=== PATIENT | female | born 1940 | race American Indian/Alaskan Native ===

== ENCOUNTER 2016-10-07 11:00 | Inpatient (IN) | payer MEDICARE ==
[2016-10-07 12:19] LABS: Basophils % (Auto) 0.5 % (0.0-1.8); Eosinophils % (Auto) 1.3 % (0.0-4.3); Hematocrit 36.2 % (30.3-42.9); Hemoglobin 11.6 gm/dl (10.1-14.3); Mean Corpuscular HGB Conc 32 % (30-34); Mean Corpuscular Hemoglobin 29 pg (28-32); Mean Corpuscular Volume 92 fl (79-97); Platelet Count 273 K/mm3 (140-440); Red Blood Count 3.95 M/mm3 (3.65-5.03); White Blood Count 6.9 K/mm3 (4.5-11.0)
[2016-10-07 12:24] LABS: Red Cell Distribution Width 20.7 % (13.2-15.2)
[2016-10-07 12:37] LABS: BUN/Creatinine Ratio 13.8; Calcium 8.7 mg/dL (8.4-10.2); Chloride 105.4 mmol/L (98-107); Potassium 4.4 mmol/L (3.6-5.0)
--- NOTE | 2016-10-07 13:03 | XRay Report ---
ROUTINE CHEST, TWO VIEWS: HISTORY: Shortness of breath. Compared to 09/11/15. Mild cardiomegaly and mild central pulmonary venous congestion are identified. Trace bilateral pleural effusions are identified on the lateral view. No consolidation or pneumothorax. The bony structures are intact. IMPRESSION: Mild CHF.
[2016-10-07] MEDS ORDERED: LASIX IV ONE (17:33)
[2016-10-07] MEDS ORDERED: BABY ASPIRIN PO ONE (17:34)
--- NOTE | 2016-10-07 17:34 | Emergency Department Report ---
ED Shortness of Breath HPI - General Chief Complaint: Dyspnea/Respdistress Stated Complaint: LEG SWELLING/WHEEZING Time Seen by Provider: 10/07/16 17:26 Source: patient, RN notes reviewed, old records reviewed Mode of arrival: Ambulatory Limitations: Physical Limitation - History of Present Illness Initial Comments: This is a 76-year-old female. She is previously unknown to me. Past medical history includes diabetes, hypertension, renal insufficiency, high cholesterol, stroke Has a history of congestive heart failure with an EF of 50-55%. She reports she does not have a primary care doctor, and she does not have a primary planner. The patient presents to the ER with 1 week of lower extremity swelling, unintentional weight gain, orthopnea, shortness of breath. No pain. The symptoms are constant. There worsen with physical exertion. They decrease with rest. MD Complaint: shortness of breath, cough -: Gradual Severity: moderate Consistency: constant Improves With: oxygen, rest, upright position Worsens With: lying flat, exertion Known History Of: congestive heart failure - Related Data Home Oxygen Therapy: No Home Medications Medication Instructions Recorded Confirmed Last Taken Anastrozole (Nf) [Arimidex (Nf)] 1 mg PO DAILY 05/01/15 10/07/16 10/06/16 Aspirin [Aspirin BABY CHEW TAB] 81 mg PO QDAY 05/01/15 10/07/16 10/07/16 Carvedilol [Coreg] 6.25 mg PO BID 05/01/15 10/07/16 10/06/16 Esomeprazole Magnesium [NexIUM] 40 mg PO QDAY 05/01/15 10/07/16 10/06/16 Insulin NPH/Regular [NovoLIN 70/30] 25 unit SQ HS 05/01/15 10/07/16 10/06/16 Franklin-3 Fatty Acids [Franklin-3] 100 mg PO BID 05/01/15 10/07/16 10/06/16 Rosuvastatin (Nf) [Crestor] 20 mg PO QHS 05/01/15 10/07/16 10/06/16 amLODIPine [Norvasc] 10 mg PO DAILY 05/01/15 10/07/16 10/06/16 Allergies Allergy/AdvReac Type Severity Reaction Status Date / Time No Known Allergies Allergy Verified 10/07/16 11:39 ED Review of Systems ROS: Stated complaint: LEG SWELLING/WHEEZING Other details as noted in HPI Constitutional: malaise, weakness Eyes: denies: vision change ENT: denies: epistaxis Respiratory: shortness of breath, wheezing Cardiovascular: edema Gastrointestinal: denies: abdominal pain Genitourinary: denies: dysuria Musculoskeletal: joint swelling, arthralgia, myalgia Skin: denies: lesions Neurological: weakness ED Past Medical Hx - Past Medical History Previous Medical History?: Yes Hx Hypertension: Yes Hx Heart Attack/AMI: Yes (? [place] PER PT 2012) Hx Congestive Heart Failure: Yes Hx Diabetes: Yes (IDDM) Hx of Cancer: Yes (Left breast) Hx Arthritis: Yes (KNEES) - Surgical History Past Surgical History?: Yes Additional Surgical History: left mastectomy - Social History Smoking Status: Former Smoker Substance Use Type: Prescribed - Medications Home Medications: Home Medications Medication Instructions Recorded Confirmed Last Taken Type Anastrozole (Nf) [Arimidex (Nf)] 1 mg PO DAILY 05/01/15 10/07/16 10/06/16 History Aspirin [Aspirin BABY CHEW TAB] 81 mg PO QDAY 05/01/15 10/07/16 10/07/16 History Carvedilol [Coreg] 6.25 mg PO BID 05/01/15 10/07/16 10/06/16 History Esomeprazole Magnesium [NexIUM] 40 mg PO QDAY 05/01/15 10/07/16 10/06/16 History Insulin NPH/Regular [NovoLIN 70/30] 25 unit SQ HS 05/01/15 10/07/16 10/06/16 History Franklin-3 Fatty Acids [Franklin-3] 100 mg PO BID 05/01/15 10/07/16 10/06/16 History Rosuvastatin (Nf) [Crestor] 20 mg PO QHS 05/01/15 10/07/16 10/06/16 History amLODIPine [Norvasc] 10 mg PO DAILY 05/01/15 10/07/16 10/06/16 History ED Physical Exam - General Limitations: Physical Limitation General appearance: obese - Head Head exam: Present: atraumatic, normocephalic - Eye Eye exam: Present: normal appearance, EOMI - ENT ENT exam: Present: normal exam, normal orophraynx, mucous membranes moist, normal external ear exam - Neck Neck exam: Present: normal inspection, full ROM, other (5 cm of jugular venous distention bilaterally). Absent: tenderness, meningismus - Respiratory Respiratory exam: Present: rales, decreased breath sounds. Absent: respiratory distress - Cardiovascular Cardiovascular Exam: Present: regular rate, normal rhythm, normal heart sounds. Absent: bradycardia, tachycardia, irregular rhythm, systolic murmur, diastolic murmur, rubs, gallop - GI/Abdominal GI/Abdominal exam: Present: soft, normal bowel sounds. Absent: distended, tenderness, guarding, rebound, rigid, pulsatile mass - Extremities Exam Extremities exam: Present: normal inspection, pedal edema, other (there is 3+ pitting edema in the bilateral lower extremities.). Absent: calf tenderness - Back Exam Back exam: Present: normal inspection, full ROM. Absent: tenderness, CVA tenderness (R), CVA tenderness (L), muscle spasm, paraspinal tenderness, vertebral tenderness - Neurological Exam Neurological exam: Present: alert, oriented X3, other (Extraocular movements intact. Tongue midline. No facial droop. Facial sensation intact to light touch in the V1, V2, V3 distribution bilaterally. 5 and 5 strength in 4 extremities.. Sensation is intact to light touch in 4 extremities.). Absent: motor sensory deficit - Psychiatric Psychiatric exam: Present: normal affect, normal mood - Skin Skin exam: Present: warm, dry, intact, normal color. Absent: rash ED Course Vital Signs 10/07/16 10/07/16 10/07/16 11:39 13:51 15:06 Temperature 98.4 F Pulse Rate 88 79 Respiratory 19 23 Rate Blood Pressure 181/71 Blood Pressure [Right] O2 Sat by Pulse 95 95 94 Oximetry 10/07/16 10/07/16 10/07/16 15:10 15:20 15:30 Temperature Pulse Rate 78 77 76 Respiratory 16 21 12 Rate Blood Pressure 182/82 182/82 182/82 Blood Pressure [Right] O2 Sat by Pulse 95 91 89 Oximetry 10/07/16 10/07/16 10/07/16 15:40 15:50 15:56 Temperature 97.8 F Pulse Rate 83 81 80 Respiratory 14 17 Rate Blood Pressure 182/82 204/91 Blood Pressure [Right] O2 Sat by Pulse 94 93 Oximetry 10/07/16 10/07/16 10/07/16 15:57 16:00 16:10 Temperature 97.8 F Pulse Rate 80 81 81 Respiratory 19 18 18 Rate Blood Pressure 190/80 190/83 Blood Pressure 182/82 [Right] O2 Sat by Pulse 95 93 92 Oximetry 10/07/16 10/07/16 10/07/16 16:20 16:30 16:40 Temperature Pulse Rate 84 84 82 Respiratory 20 21 17 Rate Blood Pressure 190/83 190/83 190/83 Blood Pressure [Right] O2 Sat by Pulse 88 93 91 Oximetry 10/07/16 10/07/16 10/07/16 16:50 17:00 17:10 Temperature Pulse Rate 81 81 85 Respiratory 18 19 18 Rate Blood Pressure 190/83 190/83 190/83 Blood Pressure [Right] O2 Sat by Pulse 90 94 95 Oximetry 10/07/16 10/07/16 10/07/16 17:20 17:30 17:40 Temperature Pulse Rate 80 84 84 Respiratory 17 22 16 Rate Blood Pressure 190/83 190/83 190/83 Blood Pressure [Right] O2 Sat by Pulse 97 96 97 Oximetry 10/07/16 10/07/16 10/07/16 17:50 18:00 18:10 Temperature Pulse Rate 81 82 88 Respiratory 17 14 12 Rate Blood Pressure 190/83 190/83 190/83 Blood Pressure [Right] O2 Sat by Pulse 97 98 97 Oximetry 10/07/16 10/07/16 10/07/16 18:20 18:30 18:40 Temperature Pulse Rate 90 87 82 Respiratory 18 18 16 Rate Blood Pressure 190/83 190/83 190/83 Blood Pressure [Right] O2 Sat by Pulse 97 97 97 Oximetry 10/07/16 10/07/16 10/07/16 18:50 19:00 19:10 Temperature Pulse Rate 81 82 84 Respiratory 17 19 15 Rate Blood Pressure 190/83 190/83 190/83 Blood Pressure [Right] O2 Sat by Pulse 96 97 97 Oximetry 10/07/16 10/07/16 10/07/16 19:20 19:30 19:40 Temperature Pulse Rate 81 81 83 Respiratory 17 18 16 Rate Blood Pressure 190/83 190/83 190/83 Blood Pressure [Right] O2 Sat by Pulse 97 97 97 Oximetry 10/07/16 10/07/16 10/07/16 19:50 20:00 20:10 Temperature Pulse Rate 81 79 82 Respiratory 14 20 12 Rate Blood Pressure 190/83 190/83 190/83 Blood Pressure [Right] O2 Sat by Pulse 98 96 96 Oximetry 10/07/16 10/07/16 10/07/16 20:20 20:30 20:40 Temperature Pulse Rate 84 82 82 Respiratory 34 H 18 18 Rate Blood Pressure 190/83 190/83 190/83 Blood Pressure [Right] O2 Sat by Pulse 95 97 96 Oximetry 10/07/16 10/07/16 10/07/16 20:50 21:00 21:31 Temperature 97.9 F Pulse Rate 82 81 80 Respiratory 19 15 18 Rate Blood Pressure 190/83 190/83 Blood Pressure 190/82 [Right] O2 Sat by Pulse 96 98 98 Oximetry - EJ/Peripheral Line Neck R Time Out Performed: Yes Indications: nurses unable to establis Skin Cleansed in Sterile Fashion: Yes Size: 18 Dressing Placed: Tegaderm Patient Tolerated Procedure: well ED Medical Decision Making - Lab Data Result diagrams: 10/08/16 04:55 10/08/16 04:55 Vital Signs 10/07/16 10/07/16 10/07/16 11:39 13:51 15:06 Temperature 98.4 F Pulse Rate 88 79 Respiratory 19 23 Rate Blood Pressure 181/71 Blood Pressure [Right] O2 Sat by Pulse 95 95 94 Oximetry 10/07/16 10/07/16 10/07/16 15:10 15:20 15:30 Temperature Pulse Rate 78 77 76 Respiratory 16 21 12 Rate Blood Pressure 182/82 182/82 182/82 Blood Pressure [Right] O2 Sat by Pulse 95 91 89 Oximetry 10/07/16 10/07/16 10/07/16 15:40 15:50 15:56 Temperature 97.8 F Pulse Rate 83 81 80 Respiratory 14 17 Rate Blood Pressure 182/82 204/91 Blood Pressure [Right] O2 Sat by Pulse 94 93 Oximetry 10/07/16 10/07/16 10/07/16 15:57 16:00 16:10 Temperature 97.8 F Pulse Rate 80 81 81 Respiratory 19 18 18 Rate Blood Pressure 190/80 190/83 Blood Pressure 182/82 [Right] O2 Sat by Pulse 95 93 92 Oximetry 10/07/16 10/07/16 10/07/16 16:20 16:30 16:40 Temperature Pulse Rate 84 84 82 Respiratory 20 21 17 Rate Blood Pressure 190/83 190/83 190/83 Blood Pressure [Right] O2 Sat by Pulse 88 93 91 Oximetry 10/07/16 10/07/16 10/07/16 16:50 17:00 17:10 Temperature Pulse Rate 81 81 85 Respiratory 18 19 18 Rate Blood Pressure 190/83 190/83 190/83 Blood Pressure [Right] O2 Sat by Pulse 90 94 95 Oximetry 10/07/16 10/07/16 10/07/16 17:20 17:30 17:40 Temperature Pulse Rate 80 84 84 Respiratory 17 22 16 Rate Blood Pressure 190/83 190/83 190/83 Blood Pressure [Right] O2 Sat by Pulse 97 96 97 Oximetry 10/07/16 10/07/16 10/07/16 17:50 18:00 18:10 Temperature Pulse Rate 81 82 88 Respiratory 17 14 12 Rate Blood Pressure 190/83 190/83 190/83 Blood Pressure [Right] O2 Sat by Pulse 97 98 97 Oximetry 10/07/16 18:20 Temperature Pulse Rate 90 Respiratory 18 Rate Blood Pressure 190/83 Blood Pressure [Right] O2 Sat by Pulse 97 Oximetry Lab Results 10/07/16 10/07/16 10/07/16 Range/Units 12:06 12:10 12:10 WBC 6.9 (4.5-11.0) K/mm3 RBC 3.95 (3.65-5.03) M/mm3 Hgb 11.6 (10.1-14.3) gm/dl Hct 36.2 (30.3-42.9) % MCV 92 (79-97) fl MCH 29 (28-32) pg MCHC 32 (30-34) % RDW 20.7 H (13.2-15.2) % Plt Count 273 (140-440) K/mm3 Lymph % (Auto) 20.0 (13.4-35.0) % Travis % (Auto) 7.9 H (0.0-7.3) % Eos % (Auto) 1.3 (0.0-4.3) % Baso % (Auto) 0.5 (0.0-1.8) % Lymph # 1.4 (1.2-5.4) K/mm3 Travis # 0.5 (0.0-0.8) K/mm3 Eos # 0.1 (0.0-0.4) K/mm3 Baso # 0.0 (0.0-0.1) K/mm3 Seg Neutrophils % 70.3 H (40.0-70.0) % Seg Neutrophils # 4.8 (1.8-7.7) K/mm3 PT (12.2-14.9) Sec. INR (0.87-1.13) APTT (24.2-36.6) Sec. Sodium 142 (137-145) mmol/L Potassium 4.4 (3.6-5.0) mmol/L Chloride 105.4 (98-107) mmol/L Carbon Dioxide 21 L (22-30) mmol/L Anion Gap 20 mmol/L BUN 29 H (7-17) mg/dL Creatinine 2.1 H (0.7-1.2) mg/dL Estimated GFR 28 ml/min BUN/Creatinine Ratio 13.80 % Glucose 60 L (65-100) mg/dL POC Glucose (70-105) Calcium 8.7 (8.4-10.2) mg/dL Troponin T 0.025 (0.00-0.029) ng/mL NT-Pro-B Natriuret Pep 1842 H (0-900) pg/mL Urine Color (Yellow) Urine Turbidity (Clear) Urine pH (5.0-7.0) Ur Specific [place] (1.003-1.030) Urine Protein (Negative) mg/dL Urine Glucose (UA) (Negative) mg/dL Urine Ketones (Negative) mg/dL Urine Blood (Negative) Urine Nitrite (Negative) Urine Bilirubin (Negative) Urine Urobilinogen (<2.0) mg/dL Ur Leukocyte Esterase (Negative) Urine WBC (Auto) (0.0-6.0) /HPF Urine RBC (Auto) (0.0-6.0) /HPF Amorphous Crystals 10/07/16 10/07/16 10/07/16 Range/Units 17:10 17:30 17:51 WBC (4.5-11.0) K/mm3 RBC (3.65-5.03) M/mm3 Hgb (10.1-14.3) gm/dl Hct (30.3-42.9) % MCV (79-97) fl MCH (28-32) pg MCHC (30-34) % RDW (13.2-15.2) % Plt Count (140-440) K/mm3 Lymph % (Auto) (13.4-35.0) % Travis % (Auto) (0.0-7.3) % Eos % (Auto) (0.0-4.3) % Baso % (Auto) (0.0-1.8) % Lymph # (1.2-5.4) K/mm3 Travis # (0.0-0.8) K/mm3 Eos # (0.0-0.4) K/mm3 Baso # (0.0-0.1) K/mm3 Seg Neutrophils % (40.0-70.0) % Seg Neutrophils # (1.8-7.7) K/mm3 PT 13.9 (12.2-14.9) Sec. INR 1.02 (0.87-1.13) APTT 39.2 H (24.2-36.6) Sec. Sodium (137-145) mmol/L Potassium (3.6-5.0) mmol/L Chloride (98-107) mmol/L Carbon Dioxide (22-30) mmol/L Anion Gap mmol/L BUN (7-17) mg/dL Creatinine (0.7-1.2) mg/dL Estimated GFR ml/min BUN/Creatinine Ratio % Glucose (65-100) mg/dL POC Glucose 61 L (70-105) Calcium (8.4-10.2) mg/dL Troponin T (0.00-0.029) ng/mL NT-Pro-B Natriuret Pep (0-900) pg/mL Urine Color Yellow (Yellow) Urine Turbidity Clear (Clear) Urine pH 5.0 (5.0-7.0) Ur Specific [place] 1.013 (1.003-1.030) Urine Protein >500 (Negative) mg/dL Urine Glucose (UA) Neg (Negative) mg/dL Urine Ketones Neg (Negative) mg/dL Urine Blood Sm (Negative) Urine Nitrite Neg (Negative) Urine Bilirubin Neg (Negative) Urine Urobilinogen < 2.0 (<2.0) mg/dL Ur Leukocyte Esterase Neg (Negative) Urine WBC (Auto) 2.0 (0.0-6.0) /HPF Urine RBC (Auto) 1.0 (0.0-6.0) /HPF Amorphous Crystals Few - EKG Data -: EKG Interpreted by Pr EKG shows normal: sinus rhythm - EKG Data 10/07/16 18:52 Normal sinus, 78 bpm, normal axis, poor R-wave progression, first-degree AV block, Q waves noted in inferior leads, abnormal EKG, not morphologically consistent with STEMI - Radiology Data Radiology results: image reviewed X-ray of the chest demonstrates congestive heart failure - Medical Decision Making Differential diagnosis: Congestive heart failure, pneumonia, cardiorenal syndrome Assessment and plan: 76-year-old female with shortness of breath, crackles, rales, edema, jugular venous distention, hypoxic on room air to 88%, clinical picture consistent with mildly decompensated congestive heart failure. She is saturating well on 2 L. She does not require positive pressure ventilation at this time. She will be given high-dose Lasix. Renal insufficiency appears to be within baseline parameters. Case is presents to the Hospital physician, Dr. Ferreira, who accepts the patient to his service for congestive heart failure. Case is presented to cardiology, Dr. Toshia seo, who agrees with plan of care for management, and indicates his group will follow in consultation. Critical care attestation.: If time is entered above; I have spent that time in minutes in the direct care of this critically ill patient, excluding procedure time. ED Disposition Clinical Impression: Hypertensive cardiovascular-renal disease CHF exacerbation Qualifiers: Congestive heart failure type: combined Qualified Code(s): I50.43 - Acute on chronic combined systolic (congestive) and diastolic (congestive) heart failure Disposition: OP ADMIT IP TO THIS HOSP Is pt being admited?: Yes Does the pt Need Aspirin: Yes Condition: Good
[2016-10-07 17:58] LABS: INR 1.02 (0.87-1.13)
[2016-10-07 17:59] LABS: Partial Thromboplastin Time 39.2 Sec. (24.2-36.6)
[2016-10-07 18:47] LABS: Bilirubin,Urine NEG (Negative); Blood,Urine SM (Negative); Ketones,Urine NEG (Negative); Leukocyte Esterase,Urine NEG (Negative); Nitrite,Urine NEG (Negative); Protein,Urine >500 mg/dL (Negative); Urobilinogen,Urine < 2.0 mg/dL (<2.0)
[2016-10-07] MEDS ORDERED: D50W (25GM) Syringe IV ONE (18:49)
--- NOTE | 2016-10-07 20:45 | History and Physical Report ---
History of Present Illness Date of examination: 10/07/16 Date of admission: 10/07/16 Chief complaint: Increasing SOB for 4 days. History of present illness: History of Present Illness This is a 76-year-old female with past medical history includes diabetes, hypertension, renal insufficiency, high cholesterol, stroke. Has a history of congestive heart failure with an EF of 50-55%.The patient presents to the ER with 1 week of lower extremity swelling, unintentional weight gain, orthopnea, shortness of breath. No pain. The symptoms are constant. There worsen with physical exertion. They decrease with rest. shortness of breath, cough -: Gradual Severity: moderate Consistency: constant Improves With: oxygen, rest, upright position Worsens With: lying flat, exertion Known History Of: congestive heart failure - Home Medications Medication Instructions Recorded Confirmed Last Taken Anastrozole (Nf) [Arimidex (Nf)] 1 mg PO DAILY 05/01/15 09/11/15 Unknown Aspirin [Aspirin BABY CHEW TAB] 81 mg PO QDAY 05/01/15 09/11/15 Unknown Carvedilol [Coreg] 6.25 mg PO BID 05/01/15 09/11/15 Unknown Esomeprazole Magnesium [NexIUM] 40 mg PO QDAY 05/01/15 09/11/15 Unknown Insulin NPH/Regular [NovoLIN 70/30] 25 unit SQ HS 05/01/15 09/11/15 Unknown Lisinopril [Zestril TAB] 40 mg PO QDAY 05/01/15 09/11/15 Unknown [place]-3 Fatty Acids [[place]-3] 100 mg PO DAILY 05/01/15 09/11/15 Unknown Rosuvastatin (Nf) [Crestor] 20 mg PO QHS 05/01/15 09/11/15 Unknown amLODIPine [Norvasc] 10 mg PO DAILY 05/01/15 09/11/15 Unknown Previous Rx's Medication Instructions Recorded Last Taken Type Furosemide [Lasix] 20 mg PO QDAY PRN #20 tablet 09/19/15 Unknown Rx HYDROcodone/APAP 5-325 [[place] 1 each PO Q6HR PRN #20 tablet 09/29/15 Unknown Rx 5-325 mg TAB] Levofloxacin [Levaquin TAB] 500 mg PO QDAY #10 tablet 09/29/15 Unknown Rx Allergies Allergy/AdvReac Type Severity Reaction Status Date / Time No Known Allergies Allergy Verified 10/07/16 11:39 Past Medical History Previous Medical History?: Yes Hx Hypertension: Yes Hx Heart Attack/AMI: Yes (? ND PER PT 2012) Hx Congestive Heart Failure: Yes Hx Diabetes: Yes (IDDM) Hx of Cancer: Yes (Left breast) Hx Arthritis: Yes (KNEES) - Surgical History Past Surgical History?: Yes Additional Surgical History: left mastectomy - Social History Smoking Status: Former Smoker Substance Use Type: Prescribed - Medications Home Medications: Home Medications Medication Instructions Recorded Confirmed Last Taken Type Anastrozole (Nf) [Arimidex (Nf)] 1 mg PO DAILY 05/01/15 09/11/15 Unknown History Aspirin [Aspirin BABY CHEW TAB] 81 mg PO QDAY 05/01/15 09/11/15 Unknown History Carvedilol [Coreg] 6.25 mg PO BID 05/01/15 09/11/15 Unknown History Esomeprazole Magnesium [NexIUM] 40 mg PO QDAY 05/01/15 09/11/15 Unknown History Insulin NPH/Regular [NovoLIN 70/30] 25 unit SQ HS 05/01/15 09/11/15 Unknown History Lisinopril [Zestril TAB] 40 mg PO QDAY 05/01/15 09/11/15 Unknown History [place]-3 Fatty Acids [[place]-3] 100 mg PO DAILY 05/01/15 09/11/15 Unknown History Rosuvastatin (Nf) [Crestor] 20 mg PO QHS 05/01/15 09/11/15 Unknown History amLODIPine [Norvasc] 10 mg PO DAILY 05/01/15 09/11/15 Unknown History Furosemide [Lasix] 20 mg PO QDAY PRN #20 tablet 09/19/15 Unknown Rx HYDROcodone/APAP 5-325 [[place] 1 each PO Q6HR PRN #20 tablet 09/29/15 Unknown Rx 5-325 mg TAB] Levofloxacin [Levaquin TAB] 500 mg PO QDAY #10 tablet 09/29/15 Unknown Rx Medications and Allergies Allergies Allergy/AdvReac Type Severity Reaction Status Date / Time No Known Allergies Allergy Verified 10/07/16 11:39 Home Medications Medication Instructions Recorded Confirmed Last Taken Type Anastrozole (Nf) [Arimidex (Nf)] 1 mg PO DAILY 05/01/15 10/07/16 10/06/16 History Aspirin [Aspirin BABY CHEW TAB] 81 mg PO QDAY 05/01/15 10/07/16 10/07/16 History Carvedilol [Coreg] 6.25 mg PO BID 05/01/15 10/07/16 10/06/16 History Esomeprazole Magnesium [NexIUM] 40 mg PO QDAY 05/01/15 10/07/16 10/06/16 History Insulin NPH/Regular [NovoLIN 70/30] 25 unit SQ HS 05/01/15 10/07/16 10/06/16 History [place]-3 Fatty Acids [[place]-3] 100 mg PO BID 05/01/15 10/07/16 10/06/16 History Rosuvastatin (Nf) [Crestor] 20 mg PO QHS 05/01/15 10/07/16 10/06/16 History amLODIPine [Norvasc] 10 mg PO DAILY 05/01/15 10/07/16 10/06/16 History Exam - Constitutional Vitals: Temp Pulse Resp BP Pulse Ox 97.8 F 90 18 190/83 97 10/07/16 15:57 10/07/16 18:20 10/07/16 18:20 10/07/16 18:20 10/07/16 18:20 General appearance: Present: no acute distress, mild distress, well-nourished - EENT Eyes: Present: PERRL ENT: hearing intact, clear oral mucosa - Neck Neck: Present: supple, normal ROM - Respiratory Respiratory effort: normal Respiratory: bilateral: CTA - Cardiovascular Heart rate: 90 Rhythm: regular Heart Sounds: Present: S1 & S2. Absent: rub, click - Extremities Extremities: no ischemia, pulses intact, pulses symmetrical, No edema Extremity abnormal: edema Peripheral Pulses: within normal limits - Abdominal General gastrointestinal: Present: soft, non-tender, non-distended, normal bowel sounds Female genitourinary: Present: normal - Integumentary Integumentary: Present: clear, warm, dry - Musculoskeletal Musculoskeletal: gait normal, strength equal bilaterally - Psychiatric Psychiatric: appropriate mood/affect, intact judgment & insight - Neurologic Neurologic: CNII-XII intact, moves all extremities - Allied Health Allied health notes reviewed: nursing, case management Results - Labs CBC & Chem 7: 10/07/16 12:06 10/07/16 12:10 Labs: Laboratory Last Values WBC 6.9 K/mm3 (4.5-11.0) 10/07/16 12:06 RBC 3.95 M/mm3 (3.65-5.03) 10/07/16 12:06 Hgb 11.6 gm/dl (10.1-14.3) 10/07/16 12:06 Hct 36.2 % (30.3-42.9) 10/07/16 12:06 MCV 92 fl (79-97) 10/07/16 12:06 MCH 29 pg (28-32) 10/07/16 12:06 MCHC 32 % (30-34) 10/07/16 12:06 RDW 20.7 % (13.2-15.2) H 10/07/16 12:06 Plt Count 273 K/mm3 (140-440) 10/07/16 12:06 Lymph % (Auto) 20.0 % (13.4-35.0) 10/07/16 12:06 [place] % (Auto) 7.9 % (0.0-7.3) H 10/07/16 12:06 Eos % (Auto) 1.3 % (0.0-4.3) 10/07/16 12:06 Baso % (Auto) 0.5 % (0.0-1.8) 10/07/16 12:06 Lymph # 1.4 K/mm3 (1.2-5.4) 10/07/16 12:06 [place] # 0.5 K/mm3 (0.0-0.8) 10/07/16 12:06 Eos # 0.1 K/mm3 (0.0-0.4) 10/07/16 12:06 Baso # 0.0 K/mm3 (0.0-0.1) 10/07/16 12:06 Seg Neutrophils % 70.3 % (40.0-70.0) H 10/07/16 12:06 Seg Neutrophils # 4.8 K/mm3 (1.8-7.7) 10/07/16 12:06 PT 13.9 Sec. (12.2-14.9) 10/07/16 17:30 INR 1.02 (0.87-1.13) 10/07/16 17:30 APTT 39.2 Sec. (24.2-36.6) H 10/07/16 17:30 Sodium 142 mmol/L (137-145) 10/07/16 12:10 Potassium 4.4 mmol/L (3.6-5.0) 10/07/16 12:10 Chloride 105.4 mmol/L (98-107) 10/07/16 12:10 Carbon Dioxide 21 mmol/L (22-30) L 10/07/16 12:10 Anion Gap 20 mmol/L 10/07/16 12:10 BUN 29 mg/dL (7-17) H 10/07/16 12:10 Creatinine 2.1 mg/dL (0.7-1.2) H 10/07/16 12:10 Estimated GFR 28 ml/min 10/07/16 12:10 BUN/Creatinine Ratio 13.80 % 10/07/16 12:10 Glucose 60 mg/dL (65-100) L 10/07/16 12:10 POC Glucose 120 (70-105) H 10/07/16 18:51 Calcium 8.7 mg/dL (8.4-10.2) 10/07/16 12:10 Troponin T 0.025 ng/mL (0.00-0.029) 10/07/16 12:10 NT-Pro-B Natriuret Pep 1842 pg/mL (0-900) H 10/07/16 12:10 Urine Color Yellow (Yellow) 10/07/16 17:51 Urine Turbidity Clear (Clear) 10/07/16 17:51 Urine pH 5.0 (5.0-7.0) 10/07/16 17:51 Ur Specific [place] 1.013 (1.003-1.030) 10/07/16 17:51 Urine Protein >500 mg/dL (Negative) 10/07/16 17:51 Urine Glucose (UA) Neg mg/dL (Negative) 10/07/16 17:51 Urine Ketones Neg mg/dL (Negative) 10/07/16 17:51 Urine Blood Sm (Negative) 10/07/16 17:51 Urine Nitrite Neg (Negative) 10/07/16 17:51 Urine Bilirubin Neg (Negative) 10/07/16 17:51 Urine Urobilinogen < 2.0 mg/dL (<2.0) 10/07/16 17:51 Ur Leukocyte Esterase Neg (Negative) 10/07/16 17:51 Urine WBC (Auto) 2.0 /HPF (0.0-6.0) 10/07/16 17:51 Urine RBC (Auto) 1.0 /HPF (0.0-6.0) 10/07/16 17:51 Amorphous Crystals Few 10/07/16 17:51 Short CBC 10/07/16 Range/Units 12:06 WBC 6.9 (4.5-11.0) K/mm3 Hgb 11.6 (10.1-14.3) gm/dl Hct 36.2 (30.3-42.9) % Plt Count 273 (140-440) K/mm3 BMP 10/07/16 12:10 Sodium 142 Potassium 4.4 Chloride 105.4 Carbon Dioxide 21 L BUN 29 H Creatinine 2.1 H Glucose 60 L Calcium 8.7 Cardiac Enzymes 10/07/16 Range/Units 12:10 Troponin T 0.025 (0.00-0.029) ng/mL Urine 10/07/16 Range/Units 17:51 Urine Color Yellow (Yellow) Urine pH 5.0 (5.0-7.0) Ur Specific [place] 1.013 (1.003-1.030) Urine Protein >500 (Negative) mg/dL Urine Glucose (UA) Neg (Negative) mg/dL - Imaging and Cardiology EKG: report reviewed Chest x-ray: report reviewed Assessment and Plan Advance Directives: Yes (Full code) VTE prophylaxis?: Chemical Plan of care discussed with patient/family: Yes - Patient Problems (1) CHF exacerbation Current Visit: Yes Status: Acute Qualifiers: Congestive heart failure type: combined Qualified Code(s): I50.43 - Acute on chronic combined systolic (congestive) and diastolic (congestive) heart failure Plan to address problem: Laasix 40 q12 Echo ordered Cardiology consult -[facility] (2) RAUL (acute kidney injury) Current Visit: Yes Status: Acute Plan to address problem: Renal consult requested (3) IDDM (insulin dependent diabetes mellitus) Current Visit: Yes Status: Chronic Plan to address problem: A1c ordered Cont home meds and coverage (4) HTN (hypertension) Current Visit: Yes Status: Chronic Qualifiers: Hypertension type: essential hypertension Qualified Code(s): I10 - Essential (primary) hypertension Plan to address problem: Cont Antihypertensives (5) HLD (hyperlipidemia) Current Visit: Yes Status: Chronic Qualifiers: Hyperlipidemia type: mixed hyperlipidemia Qualified Code(s): E78.2 - Mixed hyperlipidemia Plan to address problem: Cont Statins (6) DVT prophylaxis Current Visit: Yes Status: Acute Plan to address problem: On Lovenox
[2016-10-07] MEDS ORDERED: MILK OF MAGNESIA PO PRN (20:48)
[2016-10-07] MEDS ORDERED: D50W (25GM) Syringe IV PRN (20:48)
[2016-10-07] MEDS ORDERED: ZOFRAN IV PRN (20:48)
[2016-10-07] MEDS ORDERED: DILAUDID IV PRN (20:48)
[2016-10-07] MEDS ORDERED: DULCOLAX PR PRN (20:48)
[2016-10-07] MEDS ORDERED: NON-FORMULARY (Anastrozole (Nf) 1 MG) PO SCH (21:00)
[2016-10-07] MEDS ORDERED: NON-FORMULARY (Esomeprazole Magnesium [Nexium] 40 MG) PO SCH (21:00)
[2016-10-07] MEDS: NORVASC PO SCH (22:25)
[2016-10-07] MEDS: COREG PO SCH (22:26)
[2016-10-07] MEDS: PROTONIX PO SCH (22:27)
[2016-10-07] MEDS: K-DUR PO SCH (22:27)
[2016-10-07] MEDS: NOVOLOG SUB-Q SCH (22:30)
[2016-10-08] MEDS: LASIX IV SCH ×2 (06:12→18:14)
[2016-10-08 06:13] LABS: Basophils % (Auto) 0.3 % (0.0-1.8); Hematocrit 33.3 % (30.3-42.9); Hemoglobin 10.8 gm/dl (10.1-14.3); Mean Corpuscular HGB Conc 33 % (30-34); Mean Corpuscular Hemoglobin 30 pg (28-32); Mean Corpuscular Volume 92 fl (79-97); Platelet Count 250 K/mm3 (140-440); Red Blood Count 3.63 M/mm3 (3.65-5.03); White Blood Count 5.7 K/mm3 (4.5-11.0)
[2016-10-08 06:17] LABS: Red Cell Distribution Width 20.7 % (13.2-15.2)
[2016-10-08 06:34] LABS: Albumin 2.9 g/dL (3.9-5); Albumin/Globulin Ratio 0.9 %; BUN/Creatinine Ratio 14.21; Bilirubin,Total 0.2 mg/dL (0.1-1.2); Calcium 8.6 mg/dL (8.4-10.2); Chloride 107.5 mmol/L (98-107); Potassium 4.4 mmol/L (3.6-5.0); Total Protein 6.1 g/dL (6.3-8.2)
[2016-10-08] MEDS: NOVOLOG SUB-Q SCH ×4 (08:56→22:36)
[2016-10-08] MEDS: NORVASC PO SCH (09:00)
[2016-10-08] MEDS: BABY ASPIRIN PO SCH (09:00)
[2016-10-08] MEDS: COREG PO SCH (09:01)
[2016-10-08] MEDS: K-DUR PO SCH ×2 (09:01→22:34)
[2016-10-08] MEDS: LOVENOX SUB-Q SCH (09:01)
[2016-10-08] MEDS: PROTONIX PO SCH (09:01)
--- NOTE | 2016-10-08 09:51 | Consultation ---
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 She has been seen by our group on prior hospitalizations but has not bee compliant with OP follow up. Her PCP is Dr. Brooke. She presented with c/o progressively worsening SOB and BLE edema x 5 days [employer]. She denies any chest pain, palpitations, n/v, diaphoresis, dizziness , or syncope. She is unsure if she has been experiencing orthopnea or PND - she never lies flat in bed at night d/t GERD. Admission CXR showed mild central pulmonary venous congestion, mild cardiomegaly, trace bilateral effusions; pro- BNP 1842; serum Cr 2.1. Of note, echo done 08/2015 showed mild LVH, EF 50-55%, mild-mod MR, mod-severe TR, RVSP 58mmHg. Stress MPI done 09/16/15 showed mod. fixed inferior wall defect, small, mild partially reversible septal and lateral wall defects; medical management was recommended. Past History Past Medical History: cancer (breast), diabetes, heart failure (diastolic), hypertension, hyperlipidemia, stroke Past Surgical History: Other (left mastectomy ) Social history: smoking (former - quit 1988), alcohol abuse (former - quit 1988) . denies: prescription drug abuse Medications and Allergies Allergies Allergy/AdvReac Type Severity Reaction Status Date / Time No Known Allergies Allergy Verified 10/07/16 11:39 Home Medications Medication Instructions Recorded Confirmed Last Taken Type Anastrozole (Nf) [Arimidex (Nf)] 1 mg PO DAILY 05/01/15 10/07/16 10/06/16 History Aspirin [Aspirin BABY CHEW TAB] 81 mg PO QDAY 05/01/15 10/07/16 10/07/16 History Carvedilol [Coreg] 6.25 mg PO BID 05/01/15 10/07/16 10/06/16 History Esomeprazole Magnesium [NexIUM] 40 mg PO QDAY 05/01/15 10/07/16 10/06/16 History Insulin NPH/Regular [NovoLIN 70/30] 25 unit SQ HS 05/01/15 10/07/16 10/06/16 History [place]-3 Fatty Acids [[place]-3] 100 mg PO BID 05/01/15 10/07/16 10/06/16 History Rosuvastatin (Nf) [Crestor] 20 mg PO QHS 05/01/15 10/07/16 10/06/16 History amLODIPine [Norvasc] 10 mg PO DAILY 05/01/15 10/07/16 10/06/16 History Active Meds: Active Medications Acetaminophen (Tylenol) 650 mg PO Q4H PRN PRN Reason: Pain MILD(1-3)/Fever >100.5/BONILLA Amlodipine Besylate (Norvasc) 10 mg PO DAILY [facility] Last Admin: 10/08/16 09:00 Dose: 10 mg Aspirin (Baby Aspirin) 81 mg PO QDAY [facility] Last Admin: 10/08/16 09:00 Dose: 81 mg Bisacodyl (Dulcolax) 10 mg [place] QDAY PRN PRN Reason: Constipation unrelieved by MOM Carvedilol (Coreg) 6.25 mg PO BID [facility] Last Admin: 10/08/16 09:01 Dose: 6.25 mg Dextrose (D50w (25gm)) 50 ml IV PRN PRN PRN Reason: Hypoglycemia Enoxaparin Sodium (Lovenox) 30 mg SUB-Q QDAY [facility] Last Admin: 10/08/16 09:01 Dose: 30 mg Furosemide (Lasix) 40 mg IV 0600,1800 [facility] Last Admin: 10/08/16 06:12 Dose: 40 mg Hydromorphone HCl (Dilaudid) 0.5 mg IV Q3H PRN PRN Reason: Pain , Severe (7-10) Insulin Aspart (Novolog) 0 units SUB-Q [facility] PRN Reason: Protocol Last Admin: 10/08/16 08:56 Dose: Not Given Insulin Human Isoph/Insulin Regular (Novolin 70/30) 25 unit SUB-Q [facility] Last Admin: 10/07/16 22:31 Dose: Not Given Magnesium Hydroxide (Milk Of Magnesia) 30 ml PO Q4H PRN PRN Reason: Constipation Miscellaneous Medication (Anastrozole (Nf)) 1 mg PO DAILY [facility] Ondansetron HCl (Zofran) 4 mg IV Q8H PRN PRN Reason: N/V unrelieved by Reglan Pantoprazole Sodium (Protonix) 40 mg PO DAILY [facility] Last Admin: 10/08/16 09:01 Dose: 40 mg Potassium Chloride (K-Dur) 20 meq PO Q12HR [facility] Last Admin: 10/08/16 09:01 Dose: 20 meq Review of Systems Constitutional: no weight loss, no weight gain, no fever, no chills, no sweats Ears, nose, mouth and throat: no ear pain, no nose pain, no sinus pressure, no sinus pain Cardiovascular: shortness of breath, dyspnea on exertion, leg edema, no chest pain, no palpitations, no rapid/irregular heart beat, no lightheadedness Respiratory: shortness of breath, dyspnea on exertion, wheezing, no cough, no congestion, no pain on inspiration Gastrointestinal: no abdominal pain, no nausea, no vomiting, no diarrhea, no constipation, no change in bowel habits Genitourinary Female: no pelvic pain, no flank pain, no dysuria, no urinary frequency, no urgency Musculoskeletal: no neck stiffness, no neck pain, no shooting arm pain, no arm numbness/tingling, no low back pain, no shooting leg pain, no leg numbness/ tingling, no redness of joints Integumentary: no rash, no pruritis, no redness, no sores, no wounds Neurological: no head injury, no paralysis, no weakness, no parathesias, no numbness, no tingling, no seizures, no syncope Psychiatric: no anxiety Endocrine: no cold intolerance, no heat intolerance Hematologic/Lymphatic: no easy bruising, no easy bleeding, no lymphadenopathy Allergic/Immunologic: no urticaria, no wheezing, no persistent infections Physical Examination Vital Signs Temp Pulse BP Pulse Ox 98.4 F 88 181/71 95 10/07/16 11:39 10/07/16 11:39 10/07/16 11:39 10/07/16 11:39 General appearance: no acute distress HEENT: Positive: PERRL, Normocephaly, Mucus Membranes Moist Neck: Positive: neck supple, trachea midline Cardiac: Positive: Reg Rate and Rhythm, S1/S2, Systolic Murmur (grade II/) Lungs: Positive: Rales (bilaterally ) Neuro: Positive: Grossly Intact, Cranial Nerve 2-12 Intact Abdomen: Positive: Unremarkable, Soft, Active Bowel Sounds. Negative: Tender Skin: Positive: Clear. Negative: Rash, Wound Musculoskeletal: No Pain, Normal Range of Motion Extremities: Present: +2 Edema (BLE pitting ) Results 10/08/16 04:55 10/08/16 04:55 Cardiac Enzymes 10/08/16 Range/Units 04:55 AST 14 (5-40) units/L CBC 10/08/16 Range/Units 04:55 WBC 5.7 (4.5-11.0) K/mm3 RBC 3.63 L (3.65-5.03) M/mm3 Hgb 10.8 (10.1-14.3) gm/dl Hct 33.3 (30.3-42.9) % Plt Count 250 (140-440) K/mm3 Lymph # 1.1 L (1.2-5.4) K/mm3 [place] # 0.6 (0.0-0.8) K/mm3 Eos # 0.1 (0.0-0.4) K/mm3 Baso # 0.0 (0.0-0.1) K/mm3 Comprehensive Metabolic Panel 10/08/16 Range/Units 04:55 Sodium 145 (137-145) mmol/L Potassium 4.4 (3.6-5.0) mmol/L Chloride 107.5 H (98-107) mmol/L Carbon Dioxide 22 (22-30) mmol/L BUN 27 H (7-17) mg/dL Creatinine 1.9 H (0.7-1.2) mg/dL Glucose 84 (65-100) mg/dL Calcium 8.6 (8.4-10.2) mg/dL AST 14 (5-40) units/L ALT 7 (7-56) units/L Alkaline Phosphatase 82 (35-129) units/L Total Protein 6.1 L (6.3-8.2) g/dL Albumin 2.9 L (3.9-5) g/dL - Imaging and Cardiology Echo: report reviewed (echo done 08/2015 showed mild LVH, EF 50-55%, mild-mod MR , mod-severe TR, RVSP 58mmHg) EKG: pending Assessment and Plan Assessment: Acute diastolic HF CKD - serum Cr appears to be at baseline when compared to admission in 08/2015 HTN HLP DM H/o CVA H/o breast CA, s/p left mastectomy Plan: Obtain 12-lead EKG. F/u echo as last echo was 08/2015. Agree with current cardiac regimen, including diuresis with IV lasix, 40mg BID. Repeat BMP in AM. The patient has been seen in conjunction with Dr. Autumn Leon who agrees with the assessment and plan of care.
[2016-10-08] MEDS ORDERED: NON-FORMULARY (Anastrozole (Nf) 1 MG) PO SCH (10:00)
[2016-10-08] MEDS ORDERED: LOVENOX SUB-Q SCH (10:00)
--- NOTE | 2016-10-08 10:12 | Consultation ---
History of Present Illness - Reason for Consult Consult date: 10/08/16 chronic renal failure - History of Present Illness The patient is a 76 YO AAF with a medical history significant for Diastolic CHF , HTN, HLP, Type 2 DM, CVA, Breast CA s/p left mastectomy in 2012, CKD stage 3 and GERD who presented with one week h/o progressive SOB and bilateral LE edema. She denies any chest pain, diaphoresis, dizziness, syncope, N, V, D, abd pain, fever or rash. Admission CXR showed mild central pulmonary venous congestion, mild cardiomegaly, trace bilateral effusions. 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 Her renal function appears to be at her baseline. Past History Past Medical History: cancer (breast), diabetes, heart failure (diastolic), hypertension, hyperlipidemia, stroke Past Surgical History: Other (left mastectomy ) Social history: smoking (former - quit 1988), alcohol abuse (former - quit 1988) . denies: prescription drug abuse Medications and Allergies Allergies Allergy/AdvReac Type Severity Reaction Status Date / Time No Known Allergies Allergy Verified 10/07/16 11:39 Home Medications Medication Instructions Recorded Confirmed Last Taken Type Anastrozole (Nf) [Arimidex (Nf)] 1 mg PO DAILY 05/01/15 10/07/16 10/06/16 History Aspirin [Aspirin BABY CHEW TAB] 81 mg PO QDAY 05/01/15 10/07/16 10/07/16 History Carvedilol [Coreg] 6.25 mg PO BID 05/01/15 10/07/16 10/06/16 History Esomeprazole Magnesium [NexIUM] 40 mg PO QDAY 05/01/15 10/07/16 10/06/16 History Insulin NPH/Regular [NovoLIN 70/30] 25 unit SQ HS 05/01/15 10/07/16 10/06/16 History [place]-3 Fatty Acids [[place]-3] 100 mg PO BID 05/01/15 10/07/16 10/06/16 History Rosuvastatin (Nf) [Crestor] 20 mg PO QHS 05/01/15 10/07/16 10/06/16 History amLODIPine [Norvasc] 10 mg PO DAILY 05/01/15 10/07/16 10/06/16 History Active Meds: Active Medications Acetaminophen (Tylenol) 650 mg PO Q4H PRN PRN Reason: Pain MILD(1-3)/Fever >100.5/B[place]ILLA Amlodipine Besylate (Norvasc) 10 mg PO DAILY [facility] Last Admin: 10/08/16 09:00 Dose: 10 mg Aspirin (Baby Aspirin) 81 mg PO QDAY [facility] Last Admin: 10/08/16 09:00 Dose: 81 mg Bisacodyl (Dulcolax) 10 mg [place] QDAY PRN PRN Reason: Constipation unrelieved by MOM Carvedilol (Coreg) 6.25 mg PO BID [facility] Last Admin: 10/08/16 09:01 Dose: 6.25 mg Dextrose (D50w (25gm)) 50 ml IV PRN PRN PRN Reason: Hypoglycemia Enoxaparin Sodium (Lovenox) 30 mg SUB-Q QDAY [facility] Last Admin: 10/08/16 09:01 Dose: 30 mg Furosemide (Lasix) 40 mg IV 0600,1800 [facility] Last Admin: 10/08/16 06:12 Dose: 40 mg Hydromorphone HCl (Dilaudid) 0.5 mg IV Q3H PRN PRN Reason: Pain , Severe (7-10) Insulin Aspart (Novolog) 0 units SUB-Q [facility]S [facility] PRN Reason: Protocol Last Admin: 10/08/16 08:56 Dose: Not Given Insulin Human Isoph/Insulin Regular (Novolin 70/30) 25 unit SUB-Q HS [facility] Last Admin: 10/07/16 22:31 Dose: Not Given Magnesium Hydroxide (Milk Of Magnesia) 30 ml PO Q4H PRN PRN Reason: Constipation Miscellaneous Medication (Anastrozole (Nf)) 1 mg PO DAILY [facility] Ondansetron HCl (Zofran) 4 mg IV Q8H PRN PRN Reason: N/V unrelieved by Reglan Pantoprazole Sodium (Protonix) 40 mg PO DAILY [facility] Last Admin: 10/08/16 09:01 Dose: 40 mg Potassium Chloride (K-Dur) 20 meq PO Q12HR [facility] Last Admin: 10/08/16 09:01 Dose: 20 meq Review of Systems Constitutional: no weight loss, no weight gain, no fever, no chills, no anorexia , no weakness Ears, nose, mouth and throat: no sinus pain, no epistaxis Breasts: deferred Cardiovascular: edema, shortness of breath, dyspnea on exertion, high blood pressure, leg edema, no chest pain, no orthopnea, no palpitations, no rapid/ irregular heart beat, no syncope, no lightheadedness Respiratory: wheezing, no cough, no hemoptysis Gastrointestinal: no abdominal pain, no nausea, no vomiting, no diarrhea, no melena, no jaundice Genitourinary Female: no dysuria, no hematuria Rectal: no bleeding Musculoskeletal: no redness of joints Integumentary: no rash, no wounds, no jaundice Neurological: weakness, no seizures, no syncope, no convulsions, no aphasia Psychiatric: no disorientation Hematologic/Lymphatic: no easy bleeding Exam - Vital Signs Vital signs: Vital Signs Temp Pulse BP Pulse Ox 98.4 F 88 181/71 95 10/07/16 11:39 10/07/16 11:39 10/07/16 11:39 10/07/16 11:39 - General Appearance General appearance: well-developed, well-nourished, appears stated age, obese, other (no distress) EENT: ATNC, PERRL, mucous membranes moist, hearing intact Neck: Present: neck supple Respiratory: Clear to Ascultation Heart: regular, S1S2, no murmurs Gastrointestinal: Present: normoactive bowel sounds, obese. Absent: tenderness Integumentary: no rash Neurologic: no asterixis, alert and oriented x3, other (able to move all 4 extremities) Musculoskeletal: Present: other (1+ edema of both LEs noted) Psychiatric: mood/affect appropriate, cooperative Results - Lab Results 10/08/16 04:55 10/08/16 04:55 Most recent lab results Calcium 8.6 mg/dL (8.4-10.2) 10/08/16 04:55 Assessment and Plan - Patient Problems (1) CKD (chronic kidney disease) stage 4, GFR 15-29 ml/min Current Visit: Yes Status: Acute Plan to address problem: Patient with CKD stage 3 approaching stage 4. Likely diabetic nephropathy. Renal function is at her baseline. Renal diet. Meds to be dosed based on GFR. (2) CHF exacerbation Current Visit: Yes Status: Acute Qualifiers: Congestive heart failure type: combined Qualified Code(s): I50.43 - Acute on chronic combined systolic (congestive) and diastolic (congestive) heart failure Plan to address problem: Diuresis. Followed by Cards. (3) Proteinuria Current Visit: Yes Status: Chronic Qualifiers: Proteinuria type: P Isolated proteinuria type: I Trimester: T (4) Hydronephrosis of right kidney Current Visit: Yes Status: Acute Plan to address problem: Will recheck Renal US. (5) HTN (hypertension) Current Visit: Yes Status: Chronic Qualifiers: Hypertension type: essential hypertension Qualified Code(s): I10 - Essential (primary) hypertension Plan to address problem: Monitor BP.
--- NOTE | 2016-10-08 11:21 | Progress Note ---
Assessment and Plan Assessment and plan: This is a 76-year-old female with past medical history includes diabetes, hypertension, renal insufficiency, high cholesterol, stroke. Has a history of congestive heart failure with an EF of 50-55%.The patient presents to the ER with 1 week of lower extremity swelling, unintentional weight gain, orthopnea, shortness of breath and bipedal edema Acute exacerbation of chronic systolic CHF exacerbation Cardiology input appreciated, continued Lasix, follow-up echo Optimize medications Chronic kidney disease Acute kidney injury has been ruled out, creatinine is at her baseline SVT Cardiology input appreciated, does not appear to be A. fib, appears more like Violet, follow-up telemetry, follow-up echo IDDM (insulin dependent diabetes mellitus) Diabetic diet, Accu-Cheks and sliding scale insulin HTN (hypertension) Cont Antihypertensives HLD (hyperlipidemia) Cont Statins DVT prophylaxis On Lovenox History Interval history: Patient still complaining orthopnea or lower extremity swelling, denies chest pain. Hospitalist Physical - Physical exam Narrative exam: General: Patient appears well in no distress HEENT: MMM, EOMI cardiac: S1-S2 heard lungs: Bibasilar crackles abdomen: soft, nontender, nondistended bowel sounds positive extremities: 3+ bipedal edema Skin: no rash or lesion Neuro: no focal deficit Psych: appropriate behavior and mood, cognition intact - Constitutional Vitals: Temp Pulse Resp BP Pulse Ox 98.9 F 70 20 156/69 98 10/08/16 09:42 10/08/16 09:57 10/08/16 09:42 10/08/16 09:42 10/07/16 23:36 General appearance: Present: no acute distress Results - Labs CBC & Chem 7: 10/08/16 04:55 10/08/16 04:55 Labs: Laboratory Last Values WBC 5.7 K/mm3 (4.5-11.0) 10/08/16 04:55 RBC 3.63 M/mm3 (3.65-5.03) L 10/08/16 04:55 Hgb 10.8 gm/dl (10.1-14.3) 10/08/16 04:55 Hct 33.3 % (30.3-42.9) 10/08/16 04:55 MCV 92 fl (79-97) 10/08/16 04:55 MCH 30 pg (28-32) 10/08/16 04:55 MCHC 33 % (30-34) 10/08/16 04:55 RDW 20.7 % (13.2-15.2) H 10/08/16 04:55 Plt Count 250 K/mm3 (140-440) 10/08/16 04:55 Lymph % (Auto) 19.0 % (13.4-35.0) 10/08/16 04:55 [place] % (Auto) 9.8 % (0.0-7.3) H 10/08/16 04:55 Eos % (Auto) 2.0 % (0.0-4.3) 10/08/16 04:55 Baso % (Auto) 0.3 % (0.0-1.8) 10/08/16 04:55 Lymph # 1.1 K/mm3 (1.2-5.4) L 10/08/16 04:55 [place] # 0.6 K/mm3 (0.0-0.8) 10/08/16 04:55 Eos # 0.1 K/mm3 (0.0-0.4) 10/08/16 04:55 Baso # 0.0 K/mm3 (0.0-0.1) 10/08/16 04:55 Seg Neutrophils % 68.9 % (40.0-70.0) 10/08/16 04:55 Seg Neutrophils # 3.9 K/mm3 (1.8-7.7) 10/08/16 04:55 PT 13.9 Sec. (12.2-14.9) 10/07/16 17:30 INR 1.02 (0.87-1.13) 10/07/16 17:30 APTT 39.2 Sec. (24.2-36.6) H 10/07/16 17:30 Sodium 145 mmol/L (137-145) 10/08/16 04:55 Potassium 4.4 mmol/L (3.6-5.0) 10/08/16 04:55 Chloride 107.5 mmol/L (98-107) H 10/08/16 04:55 Carbon Dioxide 22 mmol/L (22-30) 10/08/16 04:55 Anion Gap 20 mmol/L 10/08/16 04:55 BUN 27 mg/dL (7-17) H 10/08/16 04:55 Creatinine 1.9 mg/dL (0.7-1.2) H 10/08/16 04:55 Estimated GFR 31 ml/min 10/08/16 04:55 BUN/Creatinine Ratio 14.21 % 10/08/16 04:55 Glucose 84 mg/dL (65-100) 10/08/16 04:55 POC Glucose 98 (70-105) 10/08/16 07:39 Hemoglobin A1c 4.2 % (4-6) 10/07/16 20:59 Calcium 8.6 mg/dL (8.4-10.2) 10/08/16 04:55 Total Bilirubin 0.20 mg/dL (0.1-1.2) 10/08/16 04:55 AST 14 units/L (5-40) 10/08/16 04:55 ALT 7 units/L (7-56) 10/08/16 04:55 Alkaline Phosphatase 82 units/L (35-129) 10/08/16 04:55 Troponin T 0.025 ng/mL (0.00-0.029) 10/07/16 12:10 NT-Pro-B Natriuret Pep 1842 pg/mL (0-900) H 10/07/16 12:10 Total Protein 6.1 g/dL (6.3-8.2) L 10/08/16 04:55 Albumin 2.9 g/dL (3.9-5) L 10/08/16 04:55 Albumin/Globulin Ratio 0.9 % 10/08/16 04:55 Urine Color Yellow (Yellow) 10/07/16 17:51 Urine Turbidity Clear (Clear) 10/07/16 17:51 Urine pH 5.0 (5.0-7.0) 10/07/16 17:51 Ur Specific [employer] 1.013 (1.003-1.030) 10/07/16 17:51 Urine Protein >500 mg/dL (Negative) 10/07/16 17:51 Urine Glucose (UA) Neg mg/dL (Negative) 10/07/16 17:51 Urine Ketones Neg mg/dL (Negative) 10/07/16 17:51 Urine Blood Sm (Negative) 10/07/16 17:51 Urine Nitrite Neg (Negative) 10/07/16 17:51 Urine Bilirubin Neg (Negative) 10/07/16 17:51 Urine Urobilinogen < 2.0 mg/dL (<2.0) 10/07/16 17:51 Ur Leukocyte Esterase Neg (Negative) 10/07/16 17:51 Urine WBC (Auto) 2.0 /HPF (0.0-6.0) 10/07/16 17:51 Urine RBC (Auto) 1.0 /HPF (0.0-6.0) 10/07/16 17:51 Amorphous Crystals Few 10/07/16 17:51
--- NOTE | 2016-10-08 12:45 | Admit Criteria Form ---
Admission Criteria Documentation: HEART FAILURE: COMMON COMPLICATIONS Clinical Indications for Inpatient Care ([facility]/check or initial the applicable condition/criteria): Ongoing inpatient care may be indicated for heart failure with 1 or more of the following (1)(2)(3)(4)(5)(6)(7)(8): [ ]I. New-onset heart failure [ ]II. Acute cardiac ischemia causing or associated with failure [ ]III. Ongoing need for care for primary condition requiring frequent therapy adjustments because of changes in cardiac function (eg, drug dosage changes for drugs that are renally metabolized) [X ]IV. Complications of heart failure, including 1 or more of the following: [ ]a) Hemodynamic instability [ ]b) Pericardial effusion [ ]c) Symptomatic pleural effusion(16) [ ]d) Hypoxemia [ ]e) Tachypnea [X ]f) Dyspnea [ ]g) Syncope [ ]h) Altered mental status [ ]i) Acute renal insufficiency that is severe (reduction of more than 50% in estimated glomerular filtration rate from baseline) or progressive (reduction of more than 25% in estimated glomerular filtration rate from baseline, with creatinine continuing to rise) [ ]j) Debilitating anasarca (eg tissue breakdown with infection, inability to void due to edema)(E) (17) [ ]k) Clinically significant metabolic abnormalities due to heart failure (e.g., new-onset metabolic acidosis) Extended stay may be needed until ALL of the following are present(1)(3)(18)(41) (55): [ ]a) Hemodynamic stability [ ]b) Stable and effective diuretic regimen established (or patient on stable dialysis regimen if in chronic renal failure) [ ]c) Volume status acceptable on oral medication [ ]d) Breathing comfortably at rest [ ]e) Saturation of arterial oxygen greater than 90% or at acceptable baseline [ ]f) Pulmonary edema absent or improved [ ]g) Peripheral or sacral edema absent or improved [ ]h) Renal function stable and manageable at a lower level of care [ ]i) Complications (e.g., pleural effusion) resolved or manageable at a lower level of care [ ]j) Patient or caregiver has received written discharge instructions or educational material addressing activity level, diet, discharge medications, follow-up appointment, weight monitoring, and what to do if symptoms worsen. (56)(57)(58) The original [facility] [employer] [facility] content created by Toby Griffith has been revised. The portions of the content which have been revised are identified through the use of italic text or in bold, and Toby Griffith has neither reviewed nor approved the modified material.All other unmodified content is copyright [facility] [employer]. Please see references footnoted in the original [facility] edition 2017 Admission Criteria Met: Yes
--- NOTE | 2016-10-08 14:48 | Event Note ---
Date: 10/08/16 Routine EKG done, interpreted as AFib by computer but NOT AFib. EKG suspicious for wenckebach, although only transient and now resolved and pt has been in SR with 1st degree AV block on telemetry, BPs WNL, pt asymptomatic. D/c coreg. Await echo. Cont telemetry. Obtain thyroid panel in AM. Amira COLLAZO NP / DR. ESTUARDO ROGEL
[2016-10-08] MEDS: TYLENOL PO PRN (19:27)
[2016-10-08] MEDS ORDERED: NON-FORMULARY (Rosuvastatin (Nf) 20 MG) PO SCH (22:00)
[2016-10-09] MEDS: LASIX IV SCH ×2 (05:35→18:13)
[2016-10-09 05:36] LABS: BUN/Creatinine Ratio 13.33; Calcium 8.6 mg/dL (8.4-10.2); Chloride 103.7 mmol/L (98-107); Magnesium 1.5 mg/dL (1.7-2.3); Potassium 4.8 mmol/L (3.6-5.0)
[2016-10-09] MEDS: NOVOLOG SUB-Q SCH ×4 (08:36→22:57)
--- NOTE | 2016-10-09 08:39 | Progress Note ---
Assessment and Plan - Patient Problems (1) CKD (chronic kidney disease) stage 4, GFR 15-29 ml/min Current Visit: Yes Status: Acute Plan to address problem: Patient with CKD stage 3 approaching stage 4. Likely diabetic nephropathy. Renal function is fairly stable. Renal diet. Meds to be dosed based on GFR. (2) CHF exacerbation Current Visit: Yes Status: Acute Qualifiers: Congestive heart failure type: combined Qualified Code(s): I50.43 - Acute on chronic combined systolic (congestive) and diastolic (congestive) heart failure Plan to address problem: Diuresis. Followed by Cards. (3) Proteinuria Current Visit: Yes Status: Chronic Qualifiers: Proteinuria type: P Isolated proteinuria type: I Trimester: T (4) Hydronephrosis of right kidney Current Visit: Yes Status: Acute Plan to address problem: Renal US pending. (5) HTN (hypertension) Current Visit: Yes Status: Chronic Qualifiers: Hypertension type: essential hypertension Qualified Code(s): I10 - Essential (primary) hypertension Plan to address problem: Monitor BP. Subjective Date of service: 10/09/16 Interval history: Patient is feeling better. Objective - Vital Signs Vital signs: Vital Signs - 12hr 10/08/16 10/09/16 22:00 06:45 Temperature 99.2 F Pulse Rate 72 69 Respiratory 20 Rate Respiratory 20 Rate [none] Blood Pressure 155/77 O2 Sat by Pulse 97 Oximetry - General Appearance General appearance: well-developed, well-nourished, appears stated age, obese, other (no distress) EENT: ATNC, mucous membranes moist, hearing intact, vision intact Neck: supple Respiratory: Present: Clear to Ascultation Cardiology: regular, S1S2, no murmurs Gastrointestinal: normoactive bowel sounds, no tenderness, obese Integumentary: no rash Neurologic: no focal deficit, no asterixis, alert and oriented x3 Musculoskeletal: other (trace pedal edema) Psychiatric: mood/affect appropriate, cooperative - Lab 10/08/16 04:55 10/09/16 04:48 Most recent lab results Calcium 8.6 mg/dL (8.4-10.2) 10/09/16 04:48 Magnesium 1.50 mg/dL (1.7-2.3) L 10/09/16 04:48
[2016-10-09] MEDS: LOVENOX SUB-Q SCH (11:12)
[2016-10-09] MEDS: NORVASC PO SCH (11:13)
[2016-10-09] MEDS: MAG-OX PO SCH (11:14)
[2016-10-09] MEDS: BABY ASPIRIN PO SCH (11:14)
[2016-10-09] MEDS: K-DUR PO SCH ×2 (11:14→22:20)
[2016-10-09] MEDS: PROTONIX PO SCH (11:15)
--- NOTE | 2016-10-09 12:23 | Progress Note ---
Assessment and Plan Patient seems to be doing better. No significant chest pain or difficulty breathing today. During the night patient appears to have an occasional Wenckebach periods. No significant symptomatic bradycardia noted. Discussed with the family in the room. Acute diastolic HF CKD - serum Cr appears to be at baseline when compared to admission in 08/2015 HTN HLP DM H/o CVA H/o breast CA, s/p left mastectomy - Patient Problems (1) CHF exacerbation Current Visit: Yes Status: Acute Qualifiers: Congestive heart failure type: combined Qualified Code(s): I50.43 - Acute on chronic combined systolic (congestive) and diastolic (congestive) heart failure (2) Hypertensive cardiovascular-renal disease Current Visit: Yes Status: Acute Qualifiers: Hypertensive chronic kidney disease stage: H Heart failure presence: H (3) HLD (hyperlipidemia) Current Visit: Yes Status: Chronic Qualifiers: Hyperlipidemia type: mixed hyperlipidemia Qualified Code(s): E78.2 - Mixed hyperlipidemia (4) HTN (hypertension) Current Visit: Yes Status: Chronic Qualifiers: Hypertension type: essential hypertension Qualified Code(s): I10 - Essential (primary) hypertension Subjective Date of service: 10/09/16 Interval history: Patient is comfortable today. Denies chest pain. Dyspnea has improved. Objective Vital Signs Temp Pulse Resp Resp BP Pulse Ox 10/09/16 11:13 72 165/73 10/09/16 10:00 98.4 F 72 20 165/73 10/09/16 06:45 69 10/08/16 22:00 99.2 F 72 20 20 155/77 97 10/08/16 20:27 20 97 10/08/16 19:27 20 10/08/16 17:47 98 - Physical Examination General: No Apparent Distress HEENT: Positive: PERRL, Normocephaly, Mucus Membranes Moist Neck: Positive: neck supple Cardiac: Positive: Reg Rate and Rhythm Lungs: Positive: clear to auscultation, Other (scattered wheezing present) Neuro: Positive: Grossly Intact, Cranial Nerve 2-12 Intact Abdomen: Positive: Unremarkable, Soft, Active Bowel Sounds. Negative: Tender Skin: Positive: Clear. Negative: Rash, Wound Musculoskeletal: No Pain, Normal Range of Motion Extremities: Present: +2 Edema (BLE pitting ) - Labs and Meds Comprehensive Metabolic Panel 10/09/16 Range/Units 04:48 Sodium 141 (137-145) mmol/L Potassium 4.8 (3.6-5.0) mmol/L Chloride 103.7 (98-107) mmol/L Carbon Dioxide 23 (22-30) mmol/L BUN 28 H (7-17) mg/dL Creatinine 2.1 H (0.7-1.2) mg/dL Glucose 116 H (65-100) mg/dL Calcium 8.6 (8.4-10.2) mg/dL - Imaging and Cardiology EKG: pending Echo: report reviewed (echo done 08/2015 showed mild LVH, EF 50-55%, mild-mod MR , mod-severe TR, RVSP 58mmHg)
--- NOTE | 2016-10-09 12:58 | Progress Note ---
Assessment and Plan Assessment and plan: This is a 76-year-old female with past medical history includes diabetes, hypertension, renal insufficiency, high cholesterol, stroke. Has a history of congestive heart failure with an EF of 50-55%.The patient presents to the ER with 1 week of lower extremity swelling, unintentional weight gain, orthopnea, shortness of breath and bipedal edema Acute exacerbation of chronic diastolic CHF exacerbation/pulmonary venous congestion Cardiology input appreciated, continued Lasix, Echo shows preserved EF Optimize medications Chronic kidney disease Acute kidney injury has been ruled out, creatinine is at her baseline SVT Cardiology input appreciated, does not appear to be A. fib, appears more like Violet, follow-up telemetry Heart rate well controlled at this time Patient may need pacemaker placements, we'll follow up with cardiology about this IDDM (insulin dependent diabetes mellitus) Diabetic diet, Accu-Cheks and sliding scale insulin HTN (hypertension) Cont Antihypertensives HLD (hyperlipidemia) Cont Statins DVT prophylaxis On Lovenox History Interval history: She states that orthopnea or lower extremity edema is much improved, denies chest pain. Hospitalist Physical - Physical exam Narrative exam: General: Patient appears well in no distress HEENT: MMM, EOMI cardiac: S1-S2 heard lungs: Bibasilar crackles abdomen: soft, nontender, nondistended bowel sounds positive extremities: 2+ bipedal edema Skin: no rash or lesion Neuro: no focal deficit Psych: appropriate behavior and mood, cognition intact - Constitutional Vitals: Temp Pulse Resp BP Pulse Ox 98.4 F 72 20 165/73 98 10/09/16 10:00 10/09/16 11:13 10/09/16 10:00 10/09/16 11:13 10/09/16 10:00 General appearance: Present: no acute distress Results - Labs CBC & Chem 7: 10/08/16 04:55 10/09/16 04:48 Labs: Laboratory Last Values WBC 5.7 K/mm3 (4.5-11.0) 10/08/16 04:55 RBC 3.63 M/mm3 (3.65-5.03) L 10/08/16 04:55 Hgb 10.8 gm/dl (10.1-14.3) 10/08/16 04:55 Hct 33.3 % (30.3-42.9) 10/08/16 04:55 MCV 92 fl (79-97) 10/08/16 04:55 MCH 30 pg (28-32) 10/08/16 04:55 MCHC 33 % (30-34) 10/08/16 04:55 RDW 20.7 % (13.2-15.2) H 10/08/16 04:55 Plt Count 250 K/mm3 (140-440) 10/08/16 04:55 Lymph % (Auto) 19.0 % (13.4-35.0) 10/08/16 04:55 [place] % (Auto) 9.8 % (0.0-7.3) H 10/08/16 04:55 Eos % (Auto) 2.0 % (0.0-4.3) 10/08/16 04:55 Baso % (Auto) 0.3 % (0.0-1.8) 10/08/16 04:55 Lymph # 1.1 K/mm3 (1.2-5.4) L 10/08/16 04:55 [place] # 0.6 K/mm3 (0.0-0.8) 10/08/16 04:55 Eos # 0.1 K/mm3 (0.0-0.4) 10/08/16 04:55 Baso # 0.0 K/mm3 (0.0-0.1) 10/08/16 04:55 Seg Neutrophils % 68.9 % (40.0-70.0) 10/08/16 04:55 Seg Neutrophils # 3.9 K/mm3 (1.8-7.7) 10/08/16 04:55 PT 13.9 Sec. (12.2-14.9) 10/07/16 17:30 INR 1.02 (0.87-1.13) 10/07/16 17:30 APTT 39.2 Sec. (24.2-36.6) H 10/07/16 17:30 Sodium 141 mmol/L (137-145) 10/09/16 04:48 Potassium 4.8 mmol/L (3.6-5.0) 10/09/16 04:48 Chloride 103.7 mmol/L (98-107) 10/09/16 04:48 Carbon Dioxide 23 mmol/L (22-30) 10/09/16 04:48 Anion Gap 19 mmol/L 10/09/16 04:48 BUN 28 mg/dL (7-17) H 10/09/16 04:48 Creatinine 2.1 mg/dL (0.7-1.2) H 10/09/16 04:48 Estimated GFR 28 ml/min 10/09/16 04:48 BUN/Creatinine Ratio 13.33 % 10/09/16 04:48 Glucose 116 mg/dL (65-100) H 10/09/16 04:48 POC Glucose 144 (70-105) H 10/09/16 11:41 Hemoglobin A1c 4.2 % (4-6) 10/07/16 20:59 Calcium 8.6 mg/dL (8.4-10.2) 10/09/16 04:48 Magnesium 1.50 mg/dL (1.7-2.3) L 10/09/16 04:48 Total Bilirubin 0.20 mg/dL (0.1-1.2) 10/08/16 04:55 AST 14 units/L (5-40) 10/08/16 04:55 ALT 7 units/L (7-56) 10/08/16 04:55 Alkaline Phosphatase 82 units/L (35-129) 10/08/16 04:55 Troponin T 0.025 ng/mL (0.00-0.029) 10/07/16 12:10 NT-Pro-B Natriuret Pep 1842 pg/mL (0-900) H 10/07/16 12:10 Total Protein 6.1 g/dL (6.3-8.2) L 10/08/16 04:55 Albumin 2.9 g/dL (3.9-5) L 10/08/16 04:55 Albumin/Globulin Ratio 0.9 % 10/08/16 04:55 TSH 4.190 mlU/mL (0.270-4.200) 10/09/16 04:48 Free T4 0.85 ng/dL (0.76-1.46) 10/09/16 04:48 Thyroxine (T4) 6.0 ug/dL (4.0-12.0) 10/09/16 04:48 Urine Color Yellow (Yellow) 10/07/16 17:51 Urine Turbidity Clear (Clear) 10/07/16 17:51 Urine pH 5.0 (5.0-7.0) 10/07/16 17:51 Ur Specific [place] 1.013 (1.003-1.030) 10/07/16 17:51 Urine Protein >500 mg/dL (Negative) 10/07/16 17:51 Urine Glucose (UA) Neg mg/dL (Negative) 10/07/16 17:51 Urine Ketones Neg mg/dL (Negative) 10/07/16 17:51 Urine Blood Sm (Negative) 10/07/16 17:51 Urine Nitrite Neg (Negative) 10/07/16 17:51 Urine Bilirubin Neg (Negative) 10/07/16 17:51 Urine Urobilinogen < 2.0 mg/dL (<2.0) 10/07/16 17:51 Ur Leukocyte Esterase Neg (Negative) 10/07/16 17:51 Urine WBC (Auto) 2.0 /HPF (0.0-6.0) 10/07/16 17:51 Urine RBC (Auto) 1.0 /HPF (0.0-6.0) 10/07/16 17:51 Amorphous Crystals Few 10/07/16 17:51
[2016-10-09] MEDS: TYLENOL PO PRN (20:38)
[2016-10-10 04:51] LABS: BUN/Creatinine Ratio 14.34; Calcium 8.3 mg/dL (8.4-10.2); Chloride 104.9 mmol/L (98-107); Magnesium 1.4 mg/dL (1.7-2.3)
[2016-10-10] MEDS: LASIX IV SCH ×2 (06:46→09:42)
[2016-10-10] MEDS: NOVOLOG SUB-Q SCH ×4 (07:33→21:57)
--- NOTE | 2016-10-10 09:13 | Progress Note ---
Assessment and Plan - Patient Problems (1) CKD (chronic kidney disease) stage 4, GFR 15-29 ml/min Current Visit: Yes Status: Acute Plan to address problem: Patient with CKD stage 3 approaching stage 4. Likely diabetic nephropathy. Renal function is fairly stable. Renal diet. Meds to be dosed based on GFR. Stop potassium supplements. (2) CHF exacerbation Current Visit: Yes Status: Acute Qualifiers: Congestive heart failure type: combined Qualified Code(s): I50.43 - Acute on chronic combined systolic (congestive) and diastolic (congestive) heart failure Plan to address problem: Improving. Followed by Cards. (3) Proteinuria Current Visit: Yes Status: Chronic Qualifiers: Proteinuria type: P Isolated proteinuria type: I Trimester: T (4) Hydronephrosis of right kidney Current Visit: Yes Status: Acute Plan to address problem: Resolved. (5) HTN (hypertension) Current Visit: Yes Status: Chronic Qualifiers: Hypertension type: essential hypertension Qualified Code(s): I10 - Essential (primary) hypertension Plan to address problem: Monitor BP. Subjective Date of service: 10/10/16 Interval history: Patient is feeling better. Objective - Vital Signs Vital signs: Vital Signs - 12hr 10/09/16 10/09/16 10/10/16 21:38 22:00 07:27 Temperature 98.4 F Pulse Rate 77 Pulse Rate [ From Monitor] Respiratory 18 18 Rate Respiratory 20 Rate [none] Blood Pressure 146/82 O2 Sat by Pulse 99 96 Oximetry 10/10/16 08:44 Temperature Pulse Rate Pulse Rate [ 74 From Monitor] Respiratory 18 Rate Respiratory Rate [none] Blood Pressure O2 Sat by Pulse 97 Oximetry - General Appearance General appearance: well-developed, well-nourished, appears stated age, obese, other (no distress) EENT: ATNC, PERRL, mucous membranes moist, hearing intact, vision intact Neck: supple Respiratory: Present: Clear to Ascultation Cardiology: regular, S1S2, no murmurs Gastrointestinal: normoactive bowel sounds, obese (to the finding is also) Integumentary: no rash Neurologic: no focal deficit, no asterixis ( scar is.), alert and oriented x3 ( I don't is), CN 3-12 intact Musculoskeletal: other (trace pedal edema) Psychiatric: mood/affect appropriate, cooperative - Lab 10/08/16 04:55 10/11/16 04:37 Most recent lab results Calcium 8.3 mg/dL (8.4-10.2) L 10/10/16 03:49 Magnesium 1.40 mg/dL (1.7-2.3) L 10/10/16 03:49
--- NOTE | 2016-10-10 09:15 | Progress Note ---
Assessment and Plan Assessment and plan: This is a 76-year-old female with past medical history includes diabetes, hypertension, renal insufficiency, high cholesterol, stroke. Has a history of congestive heart failure with an EF of 50-55%.The patient presents to the ER with 1 week of lower extremity swelling, unintentional weight gain, orthopnea, shortness of breath and bipedal edema Acute exacerbation of chronic diastolic CHF exacerbation/pulmonary venous congestion Cardiology input appreciated, continued Lasix, Echo shows preserved EF Optimize medications Acute hypoxic respiratory failure attempt to wean off oxygen today Chronic kidney disease Acute kidney injury has been ruled out, creatinine is at her baseline SVT Cardiology input appreciated, does not appear to be A. fib, appears more like Violet, follow-up telemetry Heart rate well controlled at this time, no stuart, no tachy, no wide complexes doing well, no further rx or investigation needed, d/w cardiology IDDM (insulin dependent diabetes mellitus) Diabetic diet, Accu-Cheks and sliding scale insulin HTN (hypertension) Cont Antihypertensives HLD (hyperlipidemia) Cont Statins DVT prophylaxis On Lovenox Remove fidel, PT consult, Will need home services vs SNF placement History Interval history: She states that orthopnea or lower extremity edema is much improved, denies chest pain. Hospitalist Physical - Physical exam Narrative exam: General: Patient appears well in no distress HEENT: MMM, EOMI cardiac: S1-S2 heard lungs: Bibasilar crackles abdomen: soft, nontender, nondistended bowel sounds positive extremities: 1+ bipedal edema Skin: no rash or lesion Neuro: no focal deficit Psych: appropriate behavior and mood, cognition intact - Constitutional Vitals: Temp Pulse Resp BP Pulse Ox 98.4 F 74 18 146/82 97 10/09/16 22:00 10/10/16 08:44 10/10/16 08:44 10/09/16 22:00 10/10/16 08:44 General appearance: Present: no acute distress Results - Labs CBC & Chem 7: 10/08/16 04:55 10/11/16 04:37 Labs: Laboratory Last Values WBC 5.7 K/mm3 (4.5-11.0) 10/08/16 04:55 RBC 3.63 M/mm3 (3.65-5.03) L 10/08/16 04:55 Hgb 10.8 gm/dl (10.1-14.3) 10/08/16 04:55 Hct 33.3 % (30.3-42.9) 10/08/16 04:55 MCV 92 fl (79-97) 10/08/16 04:55 MCH 30 pg (28-32) 10/08/16 04:55 MCHC 33 % (30-34) 10/08/16 04:55 RDW 20.7 % (13.2-15.2) H 10/08/16 04:55 Plt Count 250 K/mm3 (140-440) 10/08/16 04:55 Lymph % (Auto) 19.0 % (13.4-35.0) 10/08/16 04:55 Tyler % (Auto) 9.8 % (0.0-7.3) H 10/08/16 04:55 Eos % (Auto) 2.0 % (0.0-4.3) 10/08/16 04:55 Baso % (Auto) 0.3 % (0.0-1.8) 10/08/16 04:55 Lymph # 1.1 K/mm3 (1.2-5.4) L 10/08/16 04:55 Tyler # 0.6 K/mm3 (0.0-0.8) 10/08/16 04:55 Eos # 0.1 K/mm3 (0.0-0.4) 10/08/16 04:55 Baso # 0.0 K/mm3 (0.0-0.1) 10/08/16 04:55 Seg Neutrophils % 68.9 % (40.0-70.0) 10/08/16 04:55 Seg Neutrophils # 3.9 K/mm3 (1.8-7.7) 10/08/16 04:55 PT 13.9 Sec. (12.2-14.9) 10/07/16 17:30 INR 1.02 (0.87-1.13) 10/07/16 17:30 APTT 39.2 Sec. (24.2-36.6) H 10/07/16 17:30 Sodium 142 mmol/L (137-145) 10/10/16 03:49 Potassium 5.0 mmol/L (3.6-5.0) 10/10/16 03:49 Chloride 104.9 mmol/L (98-107) 10/10/16 03:49 Carbon Dioxide 24 mmol/L (22-30) 10/10/16 03:49 Anion Gap 18 mmol/L 10/10/16 03:49 BUN 33 mg/dL (7-17) H 10/10/16 03:49 Creatinine 2.3 mg/dL (0.7-1.2) H 10/10/16 03:49 Estimated GFR 25 ml/min 10/10/16 03:49 BUN/Creatinine Ratio 14.34 % 10/10/16 03:49 Glucose 111 mg/dL (65-100) H 10/10/16 03:49 POC Glucose 126 (70-105) H 10/10/16 07:30 Hemoglobin A1c 4.2 % (4-6) 10/07/16 20:59 Calcium 8.3 mg/dL (8.4-10.2) L 10/10/16 03:49 Magnesium 1.40 mg/dL (1.7-2.3) L 10/10/16 03:49 Total Bilirubin 0.20 mg/dL (0.1-1.2) 10/08/16 04:55 AST 14 units/L (5-40) 10/08/16 04:55 ALT 7 units/L (7-56) 10/08/16 04:55 Alkaline Phosphatase 82 units/L (35-129) 10/08/16 04:55 Troponin T 0.025 ng/mL (0.00-0.029) 10/07/16 12:10 NT-Pro-B Natriuret Pep 1842 pg/mL (0-900) H 10/07/16 12:10 Total Protein 6.1 g/dL (6.3-8.2) L 10/08/16 04:55 Albumin 2.9 g/dL (3.9-5) L 10/08/16 04:55 Albumin/Globulin Ratio 0.9 % 10/08/16 04:55 TSH 4.190 mlU/mL (0.270-4.200) 10/09/16 04:48 Free T4 0.85 ng/dL (0.76-1.46) 10/09/16 04:48 Thyroxine (T4) 6.0 ug/dL (4.0-12.0) 10/09/16 04:48 Urine Color Yellow (Yellow) 10/07/16 17:51 Urine Turbidity Clear (Clear) 10/07/16 17:51 Urine pH 5.0 (5.0-7.0) 10/07/16 17:51 Ur Specific [place] 1.013 (1.003-1.030) 10/07/16 17:51 Urine Protein >500 mg/dL (Negative) 10/07/16 17:51 Urine Glucose (UA) Neg mg/dL (Negative) 10/07/16 17:51 Urine Ketones Neg mg/dL (Negative) 10/07/16 17:51 Urine Blood Sm (Negative) 10/07/16 17:51 Urine Nitrite Neg (Negative) 10/07/16 17:51 Urine Bilirubin Neg (Negative) 10/07/16 17:51 Urine Urobilinogen < 2.0 mg/dL (<2.0) 10/07/16 17:51 Ur Leukocyte Esterase Neg (Negative) 10/07/16 17:51 Urine WBC (Auto) 2.0 /HPF (0.0-6.0) 10/07/16 17:51 Urine RBC (Auto) 1.0 /HPF (0.0-6.0) 10/07/16 17:51 Amorphous Crystals Few 10/07/16 17:51
[2016-10-10] MEDS: LOVENOX SUB-Q SCH (09:42)
[2016-10-10] MEDS: MAG-OX PO SCH (09:48)
[2016-10-10] MEDS: PROTONIX PO SCH (09:48)
[2016-10-10] MEDS: BABY ASPIRIN PO SCH (09:48)
[2016-10-10] MEDS: NORVASC PO SCH (09:48)
--- NOTE | 2016-10-10 12:15 | Progress Note ---
Assessment and Plan Patient seems to be doing better. No significant chest pain or difficulty breathing today. Rhythm strips are reviewed. Patient had no significant stuart arrhythmias. Continues to improve gradually. Discussed with Dr. Workman. Currently no definite indication for pacemaker insertion. We will continue monitoring and following closely along with you. Acute diastolic HF CKD - serum Cr appears to be at baseline when compared to admission in 08/2015 HTN HLP DM H/o CVA H/o breast CA, s/p left mastectomy - Patient Problems (1) CHF exacerbation Current Visit: Yes Status: Acute Qualifiers: Congestive heart failure type: combined Qualified Code(s): I50.43 - Acute on chronic combined systolic (congestive) and diastolic (congestive) heart failure (2) Hypertensive cardiovascular-renal disease Current Visit: Yes Status: Acute Qualifiers: Hypertensive chronic kidney disease stage: H Heart failure presence: H (3) HLD (hyperlipidemia) Current Visit: Yes Status: Chronic Qualifiers: Hyperlipidemia type: mixed hyperlipidemia Qualified Code(s): E78.2 - Mixed hyperlipidemia (4) HTN (hypertension) Current Visit: Yes Status: Chronic Qualifiers: Hypertension type: essential hypertension Qualified Code(s): I10 - Essential (primary) hypertension Subjective Date of service: 10/10/16 Interval history: Patient is comfortable today. Denies chest pain. Dyspnea has improved. Edema is also improving. Objective Vital Signs Temp Pulse Pulse Resp Resp BP Pulse Ox 10/10/16 10:00 74 10/10/16 09:48 74 153/114 10/10/16 09:40 98.4 F 74 20 153/114 10/10/16 08:44 74 18 97 10/10/16 07:27 96 10/09/16 22:00 98.4 F 77 18 20 146/82 99 10/09/16 21:38 18 10/09/16 20:38 22 - Physical Examination General: No Apparent Distress HEENT: Positive: PERRL, Normocephaly, Mucus Membranes Moist Neck: Positive: neck supple Cardiac: Positive: Reg Rate and Rhythm Lungs: Positive: clear to auscultation Neuro: Positive: Grossly Intact, Cranial Nerve 2-12 Intact Abdomen: Positive: Unremarkable, Soft, Active Bowel Sounds. Negative: Tender Skin: Positive: Clear. Negative: Rash, Wound Musculoskeletal: No Pain, Normal Range of Motion Extremities: Present: edema (mild bilateral edema but much improved), +1 Edema, +2 Edema ( ) - Labs and Meds Comprehensive Metabolic Panel 10/10/16 Range/Units 03:49 Sodium 142 (137-145) mmol/L Potassium 5.0 (3.6-5.0) mmol/L Chloride 104.9 (98-107) mmol/L Carbon Dioxide 24 (22-30) mmol/L BUN 33 H (7-17) mg/dL Creatinine 2.3 H (0.7-1.2) mg/dL Glucose 111 H (65-100) mg/dL Calcium 8.3 L (8.4-10.2) mg/dL - Imaging and Cardiology EKG: pending Echo: report reviewed (echo done 08/2015 showed mild LVH, EF 50-55%, mild-mod MR , mod-severe TR, RVSP 58mmHg)
[2016-10-11 05:37] LABS: BUN/Creatinine Ratio 16.19; Calcium 8.7 mg/dL (8.4-10.2); Chloride 103.8 mmol/L (98-107); Magnesium 1.4 mg/dL (1.7-2.3); Potassium 4.9 mmol/L (3.6-5.0)
--- NOTE | 2016-10-11 07:35 | Ultrasound Report ---
ULTRASOUND RENAL BILATERAL HISTORY: Hydronephrosis. TECHNIQUE: transabdominal ultrasound with color Doppler interrogation. FINDINGS: The right kidney measures 10.0 x 5.3 x 4.8cm. Right renal cortex: 1.1cm. The left kidney measures 10.5 x 4.9 x 4.9cm. Left renal cortex: 1.4cm. Both kidneys are normal size but markedly echogenic. There is no evidence for cystic disease, mass, calculus or hydronephrosis. The bladder is decompressed with Lim catheter. IMPRESSION: Echogenic kidneys consistent with severe medical renal disease or acute renal failure. Minimal bilateral hydronephrosis or urinary stasis as resolved since the exam dated 09/12/15.
--- NOTE | 2016-10-11 08:31 | Progress Note ---
Assessment and Plan - Patient Problems (1) CKD (chronic kidney disease) stage 4, GFR 15-29 ml/min Current Visit: Yes Status: Acute Plan to address problem: Patient with CKD stage 3 approaching stage 4. Likely diabetic nephropathy. Renal function is fairly stable. Renal diet. Meds to be dosed based on GFR. Replete Mg. F/u with me in 1-2 weeks. (2) CHF exacerbation Current Visit: Yes Status: Acute Qualifiers: Congestive heart failure type: combined Qualified Code(s): I50.43 - Acute on chronic combined systolic (congestive) and diastolic (congestive) heart failure Plan to address problem: Improving. Followed by Cards. (3) Proteinuria Current Visit: Yes Status: Chronic Qualifiers: Proteinuria type: P Isolated proteinuria type: I Trimester: T (4) Hydronephrosis of right kidney Current Visit: Yes Status: Acute Plan to address problem: Resolved. (5) HTN (hypertension) Current Visit: Yes Status: Chronic Qualifiers: Hypertension type: essential hypertension Qualified Code(s): I10 - Essential (primary) hypertension Subjective Date of service: 10/11/16 Interval history: Patient is feeling better. Objective - Vital Signs Vital signs: Vital Signs - 12hr 10/10/16 10/10/16 21:04 22:00 Temperature 98.8 F Pulse Rate 84 Respiratory 20 Rate Respiratory 20 Rate [none] Blood Pressure 166/87 O2 Sat by Pulse 98 100 Oximetry - General Appearance General appearance: well-developed, well-nourished, appears stated age, obese, other (no distress) EENT: ATNC, PERRL, hearing intact, vision intact Neck: supple Respiratory: Present: Clear to Ascultation Cardiology: regular, S1S2, no murmurs Gastrointestinal: normoactive bowel sounds, no tenderness, obese Integumentary: no rash, chronic venous stasis Neurologic: no focal deficit, no asterixis, CN 3-12 intact Musculoskeletal: other (no edema) Psychiatric: mood/affect appropriate, cooperative - Lab 10/08/16 04:55 10/11/16 04:37 Most recent lab results Calcium 8.7 mg/dL (8.4-10.2) 10/11/16 04:37 Magnesium 1.40 mg/dL (1.7-2.3) L 10/11/16 04:37
[2016-10-11] MEDS: NOVOLOG SUB-Q SCH ×2 (08:56→13:19)
[2016-10-11] MEDS: NORVASC PO SCH (09:46)
[2016-10-11] MEDS: MAG-OX PO SCH (09:46)
[2016-10-11] MEDS: LASIX IV SCH (09:46)
[2016-10-11] MEDS: PROTONIX PO SCH (09:47)
[2016-10-11] MEDS: LOVENOX SUB-Q SCH (09:47)
[2016-10-11] MEDS: BABY ASPIRIN PO SCH (09:47)
--- NOTE | 2016-10-11 10:27 | Discharge Summary ---
Providers - Providers Date of Admission: 10/07/16 20:48 Attending physician: MARY HOWARD MD 10/08/16 06:24 Consult to Physician [CONS] Routine Consulting Provider: ERICK GARCIA Reason For Exam: ARF Place consult to:: Notified:: Phone number called:: [phone] Was contact made?: Yes If yes, spoke with:: Time called:: 08:43 Comment:: ARELY 10/09/16 00:48 Consult to Physician [CONS] Urgent Consulting Provider: CHRISTOPH COWAN Reason For Exam: [facility] Place consult to:: Dr. Aguilar-junior buyer Notified:: Phone Phone number called:: [phone] Was contact made?: Yes If yes, spoke with:: Dr. Edward QUINTANA Time called:: 00:50 Comment:: contact made and orders initiated 10/10/16 10:47 Physical Therapy Evaluation and Treat [CONS] Routine Comment: Reason For Exam: debility Primary care physician: CHRISTOPH COWAN Hospitalization Condition: Good Hospital course: This is a 76-year-old female with past medical history includes diabetes, hypertension, renal insufficiency, high cholesterol, stroke. Has a history of congestive heart failure with an EF of 50-55%.The patient presents to the ER with 1 week of lower extremity swelling, unintentional weight gain, orthopnea, shortness of breath and bipedal edema. She was admitted to the hospital for treatment of CHF exacerbation, she received IV diuretics, she was seen in conjunction with cardiology, her medications were optimized. She did have a few episodes or pauses with type II heart block. However patient did not have any bradycardia, tachycardia, or wide complexes associated with it. Cardiology agreed that it was no further investigation required, that she just needs to be followed up. After being diuresed patient was weaned off oxygen, she clinically improved. She was to have normal glucose despite holding her insulin. Therefore hemoglobin A1c was checked and he was 4.2. Therefore her insulins were discontinued. How she is being sent home with home health. Discharge diagnoses Acute exacerbation of chronic diastolic CHF exacerbation/pulmonary venous congestion Acute hypoxic respiratory failure Chronic kidney disease Second-degree heart block, type II IDDM (insulin dependent diabetes mellitus) HTN (hypertension) HLD (hyperlipidemia) Disposition: [id number]/TX-06 HOME UNDER HOME HLTH Time spent for discharge: 33 minutes Core Measure Documentation - Palliative Care Palliative Care/ Comfort Measures: Not Applicable - Core Measures Any of the following diagnoses?: heart failure - Heart Failure Discharge Requirements MINERVA/ARB for LVSD if EF <40%: Yes Beta manny at discharge: Yes Exam - Constitutional Vitals: Temp Pulse Resp BP Pulse Ox 98.8 F 78 22 165/66 100 10/10/16 22:00 10/11/16 09:56 10/11/16 09:56 10/11/16 09:56 10/11/16 09:56 General appearance: Present: no acute distress, well-nourished - EENT Eyes: Present: PERRL ENT: hearing intact, clear oral mucosa - Neck Neck: Present: supple, normal ROM - Respiratory Respiratory effort: normal Respiratory: bilateral: CTA - Cardiovascular Heart Sounds: Present: S1 & S2. Absent: rub, click - Extremities Extremities: pulses symmetrical, No edema Peripheral Pulses: within normal limits - Abdominal General gastrointestinal: Present: soft, non-tender, non-distended, normal bowel sounds Female genitourinary: Present: normal - Integumentary Integumentary: Present: clear, warm, dry - Musculoskeletal Musculoskeletal: gait normal, strength equal bilaterally - Psychiatric Psychiatric: appropriate mood/affect, intact judgment & insight - Neurologic Neurologic: CNII-XII intact, moves all extremities Plan Follow up with: CHRISTOPH COWAN MD [Primary Care Provider] - 3-5 Days Prescriptions: amLODIPine [Norvasc] 5 mg PO QDAY #30 tablet Aspirin EC [Aspirin Enteric Coated TAB] 81 mg PO QDAY #30 tablet. Furosemide [Lasix TAB] 40 mg PO QDAY #30 tablet
--- NOTE | 2016-10-11 11:25 | Progress Note ---
Assessment and Plan Assessment: Acute diastolic HF - EF 55-60%. Intermittent Wenckebach / 1st degree HB - cont to hold BB. Pt asymptomatic and hemodynamically stable. Currently no definite indication for pacemaker insertion. Thyroid panel WNL. CKD - serum Cr appears to be at baseline when compared to admission in 08/2015 HTN HLP DM H/o CVA H/o breast CA, s/p left mastectomy Plan: Currently stable cardiac status. Convert IV lasix to PO, 40mg daily. Pt may discharge home from cardiology standpoint. Recommend follow up in our office with Elizabeth Cuello NP, within 1-2 weeks of hospital discharge ([phone]). The patient has been seen in conjunction with Dr. Shell who agrees with the assessment and plan of care. - Patient Problems (1) CHF exacerbation Current Visit: Yes Status: Acute Qualifiers: Congestive heart failure type: combined Qualified Code(s): I50.43 - Acute on chronic combined systolic (congestive) and diastolic (congestive) heart failure (2) Hypertensive cardiovascular-renal disease Current Visit: Yes Status: Acute Qualifiers: Hypertensive chronic kidney disease stage: H Heart failure presence: H (3) HLD (hyperlipidemia) Current Visit: Yes Status: Chronic Qualifiers: Hyperlipidemia type: mixed hyperlipidemia Qualified Code(s): E78.2 - Mixed hyperlipidemia (4) HTN (hypertension) Current Visit: Yes Status: Chronic Qualifiers: Hypertension type: essential hypertension Qualified Code(s): I10 - Essential (primary) hypertension Subjective Date of service: 10/11/16 Principal diagnosis: DHF Interval history: Patient resting comfortably in bed. States that her shortness of breath has resolved. Denies any cardiac complaints. States she is ready for discharge. VSS with no stuart arrhythmias noted overnight. Objective Last Vital Signs Temp 98.8 F 10/10/16 22:00 Pulse 78 10/11/16 09:56 Resp 22 10/11/16 09:56 BP 165/66 10/11/16 09:56 Pulse Ox 100 10/11/16 09:56 - Physical Examination General: No Apparent Distress HEENT: Positive: PERRL, Normocephaly, Mucus Membranes Moist Neck: Positive: neck supple Cardiac: Positive: Reg Rate and Rhythm, S1/S2 Lungs: Positive: clear to auscultation Neuro: Positive: Grossly Intact, Cranial Nerve 2-12 Intact Abdomen: Positive: Unremarkable, Soft, Active Bowel Sounds. Negative: Tender Skin: Positive: Clear. Negative: Rash, Wound Musculoskeletal: No Pain, Normal Range of Motion Extremities: Present: edema (mild bilateral edema but much improved), +1 Edema, +2 Edema ( ) - Labs and Meds Comprehensive Metabolic Panel 10/11/16 Range/Units 04:37 Sodium 143 (137-145) mmol/L Potassium 4.9 (3.6-5.0) mmol/L Chloride 103.8 (98-107) mmol/L Carbon Dioxide 27 (22-30) mmol/L BUN 34 H (7-17) mg/dL Creatinine 2.1 H (0.7-1.2) mg/dL Glucose 117 H (65-100) mg/dL Calcium 8.7 (8.4-10.2) mg/dL - Imaging and Cardiology EKG: image reviewed Echo: report reviewed (echo done 08/2015 showed mild LVH, EF 50-55%, mild-mod MR , mod-severe TR, RVSP 58mmHg) - Telemetry EKG Rhythm: 1st Degree HB
[2016-10-11 12:05] VITALS: BP 159/57
[2016-10-11] MEDS ORDERED: MAGNESIUM SULFATE 1 GM in NACL 0.9% 50 ML IV ONE (13:00)
[2016-10-11] MEDS ORDERED: MAG-OX PO SCH (22:00)
[2016-10-12] MEDS ORDERED: LASIX PO SCH (06:00)
== END 2016-10-11 16:20 | disposition home health service (06) | DRG 291 ==
LOC: ED 11:00 → CC2 20:48
PROVIDERS: ADMIT Internal Medicine; ATTEND Internal Medicine
DX: I13.0 Hypertensive heart and chronic kidney disease with heart failure and stage 1 through stage 4 chronic kidney disease, or unspecified chronic kidney disease (principal); I50.43 Acute on chronic combined systolic (congestive) and diastolic (congestive) heart failure; J96.01 Acute respiratory failure with hypoxia; N17.9 Acute kidney failure, unspecified; N18.4 Chronic kidney disease, stage 4 (severe); N13.30 Unspecified hydronephrosis; I47.1 Supraventricular tachycardia; M19.90 Unspecified osteoarthritis, unspecified site; E78.2 Mixed hyperlipidemia; F10.10 Alcohol abuse, uncomplicated; K21.9 Gastro-esophageal reflux disease without esophagitis; R80.9 Proteinuria, unspecified; E11.22 Type 2 diabetes mellitus with diabetic chronic kidney disease; I44.1 Atrioventricular block, second degree; Z86.73 Personal history of transient ischemic attack (TIA), and cerebral infarction without residual deficits; Z85.3 Personal history of malignant neoplasm of breast; Z87.891 Personal history of nicotine dependence; Z90.12 Acquired absence of left breast and nipple
CPT/HCPCS: 36415; 71020; 76770; 80048; 80053; 81001; 82962; 83036; 83735; 83880; 84436; 84439; 84443; 84484; 85025; 85610; 85730; 87086; 93005; 93010; 93306; 94760; 96374; A9270-GY; J1650; J1815; J1940; J3475

== ENCOUNTER 2018-05-02 10:50 | Inpatient (IN) | payer MEDICARE ==
--- NOTE | 2018-05-02 11:20 | Emergency Department Report ---
ED Shortness of Breath HPI - General Chief Complaint: Dyspnea/Respdistress Stated Complaint: JOSIAH Time Seen by Provider: 05/02/18 11:04 Source: patient, RN notes reviewed, old records reviewed Mode of arrival: Wheelchair Limitations: No Limitations - History of Present Illness Initial Comments: Primary care DrJudy: Mendy Pathology: Dr. Avitia Cardiology: [facility] Hematology: Dr Glory Christine/ Dr Zapata This is a pleasant 77-year-old female, not known to this provider previously, with a past medical history of anemia of chronic renal disease, chronic renal insufficiency, history of breast cancer, reported congestive heart failure with ejection fraction of 50-55% The patient presents to the emergency room with a complaint of painless shortness of breath for the past few days. She endorses unintentional weight gain, lower extremity swelling. She denies headache, neck pain, chest pain, abdominal pain. The patient endorses unintentional weight gain, pain was bilateral lower extremity swelling, and reports medication compliance and denies dietary indiscretions. Symptoms constant, worse with physical exertion, and a decreased with rest. MD Complaint: shortness of breath -: Gradual Worsens With: lying flat, exertion Known History Of: congestive heart failure - Related Data Home Medications Medication Instructions Recorded Confirmed Last Taken Anastrozole (Nf) [Arimidex (Nf)] 1 mg PO DAILY 05/01/15 10/07/16 10/06/16 Esomeprazole Magnesium [NexIUM] 40 mg PO QDAY 05/01/15 10/07/16 10/06/16 Strawberry-3 Fatty Acids [Strawberry-3] 100 mg PO BID 05/01/15 10/07/16 10/06/16 Rosuvastatin (Nf) [Crestor] 20 mg PO QHS 05/01/15 10/07/16 10/06/16 Previous Rx's Medication Instructions Recorded Last Taken Type Aspirin EC [Aspirin Enteric Coated 81 mg PO QDAY #30 tablet. 10/11/16 Unknown Rx TAB] Furosemide [Lasix TAB] 40 mg PO QDAY #30 tablet 10/11/16 Unknown Rx amLODIPine [Norvasc] 5 mg PO QDAY #30 tablet 10/11/16 Unknown Rx Allergies Allergy/AdvReac Type Severity Reaction Status Date / Time No Known Allergies Allergy Verified 05/02/18 10:53 ED Review of Systems ROS: Stated complaint: JOSIAH Other details as noted in HPI Constitutional: malaise, weakness ENT: congestion Respiratory: shortness of breath Cardiovascular: dyspnea on exertion, orthopnea, edema. denies: chest pain Gastrointestinal: denies: abdominal pain, nausea, vomiting Genitourinary: denies: urgency, dysuria Musculoskeletal: denies: back pain Skin: denies: lesions Neurological: weakness Psychiatric: anxiety ED Past Medical Hx - Past Medical History Previous Medical History?: Yes Hx Hypertension: Yes Hx Heart Attack/AMI: Yes (? ID PER PT 2012) Hx Congestive Heart Failure: Yes Hx Diabetes: Yes (IDDM) Hx Arthritis: Yes (KNEES) Hx HIV: No Additional medical history: Breast CA - Surgical History Past Surgical History?: Yes Additional Surgical History: left mastectomy - Social History Smoking Status: Never Smoker Substance Use Type: None - Medications Home Medications: Home Medications Medication Instructions Recorded Confirmed Last Taken Type Anastrozole (Nf) [Arimidex (Nf)] 1 mg PO DAILY 05/01/15 10/07/16 10/06/16 History Esomeprazole Magnesium [NexIUM] 40 mg PO QDAY 05/01/15 10/07/16 10/06/16 History Strawberry-3 Fatty Acids [Strawberry-3] 100 mg PO BID 05/01/15 10/07/16 10/06/16 History Rosuvastatin (Nf) [Crestor] 20 mg PO QHS 05/01/15 10/07/16 10/06/16 History Aspirin EC [Aspirin Enteric Coated 81 mg PO QDAY #30 tablet.dr 10/11/16 Unknown Rx TAB] Furosemide [Lasix TAB] 40 mg PO QDAY #30 tablet 10/11/16 Unknown Rx amLODIPine [Norvasc] 5 mg PO QDAY #30 tablet 10/11/16 Unknown Rx ED Physical Exam - General Limitations: No Limitations General appearance: alert, in distress, obese - Head Head exam: Present: atraumatic, normocephalic - Eye Eye exam: Present: normal appearance - ENT ENT exam: Present: normal exam, normal orophraynx, mucous membranes moist - Neck Neck exam: Present: normal inspection - Respiratory Respiratory exam: Present: rales. Absent: respiratory distress - Cardiovascular Cardiovascular Exam: Present: regular rate, normal rhythm, systolic murmur. A bsent: bradycardia, tachycardia, diastolic murmur, rubs, gallop - GI/Abdominal GI/Abdominal exam: Present: soft. Absent: distended, tenderness, guarding, rebound, rigid, pulsatile mass - Extremities Exam Extremities exam: Present: normal inspection, full ROM, pedal edema, other (2+ pulses noted in the bilateral upper, lower extremities. Compartments soft. No long bony tenderness. The pelvis is stable.). Absent: joint swelling, calf tenderness - Back Exam Back exam: Present: normal inspection, full ROM. Absent: tenderness, CVA tenderness (R), paraspinal tenderness, vertebral tenderness - Neurological Exam Neurological exam: Present: alert, oriented X3 - Psychiatric Psychiatric exam: Present: normal affect, normal mood - Skin Skin exam: Present: warm, dry, intact, normal color. Absent: rash ED Course Vital Signs 05/02/18 05/02/18 05/02/18 10:56 10:57 10:58 Temperature 98.9 F 98.9 F Pulse Rate 82 89 Respiratory 22 26 H Rate Blood Pressure 128/96 128/96 O2 Sat by Pulse 97 97 83 L Oximetry - Reevaluation(s) Reevaluation #1: 05/02/18 13:44 DVT study is negative ED Medical Decision Making - Lab Data Result diagrams: 05/02/18 11:02 05/02/18 11:02 Vital Signs 05/02/18 05/02/18 05/02/18 10:56 10:57 10:58 Temperature 98.9 F 98.9 F Pulse Rate 82 89 Respiratory 22 26 H Rate Blood Pressure 128/96 128/96 O2 Sat by Pulse 97 97 83 L Oximetry Lab Results 05/02/18 05/02/18 05/02/18 Range/Units 11:02 11:02 11:02 WBC 8.5 (4.5-11.0) K/mm3 RBC 3.20 L (3.65-5.03) M/mm3 Hgb 9.7 L (10.1-14.3) gm/dl Hct 29.4 L (30.3-42.9) % MCV 92 (79-97) fl MCH 30 (28-32) pg MCHC 33 (30-34) % RDW 16.1 H (13.2-15.2) % Plt Count 267 (140-440) K/mm3 PT 12.8 (12.2-14.9) Sec. INR 0.91 (0.87-1.13) Sodium 146 H (137-145) mmol/L Potassium 4.3 (3.6-5.0) mmol/L Chloride 104.9 (98-107) mmol/L Carbon Dioxide 21 L (22-30) mmol/L Anion Gap 24 mmol/L BUN 32 H (7-17) mg/dL Creatinine 3.0 H (0.7-1.2) mg/dL Estimated GFR 18 ml/min BUN/Creatinine Ratio 11 % Glucose 150 H (65-100) mg/dL Calcium 8.2 L (8.4-10.2) mg/dL Magnesium 1.20 L (1.7-2.3) mg/dL NT-Pro-B Natriuret Pep 3718 H (0-900) pg/mL - EKG Data -: EKG Interpreted by Me EKG shows normal: sinus rhythm - EKG Data 05/02/18 12:11 Sinus rhythm, 73 beats minute, left axis deviation, poor R-wave progression, [place] interval prolonged, QTC prolonged, first-degree AV block, abnormal EKG, not co nsistent with ST elevation myocardial infarction, appears unchanged when compared to prior. - Radiology Data Radiology results: image reviewed interpreted by me: X-ray of the chest shows pulmonary vascular congestion, congestive heart failure - Medical Decision Making Differential diagnosis, including but not limited to: Congestive heart failure, fluid overload, cardiorenal syndrome, pulmonary hypertension, pneumonia Assessment and plan: 77-year-old female, with known history of congestive heart failure, known history of renal insufficiency, with lower extremity swelling, shortness of breath, rales, lower extremity edema, clinical scenario is suggestive of fluid overload, likely worsening renal insufficiency, worsening congestive heart failure, on the spectrum of cardiorenal syndrome. The patient reports no pulmonary embolus or DVT risk factors and she is low risk by well's criteria. The patient is getting a lower extremity DVT study currently, but I highly doubt thromboembolic disease based off of the history and physical. Her primary care doctor, Dr. Brooke, is going to admit the patient to the medical service, and I have discussed the case with the cardiology nurse practitioner, Vidya Nowak, working with Dr Ab Collins, whose group a follow-up consultation. Advised patient that I recommended hospitalization for IV diuresis and respiratory support, she is amenable to this plan of care, and will be placed for a bed. Critical Care Time: Yes Critical care time in (mins) excluding proc time.: 35 Critical care attestation.: If time is entered above; I have spent that time in minutes in the direct care of this critically ill patient, excluding procedure time. ED Disposition Clinical Impression: Pulmonary edema, Renal failure, acute on chronic CHF exacerbation Qualifiers: Qualified Code(s): I50.43 - Acute on chronic combined systolic (congestive) and diastolic (congestive) heart failure Disposition: OP ADMIT IP TO THIS HOSP Is pt being admited?: Yes Does the pt Need Aspirin: Yes Condition: Fair
[2018-05-02 11:24] LABS: Hematocrit 29.4 % (30.3-42.9); Hemoglobin 9.7 gm/dl (10.1-14.3); Mean Corpuscular HGB Conc 33 % (30-34); Mean Corpuscular Volume 92 fl (79-97); Platelet Count 267 K/mm3 (140-440); Red Cell Distribution Width 16.1 % (13.2-15.2)
[2018-05-02 11:35] LABS: INR 0.91 (0.87-1.13)
[2018-05-02 11:53] LABS: Calcium 8.2 mg/dL (8.4-10.2)
--- NOTE | 2018-05-02 11:59 | XRay Report ---
AP CHEST: HISTORY: Dyspnea Compared to 10/07/16. Mild cardiomegaly, mild pulmonary venous congestion and trace pleural effusions are identified. No evidence for pneumonia or pneumothorax. The bony structures are grossly intact. IMPRESSION: Mild CHF.
[2018-05-02] MEDS ORDERED: LASIX IV ONE (12:01)
[2018-05-02] MEDS ORDERED: BABY ASPIRIN PO ONE (12:25)
[2018-05-02] MEDS ORDERED: MAGNESIUM SULFATE 2GM/50ML 2 GM/50 ML BAG IV ONE ×2 (12:25→13:57)
--- NOTE | 2018-05-02 12:36 | History and Physical Report ---
History of Present Illness Date of examination: 05/02/18 Date of admission: 05/02/18 Chief complaint: shortness of breath, Pedal edema History of present illness: Patient is a 70-year-old lady who was a history of congestive heart failure, diabetes mellitus, hypertension, chronic renal disease, breast cancer status post left mastectomy in 2012, and anemia of chronic disease who started having progressive shortness of breath for the past 1 month. Got worse about 2 days ago where he is unable to ambulate to the bathroom without being short of breath. Has progressively worsening pedal edema. Had orthopnea and paroxysmal nocturnal dyspnea. Denies any chest pain. Had a cough that is dry. No fever. No hemoptysis. Has noticed she is progressively gaining weight. On presentating to emergency department, chest x-ray shows evidence of poor congestion, BNP was 3718, hypomagnesemia of 1.4 was observed. BUN was 32 and creatinine was 2.2. As of September 2017 BUN was 27 creatinine was 1.9. Echocardiogram of 10/07/2016 showed ejection fraction of 55-60% with diastolic dysfunction. IV Lasix was commenced in the emergency department and admission was requested. Past History Past Medical History: heart failure (,), hypertension, hyperlipidemia, other (breast cancer) Past Surgical History: mastectomy Social history: denies: smoking, alcohol abuse, prescription drug abuse Family history: no significant family history Medications and Allergies Allergies Allergy/AdvReac Type Severity Reaction Status Date / Time No Known Allergies Allergy Verified 05/02/18 10:53 Home Medications Medication Instructions Recorded Confirmed Last Taken Type Anastrozole (Nf) [Arimidex (Nf)] 1 mg PO DAILY 05/01/15 10/07/16 10/06/16 History Esomeprazole Magnesium [NexIUM] 40 mg PO QDAY 05/01/15 10/07/16 10/06/16 History Caddo-3 Fatty Acids [Caddo-3] 100 mg PO BID 05/01/15 10/07/16 10/06/16 History Rosuvastatin (Nf) [Crestor] 20 mg PO QHS 05/01/15 10/07/16 10/06/16 History Aspirin EC [Aspirin Enteric Coated 81 mg PO QDAY #30 tablet. 10/11/16 Unknown Rx TAB] Furosemide [Lasix TAB] 40 mg PO QDAY #30 tablet 10/11/16 Unknown Rx amLODIPine [Norvasc] 5 mg PO QDAY #30 tablet 10/11/16 Unknown Rx Active Meds: Active Medications Magnesium Sulfate (Magnesium Sulfate 2gm/50ml) 2 gm in 50 mls @ 100 mls/hr IV ONCE ONE Stop: 05/02/18 12:54 Review of systems Constitutional: Well Nouridhed and Well developed. Head: NC/ AT Eyes: Denies any visual impairments. No discharge from the eyes Nose: Denies any rhinorrhea or epistaxis Throats: Denies any post nasal drainage. Ears: Denies any hearing deficits Cardiovascular system: As, shortness of breath, orthopnea, paroxysmal nocturnal dyspnea, no chest pain, no palpitation. Respiratory system: Denies shortness of breath with, difficulty breathing, no wheezing, pleuritic chest pain, Gastrointestinal system: Denies any abdominal pain, nausea vomiting, hematemesis or melena. Neurological system: Denies any headache, slurred speech, facial droop, lateralizing weakness Genitalia system: Denies any dysuria, urinary frequency or urgency, urethral discharge Skin: Swelling of her lower extremities. No rashes, hyperpigmented spots. Hematological: Denies any cervical tenderness hemorrhages or petechia. Immunological: Denies any multiple septic spots, Lymphatic: Denies any generalized lymphadenopathy. Endocrine: Denies any polyuria, polydipsia, polyphagia. No heat or cold intolerance. Musculoskeletal system: No joint pain or swelling. Psych: No visual, tactile, auditory or hallucination Exam - Physical Exam Narrative exam: Constitutional: N and cut and position in bed. In mild distress. Well- nourished well-developed. In no distress Head: Normocephalic atraumatic Eyes: Pupils are equal round and reactive to light Nose: No enlarged turbinates, no septal deviation. Mouth: Moist mucous membranes. Neck: Supple no thyromegaly. No bruit. No JVD Heart: Regular rate and rhythm, S1-S2 with S3. No rubs murmurs or gallop Lungs: Clear to auscultation bilaterally. no rales or rhonchi Abdomen: Soft, nontender. Bowel sound are present. Extremities: 2+ pedal edema, no cyanosis, no clubbing. Neuro: Alert oriented Oriented x3. No focal sensory or motor deficit. Skin: No rashes or hyperpigmented spots Musculoskeletal system: No joint pain or swelling Hematological: No petechia or subcutanous hemorrhages. Immunological: No multiple septic spots on the skin Lymphatic: No generalized lymphadenopathy Psychiatry: Euthymic. Calm. - Constitutional Vitals: Temp Pulse Resp BP Pulse Ox 98.9 F 89 26 H 128/96 83 L 05/02/18 10:58 05/02/18 10:58 05/02/18 10:58 05/02/18 10:58 05/02/18 10:58 General appearance: Present: no acute distress - EENT Eyes: Present: PERRL - Neck Neck: Present: supple - Respiratory Respiratory: bilateral: diminished - Cardiovascular Heart Sounds: Present: S1 & S2, gallop - Extremities Extremity abnormal: edema - Abdominal General gastrointestinal: Present: soft, non-tender, non-distended Results - Labs CBC & Chem 7: 05/02/18 11:02 05/02/18 11:02 Labs: Abnormal lab results 05/02/18 05/02/18 Range/Units 11:02 11:02 RBC 3.20 L (3.65-5.03) M/mm3 Hgb 9.7 L (10.1-14.3) gm/dl Hct 29.4 L (30.3-42.9) % RDW 16.1 H (13.2-15.2) % Sodium 146 H (137-145) mmol/L Carbon Dioxide 21 L (22-30) mmol/L BUN 32 H (7-17) mg/dL Creatinine 3.0 H (0.7-1.2) mg/dL Glucose 150 H (65-100) mg/dL Calcium 8.2 L (8.4-10.2) mg/dL Magnesium 1.20 L (1.7-2.3) mg/dL NT-Pro-B Natriuret Pep 3718 H (0-900) pg/mL Assessment and Plan Patient is a 70-year-old lady who was a history of congestive heart failure, diabetes mellitus, hypertension, chronic renal disease, breast cancer status post left mastectomy in 2012, and anemia of chronic disease who started having progressive shortness of breath for the past 1 month. Got worse about 2 days ago where he is unable to ambulate to the bathroom without being short of breath. Has progressively worsening pedal edema. Had orthopnea and paroxysmal nocturnal dyspnea. Denies any chest pain. Had a cough that is dry. No fever. No hemoptysis. Has noticed she is progressively gaining weight. On presentating to emergency department, chest x-ray shows evidence of poor congestion, BNP was 3718, hypomagnesemia of 1.4 was observed. BUN was 32 and creatinine was 2.2. As of September 2017 BUN was 27 creatinine was 1.9. Echocardiogram of 10/07/2016 showed ejection fraction of 55-60% with diastolic dysfunction. IV Lasix was commenced in the emergency department and admission was requested. - Acute on Chronic Diastolic Heart Failure BNP is 3178, will obtain lipid panel, TSH, Daily weights, strict input and output, 2 g sodium diet Diuresis, beta blockers, Acei, statin, Echocardiogram Consult patient's graphic design assistant - Acute on chronic renal failure Monitor urine outputs Renal ultrasound Urine electrolytes, nephrology consult. Nephrology consult - Anemia of chronic disease Obtain B12 and folic acid and TIBC, stool Hemoccult - Hypoglycemia Obtain A1c, commence sliding scale Consistent carbohydrate diet - Hypomagnesemia With supplement -Developed prophylaxis with Lovenox Time spent: 40 minutes in direct patient care review of laboratory and radi ological findings as well as explaining management plan to the patient
[2018-05-02] MEDS ORDERED: NON-FORMULARY (Anastrozole (Nf) 1 MG) PO SCH (13:00)
[2018-05-02] MEDS ORDERED: OMEGA PO SCH (13:00)
[2018-05-02] MEDS ORDERED: FATTY ACIDS PO SCH (13:00)
--- NOTE | 2018-05-02 13:07 | Vascular Lab Report ---
PROCEDURE: VL VENOUS DUPLEX LE BILAT TECHNIQUE: Longitudinal and transverse grayscale, color, and Doppler sonographic images of the bilat eral lower extremities was performed HISTORY: lowr ext sqwelling COMPARISONS: None FINDINGS: Venous system is anechoic and fully compressible at all levels. Normal respiratory variability and augmentation. 2.3 x 1.4 cm left popliteal fossa Jasso's cyst. This is complex. There is left ankle edema. IMPRESSION: No evidence for deep venous thrombosis in either lower extremity. Left popliteal fossa complex 2.3 x 1.4 cm Jasso cyst. Edema around the left ankle.. This document is electronically signed by Rochelle Adam MD., May 02 2018 01:04:21 PM ET
--- NOTE | 2018-05-02 13:17 | Consultation ---
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 She has been seen by our group on prior hospitalizations but has not bee compliant with OP follow up. She presented with c/o hypoxia. She states that she went to her oncology office for routine iron infusion and was found to have low O2 sats and was referred to ED. She admits to SOB and BLE swelling for 1 month. She denies any chest pain, palpitations, n/v, diaphoresis, dizziness, or syncope. Admission CXR with mild HF; pro-BNP 3718; BUN CR 32/3.0. Echo done 09/2016 showed mild LVH, EF 55-60%, abnormal diastolic function, mild MR, mild to mod TR, mild AR. Stress MPI done 09/16/15 showed mod. fixed inferior wall defect, small, mild partially reversible septal and lateral wall defects; medical management was recommended. Past History Past Medical History: heart failure (,), hypertension, hyperlipidemia, other (breast cancer) Past Surgical History: mastectomy Social history: denies: smoking, alcohol abuse, prescription drug abuse Family history: no significant family history Medications and Allergies Allergies Allergy/AdvReac Type Severity Reaction Status Date / Time No Known Allergies Allergy Verified 05/02/18 10:53 Home Medications Medication Instructions Recorded Confirmed Last Taken Type Anastrozole (Nf) [Arimidex (Nf)] 1 mg PO DAILY 05/01/15 10/07/16 10/06/16 History Esomeprazole Magnesium [NexIUM] 40 mg PO QDAY 05/01/15 10/07/16 10/06/16 History Butler-3 Fatty Acids [Butler-3] 100 mg PO BID 05/01/15 10/07/16 10/06/16 History Rosuvastatin (Nf) [Crestor] 20 mg PO QHS 05/01/15 10/07/16 10/06/16 History Aspirin EC [Aspirin Enteric Coated 81 mg PO QDAY #30 tablet. 10/11/16 Unknown Rx TAB] Furosemide [Lasix TAB] 40 mg PO QDAY #30 tablet 10/11/16 Unknown Rx amLODIPine [Norvasc] 5 mg PO QDAY #30 tablet 10/11/16 Unknown Rx Active Meds: Active Medications Aspirin (Baby Aspirin) 81 mg PO QDAY [facility] Carvedilol (Coreg) 3.125 mg PO BID [facility] Furosemide (Lasix) 40 mg IV QDAY [facility] Heparin Sodium (Porcine) (Heparin) 5,000 unit SUB-Q Q8HR [facility] Magnesium Sulfate (Magnesium Sulfate 2gm/50ml) 2 gm in 50 mls @ 25 mls/hr IV ONCE ONE Stop: 05/02/18 15:56 Lisinopril (Zestril) 10 mg PO QDAY [facility] Miscellaneous Medication (Anastrozole (Nf)) 1 mg PO DAILY [facility] Miscellaneous Medication (Butler-3 Fatty Acids [Butler-3]) 100 mg PO BID [facility] Miscellaneous Medication (Rosuvastatin (Nf)) 20 mg PO QHS [facility] Potassium Chloride (K-Dur) 20 meq PO QDAY [facility] Review of Systems Constitutional: no fever, no chills, no sweats Ears, nose, mouth and throat: no ear pain, no nose pain, no sinus pressure, no sinus pain Cardiovascular: shortness of breath, dyspnea on exertion, leg edema, no chest pain Respiratory: shortness of breath, dyspnea on exertion, no cough, no congestion, no wheezing, no pain on inspiration Gastrointestinal: no abdominal pain, no nausea, no vomiting, no diarrhea, no constipation, no change in bowel habits Genitourinary Female: no pelvic pain, no flank pain, no urinary frequency, no urgency Musculoskeletal: no neck stiffness, no neck pain, no shooting arm pain, no arm numbness/tingling, no low back pain, no shooting leg pain Integumentary: no rash, no pruritis, no redness, no sores, no wounds Neurological: no head injury, no paralysis, no weakness, no parathesias, no numbness, no tingling, no seizures, no syncope Psychiatric: no anxiety Endocrine: no cold intolerance, no heat intolerance Hematologic/Lymphatic: no easy bruising, no easy bleeding Allergic/Immunologic: no wheezing Physical Examination Vital Signs Temp Resp Pulse Ox 98.9 F 22 97 05/02/18 10:56 05/02/18 10:56 05/02/18 10:56 General appearance: no acute distress HEENT: Positive: PERRL, Normocephaly, Mucus Membranes Moist Neck: Positive: neck supple, trachea midline Cardiac: Positive: Reg Rate and Rhythm, S1/S2 Lungs: Positive: Rhonchi Neuro: Positive: Grossly Intact Abdomen: Positive: Soft. Negative: Tender Skin: Negative: Rash Musculoskeletal: No Pain Extremities: Present: +2 Edema (BLE) Results 05/02/18 11:02 05/02/18 11:02 Coagulation 05/02/18 Range/Units 11:02 PT 12.8 (12.2-14.9) Sec. INR 0.91 (0.87-1.13) CBC 05/02/18 Range/Units 11:02 WBC 8.5 (4.5-11.0) K/mm3 RBC 3.20 L (3.65-5.03) M/mm3 Hgb 9.7 L (10.1-14.3) gm/dl Hct 29.4 L (30.3-42.9) % Plt Count 267 (140-440) K/mm3 Comprehensive Metabolic Panel 05/02/18 Range/Units 11:02 Sodium 146 H (137-145) mmol/L Potassium 4.3 (3.6-5.0) mmol/L Chloride 104.9 (98-107) mmol/L Carbon Dioxide 21 L (22-30) mmol/L BUN 32 H (7-17) mg/dL Creatinine 3.0 H (0.7-1.2) mg/dL Glucose 150 H (65-100) mg/dL Calcium 8.2 L (8.4-10.2) mg/dL - Imaging and Cardiology Echo: report reviewed ( 09/2016 showed mild LVH, EF 55-60%, abnormal diastolic function, mild MR, mild to mod TR, mild AR.) EKG: report reviewed, image reviewed EKG interpretations - Telemetry EKG Rhythm: Sinus Rhythm - EKG Sinus rhythms and dysrhythmias: sinus rhythm Assessment and Plan Hold lisinopril in setting of renal insufficiency. Await nephrology consultation - will defer volume optimization to nephrology in setting of renal insufficiency. Obtain echo. Replete Mg. The patient has been seen in conjunction with Dr. Goodrich who agrees with the assessment and plan of care. - Patient Problems (1) Acute heart failure with preserved ejection fraction Current Visit: Yes Status: Acute (2) Acute on chronic kidney failure Current Visit: Yes Status: Acute (3) Anemia Current Visit: Yes Status: Chronic (4) Diabetes Current Visit: Yes Status: Chronic (5) HTN (hypertension) Current Visit: Yes Status: Chronic Qualifiers: Hypertension type: essential hypertension Qualified Code(s): I10 - Essential (primary) hypertension (6) History of breast cancer Current Visit: Yes Status: Chronic (7) History of CVA (cerebrovascular accident) Current Visit: Yes Status: Chronic (8) GERD (gastroesophageal reflux disease) Current Visit: Yes Status: Chronic (9) Hypomagnesemia Current Visit: Yes Status: Acute
[2018-05-02] MEDS ORDERED: D50W (25GM) Syringe IV PRN (13:29)
[2018-05-02] MEDS ORDERED: K-DUR PO ONE (13:48)
[2018-05-02] MEDS: COREG PO SCH ×2 (13:48→21:04)
[2018-05-02] MEDS ORDERED: COREG ONE (13:48)
[2018-05-02] MEDS ORDERED: HEPARIN ONE (13:48)
[2018-05-02 13:50] LABS: Chol/HDL Ratio 2.75 %
[2018-05-02] MEDS: K-DUR PO SCH (13:50)
[2018-05-02] MEDS: HEPARIN SUB-Q SCH ×2 (13:58→21:04)
[2018-05-02] MEDS ORDERED: ZESTRIL PO SCH (14:00)
[2018-05-02] MEDS ORDERED: APRESOLINE IV ONE (21:00)
[2018-05-02] MEDS ORDERED: NON-FORMULARY (Rosuvastatin (Nf) 20 MG) PO SCH (22:00)
[2018-05-02] MEDS ORDERED: APRESOLINE IV PRN (22:35)
[2018-05-02] MEDS: APRESOLINE IV PRN (23:32)
[2018-05-03] MEDS: HEPARIN SUB-Q SCH ×3 (05:31→21:34)
[2018-05-03] MEDS: APRESOLINE IV PRN (05:31)
[2018-05-03 06:47] LABS: Basophils % (Auto) 0.2 % (0.0-1.8); Eosinophils # (Auto) 0.1 K/mm3 (0.0-0.4); Eosinophils % (Auto) 1.4 % (0.0-4.3); Hematocrit 27.7 % (30.3-42.9); Hemoglobin 9.4 gm/dl (10.1-14.3); Lymphocytes # (Auto) 1.3 K/mm3 (1.2-5.4); Lymphocytes % (Auto) 16.7 % (13.4-35.0); Mean Corpuscular HGB Conc 34 % (30-34); Mean Corpuscular Volume 92 fl (79-97); Monocytes # (Auto) 0.6 K/mm3 (0.0-0.8); Monocytes % (Auto) 7.9 % (0.0-7.3); Platelet Count 239 K/mm3 (140-440); Red Blood Count 3.01 M/mm3 (3.65-5.03)
--- NOTE | 2018-05-03 06:58 | Progress Note ---
Assessment and Plan Patient is a 70-year-old lady who was a history of congestive heart failure, diabetes mellitus, hypertension, chronic renal disease, breast cancer status post left mastectomy in 2012, and anemia of chronic disease who started having progressive shortness of breath for the past 1 month. Got worse about 2 days ago where he is unable to ambulate to the bathroom without being short of breath. Has progressively worsening pedal edema. Had orthopnea and paroxysmal nocturnal dyspnea. Denies any chest pain. Had a cough that is dry. No fever. No hemoptysis. Has noticed she is progressively gaining weight. On presentating to emergency department, chest x-ray shows evidence of poor congestion, BNP was 3718, hypomagnesemia of 1.4 was observed. BUN was 32 and creatinine was 2.2. As of September 2017 BUN was 27 creatinine was 1.9. Ec hocardiogram of 10/07/2016 showed ejection fraction of 55-60% with diastolic dysfunction. IV Lasix was commenced in the emergency department and admission was requested. - Acute on Chronic Diastolic Heart Failure BNP is 3178, lipid panel, TSH, - were nl. Daily weights, strict input and output, 2 g sodium diet Continue with Diuresis, beta blockers, ACEI, statin, Echocardiogram Marine Architect following pt. - Acute on chronic renal failure Monitor urine outputs Renal ultrasound Urine electrolytes, nephrology consult. Nephrology consult - Anemia of chronic disease Obtain B12 and folic acid and TIBC, stool Hemoccult - Hypoglycemia A1c is 5.9. - prediabetic cont. with Consistent carbohydrate diet - Hypomagnesemia Will supplement further -Developed prophylaxis with Lovenox Time spent: 40 minutes in direct patient care review of laboratory and radiological findings as well as explaining management plan to the patient Subjective Date of service: 05/03/18 Principal diagnosis: Shortness of breath, diastolic heart failure Interval history: shortnessof breath improving. No chest pain Objective - Exam Narrative Exam: Constitutional: N and cut and position in bed. In mild distress. Well-nourished well-developed. In no distress Head: Normocephalic atraumatic Eyes: Pupils are equal round and reactive to light Nose: No enlarged turbinates, no septal deviation. Mouth: Moist mucous membranes. Neck: Supple no thyromegaly. No bruit. No JVD Heart: Regular rate and rhythm, S1-S2 with S3. No rubs murmurs or gallop Lungs: Clear to auscultation bilaterally. no rales or rhonchi Abdomen: Soft, nontender. Bowel sound are present. Extremities: 2+ pedal edema, no cyanosis, no clubbing. Neuro: Alert oriented Oriented x3. No focal sensory or motor deficit. Skin: No rashes or hyperpigmented spots Musculoskeletal system: No joint pain or swelling Hematological: No petechia or subcutanous hemorrhages. Immunological: No multiple septic spots on the skin Lymphatic: No generalized lymphadenopathy Psychiatry: Euthymic. Calm. - Constitutional Vitals: Vital Signs - 12hr 05/02/18 05/02/18 05/02/18 20:20 20:47 21:04 Temperature 98.6 F Pulse Rate 75 75 75 Respiratory 22 Rate Blood Pressure 206/120 206/120 206/120 Blood Pressure [Right] O2 Sat by Pulse 96 Oximetry 05/02/18 05/02/18 05/02/18 21:20 21:46 22:00 Temperature Pulse Rate 75 Respiratory Rate Blood Pressure Blood Pressure 178/79 [Right] O2 Sat by Pulse 94 Oximetry 05/02/18 05/02/18 05/03/18 23:27 23:32 03:54 Temperature 98.9 F 99.6 F Pulse Rate 80 84 95 H Respiratory 20 22 Rate Blood Pressure 181/70 181/70 176/90 Blood Pressure [Right] O2 Sat by Pulse 96 89 Oximetry 05/03/18 05/03/18 05:00 05:31 Temperature Pulse Rate 80 95 H Respiratory Rate Blood Pressure 176/90 Blood Pressure [Right] O2 Sat by Pulse Oximetry - Labs CBC & Chem 7: 05/03/18 05:59 05/02/18 11:02 Labs: Abnormal lab results 05/02/18 05/02/18 05/02/18 Range/Units 11:02 11:02 11:02 RBC 3.20 L (3.65-5.03) M/mm3 Hgb 9.7 L (10.1-14.3) gm/dl Hct 29.4 L (30.3-42.9) % RDW 16.1 H (13.2-15.2) % [place] % (Auto) (0.0-7.3) % Seg Neutrophils % (40.0-70.0) % Sodium 146 H (137-145) mmol/L Carbon Dioxide 21 L (22-30) mmol/L BUN 32 H (7-17) mg/dL Creatinine 3.0 H (0.7-1.2) mg/dL Glucose 150 H (65-100) mg/dL Calcium 8.2 L (8.4-10.2) mg/dL Magnesium 1.20 L (1.7-2.3) mg/dL Troponin T 0.040 H (0.00-0.029) ng/mL NT-Pro-B Natriuret Pep 3718 H (0-900) pg/mL 05/03/18 Range/Units 05:59 RBC 3.01 L (3.65-5.03) M/mm3 Hgb 9.4 L (10.1-14.3) gm/dl Hct 27.7 L (30.3-42.9) % RDW 16.0 H (13.2-15.2) % [place] % (Auto) 7.9 H (0.0-7.3) % Seg Neutrophils % 73.8 H (40.0-70.0) % Sodium (137-145) mmol/L Carbon Dioxide (22-30) mmol/L BUN (7-17) mg/dL Creatinine (0.7-1.2) mg/dL Glucose (65-100) mg/dL Calcium (8.4-10.2) mg/dL Magnesium (1.7-2.3) mg/dL Troponin T (0.00-0.029) ng/mL NT-Pro-B Natriuret Pep (0-900) pg/mL
[2018-05-03] MEDS ORDERED: APRESOLINE IV ONE (07:00)
[2018-05-03 07:12] LABS: BUN/Creatinine Ratio 10; Blood Urea Nitrogen 30 mg/dL (7-17); Calcium 8.3 mg/dL (8.4-10.2); Hemolysis Index 6
[2018-05-03 07:24] LABS: Alanine Aminotransferase < 5 units/L (7-56)
[2018-05-03 08:33] LABS: Iron 29 ug/dL (37-170); Total Iron Binding Capacity 258 mcg/dL (250-450)
[2018-05-03] MEDS ORDERED: ZESTRIL PO SCH ×2 (10:00)
[2018-05-03] MEDS: LASIX IV SCH (11:43)
[2018-05-03] MEDS: NORVASC PO SCH (11:46)
[2018-05-03] MEDS: K-DUR PO SCH (11:47)
[2018-05-03] MEDS: BABY ASPIRIN PO SCH (11:48)
[2018-05-03] MEDS: COREG PO SCH ×3 (11:48→21:33)
--- NOTE | 2018-05-03 12:06 | Progress Note ---
Assessment and Plan Optimize anti-hypertensive regimen - hold ACEI/ARB at this time in setting of renal insufficiency, agree with coreg and amlodipine, initiate hydralazine. Cont daily IV lasix. Await echo. Await nephrology recs. The patient has been seen in conjunction with Dr. Goodrich who agrees with the assessment and plan of care. - Patient Problems (1) Acute heart failure with preserved ejection fraction Current Visit: Yes Status: Acute (2) Acute on chronic kidney failure Current Visit: Yes Status: Acute (3) Anemia Current Visit: Yes Status: Chronic (4) Diabetes Current Visit: Yes Status: Chronic (5) HTN (hypertension) Current Visit: Yes Status: Chronic Qualifiers: Hypertension type: essential hypertension Qualified Code(s): I10 - Essential (primary) hypertension (6) History of breast cancer Current Visit: Yes Status: Chronic (7) History of CVA (cerebrovascular accident) Current Visit: Yes Status: Chronic (8) GERD (gastroesophageal reflux disease) Current Visit: Yes Status: Chronic (9) Hypomagnesemia Current Visit: Yes Status: Acute Subjective Date of service: 05/03/18 Principal diagnosis: Shortness of breath, diastolic heart failure Interval history: pt resting in bed, states SOB improving, BLE edema improving. Objective Last Vital Signs Temp 99.6 F 05/03/18 03:54 Pulse 92 H 05/03/18 11:49 Resp 22 05/03/18 03:54 BP 192/69 05/03/18 06:58 Pulse Ox 89 05/03/18 03:54 - Physical Examination General: No Apparent Distress HEENT: Positive: PERRL, Normocephaly, Mucus Membranes Moist Neck: Positive: neck supple, trachea midline Cardiac: Positive: Reg Rate and Rhythm, S1/S2 Lungs: Positive: Decreased Breath Sounds Neuro: Positive: Grossly Intact Abdomen: Positive: Soft. Negative: Tender Skin: Negative: Rash Musculoskeletal: No Pain Extremities: Present: +2 Edema (BLE) - Labs and Meds Cardiac Enzymes 05/03/18 Range/Units 05:59 AST 11 (5-40) units/L Lipids 05/02/18 Range/Units 13:06 Triglycerides 141 (2-149) mg/dL Cholesterol 113 (50-199) mg/dL HDL Cholesterol 41 (40-59) mg/dL Cholesterol/HDL Ratio 2.75 % CBC 05/03/18 Range/Units 05:59 WBC 7.5 (4.5-11.0) K/mm3 RBC 3.01 L (3.65-5.03) M/mm3 Hgb 9.4 L (10.1-14.3) gm/dl Hct 27.7 L (30.3-42.9) % Plt Count 239 (140-440) K/mm3 Lymph # 1.3 (1.2-5.4) K/mm3 [place] # 0.6 (0.0-0.8) K/mm3 Eos # 0.1 (0.0-0.4) K/mm3 Baso # 0.0 (0.0-0.1) K/mm3 Comprehensive Metabolic Panel 05/03/18 Range/Units 05:59 Sodium 143 (137-145) mmol/L Potassium 3.7 (3.6-5.0) mmol/L Chloride 109.8 H (98-107) mmol/L Carbon Dioxide 20 L (22-30) mmol/L BUN 30 H (7-17) mg/dL Creatinine 3.0 H (0.7-1.2) mg/dL Glucose 126 H (65-100) mg/dL Calcium 8.3 L (8.4-10.2) mg/dL AST 11 (5-40) units/L ALT < 5 L (7-56) units/L Alkaline Phosphatase 74 (35-129) units/L Total Protein 6.3 (6.3-8.2) g/dL Albumin 3.0 L (3.9-5) g/dL - Imaging and Cardiology EKG: report reviewed, image reviewed Echo: report reviewed ( 09/2016 showed mild LVH, EF 55-60%, abnormal diastolic function, mild MR, mild to mod TR, mild AR.) - EKG Sinus rhythms and dysrhythmias: sinus rhythm
[2018-05-03] MEDS: APRESOLINE PO SCH ×2 (15:14→21:33)
--- NOTE | 2018-05-03 18:29 | Consultation ---
History of Present Illness - Reason for Consult Consult date: 05/03/18 acute renal failure Requesting physician: ERICK GARCIA - History of Present Illness 77-year-old lady who is following with Dr. Avitia in the office for chronic kidney disease stage IV prescription if secondary to diabetic nephropathy/hypertensive nephrosclerosis. Admitted on account of worsening shortness of breath with progressive LE swelling and weight gain. She is been treated for acute on chronic heart failure with preserved ejection fraction. I'm consulted to assist in managing kidney disease. BUN and creatinine are 30/3.0 mg/dL just a bit worse than 28/2.8 mg/dL on most recent follow-up in Feb 2018. Patient admits to nonproductive cough with wheezing but denies any voiding difficulties. She is not using any nonsteroidal anti-inflammatory drugs and has not been exposed to radiocontrast recently. Past History Past Medical History: cancer (breast), diabetes, GERD, heart failure (preserved ejection fraction), hypertension, hyperlipidemia, stroke (residual right-sided weakness), other (chronic kidney disease stage IV) Past Surgical History: mastectomy Social history: lives with family (lives with Son). denies: smoking, alcohol abuse, prescription drug abuse Family history: CAD (one sister of a heart attack), hypertension, stroke (mother following strokes), other (father after amputation of his leg she's not sure if it was diabetic. Her 5 brothers and 5 sisters are all ) Medications and Allergies Allergies Allergy/AdvReac Type Severity Reaction Status Date / Time No Known Allergies Allergy Verified 05/02/18 10:53 Home Medications Medication Instructions Recorded Confirmed Last Taken Type Anastrozole (Nf) [Arimidex (Nf)] 1 mg PO DAILY 05/01/15 05/02/18 10/06/16 History Esomeprazole Magnesium [NexIUM] 40 mg PO QDAY 05/01/15 05/02/18 10/06/16 History [place]-3 Fatty Acids [[place]-3] 100 mg PO BID 05/01/15 05/02/18 10/06/16 History Rosuvastatin (Nf) [Crestor] 20 mg PO QHS 05/01/15 05/02/18 10/06/16 History Aspirin EC [Aspirin Enteric Coated 81 mg PO QDAY #30 tablet. 10/11/16 05/02/18 Unknown Rx TAB] Furosemide [Lasix TAB] 40 mg PO QDAY #30 tablet 10/11/16 05/02/18 Unknown Rx amLODIPine [Norvasc] 5 mg PO QDAY #30 tablet 10/11/16 05/02/18 Unknown Rx Active Meds: Active Medications Amlodipine Besylate (Norvasc) 10 mg PO QDAY [facility] Last Admin: 05/03/18 11:46 Dose: 10 mg Documented by: Aspirin (Baby Aspirin) 81 mg PO QDAY [facility] Last Admin: 05/03/18 11:48 Dose: 81 mg Documented by: Atorvastatin Calcium (Lipitor) 40 mg PO QHS [facility] Last Admin: 05/02/18 21:04 Dose: 40 mg Documented by: Carvedilol (Coreg) 25 mg PO BID [facility] Last Admin: 05/03/18 11:49 Dose: 25 mg Documented by: Dextrose (D50w (25gm) Syringe) 50 ml IV PRN PRN PRN Reason: Hypoglycemia Furosemide (Lasix) 40 mg IV QDAY [facility] Last Admin: 05/03/18 11:43 Dose: 40 mg Documented by: Heparin Sodium (Porcine) (Heparin) 5,000 unit SUB-Q Q8HR [facility] Last Admin: 05/03/18 15:08 Dose: 5,000 unit Documented by: Hydralazine HCl (Apresoline) 50 mg PO Q8HR [facility] Last Admin: 05/03/18 15:14 Dose: 50 mg Documented by: Miscellaneous Medication (Anastrozole (Nf)) 1 mg PO DAILY [facility] Potassium Chloride (K-Dur) 20 meq PO QDAY [facility] Last Admin: 05/03/18 11:47 Dose: 20 meq Documented by: Review of Systems All systems: negative (Constitutional: Admits to chills ? Fever. No anorexia or weight loss. HEENT: No sore throat or sinus drainage no hearing or vision imp airment . Cardiovascular: See history of present illness Respiratory: Admits to nonproductive cough. No hemoptysis or wheezing. Gastrointestinal: No nausea, vomiting, diarrhea, abdominal pain, hematemesis or melena. Genitourinary: No frequency urgency dysuria or hematuria. hematologic: No abnormal bleeding or bruising. Integumentary: no pruritus or rash. Neurological: Occasional headache and residual right-sided weakness, no syncope or seizures. Musculoskeletal: Admits to joint pains in her right knee. No stiffness. Psychiatry: no anxiety or depression) Exam - Vital Signs Vital signs: Vital Signs Temp Resp Pulse Ox 98.9 F 22 97 05/02/18 10:56 05/02/18 10:56 05/02/18 10:56 - Physical Exam Narrative exam: Elderly, -Mauritian Mauritian female lying in bed in no acute distress HEENT: NCAT, pink oral mucous membrane Neck: Supple, no venous distention CVS: S1S2 RRR with no murmur, rub or gallop Chest: Diminished breath sounds lower sounds bilaterally Abdomen: Obese, soft, nontender, no organomegaly, bowel sounds are present Extremities: Mild edema Genitalia deferred Skin warm and dry Neuro: Awake, alert no focal deficits Results - Lab Results 05/03/18 05:59 05/03/18 05:59 Most recent lab results Calcium 8.3 mg/dL (8.4-10.2) L 05/03/18 05:59 Phosphorus 4.60 mg/dL (2.5-4.5) H 05/03/18 05:59 Magnesium 1.50 mg/dL (1.7-2.3) L 05/03/18 05:59 Assessment and Plan - Patient Problems (1) Acute on chronic kidney failure Current Visit: Yes Status: Acute Plan to address problem: Suspect acute kidney injury probably Pre-renal azotemia secondary to acute cardiorenal syndrome. Continue gentle diuresis and monitor electrolytes and renal function closely. Get urinalysis. (2) Acute on chronic heart failure with preserved ejection fraction Current Visit: Yes Status: Acute Plan to address problem: Continue gentle diuresis, monitor intake and output, sodium and fluid restriction, follow up electrolytes and renal function (3) Type 2 diabetes mellitus with diabetic chronic kidney disease Current Visit: Yes Status: Acute Plan to address problem: Blood sugar management by primary attending (4) Hypertensive chronic kidney disease with stage 1 through stage 4 chronic kidney disease, or unspecified chronic kidney disease Current Visit: Yes Status: Acute Plan to address problem: Medications adjusted. Follow-up blood pressure on adjusted medications (5) CKD (chronic kidney disease) stage 4, GFR 15-29 ml/min Current Visit: No Status: Acute Plan to address problem: Follows with Dr. Avitia as an outpatient. (6) Anemia in chronic kidney disease (CKD) Current Visit: No Status: Chronic Plan to address problem: Follow-up hemoglobin (7) Hypomagnesemia Current Visit: Yes Status: Acute Plan to address problem: Supplement magnesium and follow up level
[2018-05-04 05:03] LABS: Basophils % (Auto) 0.3 % (0.0-1.8); Eosinophils # (Auto) 0.1 K/mm3 (0.0-0.4); Eosinophils % (Auto) 1.6 % (0.0-4.3); Hematocrit 27.8 % (30.3-42.9); Hemoglobin 9.1 gm/dl (10.1-14.3); Lymphocytes # (Auto) 1.3 K/mm3 (1.2-5.4); Lymphocytes % (Auto) 17.6 % (13.4-35.0); Mean Corpuscular HGB Conc 33 % (30-34); Mean Corpuscular Volume 93 fl (79-97); Monocytes # (Auto) 0.6 K/mm3 (0.0-0.8); Platelet Count 242 K/mm3 (140-440); Red Cell Distribution Width 16.5 % (13.2-15.2)
[2018-05-04 05:28] LABS: Calcium 8.2 mg/dL (8.4-10.2)
[2018-05-04] MEDS: APRESOLINE PO SCH ×3 (06:16→20:22)
[2018-05-04] MEDS: HEPARIN SUB-Q SCH ×4 (06:16→23:02)
[2018-05-04] MEDS ORDERED: APRESOLINE PO SCH (09:24)
[2018-05-04] MEDS: COREG PO SCH ×3 (09:32→23:02)
[2018-05-04] MEDS: LASIX IV SCH (09:33)
[2018-05-04] MEDS: K-DUR PO SCH (09:33)
[2018-05-04] MEDS: BABY ASPIRIN PO SCH (09:33)
[2018-05-04] MEDS: NORVASC PO SCH (09:33)
--- NOTE | 2018-05-04 09:43 | Progress Note ---
Assessment and Plan Patient is a 70-year-old lady who was a history of congestive heart failure, diabetes mellitus, hypertension, chronic renal disease, breast cancer status post left mastectomy in 2012, and anemia of chronic disease who started having progressive shortness of breath for the past 1 month. Got worse about 2 days ago where he is unable to ambulate to the bathroom without being short of breath. Has progressively worsening pedal edema. Had orthopnea and paroxysmal nocturnal dyspnea. Denies any chest pain. Had a cough that is dry. No fever. No hemoptysis. Has noticed she is progressively gaining weight. On presentating to emergency department, chest x-ray shows evidence of poor congestion, BNP was 3718, hypomagnesemia of 1.4 was observed. BUN was 32 and creatinine was 2.2. As of September 2017 BUN was 27 creatinine was 1.9. Ec hocardiogram of 10/07/2016 showed ejection fraction of 55-60% with diastolic dysfunction. IV Lasix was commenced in the emergency department and admission was requested. - Acute on Chronic Diastolic Heart Failure BNP is 3178, lipid panel, TSH, - were nl. Daily weights, strict input and output, 2 g sodium diet Continue with Diuresis, beta blockers, ACEI, statin, Echocardiogram of 05/02/18 showed LVEF of 60-65% wit pseudo normalization Naval Engineer following pt. input appreciated - Acute on chronic renal failure Monitor urine outputs Renal ultrasound Urine electrolytes, nephrology consult. Nephrology consult - Anemia of iron def Obtain B12 and folic acid and TIBC, stool Hemoccult - Hyperglycemia A1c is 5.9. - prediabetic cont. with Consistent carbohydrate diet - Hypomagnesemia Will supplement further -Developed prophylaxis with Lovenox Time spent: 35 minutes in direct patient care review of laboratory and radiological findings as well as explaining management plan to the patient Subjective Date of service: 05/04/18 Principal diagnosis: Shortness of breath, diastolic heart failure, Acute on Chrnonic kidney dise Interval history: shortness of breath improving. No chest pain. Still coughing. Objective - Exam Narrative Exam: Constitutional: N and cut and position in bed. In mild distress. Head: Normocephalic atraumatic Eyes: Pupils are equal round and reactive to light Nose: No enlarged turbinates, no septal deviation. Mouth: Moist mucous membranes. Neck: Supple no thyromegaly. No bruit. No JVD Heart: Regular rate and rhythm, S1-S2 with S3. No rubs murmurs or gallop Lungs: Clear to auscultation bilaterally. no rales or rhonchi Abdomen: Soft, nontender. Bowel sound are present. Extremities: 2+ pedal edema, no cyanosis, no clubbing. Neuro: Alert oriented Oriented x3. No focal sensory or motor deficit. Skin: No rashes or hyperpigmented spots Musculoskeletal system: No joint pain or swelling Hematological: No petechia or subcutanous hemorrhages. Immunological: No multiple septic spots on the skin Lymphatic: No generalized lymphadenopathy Psychiatry: Euthymic. Calm. - Constitutional Vitals: Vital Signs - 12hr 05/03/18 05/03/18 05/03/18 21:56 23:10 23:55 Temperature 98.9 F Pulse Rate 73 75 Respiratory 18 Rate Blood Pressure 175/61 Blood Pressure 168/66 [Right] O2 Sat by Pulse 95 91 Oximetry 05/04/18 05/04/18 05/04/18 06:02 06:16 08:24 Temperature 98.4 F 98.9 F Pulse Rate 72 72 73 Respiratory 20 20 Rate Blood Pressure 176/67 176/67 187/67 Blood Pressure [Right] O2 Sat by Pulse 93 97 Oximetry - Labs CBC & Chem 7: 05/04/18 04:05 05/04/18 04:05 Labs: Abnormal lab results 05/03/18 05/04/18 05/04/18 Range/Units 17:15 04:05 04:05 RBC 3.00 L (3.65-5.03) M/mm3 Hgb 9.1 L (10.1-14.3) gm/dl Hct 27.8 L (30.3-42.9) % RDW 16.5 H (13.2-15.2) % [place] % (Auto) 8.0 H (0.0-7.3) % Seg Neutrophils % 72.5 H (40.0-70.0) % Chloride 108.1 H (98-107) mmol/L Carbon Dioxide 20 L (22-30) mmol/L BUN 34 H (7-17) mg/dL Creatinine 3.3 H (0.7-1.2) mg/dL Glucose 137 H (65-100) mg/dL POC Glucose 138 H (70-105) Calcium 8.2 L (8.4-10.2) mg/dL Magnesium 1.50 L (1.7-2.3) mg/dL ALT 5 L (7-56) units/L Total Protein 6.0 L (6.3-8.2) g/dL Albumin 3.0 L (3.9-5) g/dL
--- NOTE | 2018-05-04 11:46 | Progress Note ---
Assessment and Plan Echo reviewed - EF 60-65%, pseudonormalization, mild MS and MR, mild to mod TR, severe pulm HTN with RVSP 65mmHg, small pericardial effusion. Will obtain V/Q scan for further eval of elevated RVSP. Optimize anti-hypertensive regimen - increase hydralazine. Cont daily IV lasix. Nephrology following. The patient has been seen in conjunction with Dr. Goodrich who agrees with the assessment and plan of care. - Patient Problems (1) Acute heart failure with preserved ejection fraction Current Visit: Yes Status: Acute (2) Acute on chronic kidney failure Current Visit: Yes Status: Acute (3) Anemia Current Visit: Yes Status: Chronic (4) Diabetes Current Visit: Yes Status: Chronic (5) HTN (hypertension) Current Visit: Yes Status: Chronic Qualifiers: Hypertension type: essential hypertension Qualified Code(s): I10 - Essential (primary) hypertension (6) History of breast cancer Current Visit: Yes Status: Chronic (7) History of CVA (cerebrovascular accident) Current Visit: Yes Status: Chronic (8) GERD (gastroesophageal reflux disease) Current Visit: Yes Status: Chronic (9) Hypomagnesemia Current Visit: Yes Status: Acute (10) Pulmonary HTN Current Visit: Yes Status: Chronic Subjective Date of service: 05/04/18 Principal diagnosis: Shortness of breath, diastolic heart failure, Acute on Chrnonic kidney dise Interval history: pt resting in bed, states SOB improving, BLE edema improving. Objective Last Vital Signs Temp 98.9 F 05/04/18 08:24 Pulse 87 05/04/18 09:32 Resp 20 05/04/18 08:24 BP 187/67 05/04/18 08:24 Pulse Ox 97 05/04/18 08:24 - Physical Examination General: No Apparent Distress HEENT: Positive: PERRL, Normocephaly, Mucus Membranes Moist Neck: Positive: neck supple, trachea midline Cardiac: Positive: Reg Rate and Rhythm, S1/S2 Lungs: Positive: Decreased Breath Sounds Neuro: Positive: Grossly Intact Abdomen: Positive: Soft. Negative: Tender Skin: Negative: Rash Musculoskeletal: No Pain Extremities: Present: +2 Edema (BLE) - Labs and Meds Cardiac Enzymes 05/04/18 Range/Units 04:05 AST 11 (5-40) units/L CBC 05/04/18 Range/Units 04:05 WBC 7.4 (4.5-11.0) K/mm3 RBC 3.00 L (3.65-5.03) M/mm3 Hgb 9.1 L (10.1-14.3) gm/dl Hct 27.8 L (30.3-42.9) % Plt Count 242 (140-440) K/mm3 Lymph # 1.3 (1.2-5.4) K/mm3 [place] # 0.6 (0.0-0.8) K/mm3 Eos # 0.1 (0.0-0.4) K/mm3 Baso # 0.0 (0.0-0.1) K/mm3 Comprehensive Metabolic Panel 05/04/18 Range/Units 04:05 Sodium 143 (137-145) mmol/L Potassium 4.0 (3.6-5.0) mmol/L Chloride 108.1 H (98-107) mmol/L Carbon Dioxide 20 L (22-30) mmol/L BUN 34 H (7-17) mg/dL Creatinine 3.3 H (0.7-1.2) mg/dL Glucose 137 H (65-100) mg/dL Calcium 8.2 L (8.4-10.2) mg/dL AST 11 (5-40) units/L ALT 5 L (7-56) units/L Alkaline Phosphatase 69 (35-129) units/L Total Protein 6.0 L (6.3-8.2) g/dL Albumin 3.0 L (3.9-5) g/dL - Imaging and Cardiology EKG: report reviewed, image reviewed Echo: report reviewed ( 09/2016 showed mild LVH, EF 55-60%, abnormal diastolic function, mild MR, mild to mod TR, mild AR.) - EKG Sinus rhythms and dysrhythmias: sinus rhythm
--- NOTE | 2018-05-04 12:10 | Nuclear Medicine Report ---
LUNG SCAN, VENTILATION AND PERFUSION: History: Pulmonary hypertension, shortness of breath. Technique: 5mci of Tc99m MAA was infused for the perfusion images. 15mci XE 133 gas was inhaled for the ventilatory images. Correlation is made with a chest x-ray dated 05/04/18. Findings: Inhalation of Xenon gas demonstrates a normal distribution of the activity throughout both lungs. The wash out phases show no focal retention of activity. After injection of Technetium 99m macroaggregated albumin gamma camera imaging of the lungs in multiple projections demonstrates normal pulmonary contours with a homogeneous distribution of activity. No focal areas of perfusion deficiency are identified. IMPRESSION: Low probability for pulmonary embolus.
--- NOTE | 2018-05-04 13:45 | XRay Report ---
AP CHEST: HISTORY: Short of breath There is poor inspiration. AP view of the chest demonstrates a normal mediastinal and cardiac contour with clear lungs and normal bony and soft tissue structures. IMPRESSION: Negative expiratory AP chest.
[2018-05-04] MEDS ORDERED: MAGNESIUM SULFATE 2GM/50ML 2 GM/50 ML BAG IV ONE (14:00)
--- NOTE | 2018-05-04 19:55 | Progress Note ---
Assessment and Plan - Patient Problems (1) Acute on chronic kidney failure Current Visit: Yes Status: Acute Plan to address problem: Suspect acute kidney injury probably Pre-renal azotemia secondary to acute cardiorenal syndrome. Kidney function is a bit worse. Continue gentle diuresis was switched to oral Lasix and monitor electrolytes and renal function closely. Urine studies not done yet. Get urinalysis. (2) Acute on chronic heart failure with preserved ejection fraction Current Visit: Yes Status: Acute Plan to address problem: Chest x-ray does not show pulmonary edema and perfusion scan is normal. Continue gentle diuresis, but switch to by mouth loop diuretic, monitor intake and output, sodium and fluid restriction, follow up electrolytes and renal function (3) Type 2 diabetes mellitus with diabetic chronic kidney disease Current Visit: Yes Status: Acute Plan to address problem: Blood sugar management by primary attending (4) Hypertensive chronic kidney disease with stage 1 through stage 4 chronic kidney disease, or unspecified chronic kidney disease Current Visit: Yes Status: Acute Plan to address problem: Medications adjusted. Follow-up blood pressure on adjusted medications (5) CKD (chronic kidney disease) stage 4, GFR 15-29 ml/min Current Visit: No Status: Acute Plan to address problem: Follows with Dr. Avitia as an outpatient. (6) Anemia in chronic kidney disease (CKD) Current Visit: No Status: Chronic Plan to address problem: Follow-up hemoglobin (7) Hypomagnesemia Current Visit: Yes Status: Acute Plan to address problem: Supplement magnesium and follow up level Subjective Date of service: 05/04/18 Principal diagnosis: Shortness of breath, diastolic heart failure, Acute on Chrnonic kidney dise Objective - Exam Narrative Exam: Elderly, -Guinean Guine[place] female lying in bed in no acute distress HEENT: NCAT, pink oral mucous membrane Neck: Supple, no venous distention CVS: S1S2 RRR with no murmur, rub or gallop Chest: Diminished breath sounds lower sounds bilaterally Abdomen: Obese, soft, nontender, no organomegaly, bowel sounds are present Extremities: Mild edema Genitalia deferred Skin warm and dry Neuro: Awake, alert no focal deficits - Vital Signs Vital signs: Vital Signs - 12hr 05/04/18 05/04/18 08:24 09:32 Temperature 98.9 F Pulse Rate 73 87 Respiratory 20 Rate Blood Pressure 187/67 O2 Sat by Pulse 97 Oximetry - Lab 05/04/18 04:05 05/04/18 04:05 Most recent lab results Calcium 8.2 mg/dL (8.4-10.2) L 05/04/18 04:05 Phosphorus 4.60 mg/dL (2.5-4.5) H 05/03/18 05:59 Magnesium 1.50 mg/dL (1.7-2.3) L 05/04/18 04:05 Medications & Allergies - Medications Allergies/Adverse Reactions: Allergies No Known Allergies Allergy (Verified 05/02/18 10:53) Home Medications: Home Medications Medication Instructions Recorded Confirmed Last Taken Type Anastrozole (Nf) [Arimidex (Nf)] 1 mg PO DAILY 05/01/15 05/02/18 10/06/16 History Esomeprazole Magnesium [NexIUM] 40 mg PO QDAY 05/01/15 05/02/18 10/06/16 History [place]-3 Fatty Acids [[place]-3] 100 mg PO BID 05/01/15 05/02/18 10/06/16 History Rosuvastatin (Nf) [Crestor] 20 mg PO QHS 05/01/15 05/02/18 10/06/16 History Aspirin EC [Aspirin Enteric Coated 81 mg PO QDAY #30 tablet. 10/11/16 05/02/18 Unknown Rx TAB] Furosemide [Lasix TAB] 40 mg PO QDAY #30 tablet 10/11/16 05/02/18 Unknown Rx amLODIPine [Norvasc] 5 mg PO QDAY #30 tablet 10/11/16 05/02/18 Unknown Rx Active Medications: Generic Name Dose Route Start Last Admin Trade Name Pawanq PRN Reason Stop Dose Admin Amlodipine Besylate 10 mg 05/03/18 10:00 05/04/18 09:33 Norvasc PO 10 mg QDAY VALERY Administration Aspirin 81 mg 05/03/18 10:00 05/04/18 09:33 Baby Aspirin PO 81 mg QDAY VALERY Administration Atorvastatin Calcium 40 mg 05/02/18 22:00 05/03/18 21:34 Lipitor PO 40 mg QHS VALERY Administration Carvedilol 25 mg 05/03/18 10:00 05/04/18 09:32 Coreg PO 25 mg BID VALERY Administration Dextrose 50 ml 05/02/18 13:29 D50w (25gm) Syringe IV PRN PRN Hypoglycemia Furosemide 40 mg 05/03/18 10:00 05/04/18 09:33 Lasix IV 40 mg QDAY VALERY Administration Heparin Sodium (Porcine) 5,000 unit 05/02/18 14:00 05/04/18 13:49 Heparin SUB-Q 5,000 unit Q8HR VALERY Administration Hydralazine HCl 100 mg 05/04/18 14:00 05/04/18 13:49 Apresoline PO Not Given TID [facility] Miscellaneous Medication 1 mg 05/02/18 13:00 Anastrozole (Nf) PO DAILY [facility] Pantoprazole Sodium 20 mg 05/05/18 10:00 Protonix IV QDAY VALERY Potassium Chloride 20 meq 05/02/18 14:00 05/04/18 09:33 K-Dur PO 20 meq QDAY VALERY Administration
[2018-05-04] MEDS ORDERED: CATAPRES PO PRN (19:59)
[2018-05-04] MEDS: PEPCID IV SCH ×2 (20:22→23:03)
[2018-05-05 05:26] LABS: Basophils % (Auto) 0.3 % (0.0-1.8); Eosinophils # (Auto) 0.1 K/mm3 (0.0-0.4); Eosinophils % (Auto) 2.2 % (0.0-4.3); Hematocrit 26.5 % (30.3-42.9); Hemoglobin 8.7 gm/dl (10.1-14.3); Lymphocytes # (Auto) 1.6 K/mm3 (1.2-5.4); Lymphocytes % (Auto) 24.3 % (13.4-35.0); Mean Corpuscular HGB Conc 33 % (30-34); Mean Corpuscular Volume 94 fl (79-97); Monocytes # (Auto) 0.5 K/mm3 (0.0-0.8); Monocytes % (Auto) 8.5 % (0.0-7.3); Platelet Count 217 K/mm3 (140-440); Red Blood Count 2.83 M/mm3 (3.65-5.03); Red Cell Distribution Width 16.4 % (13.2-15.2)
[2018-05-05] MEDS: HEPARIN SUB-Q SCH ×3 (05:34→22:48)
[2018-05-05 05:51] LABS: Albumin 2.9 g/dL (3.9-5); BUN/Creatinine Ratio 10; Blood Urea Nitrogen 43 mg/dL (7-17); Calcium 8.1 mg/dL (8.4-10.2); Hemolysis Index 5
[2018-05-05 05:52] LABS: Alanine Aminotransferase < 5 units/L (7-56)
[2018-05-05] MEDS: APRESOLINE PO SCH ×3 (08:00→22:48)
--- NOTE | 2018-05-05 09:31 | Progress Note ---
Assessment and Plan - Patient Problems (1) Acute on chronic kidney failure Current Visit: Yes Status: Acute Plan to address problem: Suspect acute kidney injury probably Pre-renal azotemia secondary to acute cardiorenal syndrome. Kidney function is significantly worse. Will hold diuretics and follow-up kidney function (2) Dyspnea and respiratory abnormalities Current Visit: Yes Status: Acute Plan to address problem: Start bronchodilator nebulizer treatments. Continue supplemental oxygen. Get a noncontrast CT scan of the chest. Consider pulmonary consultation (3) Acute on chronic heart failure with preserved ejection fraction Current Visit: Yes Status: Acute Plan to address problem: Chest x-ray does not show pulmonary edema and perfusion scan is normal. Will hold diuretic, continue to monitor intake and output, sodium and fluid restriction, follow up electrolytes and renal function (4) Type 2 diabetes mellitus with diabetic chronic kidney disease Current Visit: Yes Status: Acute Plan to address problem: Blood sugar management by primary attending (5) Hypertensive chronic kidney disease with stage 1 through stage 4 chronic kid sallie disease, or unspecified chronic kidney disease Current Visit: Yes Status: Acute Plan to address problem: Medications adjusted. Follow-up blood pressure on adjusted medications (6) CKD (chronic kidney disease) stage 4, GFR 15-29 ml/min Current Visit: No Status: Acute Plan to address problem: Follows with Dr. Avitia as an outpatient. (7) Anemia in chronic kidney disease (CKD) Current Visit: No Status: Chronic Plan to address problem: Follow-up hemoglobin (8) Hypomagnesemia Current Visit: Yes Status: Acute Plan to address problem: Magnesium was repleted today. follow up level Subjective Date of service: 05/05/18 Principal diagnosis: Shortness of breath, diastolic heart failure, Acute on Chrnonic kidney dise Interval history: Patient seen lying in bed. Complains of shortness of breath and wheezing. No chest pain. No nausea or vomiting. Just had breakfast Objective - Exam Narrative Exam: Elderly, -Japanese Japanese female lying in bed in no acute distress HEENT: NCAT, pink oral mucous membrane Neck: Supple, no venous distention CVS: S1S2 RRR with no murmur, rub or gallop Chest: Diminished breath sounds lower sounds bilaterally with faint rhonchi Abdomen: Obese, soft, nontender, no organomegaly, bowel sounds are present Extremities: No edema , wrinkled skin Genitalia deferred Skin warm and dry Neuro: Awake, alert no focal deficits - Vital Signs Vital signs: Vital Signs - 12hr 05/04/18 05/05/18 05/05/18 22:00 00:29 00:30 Temperature 98.9 F Pulse Rate 92 H 66 Respiratory 20 22 Rate Blood Pressure 138/79 O2 Sat by Pulse 100 93 Oximetry 05/05/18 05:00 Temperature Pulse Rate 76 Respiratory Rate Blood Pressure O2 Sat by Pulse Oximetry - Lab 05/05/18 04:44 05/05/18 04:44 Most recent lab results Calcium 8.1 mg/dL (8.4-10.2) L 05/05/18 04:44 Phosphorus 4.60 mg/dL (2.5-4.5) H 05/03/18 05:59 Magnesium 1.70 mg/dL (1.7-2.3) 05/05/18 04:44 Medications & Allergies - Medications Allergies/Adverse Reactions: Allergies No Known Allergies Allergy (Verified 05/02/18 10:53) Home Medications: Home Medications Medication Instructions Recorded Confirmed Last Taken Type Anastrozole (Nf) [Arimidex (Nf)] 1 mg PO DAILY 05/01/15 05/02/18 10/06/16 History Esomeprazole Magnesium [NexIUM] 40 mg PO QDAY 05/01/15 05/02/18 10/06/16 History [place]-3 Fatty Acids [[place]-3] 100 mg PO BID 05/01/15 05/02/18 10/06/16 History Rosuvastatin (Nf) [Crestor] 20 mg PO QHS 05/01/15 05/02/18 10/06/16 History Aspirin EC [Aspirin Enteric Coated 81 mg PO QDAY #30 tablet. 10/11/16 05/02/18 Unknown Rx TAB] Furosemide [Lasix TAB] 40 mg PO QDAY #30 tablet 10/11/16 05/02/18 Unknown Rx amLODIPine [Norvasc] 5 mg PO QDAY #30 tablet 10/11/16 05/02/18 Unknown Rx Active Medications: Generic Name Dose Route Start Last Admin Trade Name Freq PRN Reason Stop Dose Admin Amlodipine Besylate 10 mg 05/03/18 10:00 05/04/18 09:33 Norvasc PO 10 mg QDAY VALERY Administration Aspirin 81 mg 05/03/18 10:00 05/04/18 09:33 Baby Aspirin PO 81 mg QDAY VALERY Administration Atorvastatin Calcium 40 mg 05/02/18 22:00 05/04/18 23:03 Lipitor PO Not Given QHS VALERY Carvedilol 25 mg 05/03/18 10:00 05/04/18 23:02 Coreg PO Not Given BID VALERY Clonidine HCl 0.1 mg 05/04/18 19:59 Catapres PO Q6HR PRN Blood Pressure Dextrose 50 ml 05/02/18 13:29 D50w (25gm) Syringe IV PRN PRN Hypoglycemia Famotidine 20 mg 05/04/18 22:00 05/04/18 23:03 Pepcid IV Not Given QDAY VALERY Heparin Sodium (Porcine) 5,000 unit 05/02/18 14:00 05/05/18 05:34 Heparin SUB-Q 5,000 unit Q8HR VALERY Administration Hydralazine HCl 100 mg 05/04/18 14:00 05/04/18 20:22 Apresoline PO 100 mg TID VALERY Administration Miscellaneous Medication 1 mg 05/02/18 13:00 Anastrozole (Nf) PO DAILY [facility] Potassium Chloride 20 meq 05/02/18 14:00 05/04/18 09:33 K-Dur PO 20 meq QDAY VALERY Administration
[2018-05-05] MEDS ORDERED: PROVENTIL IH SCH (09:33)
--- NOTE | 2018-05-05 09:43 | Progress Note ---
Assessment and Plan Patient is a 70-year-old lady who was a history of congestive heart failure, diabetes mellitus, hypertension, chronic renal disease, breast cancer status post left mastectomy in 2012, and anemia of chronic disease who started having progressive shortness of breath for the past 1 month. Got worse about 2 days ago where he is unable to ambulate to the bathroom without being short of breath. Has progressively worsening pedal edema. Had orthopnea and paroxysmal nocturnal dyspnea. Denies any chest pain. Had a cough that is dry. No fever. No hemoptysis. Has noticed she is progressively gaining weight. On presentating to emergency department, chest x-ray shows evidence of poor congestion, BNP was 3718, hypomagnesemia of 1.4 was observed. BUN was 32 and creatinine was 2.2. As of September 2017 BUN was 27 creatinine was 1.9. Ec hocardiogram of 10/07/2016 showed ejection fraction of 55-60% with diastolic dysfunction. IV Lasix was commenced in the emergency department and admission was requested. 05/04/18 VQ scan because of wheezing and dyspena showed low probaility - Acute on Chronic Diastolic Heart Failure BNP is 3178, lipid panel, TSH, - were nl. Daily weights, strict input and output, 2 g sodium diet Continue with Diuresis, beta blockers, ACEI, statin, Echocardiogram of 05/02/18 showed LVEF of 60-65% with pseudo normalization Race Steward following pt. input appreciated - Dyspena with wheezing VQ scan showed low probability CXR showed improvement in vascular congestion Continue with Duo neb Conserned about any seconaryies as pt has h/o or breast cancer. Pulm. consult - Acute on chronic renal failure Monitor urine outputs Avoid nephrotoxic agents Renal ultrasound Urine electrolytes, nephrology consult. Nephrology consult - Metabolic acidosis likely from acute on chronic renal failure - Anemia of iron def Obtain B12 and folic acid and TIBC, stool Hemoccult - Hyperglycemia A1c is 5.9. - prediabetic cont. with Consistent carbohydrate diet - Hypomagnesemia Will supplement further - Debility from Senility PT eval and tx -DVT prophylaxis with Lovenox adn GI with pepcid - Disposition: D/c in 1-2 days - Discussed with pt's Niece Ms Hanson, giving her ujpdate adn answering her question to her satisfaction. Time spent: 35 minutes in direct patient care review of laboratory and radiolog ical findings as well as explaining management plan to the patient Subjective Date of service: 05/05/18 Principal diagnosis: Shortness of breath, diastolic heart failure, Acute on Chrnonic kidney dise Interval history: Wheezing with dyspnea. No chest pain. Still coughing. Objective - Exam Narrative Exam: Constitutional: Lying quiely in bed. In mild distress with dyspnea. Head: Normocephalic atraumatic Eyes: Pupils are equal round and reactive to light Nose: No enlarged turbinates, no septal deviation. Mouth: Moist mucous membranes. Neck: Supple no thyromegaly. No bruit. No JVD Heart: Regular rate and rhythm, S1-S2 with S3. No rubs murmurs or gallop Lungs: Decreased Breath sounds bilaterally. no rales or rhonchi Abdomen: Soft, nontender. Bowel sound are present. Extremities: 2+ pedal edema, no cyanosis, no clubbing. Neuro: Alert oriented Oriented x3. No focal sensory or motor deficit. Skin: No rashes or hyperpigmented spots Musculoskeletal system: No joint pain or swelling Hematological: No petechia or subcutanous hemorrhages. Immunological: No multiple septic spots on the skin Lymphatic: No generalized lymphadenopathy Psychiatry: Euthymic. Calm. - Constitutional Vitals: Vital Signs - 12hr 05/04/18 05/05/18 05/05/18 22:00 00:29 00:30 Temperature 98.9 F Pulse Rate 92 H 66 Respiratory 20 22 Rate Blood Pressure 138/79 O2 Sat by Pulse 100 93 Oximetry 05/05/18 05:00 Temperature Pulse Rate 76 Respiratory Rate Blood Pressure O2 Sat by Pulse Oximetry - Labs CBC & Chem 7: 05/05/18 04:44 05/05/18 04:44 Labs: Abnormal lab results 05/04/18 05/05/18 05/05/18 Range/Units 20:21 04:44 04:44 RBC 2.83 L (3.65-5.03) M/mm3 Hgb 8.7 L (10.1-14.3) gm/dl Hct 26.5 L (30.3-42.9) % RDW 16.4 H (13.2-15.2) % [place] % (Auto) 8.5 H (0.0-7.3) % Carbon Dioxide 21 L (22-30) mmol/L BUN 43 H (7-17) mg/dL Creatinine 4.1 H (0.7-1.2) mg/dL Glucose 127 H (65-100) mg/dL POC Glucose 210 H (70-105) Calcium 8.1 L (8.4-10.2) mg/dL ALT < 5 L (7-56) units/L Total Protein 5.8 L (6.3-8.2) g/dL Albumin 2.9 L (3.9-5) g/dL
[2018-05-05] MEDS ORDERED: PROTONIX IV SCH (10:00)
[2018-05-05] MEDS: CATAPRES PO SCH ×2 (10:00→22:47)
--- NOTE | 2018-05-05 10:32 | Consultation ---
History of Present Illness Consult date: 05/05/18 Requesting physician: CHRISTOPH COWAN Reason for consult: dyspnea History of present illness: Patient is a 70-year-old lady who was a history of congestive heart failure, diabetes mellitus, hypertension, chronic renal disease, breast cancer status post left mastectomy in 2012, and anemia of chronic disease who started having progressive shortness of breath for the past 1 month. Got worse about 2 days ago where he is unable to ambulate to the bathroom without being short of breath. Has progressively worsening pedal edema. Had orthopnea and paroxysmal nocturnal dyspnea. Denies any chest pain. Had a cough that is dry. No fever. No hemoptysis. Has noticed she is progressively gaining weight. On presentation to emergency department, chest x-ray shows evidence of poor congestion, BNP was 3718, hypomagnesemia of 1.4 was observed. BUN was 32 and creatinine was 2.2. As of September 2017 BUN was 27 creatinine was 1.9. Echocardiogram of 10/07/2016 showed ejection fraction of 55-60% with diastolic dysfunction. IV Lasix was commenced in the emergency department and admission was requested. 05/04/18 VQ scan because of wheezing and dyspnea showed low probability Patient's history as documented. In spite of these therapies she continues to wheeze and cough, so I have been consulted for pulmonary evaluation and care. Patient seen and examined. Vitals, labs, medications, chart and imaging were reviewed. Patient states that she does continues to cough and wheeze. She does state that there has been some improvement of her symptoms. She does have a history of smoking Past History Past Medical History: cancer (breast), diabetes, GERD, heart failure (preserved ejection fraction), hypertension, hyperlipidemia, stroke (residual right-sided weakness), other (chronic kidney disease stage IV) Past Surgical History: mastectomy Social history: lives with family (lives with Son). denies: smoking, alcohol abuse, prescription drug abuse Family history: CAD (one sister of a heart attack), hypertension, stroke (mother following strokes), other (father after amputation of his leg she's not sure if it was diabetic. Her 5 brothers and 5 sisters are all ) Medications and Allergies Allergies Allergy/AdvReac Type Severity Reaction Status Date / Time No Known Allergies Allergy Verified 05/02/18 10:53 Home Medications Medication Instructions Recorded Confirmed Last Taken Type Anastrozole (Nf) [Arimidex (Nf)] 1 mg PO DAILY 05/01/15 05/02/18 10/06/16 History Esomeprazole Magnesium [NexIUM] 40 mg PO QDAY 05/01/15 05/02/18 10/06/16 History [place]-3 Fatty Acids [[place]-3] 100 mg PO BID 05/01/15 05/02/18 10/06/16 History Rosuvastatin (Nf) [Crestor] 20 mg PO QHS 05/01/15 05/02/18 10/06/16 History Furosemide [Lasix TAB] 40 mg PO QDAY #30 tablet 10/11/16 05/02/18 Unknown Rx amLODIPine [Norvasc] 5 mg PO QDAY #30 tablet 10/11/16 05/02/18 Unknown Rx Aspirin [Aspirin BABY CHEW TAB] 81 mg PO QDAY #30 tab.chew 05/10/18 Unknown Rx Benzocaine/Menth/Cetylpyrd 1 each MM Q2H PRN #60 packet 05/10/18 Unknown Rx [Cepacol X Strength] Carvedilol [Coreg] 25 mg PO BID tablet 05/10/18 Unknown Rx HYDROcodone/HOMATROP 5-1.5 2.5 ml PO BID #100 udc 05/10/18 Unknown Rx [HYDROcodone-Homatropin 5-1.5 mg per 5 ML] Ipratropium/Albuterol Sulfate 1 ampul IH Q6HRT #100 ampul.neb 05/10/18 Unknown Rx [DUONEB *Not for PRN Use*] Lispro Insulin [Humalog] 6 unit SQ QAC #300 vial 05/10/18 Unknown Rx Prednisone [predniSONE 10 mg 10 mg PO QDAY #21 tab 05/10/18 Unknown Rx (6-Day Pack, 21 Tabs)] cloNIDine [Catapres] 0.2 mg PO Q12HR #60 tablet 05/10/18 Unknown Rx hydrALAZINE [Apresoline TAB] 100 mg PO TID #90 tab 05/10/18 Unknown Rx Active Meds: Active Medications Albuterol (Proventil) 2.5 mg IH Q6HRT [facility] Amlodipine Besylate (Norvasc) 10 mg PO QDAY [facility] Last Admin: 05/04/18 09:33 Dose: 10 mg Documented by: Aspirin (Baby Aspirin) 81 mg PO QDAY [facility] Last Admin: 05/04/18 09:33 Dose: 81 mg Documented by: Atorvastatin Calcium (Lipitor) 40 mg PO QHS [facility] Last Admin: 05/04/18 23:03 Dose: Not Given Documented by: Carvedilol (Coreg) 25 mg PO BID [facility] Last Admin: 05/04/18 23:02 Dose: Not Given Documented by: Clonidine HCl (Catapres) 0.2 mg PO Q12HR [facility] Dextrose (D50w (25gm) Syringe) 50 ml IV PRN PRN PRN Reason: Hypoglycemia Famotidine (Pepcid) 20 mg IV QDAY [facility] Last Admin: 05/04/18 23:03 Dose: Not Given Documented by: Heparin Sodium (Porcine) (Heparin) 5,000 unit SUB-Q Q8HR [facility] Last Admin: 05/05/18 05:34 Dose: 5,000 unit Documented by: Hydralazine HCl (Apresoline) 100 mg PO TID [facility] Last Admin: 05/04/18 20:22 Dose: 100 mg Documented by: Ipratropium [place] (Atrovent) 0.5 mg IH Q6HRT [facility] Miscellaneous Medication (Anastrozole (Nf)) 1 mg PO DAILY [facility] Potassium Chloride (K-Dur) 20 meq PO QDAY [facility] Last Admin: 05/04/18 09:33 Dose: 20 meq Documented by: Review of Systems All systems: negative Physical Examination Vital signs: Vital Signs Temp Resp Pulse Ox 98.9 F 22 97 05/02/18 10:56 05/02/18 10:56 05/02/18 10:56 Constitutional: alert, appears uncomfortable, on oxygen at 2L/min Eyes: non-icteric ENT: oropharynx dry Neck: supple, no lymphadenopathy Ascultation: Bilateral: wheezes Cardiovascular: regular rate and rhythm Gastrointestinal: normoactive bowel sounds, soft, non-tender Integumentary: normal, rash Extremities: no cyanosis, no edema Neurologic: normal mental status, non-focal exam, pupils equal and round, CN II- XII normal Psychiatric: anxious Results - Laboratory Findings CBC and BMP: 05/10/18 15:03 05/10/18 15:03 PT/INR, D-dimer PT 12.8 Sec. (12.2-14.9) 05/02/18 11:02 INR 0.91 (0.87-1.13) 05/02/18 11:02 Abnormal lab findings: Abnormal Labs 05/02/18 05/02/18 05/02/18 11:02 11:02 11:02 RBC 3.20 L Hgb 9.7 L Hct 29.4 L RDW 16.1 H [place] % (Auto) Seg Neutrophils % Sodium 146 H Chloride Carbon Dioxide 21 L BUN 32 H Creatinine 3.0 H Glucose 150 H POC Glucose Calcium 8.2 L Phosphorus Magnesium 1.20 L Iron ALT Troponin T 0.040 H NT-Pro-B Natriuret Pep 3718 H Total Protein Albumin 05/03/18 05/03/18 05/03/18 05:59 05:59 07:18 RBC 3.01 L Hgb 9.4 L Hct 27.7 L RDW 16.0 H [place] % (Auto) 7.9 H Seg Neutrophils % 73.8 H Sodium Chloride 109.8 H Carbon Dioxide 20 L BUN 30 H Creatinine 3.0 H Glucose 126 H POC Glucose Calcium 8.3 L Phosphorus 4.60 H Magnesium 1.50 L Iron 29 L ALT < 5 L Troponin T NT-Pro-B Natriuret Pep Total Protein Albumin 3.0 L 05/03/18 05/04/18 05/04/18 17:15 04:05 04:05 RBC 3.00 L Hgb 9.1 L Hct 27.8 L RDW 16.5 H [place] % (Auto) 8.0 H Seg Neutrophils % 72.5 H Sodium Chloride 108.1 H Carbon Dioxide 20 L BUN 34 H Creatinine 3.3 H Glucose 137 H POC Glucose 138 H Calcium 8.2 L Phosphorus Magnesium 1.50 L Iron ALT 5 L Troponin T NT-Pro-B Natriuret Pep Total Protein 6.0 L Albumin 3.0 L 05/04/18 05/05/18 05/05/18 20:21 04:44 04:44 RBC 2.83 L Hgb 8.7 L Hct 26.5 L RDW 16.4 H [place] % (Auto) 8.5 H Seg Neutrophils % Sodium Chloride Carbon Dioxide 21 L BUN 43 H Creatinine 4.1 H Glucose 127 H POC Glucose 210 H Calcium 8.1 L Phosphorus Magnesium Iron ALT < 5 L Troponin T NT-Pro-B Natriuret Pep Total Protein 5.8 L Albumin 2.9 L - Diagnostic Findings Chest x-ray: image reviewed CT scan - chest: report reviewed, image reviewed Assessment and Plan Severe pulmonary HTN Dyspnea, cough,wheezing Morbid obesity BMI 35.6 Acute HFpEF, Acute on CKD Anemia, HTN, DM -with her smoking history and clinical exam, she may have undiagnosed COPD. She also has esophageal thickening distally on CTscan, may probably has GERD which can contribute to her respiratory complaints. Will recommend bronchodilators, treatment of GERD and airway clearance with i ncentive spirometry/Acapella for now - Continue with supplemental oxygen to keep O2 saturations 90% -Optimize heart failure medications -Aspiration and GERD precautions -PT/OT/Mobility -Increase activity as tolerated -Continue VTE prophylaxis -will need outpatient pulmonary follow up PFTs -will recommend evaluation for ASHOK in view of heart failure, CKD and morbid obesity Discussed care plan with the patient and hospitalist service Thank you for the consult. Will follow. Please do not hesitate to call with any further questions or concerns.
--- NOTE | 2018-05-05 10:43 | Cat Scan Report ---
CT CHEST WITHOUT CONTRAST INDICATION: Shortness of breath. COMPARISON: 03/08/[address] FINDINGS: Noncontrast chest CT demonstrates stable heart size and great vessels, including aortic and coronary atherosclerotic calcifications. Small pericardial effusion with 1.1 cm thickness behind the left ventricle, axial image 67, series 2 now noted. Small bilateral pleural effusions with AP thickness of approximately 2 cm on the right and 1 cm on the left with mild underlying atelectasis noted reaching the apices, though overall much smaller/improved since 2012. Assessment of the great vessels and for detecting subtle lymphadenopathy limited due to lack of IV contrast with subcarinal soft tissue density measuring 3.2 x 2.5 cm in aggregate, axial image 54, series 2 again noted and not excluded for lymphadenopathy, amongst others. Small left hilar calcifications and subtle left suprahilar density nonspecific for benign/vascular versus subtle lymphadenopathy also may again be seen as on axial image 46. Pulmonary arterial hypertension not excluded. Patent central airway. No size significant axillary lymph nodes. Left chest wall soft tissue air and stranding has resolved with left mastectomy in the interval. Stable thyroid, overall normal in size, though again diffusely heterogeneous with numerous bilateral hypodensities measuring up to 0.9 cm on the right, axial image 6, series 2 and also some small calcifications. Mild bibasilar scarring or atelectasis. Interval resolution of right more than left alveolar infiltrates. Approximately 0.5 cm noncalcified pleural-based nodular density anteriorly in inferior aspect of the right upper lobe is stable, axial image 42. Approximately 5.6 x 5.4 cm distal esophageal thickening may again represent hiatal hernia and/or gastroesophageal reflux. Multiple small calcified gallstones individually measuring to the order of 6 mm and appear more numerous. Cirrhotic liver, a recannulized umbilical vein and slight nonspecific bilateral perinephric stranding also seen. Stable bones, somewhat heterogeneous and demineralized with multilevel moderate spine degenerative changes. CONCLUSION: 1. Small pleural effusions and atelectasis, right more than left, though overall lesser/improved since February 2012, as described above. 2. Small pericardial effusion may also be noted in this patient with possible pulmonary arterial hypertension and questionable lymphadenopathy on this limited, unenhanced exam, as described above. 3. Various other findings, including interval left mastectomy, heterogeneous thyroid, atherosclerotic vascular calcifications, cirrhosis, cholelithiasis and hiatal hernia, amongst others, as detailed above. Thank you for the opportunity to participate in this patient's care.
[2018-05-05] MEDS: BABY ASPIRIN PO SCH (11:56)
[2018-05-05] MEDS: COREG PO SCH ×2 (11:57→22:48)
[2018-05-05] MEDS: K-DUR PO SCH (11:57)
[2018-05-05] MEDS: NORVASC PO SCH (11:57)
[2018-05-05] MEDS: PEPCID IV SCH (12:03)
--- NOTE | 2018-05-05 12:51 | Progress Note ---
Assessment and Plan Diuretics are on hold due to RAUL. Add Clonidine for her BP. HF has improved significantly. - Patient Problems (1) Acute heart failure with preserved ejection fraction Current Visit: Yes Status: Acute (2) Moderate to severe pulmonary hypertension Current Visit: Yes Status: Acute (3) Acute kidney injury superimposed on CKD Current Visit: Yes Status: Acute (4) Anemia Current Visit: Yes Status: Chronic (5) HTN (hypertension) Current Visit: Yes Status: Chronic Qualifiers: Hypertension type: essential hypertension Qualified Code(s): I10 - Essential (primary) hypertension (6) Diabetes Current Visit: Yes Status: Chronic Qualifiers: Diabetes mellitus type: type 2 Subjective Date of service: 05/05/18 Principal diagnosis: Acute HFpEF, Acute on CKD, Severe Pulm HTN, Anemia, HTN, DM Interval history: No complaint. Objective Vital Signs Temp Pulse Resp BP BP Pulse Ox 05/05/18 09:37 99.3 F 72 18 165/64 96 05/05/18 05:00 76 05/05/18 00:30 66 93 05/05/18 00:29 98.9 F 92 H 22 138/79 100 05/04/18 22:00 20 05/04/18 21:00 71 05/04/18 20:14 99.2 F 73 18 180/79 98 05/04/18 17:10 98.8 F 68 18 150/67 91 05/04/18 13:33 98.1 F 64 24 145/53 91 - Physical Examination General: No Apparent Distress HEENT: Positive: EOMI, Normocephaly, Mucus Membranes Moist Neck: Positive: neck supple, trachea midline Cardiac: Positive: Reg Rate and Rhythm, S1/S2 Lungs: Positive: clear to auscultation Neuro: Positive: Grossly Intact Abdomen: Positive: Soft. Negative: Tender Skin: Positive: Clear. Negative: Rash Musculoskeletal: Normal Range of Motion Extremities: Absent: edema - Labs and Meds Cardiac Enzymes 05/05/18 Range/Units 04:44 AST 11 (5-40) units/L CBC 05/05/18 Range/Units 04:44 WBC 6.5 (4.5-11.0) K/mm3 RBC 2.83 L (3.65-5.03) M/mm3 Hgb 8.7 L (10.1-14.3) gm/dl Hct 26.5 L (30.3-42.9) % Plt Count 217 (140-440) K/mm3 Lymph # 1.6 (1.2-5.4) K/mm3 [place] # 0.5 (0.0-0.8) K/mm3 Eos # 0.1 (0.0-0.4) K/mm3 Baso # 0.0 (0.0-0.1) K/mm3 Comprehensive Metabolic Panel 05/05/18 Range/Units 04:44 Sodium 137 (137-145) mmol/L Potassium 4.5 (3.6-5.0) mmol/L Chloride 104.0 (98-107) mmol/L Carbon Dioxide 21 L (22-30) mmol/L BUN 43 H (7-17) mg/dL Creatinine 4.1 H (0.7-1.2) mg/dL Glucose 127 H (65-100) mg/dL Calcium 8.1 L (8.4-10.2) mg/dL AST 11 (5-40) units/L ALT < 5 L (7-56) units/L Alkaline Phosphatase 65 (35-129) units/L Total Protein 5.8 L (6.3-8.2) g/dL Albumin 2.9 L (3.9-5) g/dL - Imaging and Cardiology EKG: image reviewed - Telemetry EKG Rhythm: Sinus Rhythm - EKG Sinus rhythms and dysrhythmias: sinus rhythm
[2018-05-05] MEDS: DUONEB *Not for PRN Use IH SCH ×2 (14:37→19:49)
[2018-05-05] MEDS: ATROVENT IH SCH ×2 (14:37→14:38)
[2018-05-05 14:43] LABS: INR 0.95 (0.87-1.13)
[2018-05-05] MEDS: PEPCID PO SCH (16:21)
[2018-05-06] MEDS: DUONEB *Not for PRN Use IH SCH ×4 (03:17→22:05)
[2018-05-06] MEDS: HEPARIN SUB-Q SCH ×3 (06:06→22:41)
[2018-05-06 06:20] LABS: Basophils % (Auto) 0.3 % (0.0-1.8); Eosinophils # (Auto) 0.1 K/mm3 (0.0-0.4); Eosinophils % (Auto) 1.9 % (0.0-4.3); Hematocrit 24.7 % (30.3-42.9); Hemoglobin 8.2 gm/dl (10.1-14.3); Lymphocytes # (Auto) 1.4 K/mm3 (1.2-5.4); Lymphocytes % (Auto) 21.5 % (13.4-35.0); Mean Corpuscular HGB Conc 33 % (30-34); Mean Corpuscular Volume 93 fl (79-97); Monocytes # (Auto) 0.5 K/mm3 (0.0-0.8); Monocytes % (Auto) 8.4 % (0.0-7.3); Platelet Count 206 K/mm3 (140-440); Red Blood Count 2.65 M/mm3 (3.65-5.03); Red Cell Distribution Width 16.1 % (13.2-15.2)
[2018-05-06 06:49] LABS: Calcium 8.1 mg/dL (8.4-10.2)
[2018-05-06] MEDS: K-DUR PO SCH (10:51)
[2018-05-06] MEDS: NORVASC PO SCH (10:51)
[2018-05-06] MEDS: COREG PO SCH ×2 (10:51→22:41)
[2018-05-06] MEDS: PEPCID PO SCH (10:52)
[2018-05-06] MEDS: APRESOLINE PO SCH ×3 (10:52→19:40)
[2018-05-06] MEDS: CATAPRES PO SCH ×2 (10:52→22:41)
[2018-05-06] MEDS: BABY ASPIRIN PO SCH (10:52)
--- NOTE | 2018-05-06 11:09 | Progress Note ---
Assessment and Plan - Patient Problems (1) Acute on chronic kidney failure Current Visit: Yes Status: Acute Plan to address problem: Suspect acute kidney injury probably Pre-renal azotemia secondary to acute cardiorenal syndrome. Kidney function is not significantly changed. Continue to hold diuretics and follow-up kidney function (2) Dyspnea and respiratory abnormalities Current Visit: Yes Status: Acute Plan to address problem: Continue bronchodilator nebulizer treatments. Continue supplemental oxygen. Consider pulmonary consultation (3) Acute on chronic heart failure with preserved ejection fraction Current Visit: Yes Status: Acute Plan to address problem: Chest x-ray does not show pulmonary edema and perfusion scan is normal. Will hold diuretic, continue to monitor intake and output, sodium and fluid restriction, follow up electrolytes and renal function (4) Type 2 diabetes mellitus with diabetic chronic kidney disease Current Visit: Yes Status: Acute Plan to address problem: Blood sugar management by primary attending (5) Hypertensive chronic kidney disease with stage 1 through stage 4 chronic kidney disease, or unspecified chronic kidney disease Current Visit: Yes Status: Acute Plan to address problem: Medications adjusted. Follow-up blood pressure on adjusted medications (6) CKD (chronic kidney disease) stage 4, GFR 15-29 ml/min Current Visit: No Status: Acute Plan to address problem: Follows with Dr. Avitia as an outpatient. (7) Anemia in chronic kidney disease (CKD) Current Visit: No Status: Chronic Plan to address problem: Follow-up hemoglobin (8) Hypomagnesemia Current Visit: Yes Status: Acute Plan to address problem: Magnesium improved. follow up level Subjective Date of service: 05/06/18 Principal diagnosis: Acute HFpEF, Acute on CKD, Severe Pulm HTN, Anemia, HTN, DM Interval history: Patient seen lying in bed. Complains of shortness of breath and wheezing. No chest pain. No nausea or vomiting. Just had breakfast Objective - Exam Narrative Exam: Elderly, -Danish Danish female lying in bed in no acute distress HEENT: NCAT, pink oral mucous membrane Neck: Supple, no venous distention CVS: S1S2 RRR with no murmur, rub or gallop Chest: Diminished breath sounds lower sounds bilaterally with faint rhonchi Abdomen: Obese, soft, nontender, no organomegaly, bowel sounds are present Extremities: No edema , wrinkled skin Genitalia deferred Skin warm and dry Neuro: Awake, alert no focal deficits - Vital Signs Vital signs: Vital Signs - 12hr 05/06/18 05/06/18 05/06/18 00:17 03:16 03:19 Temperature 98.9 F Pulse Rate 70 Pulse Rate [ 62 Anterior Bilateral Throughout] Respiratory 16 Rate Respiratory 18 Rate [Anterior Bilateral Throughout] Blood Pressure 121/100 Blood Pressure [Right] O2 Sat by Pulse 91 94 Oximetry 05/06/18 05/06/18 05/06/18 03:26 05:00 05:44 Temperature 97.8 F Pulse Rate 62 65 Pulse Rate [ 65 Anterior Bilateral Throughout] Respiratory 18 Rate Respiratory 18 Rate [Anterior Bilateral Throughout] Blood Pressure Blood Pressure 146/53 [Right] O2 Sat by Pulse 91 Oximetry 05/06/18 05/06/18 05/06/18 10:18 10:19 10:29 Temperature Pulse Rate Pulse Rate [ 67 68 Anterior Bilateral Throughout] Respiratory Rate Respiratory 18 18 Rate [Anterior Bilateral Throughout] Blood Pressure Blood Pressure [Right] O2 Sat by Pulse 92 Oximetry - Lab 05/06/18 05:51 05/06/18 05:50 Most recent lab results Calcium 8.1 mg/dL (8.4-10.2) L 05/06/18 05:50 Phosphorus 5.10 mg/dL (2.5-4.5) H 05/06/18 05:50 Magnesium 1.80 mg/dL (1.7-2.3) 05/06/18 05:50 Medications & Allergies - Medications Allergies/Adverse Reactions: Allergies No Known Allergies Allergy (Verified 05/02/18 10:53) Home Medications: Home Medications Medication Instructions Recorded Confirmed Last Taken Type Anastrozole (Nf) [Arimidex (Nf)] 1 mg PO DAILY 05/01/15 05/02/18 10/06/16 History Esomeprazole Magnesium [NexIUM] 40 mg PO QDAY 05/01/15 05/02/18 10/06/16 History [place]-3 Fatty Acids [[place]-3] 100 mg PO BID 05/01/15 05/02/18 10/06/16 History Rosuvastatin (Nf) [Crestor] 20 mg PO QHS 05/01/15 05/02/18 10/06/16 History Aspirin EC [Aspirin Enteric Coated 81 mg PO QDAY #30 tablet. 10/11/16 05/02/18 Unknown Rx TAB] Furosemide [Lasix TAB] 40 mg PO QDAY #30 tablet 10/11/16 05/02/18 Unknown Rx amLODIPine [Norvasc] 5 mg PO QDAY #30 tablet 10/11/16 05/02/18 Unknown Rx Active Medications: Generic Name Dose Route Start Last Admin Trade Name Freq PRN Reason Stop Dose Admin Albuterol/Ipratropium 1 ampul 05/05/18 14:00 05/06/18 10:17 Duoneb *Not For Prn Use* IH 1 ampul Q6HRT VALERY Administration Amlodipine Besylate 10 mg 05/03/18 10:00 05/06/18 10:51 Norvasc PO 10 mg QDAY VALERY Administration Aspirin 81 mg 05/03/18 10:00 05/06/18 10:52 Baby Aspirin PO 81 mg QDAY VALERY Administration Atorvastatin Calcium 40 mg 05/02/18 22:00 05/05/18 22:47 Lipitor PO 40 mg QHS VALERY Administration Carvedilol 25 mg 05/03/18 10:00 05/06/18 10:51 Coreg PO 25 mg BID VALERY Administration Clonidine HCl 0.2 mg 05/05/18 10:00 05/06/18 10:52 Catapres PO 0.2 mg Q12HR VALERY Administration Dextrose 50 ml 05/02/18 13:29 D50w (25gm) Syringe IV PRN PRN Hypoglycemia Famotidine 20 mg 05/05/18 12:00 05/06/18 10:52 Pepcid PO 20 mg DAILY VALERY Administration Heparin Sodium (Porcine) 5,000 unit 05/02/18 14:00 05/06/18 06:06 Heparin SUB-Q 5,000 unit Q8HR VALERY Administration Hydralazine HCl 100 mg 05/04/18 14:00 05/06/18 10:52 Apresoline PO 100 mg TID VALERY Administration Miscellaneous Medication 1 mg 05/02/18 13:00 Anastrozole (Nf) PO DAILY VALERY Potassium Chloride 20 meq 05/02/18 14:00 05/06/18 10:51 K-Dur PO 20 meq QDAY VALERY Administration
--- NOTE | 2018-05-06 12:21 | Progress Note ---
Assessment and Plan - Patient Problems (1) Hyperkalemia, diminished renal excretion Current Visit: Yes Status: Acute Plan to address problem: Continue to monitor serum potassium and treat with Kayexalate if repeat K level still elevated (2) Acute on chronic heart failure with preserved ejection fraction Current Visit: Yes Status: Acute Plan to address problem: Current medication list clinical improvement continue diuretics and monitor elec trolytes closely (3) Acute on chronic kidney failure Current Visit: Yes Status: Acute Plan to address problem: Urinary output is good continue to monitor renal function and electrolyte (4) Dyspnea and respiratory abnormalities Current Visit: Yes Status: Acute Plan to address problem: Continue aerosol treatment and O2 supplementation (5) Hypomagnesemia Current Visit: Yes Status: Acute (6) Type 2 diabetes mellitus Current Visit: No Status: Acute (7) Anemia in chronic kidney disease (CKD) Current Visit: No Status: Chronic Plan to address problem: Monitor renal function and nephrology consults ongoing Subjective Date of service: 05/06/18 Principal diagnosis: Acute HFpEF, Acute on CKD, Severe Pulm HTN, Anemia, HTN, DM Interval history: Covering for Dr. Brooke. Patient seen and examined chart reviewed consultants and was reviewed. Patient stated that she is feeling better less short of breath but having heartburn and requesting to have replacement of her reflux medication. Denied chest pain no fever reported by nursing staff. Objective - Exam Narrative Exam: GENERAL: Patient resting comfortably in bed, in no acute distress mildly purulent not jaundiced HEENT: Normocephalic, mucous membranes moist, no cyanosis NECK: No JVD, no thyroid enlargement and no lymphadenopathy. CHEST/LUNGS: Reduced air exchange of his early decubitus crackles bibasilarly, no dullness to percussion No chest wall tenderness, percussion is normal, symmetrical chest wall. HEART/CARDIOVASCULAR: Regular rate and rhythm, S1 and S2 only, no murmur. ABDOMEN: Abdomen is soft, nondistended, no guarding, no rebound tenderness, no masses palpable per abdomen, active bowel sounds. SKIN: Scaly rash on the face NEURO: Awake, alert, oriented x3, speech normal. Power 5/5 in all the extremities. EXTREMITIES: No pedal edema, good peripheral pulses, no finger or toe clubbing. - Constitutional Vitals: Vital Signs - 12hr 05/06/18 05/06/1819 00:17 03:16 03:19 Temperature 98.9 F Pulse Rate 70 Pulse Rate [ 62 Anterior Bilateral Throughout] Respiratory 16 Rate Respiratory 18 Rate [Anterior Bilateral Throughout] Blood Pressure 121/100 Blood Pressure [Right] O2 Sat by Pulse 91 94 Oximetry 05/06/18 05/06/18 05/06/18 03:26 05:00 05:44 Temperature 97.8 F Pulse Rate 62 65 Pulse Rate [ 65 Anterior Bilateral Throughout] Respiratory 18 Rate Respiratory 18 Rate [Anterior Bilateral Throughout] Blood Pressure Blood Pressure 146/53 [Right] O2 Sat by Pulse 91 Oximetry 05/06/18 05/06/18 05/06/18 10:18 10:19 10:29 Temperature Pulse Rate Pulse Rate [ 67 68 Anterior Bilateral Throughout] Respiratory Rate Respiratory 18 18 Rate [Anterior Bilateral Throughout] Blood Pressure Blood Pressure [Right] O2 Sat by Pulse 92 Oximetry - Labs CBC & Chem 7: 05/06/18 05:51 05/06/18 05:50 Labs: Abnormal lab results 05/05/18 05/05/18 05/06/18 Range/Units 16:36 22:50 05:50 RBC (3.65-5.03) M/mm3 Hgb (10.1-14.3) gm/dl Hct (30.3-42.9) % RDW (13.2-15.2) % [place] % (Auto) (0.0-7.3) % Sodium 135 L (137-145) mmol/L Potassium 5.2 H (3.6-5.0) mmol/L Carbon Dioxide 21 L (22-30) mmol/L BUN 48 H (7-17) mg/dL Creatinine 4.1 H (0.7-1.2) mg/dL Glucose 149 H (65-100) mg/dL POC Glucose 291 H 167 H (70-105) Calcium 8.1 L (8.4-10.2) mg/dL Phosphorus 5.10 H (2.5-4.5) mg/dL Total Protein 6.2 L (6.3-8.2) g/dL Albumin 3.0 L (3.9-5) g/dL 05/06/18 05/06/18 Range/Units 05:51 08:18 RBC 2.65 L (3.65-5.03) M/mm3 Hgb 8.2 L (10.1-14.3) gm/dl Hct 24.7 L (30.3-42.9) % RDW 16.1 H (13.2-15.2) % [place] % (Auto) 8.4 H (0.0-7.3) % Sodium (137-145) mmol/L Potassium (3.6-5.0) mmol/L Carbon Dioxide (22-30) mmol/L BUN (7-17) mg/dL Creatinine (0.7-1.2) mg/dL Glucose (65-100) mg/dL POC Glucose 169 H (70-105) Calcium (8.4-10.2) mg/dL Phosphorus (2.5-4.5) mg/dL Total Protein (6.3-8.2) g/dL Albumin (3.9-5) g/dL
--- NOTE | 2018-05-06 13:55 | Progress Note ---
Assessment and Plan Present management.Awaiting old medical records. - Patient Problems (1) Type 2 diabetes mellitus Current Visit: Yes Status: Chronic (2) GERD (gastroesophageal reflux disease) Current Visit: Yes Status: Chronic (3) Acute heart failure with preserved ejection fraction Current Visit: Yes Status: Acute (4) Acute kidney injury superimposed on CKD Current Visit: Yes Status: Acute (5) Dyspnea and respiratory abnormalities Current Visit: Yes Status: Acute (6) Hyperkalemia Current Visit: Yes Status: Acute (7) Moderate to severe pulmonary hypertension Current Visit: Yes Status: Chronic (8) Pulmonary edema Current Visit: Yes Status: Acute (9) Anemia Current Visit: Yes Status: Chronic Subjective Date of service: 05/06/18 Principal diagnosis: Acute HFpEF, Acute on CKD, Severe Pulm HTN, Anemia, HTN, DM Interval history: Says " I have symptoms of acid reflex". Objective Vital Signs Temp Pulse Pulse Pulse Resp Resp Resp 05/06/18 10:29 68 18 05/06/18 10:19 05/06/18 10:18 67 18 05/06/18 05:44 97.8 F 65 18 05/06/18 05:00 62 05/06/18 03:26 65 18 05/06/18 03:19 05/06/18 03:16 62 18 05/06/18 00:17 98.9 F 70 16 05/05/18 22:00 22 05/05/18 21:00 63 05/05/18 20:54 22 05/05/18 20:30 98.5 F 42 L 20 05/05/18 19:50 68 20 05/05/18 19:40 65 22 05/05/18 16:41 98.0 F 20 BP BP Pulse Ox 05/06/18 10:29 05/06/18 10:19 92 05/06/18 10:18 05/06/18 05:44 146/53 91 05/06/18 05:00 05/06/18 03:26 05/06/18 03:19 94 05/06/18 03:16 05/06/18 00:17 121/100 91 05/05/18 22:00 05/05/18 21:00 05/05/18 20:54 99 05/05/18 20:30 122/64 79 L 05/05/18 19:50 05/05/18 19:40 100 03/15/19 16:41 145/56 - Physical Examination General: No Apparent Distress HEENT: Positive: EOMI, Normocephaly, Mucus Membranes Moist Neck: Positive: neck supple, trachea midline Cardiac: Positive: Reg Rate and Rhythm Lungs: Negative: Rales, Wheezes, Rhonchi Neuro: Positive: Grossly Intact Abdomen: Positive: Soft. Negative: Tender Skin: Positive: Clear. Negative: Rash Musculoskeletal: Normal Range of Motion Extremities: Present: normal. Absent: edema - Labs and Meds Cardiac Enzymes 05/06/18 Range/Units 05:50 AST 18 (5-40) units/L Coagulation 05/05/18 Range/Units 13:52 PT 13.3 (12.2-14.9) Sec. INR 0.95 (0.87-1.13) CBC 05/06/18 Range/Units 05:51 WBC 6.5 (4.5-11.0) K/mm3 RBC 2.65 L (3.65-5.03) M/mm3 Hgb 8.2 L (10.1-14.3) gm/dl Hct 24.7 L (30.3-42.9) % Plt Count 206 (140-440) K/mm3 Lymph # 1.4 (1.2-5.4) K/mm3 [place] # 0.5 (0.0-0.8) K/mm3 Eos # 0.1 (0.0-0.4) K/mm3 Baso # 0.0 (0.0-0.1) K/mm3 Comprehensive Metabolic Panel 05/06/18 Range/Units 05:50 Sodium 135 L (137-145) mmol/L Potassium 5.2 H (3.6-5.0) mmol/L Chloride 104.9 (98-107) mmol/L Carbon Dioxide 21 L (22-30) mmol/L BUN 48 H (7-17) mg/dL Creatinine 4.1 H (0.7-1.2) mg/dL Glucose 149 H (65-100) mg/dL Calcium 8.1 L (8.4-10.2) mg/dL AST 18 (5-40) units/L ALT 7 (7-56) units/L Alkaline Phosphatase 75 (35-129) units/L Total Protein 6.2 L (6.3-8.2) g/dL Albumin 3.0 L (3.9-5) g/dL - Imaging and Cardiology EKG: report reviewed, image reviewed Echo: report reviewed ( 09/2016 showed mild LVH, EF 55-60%, abnormal diastolic function, mild MR, mild to mod TR, mild AR.) - Telemetry EKG Rhythm: Sinus Rhythm - EKG Sinus rhythms and dysrhythmias: sinus rhythm Supraventricular dysrhythmia: atrial premature complexe AV and intraventricular conduction: 1 AV block Myocardial infarction: septal IN (old age or ind
[2018-05-06] MEDS: PROTONIX PO SCH (19:40)
--- NOTE | 2018-05-06 19:43 | Progress Note ---
Assessment and Plan Patient awake. Complaining shortness of breath and wheezing. O2 saturation 94% on 2 litres O2. - Patient Problems (1) Acute heart failure with preserved ejection fraction Current Visit: Yes Status: Acute Plan to address problem: Management as per primary care and cardiology. (2) Acute kidney injury superimposed on CKD Current Visit: Yes Status: Acute Plan to address problem: Management as per nephrology. (3) Dyspnea and respiratory abnormalities Current Visit: Yes Status: Acute Plan to address problem: Patient has history of smoking. Could be COPD O2 2 litres via nasal canula. Albuterol/atrovent aerosol treatments q 6 hours. Recommend solumedrol 40 mg I/V q 8 hours. Continue S/C Heparin Continue Protonix. PFTs as Out patient. (4) Type 2 diabetes mellitus with diabetic chronic kidney disease Current Visit: Yes Status: Acute Plan to address problem: Management as per primary care. (5) GERD (gastroesophageal reflux disease) Current Visit: Yes Status: Chronic Plan to address problem: Continue Protonix. (6) HTN (hypertension) Current Visit: Yes Status: Chronic Qualifiers: Hypertension type: essential hypertension Qualified Code(s): I10 - Essential (primary) hypertension Plan to address problem: Management as per primary care. (7) History of CVA (cerebrovascular accident) Current Visit: Yes Status: Chronic Plan to address problem: Management as per primary care. (8) History of breast cancer Current Visit: Yes Status: Chronic Plan to address problem: Management as oer primary care. (9) Pulmonary HTN Current Visit: Yes Status: Chronic Plan to address problem: Patients pulmonary hypertension likely from CHF and COPD Treat the underlying cause and O2 supplementation. Subjective Date of service: 05/06/18 Principal diagnosis: Acute HFpEF, Acute on CKD, Severe Pulm HTN, Anemia, HTN, DM Interval history: Patient awake. Complaining shortness of breath and wheezing. O2 saturation 94% on 2 litres O2. Objective Vital Signs - 12hr 05/06/18 05/06/18 05/06/18 10:00 10:18 10:19 Pulse Rate Pulse Rate [ 67 Anterior Bilateral Throughout] Respiratory 22 Rate Respiratory 18 Rate [Anterior Bilateral Throughout] O2 Sat by Pulse 92 Oximetry 05/06/18 05/06/18 05/06/18 10:29 13:00 16:13 Pulse Rate 60 Pulse Rate [ 68 54 L Anterior Bilateral Throughout] Respiratory Rate Respiratory 18 20 Rate [Anterior Bilateral Throughout] O2 Sat by Pulse Oximetry 05/06/18 16:23 Pulse Rate Pulse Rate [ 55 L Anterior Bilateral Throughout] Respiratory Rate Respiratory 20 Rate [Anterior Bilateral Throughout] O2 Sat by Pulse Oximetry Constitutional: alert, appears uncomfortable Eyes: non-icteric ENT: oropharynx dry Neck: supple, no lymphadenopathy Ascultation: Bilateral: wheezes Cardiovascular: regular rate and rhythm Gastrointestinal: normoactive bowel sounds, soft, non-tender Integumentary: normal, rash Extremities: no cyanosis, no edema Neurologic: normal mental status, non-focal exam, pupils equal and round, CN II- XII normal Psychiatric: anxious CBC and BMP: 05/06/18 05:51 05/06/18 05:50 ABG, PT/INR, D-dimer: PT/INR, D-dimer PT 13.3 Sec. (12.2-14.9) 05/05/18 13:52 INR 0.95 (0.87-1.13) 05/05/18 13:52 Abnormal lab findings: Abnormal Labs 05/02/18 05/02/18 05/02/18 11:02 11:02 11:02 RBC 3.20 L Hgb 9.7 L Hct 29.4 L RDW 16.1 H [place] % (Auto) Seg Neutrophils % Sodium 146 H Potassium Chloride Carbon Dioxide 21 L BUN 32 H Creatinine 3.0 H Glucose 150 H POC Glucose Calcium 8.2 L Phosphorus Magnesium 1.20 L Iron ALT Troponin T 0.040 H NT-Pro-B Natriuret Pep 3718 H Total Protein Albumin 05/03/18 05/03/18 05/03/18 05:59 05:59 07:18 RBC 3.01 L Hgb 9.4 L Hct 27.7 L RDW 16.0 H [place] % (Auto) 7.9 H Seg Neutrophils % 73.8 H Sodium Potassium Chloride 109.8 H Carbon Dioxide 20 L BUN 30 H Creatinine 3.0 H Glucose 126 H POC Glucose Calcium 8.3 L Phosphorus 4.60 H Magnesium 1.50 L Iron 29 L ALT < 5 L Troponin T NT-Pro-B Natriuret Pep Total Protein Albumin 3.0 L 05/03/18 05/04/18 05/04/18 17:15 04:05 04:05 RBC 3.00 L Hgb 9.1 L Hct 27.8 L RDW 16.5 H [place] % (Auto) 8.0 H Seg Neutrophils % 72.5 H Sodium Potassium Chloride 108.1 H Carbon Dioxide 20 L BUN 34 H Creatinine 3.3 H Glucose 137 H POC Glucose 138 H Calcium 8.2 L Phosphorus Magnesium 1.50 L Iron ALT 5 L Troponin T NT-Pro-B Natriuret Pep Total Protein 6.0 L Albumin 3.0 L 05/04/18 05/05/18 05/05/18 20:21 04:44 04:44 RBC 2.83 L Hgb 8.7 L Hct 26.5 L RDW 16.4 H [place] % (Auto) 8.5 H Seg Neutrophils % Sodium Potassium Chloride Carbon Dioxide 21 L BUN 43 H Creatinine 4.1 H Glucose 127 H POC Glucose 210 H Calcium 8.1 L Phosphorus Magnesium Iron ALT < 5 L Troponin T NT-Pro-B Natriuret Pep Total Protein 5.8 L Albumin 2.9 L 05/05/18 05/05/18 05/06/18 16:36 22:50 05:50 RBC Hgb Hct RDW [place] % (Auto) Seg Neutrophils % Sodium 135 L Potassium 5.2 H Chloride Carbon Dioxide 21 L BUN 48 H Creatinine 4.1 H Glucose 149 H POC Glucose 291 H 167 H Calcium 8.1 L Phosphorus 5.10 H Magnesium Iron ALT Troponin T NT-Pro-B Natriuret Pep Total Protein 6.2 L Albumin 3.0 L 05/06/18 05/06/18 05/06/18 05:51 08:18 12:31 RBC 2.65 L Hgb 8.2 L Hct 24.7 L RDW 16.1 H [place] % (Auto) 8.4 H Seg Neutrophils % Sodium Potassium Chloride Carbon Dioxide BUN Creatinine Glucose POC Glucose 169 H 160 H Calcium Phosphorus Magnesium Iron ALT Troponin T NT-Pro-B Natriuret Pep Total Protein Albumin 05/06/18 17:37 RBC Hgb Hct RDW [place] % (Auto) Seg Neutrophils % Sodium Potassium Chloride Carbon Dioxide BUN Creatinine Glucose POC Glucose 154 H Calcium Phosphorus Magnesium Iron ALT Troponin T NT-Pro-B Natriuret Pep Total Protein Albumin Chest x-ray: report reviewed (Reported negative AP chest.), image reviewed CT scan - chest: report reviewed, image reviewed Additional Studies: CT of chest done on 05/05/18. CONCLUSION: 1. Small pleural effusions and atelectasis, right more than left, though overall lesser/improved since February 2012, as described above. 2. Small pericardial effusion may also be noted in this patient with possible pulmonary arterial hypertension and questionable lymphadenopathy on this limited, unenhanced exam, as described above. 3. Various other findings, including interval left mastectomy, heterogeneous thyroid, atherosclerotic vascular calcifications, cirrhosis, cholelithiasis and hiatal hernia, amongst others, as detailed above.
[2018-05-07] MEDS: DUONEB *Not for PRN Use IH SCH ×4 (02:37→19:41)
[2018-05-07] MEDS: HEPARIN SUB-Q SCH ×3 (06:35→21:29)
[2018-05-07 08:32] LABS: Basophils % (Auto) 0.3 % (0.0-1.8); Eosinophils # (Auto) 0.2 K/mm3 (0.0-0.4); Eosinophils % (Auto) 2.6 % (0.0-4.3); Hematocrit 24.3 % (30.3-42.9); Hemoglobin 8.2 gm/dl (10.1-14.3); Lymphocytes # (Auto) 1.2 K/mm3 (1.2-5.4); Lymphocytes % (Auto) 19.3 % (13.4-35.0); Mean Corpuscular HGB Conc 34 % (30-34); Mean Corpuscular Volume 93 fl (79-97); Monocytes # (Auto) 0.4 K/mm3 (0.0-0.8); Monocytes % (Auto) 6.9 % (0.0-7.3); Platelet Count 234 K/mm3 (140-440); Red Blood Count 2.61 M/mm3 (3.65-5.03); Red Cell Distribution Width 15.9 % (13.2-15.2)
[2018-05-07 08:43] LABS: Calcium 8.5 mg/dL (8.4-10.2)
[2018-05-07] MEDS: COREG PO SCH ×2 (09:42→21:29)
[2018-05-07] MEDS: BABY ASPIRIN PO SCH (09:42)
[2018-05-07] MEDS: PROTONIX PO SCH (09:42)
[2018-05-07] MEDS: APRESOLINE PO SCH ×3 (09:42→21:28)
[2018-05-07] MEDS: CATAPRES PO SCH ×2 (09:42→21:28)
[2018-05-07] MEDS: NORVASC PO SCH (09:42)
[2018-05-07] MEDS ORDERED: CEPACOL X STRENGTH MM PRN (11:49)
--- NOTE | 2018-05-07 11:55 | Progress Note ---
Assessment and Plan - Patient Problems (1) Hyperkalemia, diminished renal excretion Current Visit: Yes Status: Acute Plan to address problem: Percussion is noted to be still elevated, will order Kayexalate and recheck potassium in a.m. (2) Acute on chronic heart failure with preserved ejection fraction Current Visit: Yes Status: Acute Plan to address problem: Chest x-ray reviewed shows no pulmonary edema no evidence of acute CHF upon review, diuretic currently on hold (3) Acute on chronic kidney failure Current Visit: Yes Status: Acute Plan to address problem: Urinary output is good continue to monitor renal function and electrolyte (4) Dyspnea and respiratory abnormalities Current Visit: Yes Status: Acute Plan to address problem: Increasing wheezing noted with poor respiratory effort, will start patient on IV Solu-Medrol and increasing frequency of aerosol treatments, continue oxygen supplementation, monitor blood sugar with initiation of IV steroid (5) Hypomagnesemia Current Visit: Yes Status: Acute (6) Type 2 diabetes mellitus Current Visit: No Status: Acute Qualifiers: Diabetes mellitus complication detail: with chronic kidney disease Chronic kidney disease stage: stage 3 (moderate) (7) Anemia in chronic kidney disease (CKD) Current Visit: No Status: Chronic Qualifiers: Chronic kidney disease stage: stage 3 (moderate) Qualified Code(s): N18.3 - Chronic kidney disease, stage 3 (moderate); D63.1 - Anemia in chronic kidney disease Plan to address problem: Monitor renal function and nephrology consults ongoing Subjective Date of service: 05/07/18 Principal diagnosis: Acute HFpEF, Acute on CKD, Severe Pulm HTN, Anemia, HTN, DM Interval history: Patient seen and examined and chart reviewed, consultants notes reviewed. Patient complaining of sore throat this morning, still short of breath denied any chest pain no fever recorded by nursing staff Objective - Exam Narrative Exam: GENERAL: Patient resting comfortably in bed, in no acute distress mildly purulent not jaundiced HEENT: Normocephalic, mucous membranes moist, no cyanosis, pharynx shows no exudate or hemorrhage, tonsils normal NECK: No JVD, no thyroid enlargement and no lymphadenopathy. CHEST/LUNGS: Bilateral expiratory wheeze, Reduced air exchange bilaterally, no crackles, no dullness to percussion No chest wall tenderness, percussion is normal, symmetrical chest wall. HEART/CARDIOVASCULAR: Tachycardia S1 and S2 only, no murmur. ABDOMEN: Abdomen is soft, non distended, no guarding, no rebound tenderness, no masses palpable per abdomen, active bowel sounds. SKIN: Scaly rash on the face NEURO: Awake, alert, oriented x3, speech normal. Power 5/5 in all the extremities. EXTREMITIES: No pedal edema, good peripheral pulses, no finger or toe clubbing. - Constitutional Vitals: Vital Signs - 12hr 05/07/18 05/07/18 05/07/18 00:12 05:00 08:00 Temperature 98.2 F Pulse Rate 62 60 Pulse Rate [ 66 Anterior Bilateral Throughout] Respiratory 22 Rate Respiratory 18 Rate [Anterior Bilateral Throughout] Blood Pressure 124/50 Blood Pressure [Right] O2 Sat by Pulse 96 Oximetry 05/07/18 05/07/18 05/07/18 08:10 08:34 10:00 Temperature 98.8 F Pulse Rate 62 Pulse Rate [ 65 Anterior Bilateral Throughout] Respiratory 22 Rate Respiratory 18 Rate [Anterior Bilateral Throughout] Blood Pressure Blood Pressure 154/111 [Right] O2 Sat by Pulse 95 95 Oximetry - Labs CBC & Chem 7: 05/07/18 07:19 05/07/18 07:19 Labs: Abnormal lab results 05/06/18 05/06/18 05/06/18 Range/Units 12:31 17:37 21:29 RBC (3.65-5.03) M/mm3 Hgb (10.1-14.3) gm/dl Hct (30.3-42.9) % RDW (13.2-15.2) % Seg Neutrophils % (40.0-70.0) % Sodium (137-145) mmol/L Potassium (3.6-5.0) mmol/L Carbon Dioxide (22-30) mmol/L BUN (7-17) mg/dL Creatinine (0.7-1.2) mg/dL Glucose (65-100) mg/dL POC Glucose 160 H 154 H 151 H (70-105) 05/07/18 05/07/18 05/07/18 Range/Units 07:19 07:19 09:21 RBC 2.61 L (3.65-5.03) M/mm3 Hgb 8.2 L (10.1-14.3) gm/dl Hct 24.3 L (30.3-42.9) % RDW 15.9 H (13.2-15.2) % Seg Neutrophils % 70.9 H (40.0-70.0) % Sodium 134 L (137-145) mmol/L Potassium 5.3 H (3.6-5.0) mmol/L Carbon Dioxide 20 L (22-30) mmol/L BUN 55 H (7-17) mg/dL Creatinine 4.1 H (0.7-1.2) mg/dL Glucose 133 H (65-100) mg/dL POC Glucose 146 H (70-105)
[2018-05-07] MEDS ORDERED: KIONEX PO ONE (12:00)
[2018-05-07] MEDS: SOLU-Medrol IV SCH ×2 (14:16→21:28)
--- NOTE | 2018-05-07 15:37 | Progress Note ---
Assessment and Plan - Patient Problems (1) Acute on chronic kidney failure Current Visit: Yes Status: Acute Plan to address problem: Suspect acute kidney injury probably Pre-renal azotemia secondary to acute cardiorenal syndrome. Kidney function is not significantly changed. Continue to hold diuretics and follow-up kidney function (2) Dyspnea and respiratory abnormalities Current Visit: Yes Status: Acute Plan to address problem: Continue bronchodilator nebulizer treatments. Continue supplemental oxygen. Consider pulmonary consultation. Repeat chest x-ray tomorrow (3) Acute on chronic heart failure with preserved ejection fraction Current Visit: Yes Status: Acute Plan to address problem: Chest x-ray does not show pulmonary edema and perfusion scan is normal. Will hold diuretic, continue to monitor intake and output, sodium and fluid restriction, follow up electrolytes and renal function (4) Type 2 diabetes mellitus with diabetic chronic kidney disease Current Visit: Yes Status: Acute Plan to address problem: Blood sugar management by primary attending (5) Hypertensive chronic kidney disease with stage 1 through stage 4 chronic kidney disease, or unspecified chronic kidney disease Current Visit: Yes Status: Acute Plan to address problem: Medications adjusted. Follow-up blood pressure on adjusted medications (6) CKD (chronic kidney disease) stage 4, GFR 15-29 ml/min Current Visit: No Status: Acute Plan to address problem: Follows with Dr. Avitia as an outpatient. (7) Anemia in chronic kidney disease (CKD) Current Visit: No Status: Chronic Qualifiers: Chronic kidney disease stage: stage 3 (moderate) Qualified Code(s): N18.3 - Chronic kidney disease, stage 3 (moderate); D63.1 - Anemia in chronic kidney disease Plan to address problem: Follow-up hemoglobin (8) Hypomagnesemia Current Visit: Yes Status: Acute Plan to address problem: Magnesium improved. follow up level (9) Hyperkalemia Current Visit: Yes Status: Acute Plan to address problem: Agree with giving Kayexalate. Follow-up potassium tomorrow Subjective Date of service: 05/07/18 Principal diagnosis: Acute HFpEF, Acute on CKD, Severe Pulm HTN, Anemia, HTN, DM Interval history: Patient seen lying in bed. Still complaining of shortness of breath -just a bit better. No chest pain. No nausea or vomiting. Objective - Exam Narrative Exam: Elderly, -[place]ic [place] female lying in bed in no acute distress HEENT: NCAT, pink oral mucous membrane Neck: Supple, no venous distention CVS: S1S2 RRR with no murmur, rub or gallop Chest: Diminished breath sounds lower sounds bilaterally with faint rhonchi Abdomen: Obese, soft, nontender, no organomegaly, bowel sounds are present Extremities: No edema , wrinkled skin Genitalia deferred Skin warm and dry Neuro: Awake, alert no focal deficits - Vital Signs Vital signs: Vital Signs - 12hr 05/07/18 05/07/18 05/07/18 05:00 08:00 08:10 Temperature Pulse Rate 60 Pulse Rate [ 66 65 Anterior Bilateral Throughout] Respiratory Rate Respiratory 18 18 Rate [Anterior Bilateral Throughout] Blood Pressure [Right] O2 Sat by Pulse Oximetry 05/07/18 05/07/18 05/07/18 08:34 10:00 13:00 Temperature 98.8 F Pulse Rate 62 63 Pulse Rate [ Anterior Bilateral Throughout] Respiratory 22 20 Rate Respiratory Rate [Anterior Bilateral Throughout] Blood Pressure 154/111 [Right] O2 Sat by Pulse 95 95 Oximetry - Lab 05/07/18 07:19 05/07/18 07:19 Most recent lab results Calcium 8.5 mg/dL (8.4-10.2) 05/07/18 07:19 Phosphorus 5.10 mg/dL (2.5-4.5) H 05/06/18 05:50 Magnesium 1.80 mg/dL (1.7-2.3) 05/06/18 05:50 Medications & Allergies - Medications Allergies/Adverse Reactions: Allergies No Known Allergies Allergy (Verified 05/02/18 10:53) Home Medications: Home Medications Medication Instructions Recorded Confirmed Last Taken Type Anastrozole (Nf) [Arimidex (Nf)] 1 mg PO DAILY 05/01/15 05/02/18 10/06/16 History Esomeprazole Magnesium [NexIUM] 40 mg PO QDAY 05/01/15 05/02/18 10/06/16 History Equinunk-3 Fatty Acids [Equinunk-3] 100 mg PO BID 05/01/15 05/02/18 10/06/16 History Rosuvastatin (Nf) [Crestor] 20 mg PO QHS 05/01/15 05/02/18 10/06/16 History Aspirin EC [Aspirin Enteric Coated 81 mg PO QDAY #30 tablet.dr 10/11/16 05/02/18 Unknown Rx TAB] Furosemide [Lasix TAB] 40 mg PO QDAY #30 tablet 10/11/16 05/02/18 Unknown Rx amLODIPine [Norvasc] 5 mg PO QDAY #30 tablet 10/11/16 05/02/18 Unknown Rx Active Medications: Generic Name Dose Route Start Last Admin Trade Name Freq PRN Reason Stop Dose Admin Albuterol/Ipratropium 1 ampul 05/05/18 14:00 05/07/18 13:41 Duoneb *Not For Prn Use* IH 1 ampul Q6HRT VALERY Administration Amlodipine Besylate 10 mg 05/03/18 10:00 05/07/18 09:42 Norvasc PO 10 mg QDAY VALERY Administration Aspirin 81 mg 05/03/18 10:00 05/07/18 09:42 Baby Aspirin PO 81 mg QDAY VALERY Administration Atorvastatin Calcium 40 mg 05/02/18 22:00 05/06/18 22:41 Lipitor PO 40 mg QHS VALERY Administration Benzocaine/Menthol 1 each 05/07/18 11:49 Cepacol X Strength MM Q2H PRN Sore Throat Carvedilol 25 mg 05/03/18 10:00 05/07/18 09:42 Coreg PO 25 mg BID VALERY Administration Clonidine HCl 0.2 mg 05/05/18 10:00 05/07/18 09:42 Catapres PO 0.2 mg Q12HR VALERY Administration Dextrose 50 ml 05/02/18 13:29 D50w (25gm) Syringe IV PRN PRN Hypoglycemia Heparin Sodium (Porcine) 5,000 unit 05/02/18 14:00 05/07/18 14:15 Heparin SUB-Q 5,000 unit Q8HR VALERY Administration Hydralazine HCl 100 mg 05/04/18 14:00 05/07/18 14:45 Apresoline PO 100 mg TID VALERY Administration Methylprednisolone Sodium Succinate 40 mg 05/07/18 14:00 05/07/18 14:16 Solu-Medrol IV 40 mg Q8HR VALERY Administration Miscellaneous Medication 1 mg 05/02/18 13:00 Anastrozole (Nf) PO DAILY VALERY Pantoprazole Sodium 40 mg 05/06/18 20:00 05/07/18 09:42 Protonix PO 40 mg QDAY VALERY Administration
--- NOTE | 2018-05-07 16:30 | XRay Report ---
PROCEDURE: XR CHEST 1V AP TECHNIQUE: Single view chest HISTORY: dyspnea COMPARISONS: Chest x-ray May 04, 2018 FINDINGS: Perihilar and basilar interstitial prominence stable. Blunting costophrenic sulci compatible with sma ll effusion. Interstitial prominence somewhat increased. Right effusion increased. No pneumothorax. N o acute bony abnormality. IMPRESSION: Perihilar interstitial prominence increased Small right effusion somewhat increased. Findings may represent congestive failure. This document is electronically signed by Bernard Serrato MD., May 07 2018 04:28:01 PM ET
--- NOTE | 2018-05-07 17:37 | Progress Note ---
Assessment and Plan Present management. F/U BMP. - Patient Problems (1) Type 2 diabetes mellitus Current Visit: Yes Status: Chronic (2) GERD (gastroesophageal reflux disease) Current Visit: Yes Status: Chronic (3) Acute heart failure with preserved ejection fraction Current Visit: Yes Status: Acute (4) Acute kidney injury superimposed on CKD Current Visit: Yes Status: Acute (5) Dyspnea and respiratory abnormalities Current Visit: Yes Status: Acute (6) Hyperkalemia Current Visit: Yes Status: Acute (7) Moderate to severe pulmonary hypertension Current Visit: Yes Status: Chronic (8) Pulmonary edema Current Visit: Yes Status: Resolved (9) Anemia Current Visit: Yes Status: Chronic Subjective Date of service: 05/07/18 Principal diagnosis: Acute HFpEF, Acute on CKD, Severe Pulm HTN, Anemia, HTN, DM Interval history: No CP or SOB. Hb 8.2, K 5.3 (Receved Keyexalate).BUN 55, Cr 4.1 Objective Vital Signs Temp Pulse Pulse Resp Resp BP BP 05/07/18 13:00 63 05/07/18 10:00 20 05/07/18 08:34 98.8 F 62 22 154/111 05/07/18 08:10 65 18 05/07/18 08:00 66 18 05/07/18 05:00 60 05/07/18 00:12 98.2 F 62 22 124/50 05/06/18 22:13 59 L 18 05/06/18 22:08 05/06/18 22:06 57 L 18 05/06/18 22:00 20 05/06/18 20:58 98.5 F 62 22 145/64 Pulse Ox 05/07/18 13:00 05/07/18 10:00 95 05/07/18 08:34 95 05/07/18 08:10 05/07/18 08:00 05/07/18 05:00 05/07/18 00:12 96 05/06/18 22:13 05/06/18 22:08 100 05/06/18 22:06 05/06/18 22:00 05/06/18 20:58 96 - Physical Examination General: No Apparent Distress HEENT: Positive: EOMI, Normocephaly, Mucus Membranes Moist Neck: Positive: neck supple, trachea midline Cardiac: Positive: Reg Rate and Rhythm Lungs: Positive: clear to auscultation, Normal Breath Sounds Neuro: Positive: Grossly Intact Abdomen: Positive: Soft. Negative: Tender Skin: Positive: Clear. Negative: Rash Musculoskeletal: No Pain, Normal Range of Motion Extremities: Present: normal. Absent: edema - Labs and Meds CBC 05/07/18 Range/Units 07:19 WBC 6.3 (4.5-11.0) K/mm3 RBC 2.61 L (3.65-5.03) M/mm3 Hgb 8.2 L (10.1-14.3) gm/dl Hct 24.3 L (30.3-42.9) % Plt Count 234 (140-440) K/mm3 Lymph # 1.2 (1.2-5.4) K/mm3 [place] # 0.4 (0.0-0.8) K/mm3 Eos # 0.2 (0.0-0.4) K/mm3 Baso # 0.0 (0.0-0.1) K/mm3 Comprehensive Metabolic Panel 05/07/18 Range/Units 07:19 Sodium 134 L (137-145) mmol/L Potassium 5.3 H (3.6-5.0) mmol/L Chloride 102.5 (98-107) mmol/L Carbon Dioxide 20 L (22-30) mmol/L BUN 55 H (7-17) mg/dL Creatinine 4.1 H (0.7-1.2) mg/dL Glucose 133 H (65-100) mg/dL Calcium 8.5 (8.4-10.2) mg/dL - Imaging and Cardiology EKG: report reviewed, image reviewed Echo: report reviewed ( 09/2016 showed mild LVH, EF 55-60%, abnormal diastolic function, mild MR, mild to mod TR, mild AR.) - Telemetry EKG Rhythm: Sinus Rhythm - EKG Sinus rhythms and dysrhythmias: sinus rhythm AV and intraventricular conduction: 1 AV block Myocardial infarction: septal IA (old age or ind
--- NOTE | 2018-05-07 21:49 | Progress Note ---
Assessment and Plan Patient sleeping. On 3 litres O2. O2 saturation 94% on 3 litres O2. Wheezing better. No acute respiratory distress. - Patient Problems (1) Acute heart failure with preserved ejection fraction Current Visit: Yes Status: Acute Plan to address problem: Management as per primary care and cardiology. (2) Acute kidney injury superimposed on CKD Current Visit: Yes Status: Acute Plan to address problem: Management as per nephrology. (3) Dyspnea and respiratory abnormalities Current Visit: Yes Status: Acute Plan to address problem: Patient has history of smoking. Could be COPD O2 2 litres via nasal canula. Albuterol/atrovent aerosol treatments q 6 hours. Recommend solumedrol 40 mg I/V q 8 hours. Continue S/C Heparin Continue Protonix. PFTs as Out patient. (4) Type 2 diabetes mellitus with diabetic chronic kidney disease Current Visit: Yes Status: Acute Plan to address problem: Management as per primary care. (5) GERD (gastroesophageal reflux disease) Current Visit: Yes Status: Chronic Plan to address problem: Continue Protonix. (6) HTN (hypertension) Current Visit: Yes Status: Chronic Qualifiers: Hypertension type: essential hypertension Qualified Code(s): I10 - Essential (primary) hypertension Plan to address problem: Management as per primary care. (7) History of CVA (cerebrovascular accident) Current Visit: Yes Status: Chronic Plan to address problem: Management as per primary care. (8) History of breast cancer Current Visit: Yes Status: Chronic Plan to address problem: Management as oer primary care. (9) Pulmonary HTN Current Visit: Yes Status: Chronic Plan to address problem: Patients pulmonary hypertension likely from CHF and COPD Treat the underlying cause and O2 supplementation. Subjective Date of service: 05/07/18 Principal diagnosis: Acute HFpEF, Acute on CKD, Severe Pulm HTN, Anemia, HTN, DM Interval history: Patient sleeping. On 3 litres O2. O2 saturation 94% on 3 litres O2. Wheezing better. No acute respiratory distress. Objective Vital Signs - 12hr 05/07/18 05/07/18 05/07/18 10:00 13:00 19:42 Pulse Rate 63 Pulse Rate [ 62 Anterior Bilateral Throughout] Respiratory 20 Rate Respiratory 20 Rate [Anterior Bilateral Throughout] O2 Sat by Pulse 95 94 Oximetry 05/07/18 19:50 Pulse Rate Pulse Rate [ 66 Anterior Bilateral Throughout] Respiratory Rate Respiratory 20 Rate [Anterior Bilateral Throughout] O2 Sat by Pulse Oximetry Constitutional: no acute distress, asleep Eyes: non-icteric ENT: oropharynx dry Neck: supple, no lymphadenopathy Ascultation: Bilateral: wheezes Cardiovascular: regular rate and rhythm Gastrointestinal: normoactive bowel sounds, soft, non-tender Integumentary: normal, rash Extremities: no cyanosis, no edema Neurologic: normal mental status, non-focal exam, pupils equal and round, CN II- XII normal Psychiatric: anxious CBC and BMP: 05/07/18 07:19 05/07/18 07:19 ABG, PT/INR, D-dimer: PT/INR, D-dimer PT 13.3 Sec. (12.2-14.9) 05/05/18 13:52 INR 0.95 (0.87-1.13) 05/05/18 13:52 Abnormal lab findings: Abnormal Labs 05/02/18 05/02/18 05/02/18 11:02 11:02 11:02 RBC 3.20 L Hgb 9.7 L Hct 29.4 L RDW 16.1 H Bertie % (Auto) Seg Neutrophils % Sodium 146 H Potassium Chloride Carbon Dioxide 21 L BUN 32 H Creatinine 3.0 H Glucose 150 H POC Glucose Calcium 8.2 L Phosphorus Magnesium 1.20 L Iron ALT Troponin T 0.040 H NT-Pro-B Natriuret Pep 3718 H Total Protein Albumin 05/03/18 05/03/18 05/03/18 05:59 05:59 07:18 RBC 3.01 L Hgb 9.4 L Hct 27.7 L RDW 16.0 H Bertie % (Auto) 7.9 H Seg Neutrophils % 73.8 H Sodium Potassium Chloride 109.8 H Carbon Dioxide 20 L BUN 30 H Creatinine 3.0 H Glucose 126 H POC Glucose Calcium 8.3 L Phosphorus 4.60 H Magnesium 1.50 L Iron 29 L ALT < 5 L Troponin T NT-Pro-B Natriuret Pep Total Protein Albumin 3.0 L 05/03/18 05/04/18 05/04/18 17:15 04:05 04:05 RBC 3.00 L Hgb 9.1 L Hct 27.8 L RDW 16.5 H Bertie % (Auto) 8.0 H Seg Neutrophils % 72.5 H Sodium Potassium Chloride 108.1 H Carbon Dioxide 20 L BUN 34 H Creatinine 3.3 H Glucose 137 H POC Glucose 138 H Calcium 8.2 L Phosphorus Magnesium 1.50 L Iron ALT 5 L Troponin T NT-Pro-B Natriuret Pep Total Protein 6.0 L Albumin 3.0 L 05/04/18 05/05/18 05/05/18 20:21 04:44 04:44 RBC 2.83 L Hgb 8.7 L Hct 26.5 L RDW 16.4 H Bertie % (Auto) 8.5 H Seg Neutrophils % Sodium Potassium Chloride Carbon Dioxide 21 L BUN 43 H Creatinine 4.1 H Glucose 127 H POC Glucose 210 H Calcium 8.1 L Phosphorus Magnesium Iron ALT < 5 L Troponin T NT-Pro-B Natriuret Pep Total Protein 5.8 L Albumin 2.9 L 05/05/18 05/05/18 05/06/18 16:36 22:50 05:50 RBC Hgb Hct RDW Bertie % (Auto) Seg Neutrophils % Sodium 135 L Potassium 5.2 H Chloride Carbon Dioxide 21 L BUN 48 H Creatinine 4.1 H Glucose 149 H POC Glucose 291 H 167 H Calcium 8.1 L Phosphorus 5.10 H Magnesium Iron ALT Troponin T NT-Pro-B Natriuret Pep Total Protein 6.2 L Albumin 3.0 L 05/06/18 05/06/18 05/06/18 05:51 08:18 12:31 RBC 2.65 L Hgb 8.2 L Hct 24.7 L RDW 16.1 H Bertie % (Auto) 8.4 H Seg Neutrophils % Sodium Potassium Chloride Carbon Dioxide BUN Creatinine Glucose POC Glucose 169 H 160 H Calcium Phosphorus Magnesium Iron ALT Troponin T NT-Pro-B Natriuret Pep Total Protein Albumin 05/06/18 05/06/18 05/07/18 17:37 21:29 07:19 RBC 2.61 L Hgb 8.2 L Hct 24.3 L RDW 15.9 H Bertie % (Auto) Seg Neutrophils % 70.9 H Sodium Potassium Chloride Carbon Dioxide BUN Creatinine Glucose POC Glucose 154 H 151 H Calcium Phosphorus Magnesium Iron ALT Troponin T NT-Pro-B Natriuret Pep Total Protein Albumin 05/07/18 05/07/18 05/07/18 07:19 09:21 11:57 RBC Hgb Hct RDW Bertie % (Auto) Seg Neutrophils % Sodium 134 L Potassium 5.3 H Chloride Carbon Dioxide 20 L BUN 55 H Creatinine 4.1 H Glucose 133 H POC Glucose 146 H 170 H Calcium Phosphorus Magnesium Iron ALT Troponin T NT-Pro-B Natriuret Pep Total Protein Albumin 05/07/18 21:23 RBC Hgb Hct RDW Bertie % (Auto) Seg Neutrophils % Sodium Potassium Chloride Carbon Dioxide BUN Creatinine Glucose POC Glucose 223 H Calcium Phosphorus Magnesium Iron ALT Troponin T NT-Pro-B Natriuret Pep Total Protein Albumin Chest x-ray: report reviewed (Perihilar prominence. consistent with CHF.), image reviewed
[2018-05-08] MEDS: DUONEB *Not for PRN Use IH SCH ×4 (01:25→20:41)
[2018-05-08] MEDS: HEPARIN SUB-Q SCH ×3 (05:48→22:05)
[2018-05-08] MEDS: SOLU-Medrol IV SCH ×3 (05:49→22:04)
[2018-05-08 09:33] LABS: Albumin 3.2 g/dL (3.9-5); Calcium 8.5 mg/dL (8.4-10.2)
[2018-05-08] MEDS: NORVASC PO SCH (09:44)
[2018-05-08] MEDS: BABY ASPIRIN PO SCH (09:44)
[2018-05-08] MEDS: COREG PO SCH ×2 (09:44→22:04)
[2018-05-08] MEDS: CATAPRES PO SCH ×2 (09:44→22:04)
[2018-05-08] MEDS: APRESOLINE PO SCH ×3 (09:44→21:00)
[2018-05-08] MEDS: PROTONIX PO SCH (09:44)
--- NOTE | 2018-05-08 10:17 | Progress Note ---
Assessment and Plan Patient is a 70-year-old lady who was a history of congestive heart failure, diabetes mellitus, hypertension, chronic renal disease, breast cancer status post left mastectomy in 2012, and anemia of chronic disease who started having progressive shortness of breath for the past 1 month. Got worse about 2 days ago where he is unable to ambulate to the bathroom without being short of breath. Has progressively worsening pedal edema. Had orthopnea and paroxysmal nocturnal dyspnea. Denies any chest pain. Had a cough that is dry. No fever. No hemoptysis. Has noticed she is progressively gaining weight. On presentating to emergency department, chest x-ray shows evidence of poor congestion, BNP was 3718, hypomagnesemia of 1.4 was observed. BUN was 32 and creatinine was 2.2. As of September 2017 BUN was 27 creatinine was 1.9. Ec hocardiogram of 10/07/2016 showed ejection fraction of 55-60% with diastolic dysfunction. IV Lasix was commenced in the emergency department and admission was requested. 05/04/18 VQ scan because of wheezing and dyspena showed low probaility 05/05/18: CT chest showed minimal pleural effusion, Hiatal hernia, Liver cirrhosis, and cholelithiasis - Acute on Chronic Diastolic Heart Failure BNP is 3178, lipid panel, TSH, - were nl. Daily weights, strict input and output, 2 g sodium diet Continue with Diuresis, beta blockers, ACEI, statin, Echocardiogram of 05/02/18 showed LVEF of 60-65% with pseudo normalization [employer] following pt. input appreciated Repeat CXR showed Pulmunary congestion - Dyspena with wheezing VQ scan showed low probability CXR showed improvement in vascular congestion Continue with Duo neb Conserned about any seconaryies as pt has h/o or breast cancer. Pulm. consult - Acute on chronic renal failure. increasing BUN/CR likely from diureiss Monitor urine outputs Avoid nephrotoxic agents Nephrology consult - Hyperkalemia Commence Kayxalate Recheck K and Mg - Liver Cirrhosis Stable with normal LFT - Metabolic acidosis likely from acute on chronic renal failure Commence Bicarbonate. discussed with Nephrology - Anemia of iron def Obtain B12 and folic acid and TIBC, stool Hemoccult - Hyperglycemia A1c is 5.9. - prediabetic cont. with Consistent carbohydrate diet - Hypomagnesemia - corrected Will supplement further - Debility from Senility PT eval and tx -DVT prophylaxis with Lovenox adn GI with pepcid - Disposition: D/c in 1-2 days - Discussed with pt's Niece Ms Margie, giving her ujpdate adn answering her question to her satisfaction. Time spent: 35 minutes in direct patient care review of laboratory and radiological findings as well as explaining management plan to the patient Subjective Date of service: 05/08/18 Principal diagnosis: Acute HFpEF, Acute on CKD, Severe Pulm HTN, Anemia, HTN, DM Interval history: Wheezing with dyspnea. No chest pain. Still coughing. No fever Objective - Exam Narrative Exam: Constitutional: Lying quiely in bed. In mild distress with dyspnea. Head: Normocephalic atraumatic Eyes: Pupils are equal round and reactive to light Nose: No enlarged turbinates, no septal deviation. Mouth: Moist mucous membranes. Neck: Supple no thyromegaly. No bruit. No JVD Heart: Regular rate and rhythm, S1-S2 with S3. No rubs murmurs or gallop Lungs: Decreased Breath sounds bilaterally. Wheezing. no rales or rhonchi Abdomen: Soft, nontender. Bowel sound are present. Extremities: 2+ pedal edema, no cyanosis, no clubbing. Neuro: Alert oriented Oriented x3. No focal sensory or motor deficit. Skin: No rashes or hyperpigmented spots Musculoskeletal system: No joint pain or swelling Hematological: No petechia or subcutanous hemorrhages. Immunological: No multiple septic spots on the skin Lymphatic: No generalized lymphadenopathy Psychiatry: Euthymic. Calm. - Constitutional Vitals: Vital Signs - 12hr 05/08/18 05/08/18 05/08/18 01:25 01:28 01:37 Temperature 98.5 F Pulse Rate 66 Pulse Rate [ 60 65 Anterior Bilateral Throughout] Respiratory 21 Rate Respiratory 18 18 Rate [Anterior Bilateral Throughout] Blood Pressure 161/70 [Right] O2 Sat by Pulse 99 Oximetry 05/08/18 06:18 Temperature Pulse Rate Pulse Rate [ Anterior Bilateral Throughout] Respiratory 22 Rate Respiratory Rate [Anterior Bilateral Throughout] Blood Pressure [Right] O2 Sat by Pulse Oximetry - Labs CBC & Chem 7: 05/07/18 07:19 05/08/18 08:59 Labs: Abnormal lab results 05/07/18 05/07/18 05/08/18 Range/Units 11:57 21:23 08:44 Potassium (3.6-5.0) mmol/L Carbon Dioxide (22-30) mmol/L BUN (7-17) mg/dL Creatinine (0.7-1.2) mg/dL Glucose (65-100) mg/dL POC Glucose 170 H 223 H 230 H (70-105) Total Protein (6.3-8.2) g/dL Albumin (3.9-5) g/dL 05/08/18 Range/Units 08:59 Potassium 5.2 H (3.6-5.0) mmol/L Carbon Dioxide 18 L (22-30) mmol/L BUN 63 H (7-17) mg/dL Creatinine 4.5 H (0.7-1.2) mg/dL Glucose 215 H (65-100) mg/dL POC Glucose (70-105) Total Protein 5.8 L (6.3-8.2) g/dL Albumin 3.2 L (3.9-5) g/dL
[2018-05-08] MEDS ORDERED: KIONEX PO NR (10:18)
[2018-05-08] MEDS: HumaLOG SUB-Q SCH ×3 (13:02→22:05)
[2018-05-08] MEDS: HYDROMET PO SCH ×3 (13:09→21:00)
--- NOTE | 2018-05-08 13:09 | Progress Note ---
Assessment and Plan Cont present cardiac management. f/u nephrology recs. The patient has been seen in conjunction with Dr. Aguilar who agrees with the assessment and plan of care. - Patient Problems (1) Type 2 diabetes mellitus Current Visit: Yes Status: Chronic (2) GERD (gastroesophageal reflux disease) Current Visit: Yes Status: Chronic (3) Acute heart failure with preserved ejection fraction Current Visit: Yes Status: Acute (4) Acute kidney injury superimposed on CKD Current Visit: Yes Status: Acute (5) Dyspnea and respiratory abnormalities Current Visit: Yes Status: Acute (6) Hyperkalemia Current Visit: Yes Status: Acute (7) Moderate to severe pulmonary hypertension Current Visit: Yes Status: Chronic (8) Pulmonary edema Current Visit: Yes Status: Resolved (9) Anemia Current Visit: Yes Status: Chronic Subjective Date of service: 05/08/18 Principal diagnosis: Acute HFpEF, Acute on CKD, Severe Pulm HTN, Anemia, HTN, DM Interval history: pt resting in bed, no current cardiac complaints. Objective Last Vital Signs Temp 98.2 F 05/08/18 11:21 Pulse 66 05/08/18 11:42 Resp 20 05/08/18 11:21 BP 150/62 05/08/18 11:21 Pulse Ox 99 05/08/18 11:21 - Physical Examination General: No Apparent Distress HEENT: Positive: EOMI, Normocephaly, Mucus Membranes Moist Neck: Positive: neck supple, trachea midline Cardiac: Positive: Reg Rate and Rhythm, S1/S2 Lungs: Positive: Decreased Breath Sounds Neuro: Positive: Grossly Intact Abdomen: Positive: Soft. Negative: Tender Skin: Positive: Clear. Negative: Rash Musculoskeletal: No Pain, Normal Range of Motion Extremities: Present: normal. Absent: edema - Labs and Meds Cardiac Enzymes 05/08/18 Range/Units 08:59 AST 16 (5-40) units/L Comprehensive Metabolic Panel 05/08/18 Range/Units 08:59 Sodium 137 (137-145) mmol/L Potassium 5.2 H (3.6-5.0) mmol/L Chloride 103.4 (98-107) mmol/L Carbon Dioxide 18 L (22-30) mmol/L BUN 63 H (7-17) mg/dL Creatinine 4.5 H (0.7-1.2) mg/dL Glucose 215 H (65-100) mg/dL Calcium 8.5 (8.4-10.2) mg/dL AST 16 (5-40) units/L ALT 10 (7-56) units/L Alkaline Phosphatase 70 (35-129) units/L Total Protein 5.8 L (6.3-8.2) g/dL Albumin 3.2 L (3.9-5) g/dL - Imaging and Cardiology EKG: report reviewed, image reviewed Echo: report reviewed (04/2018: EF 60-65%, pseudonormalization, mild MS and MR, mild to mod TR, severe pulm HTN with RVSP 65mmHg, small pericardial effusion. 09/2016 showed mild LVH, EF 55-60%, abnormal diastolic function, mild MR, mild to mod TR, mild AR.) - Telemetry EKG Rhythm: Sinus Rhythm - EKG Sinus rhythms and dysrhythmias: sinus rhythm AV and intraventricular conduction: 1 AV block Myocardial infarction: septal DC (old age or ind
--- NOTE | 2018-05-08 14:41 | Progress Note ---
Assessment and Plan Patient awake. On 2 litres O2. O2 saturation 99% on 2 litres O2. Wheezing better. No acute respiratory distress. - Patient Problems (1) Acute heart failure with preserved ejection fraction Current Visit: Yes Status: Acute Plan to address problem: Management as per primary care and cardiology. (2) Acute kidney injury superimposed on CKD Current Visit: Yes Status: Acute Plan to address problem: Management as per nephrology. (3) Dyspnea and respiratory abnormalities Current Visit: Yes Status: Acute Plan to address problem: Patient has history of smoking. Could be COPD O2 2 litres via nasal canula. Albuterol/atrovent aerosol treatments q 6 hours. Recommend solumedrol 40 mg I/V q 8 hours. Continue S/C Heparin Continue Protonix. PFTs as Out patient. (4) Type 2 diabetes mellitus with diabetic chronic kidney disease Current Visit: Yes Status: Acute Plan to address problem: Management as per primary care. (5) GERD (gastroesophageal reflux disease) Current Visit: Yes Status: Chronic Plan to address problem: Continue Protonix. (6) HTN (hypertension) Current Visit: Yes Status: Chronic Qualifiers: Hypertension type: essential hypertension Qualified Code(s): I10 - Essential (primary) hypertension Plan to address problem: Management as per primary care. (7) History of CVA (cerebrovascular accident) Current Visit: Yes Status: Chronic Plan to address problem: Management as per primary care. (8) History of breast cancer Current Visit: Yes Status: Chronic Plan to address problem: Management as oer primary care. (9) Pulmonary HTN Current Visit: Yes Status: Chronic Plan to address problem: Patients pulmonary hypertension likely from CHF and COPD Treat the underlying cause and O2 supplementation. Subjective Date of service: 05/08/18 Principal diagnosis: Acute HFpEF, Acute on CKD, Severe Pulm HTN, Anemia, HTN, DM Interval history: Patient awake. On 2 litres O2. O2 saturation 99% on 2 litres O2. Wheezing better. No acute respiratory distress. Objective Vital Signs - 12hr 05/08/18 05/08/18 05/08/18 06:18 08:44 09:36 Temperature 98.2 F Pulse Rate 64 Pulse Rate [ 61 Anterior Bilateral Throughout] Respiratory 22 20 Rate Respiratory 20 Rate [Anterior Bilateral Throughout] Blood Pressure 152/54 O2 Sat by Pulse 93 96 Oximetry 05/08/18 05/08/18 05/08/18 09:46 10:00 11:21 Temperature 98.2 F Pulse Rate 66 Pulse Rate [ 56 L Anterior Bilateral Throughout] Respiratory 21 20 Rate Respiratory 20 Rate [Anterior Bilateral Throughout] Blood Pressure 150/62 O2 Sat by Pulse 99 Oximetry 05/08/18 11:42 Temperature Pulse Rate 66 Pulse Rate [ Anterior Bilateral Throughout] Respiratory Rate Respiratory Rate [Anterior Bilateral Throughout] Blood Pressure O2 Sat by Pulse Oximetry Constitutional: no acute distress, alert Eyes: non-icteric ENT: oropharynx dry Neck: supple, no lymphadenopathy Ascultation: Bilateral: wheezes Cardiovascular: regular rate and rhythm Gastrointestinal: normoactive bowel sounds, soft, non-tender Integumentary: normal, rash Extremities: no cyanosis, no edema Neurologic: normal mental status, non-focal exam, pupils equal and round, CN II- XII normal Psychiatric: anxious CBC and BMP: 05/07/18 07:19 05/08/18 08:59 ABG, PT/INR, D-dimer: ABG POC ABG pH 7.336 (7.35-7.45) L 05/08/18 12:23 POC ABG pCO2 34.8 (35-45) L 05/08/18 12:23 POC ABG pO2 84 (80-105) 05/08/18 12:23 POC ABG HCO3 18.6 (22-26 mml/L) 05/08/18 12:23 POC ABG Total CO2 20 (23-27mmol/L) 05/08/18 12:23 POC ABG O2 Sat 96 05/08/18 12:23 PT/INR, D-dimer PT 13.3 Sec. (12.2-14.9) 05/05/18 13:52 INR 0.95 (0.87-1.13) 05/05/18 13:52 Abnormal lab findings: Abnormal Labs 05/02/18 05/02/18 05/02/18 11:02 11:02 11:02 RBC 3.20 L Hgb 9.7 L Hct 29.4 L RDW 16.1 H Grand % (Auto) Seg Neutrophils % POC ABG pH POC ABG pCO2 Sodium 146 H Potassium Chloride Carbon Dioxide 21 L BUN 32 H Creatinine 3.0 H Glucose 150 H POC Glucose Calcium 8.2 L Phosphorus Magnesium 1.20 L Iron ALT Troponin T 0.040 H NT-Pro-B Natriuret Pep 3718 H Total Protein Albumin 05/03/18 05/03/18 05/03/18 05:59 05:59 07:18 RBC 3.01 L Hgb 9.4 L Hct 27.7 L RDW 16.0 H Grand % (Auto) 7.9 H Seg Neutrophils % 73.8 H POC ABG pH POC ABG pCO2 Sodium Potassium Chloride 109.8 H Carbon Dioxide 20 L BUN 30 H Creatinine 3.0 H Glucose 126 H POC Glucose Calcium 8.3 L Phosphorus 4.60 H Magnesium 1.50 L Iron 29 L ALT < 5 L Troponin T NT-Pro-B Natriuret Pep Total Protein Albumin 3.0 L 05/03/18 05/04/18 05/04/18 17:15 04:05 04:05 RBC 3.00 L Hgb 9.1 L Hct 27.8 L RDW 16.5 H Grand % (Auto) 8.0 H Seg Neutrophils % 72.5 H POC ABG pH POC ABG pCO2 Sodium Potassium Chloride 108.1 H Carbon Dioxide 20 L BUN 34 H Creatinine 3.3 H Glucose 137 H POC Glucose 138 H Calcium 8.2 L Phosphorus Magnesium 1.50 L Iron ALT 5 L Troponin T NT-Pro-B Natriuret Pep Total Protein 6.0 L Albumin 3.0 L 05/04/18 05/05/18 05/05/18 20:21 04:44 04:44 RBC 2.83 L Hgb 8.7 L Hct 26.5 L RDW 16.4 H Grand % (Auto) 8.5 H Seg Neutrophils % POC ABG pH POC ABG pCO2 Sodium Potassium Chloride Carbon Dioxide 21 L BUN 43 H Creatinine 4.1 H Glucose 127 H POC Glucose 210 H Calcium 8.1 L Phosphorus Magnesium Iron ALT < 5 L Troponin T NT-Pro-B Natriuret Pep Total Protein 5.8 L Albumin 2.9 L 05/05/18 05/05/18 05/06/18 16:36 22:50 05:50 RBC Hgb Hct RDW Grand % (Auto) Seg Neutrophils % POC ABG pH POC ABG pCO2 Sodium 135 L Potassium 5.2 H Chloride Carbon Dioxide 21 L BUN 48 H Creatinine 4.1 H Glucose 149 H POC Glucose 291 H 167 H Calcium 8.1 L Phosphorus 5.10 H Magnesium Iron ALT Troponin T NT-Pro-B Natriuret Pep Total Protein 6.2 L Albumin 3.0 L 05/06/18 05/06/18 05/06/18 05:51 08:18 12:31 RBC 2.65 L Hgb 8.2 L Hct 24.7 L RDW 16.1 H Grand % (Auto) 8.4 H Seg Neutrophils % POC ABG pH POC ABG pCO2 Sodium Potassium Chloride Carbon Dioxide BUN Creatinine Glucose POC Glucose 169 H 160 H Calcium Phosphorus Magnesium Iron ALT Troponin T NT-Pro-B Natriuret Pep Total Protein Albumin 05/06/18 05/06/18 05/07/18 17:37 21:29 07:19 RBC 2.61 L Hgb 8.2 L Hct 24.3 L RDW 15.9 H Grand % (Auto) Seg Neutrophils % 70.9 H POC ABG pH POC ABG pCO2 Sodium Potassium Chloride Carbon Dioxide BUN Creatinine Glucose POC Glucose 154 H 151 H Calcium Phosphorus Magnesium Iron ALT Troponin T NT-Pro-B Natriuret Pep Total Protein Albumin 05/07/18 05/07/18 05/07/18 07:19 09:21 11:57 RBC Hgb Hct RDW Grand % (Auto) Seg Neutrophils % POC ABG pH POC ABG pCO2 Sodium 134 L Potassium 5.3 H Chloride Carbon Dioxide 20 L BUN 55 H Creatinine 4.1 H Glucose 133 H POC Glucose 146 H 170 H Calcium Phosphorus Magnesium Iron ALT Troponin T NT-Pro-B Natriuret Pep Total Protein Albumin 05/07/18 05/08/18 05/08/18 21:23 08:44 08:59 RBC Hgb Hct RDW Grand % (Auto) Seg Neutrophils % POC ABG pH POC ABG pCO2 Sodium Potassium 5.2 H Chloride Carbon Dioxide 18 L BUN 63 H Creatinine 4.5 H Glucose 215 H POC Glucose 223 H 230 H Calcium Phosphorus Magnesium Iron ALT Troponin T NT-Pro-B Natriuret Pep Total Protein 5.8 L Albumin 3.2 L 05/08/18 05/08/18 12:23 12:29 RBC Hgb Hct RDW Grand % (Auto) Seg Neutrophils % POC ABG pH 7.336 L POC ABG pCO2 34.8 L Sodium Potassium Chloride Carbon Dioxide BUN Creatinine Glucose POC Glucose 317 H Calcium Phosphorus Magnesium Iron ALT Troponin T NT-Pro-B Natriuret Pep Total Protein Albumin
--- NOTE | 2018-05-08 16:18 | Progress Note ---
Assessment and Plan - Patient Problems (1) Acute kidney injury superimposed on CKD Current Visit: Yes Status: Acute Plan to address problem: Patient may likely have an acute on chronic kidney disease in the setting of acute cardiorenal syndrome. Her acutely worsening renal injury may also be attributed to diuretic therapy. Diuretics have been held at this time. Will start patient on very gentle IV fluids with normal saline at 50 mL an hour 1 L and follow-up laboratory studies. Will need to be monitored carefully in regards to respiratory Lyme status as we start her on IV fluids. We'll favor to continue holding off on her diuretic regimen at this time. (2) Acute on chronic heart failure with preserved ejection fraction Current Visit: Yes Status: Acute Plan to address problem: Patient initially diuresed and seems to be more closer to euvolemic state at this time. She does not examine to be significantly hypervolemic on my examination this afternoon. We'll continue to hold off on her diuretic therapy and will gently hydrate her with IV fluids at no more than 50 mL an hour for 1 L. (3) Hyperkalemia Current Visit: Yes Status: Acute Plan to address problem: Maintain patient on low potassium diet. Likely the setting of worsening renal function. (4) Hypertensive chronic kidney disease with stage 1 through stage 4 chronic k idney disease, or unspecified chronic kidney disease Current Visit: Yes Status: Chronic Plan to address problem: Continue patient on current regimen at this time. We'll continue to monitor. (5) Type 2 diabetes mellitus with diabetic chronic kidney disease Current Visit: Yes Status: Acute (6) Anemia Current Visit: Yes Status: Chronic Plan to address problem: Diabetes management per primary team. (7) CKD (chronic kidney disease) stage 4, GFR 15-29 ml/min Current Visit: No Status: Acute Plan to address problem: Patient follows up with me in the office. Have had discussion with patient in regards to the possibility of needing to initiate hemodialysis if renal function continues to progress. She has mentioned in the past and my examination today that she does not want to pursue hemodialysis if her renal function continues to worsen. There are no acute indications for initiating hemodialysis at present time. We'll continue to monitor renal function closely. Subjective Date of service: 05/08/18 Principal diagnosis: Acute HFpEF, Acute on CKD, Severe Pulm HTN, Anemia, HTN, DM Interval history: No acute events overnight. Labs noted with slightly worsening renal function over the last 48 hours. Diuretics have been held and despite that serum creatinine is up to 4.5 this morning. No other acute electrolyte abnormalities. Her respiratory status seems stable since admission. Chest x-ray noted. She remains on 2 L of O2 via nasal cannula. Echocardiogram noted and it did not state any findings concerning for acute volume overload. Objective - Vital Signs Vital signs: Vital Signs - 12hr 05/08/18 05/08/18 05/08/18 06:18 08:44 09:36 Temperature 98.2 F Pulse Rate 64 Pulse Rate [ 61 Anterior Bilateral Throughout] Respiratory 22 20 Rate Respiratory 20 Rate [Anterior Bilateral Throughout] Blood Pressure 152/54 O2 Sat by Pulse 93 96 Oximetry 05/08/18 05/08/18 05/08/18 09:46 10:00 11:21 Temperature 98.2 F Pulse Rate 66 Pulse Rate [ 56 L Anterior Bilateral Throughout] Respiratory 21 20 Rate Respiratory 20 Rate [Anterior Bilateral Throughout] Blood Pressure 150/62 O2 Sat by Pulse 99 Oximetry 05/08/18 11:42 Temperature Pulse Rate 66 Pulse Rate [ Anterior Bilateral Throughout] Respiratory Rate Respiratory Rate [Anterior Bilateral Throughout] Blood Pressure O2 Sat by Pulse Oximetry - General Appearance General appearance: well-developed, well-nourished, appears stated age EENT: ATNC, PERRL Neck: no thyromegaly Respiratory: Present: Clear to Ascultation Cardiology: regular, S1S2 Gastrointestinal: normoactive bowel sounds Integumentary: no rash, warm and dry Neurologic: no focal deficit, alert and oriented x3 Musculoskeletal: other (no significant edema) Psychiatric: mood/affect appropriate, cooperative - Lab 05/07/18 07:19 05/08/18 08:59 Most recent lab results Calcium 8.5 mg/dL (8.4-10.2) 05/08/18 08:59 Phosphorus 5.10 mg/dL (2.5-4.5) H 05/06/18 05:50 Magnesium 1.80 mg/dL (1.7-2.3) 05/06/18 05:50 - Allied health notes Allied health notes reviewed: nursing Medications & Allergies - Medications Allergies/Adverse Reactions: Allergies No Known Allergies Allergy (Verified 05/02/18 10:53) Home Medications: Home Medications Medication Instructions Recorded Confirmed Last Taken Type Anastrozole (Nf) [Arimidex (Nf)] 1 mg PO DAILY 05/01/15 05/02/18 10/06/16 History Esomeprazole Magnesium [NexIUM] 40 mg PO QDAY 05/01/15 05/02/18 10/06/16 History [place]-3 Fatty Acids [[place]-3] 100 mg PO BID 05/01/15 05/02/18 10/06/16 History Rosuvastatin (Nf) [Crestor] 20 mg PO QHS 05/01/15 05/02/18 10/06/16 History Aspirin EC [Aspirin Enteric Coated 81 mg PO QDAY #30 tablet. 10/11/16 05/02/18 Unknown Rx TAB] Furosemide [Lasix TAB] 40 mg PO QDAY #30 tablet 10/11/16 05/02/18 Unknown Rx amLODIPine [Norvasc] 5 mg PO QDAY #30 tablet 10/11/16 05/02/18 Unknown Rx Active Medications: Generic Name Dose Route Start Last Admin Trade Name Freq PRN Reason Stop Dose Admin Albuterol/Ipratropium 1 ampul 05/05/18 14:00 05/08/18 13:14 Duoneb *Not For Prn Use* IH 1 ampul Q6HRT VALERY Administration Amlodipine Besylate 10 mg 05/03/18 10:00 05/08/18 09:44 Norvasc PO 10 mg QDAY VALERY Administration Aspirin 81 mg 05/03/18 10:00 05/08/18 09:44 Baby Aspirin PO 81 mg QDAY VALERY Administration Atorvastatin Calcium 40 mg 05/02/18 22:00 05/07/18 21:28 Lipitor PO 40 mg QHS VALERY Administration Benzocaine/Menthol 1 each 05/07/18 11:49 Cepacol X Strength MM Q2H PRN Sore Throat Carvedilol 25 mg 05/03/18 10:00 05/08/18 09:44 Coreg PO 25 mg BID VALERY Administration Clonidine HCl 0.2 mg 05/05/18 10:00 05/08/18 09:44 Catapres PO 0.2 mg Q12HR VALERY Administration Dextrose 50 ml 05/02/18 13:29 D50w (25gm) Syringe IV PRN PRN Hypoglycemia Heparin Sodium (Porcine) 5,000 unit 05/02/18 14:00 05/08/18 13:03 Heparin SUB-Q 5,000 unit Q8HR VALERY Administration Hydralazine HCl 100 mg 05/04/18 14:00 05/08/18 13:03 Apresoline PO 100 mg TID VALERY Administration Hydrocodone Bit/Homatropine Methylb 2.5 ml 05/08/18 11:00 05/08/18 13:09 Hydromet PO 2.5 ml BID VALERY Administration Insulin Human Lispro 0 unit 05/08/18 11:30 05/08/18 13:02 Humalog SUB-Q 4 unit ACHS VALERY Administration Protocol Methylprednisolone Sodium Succinate 40 mg 05/07/18 14:00 05/08/18 13:03 Solu-Medrol IV 40 mg Q8HR VALERY Administration Miscellaneous Medication 1 mg 05/02/18 13:00 Anastrozole (Nf) PO DAILY VALERY Pantoprazole Sodium 40 mg 05/06/18 20:00 05/08/18 09:44 Protonix PO 40 mg QDAY VALERY Administration Sodium Polystyrene Sulfonate 30 gm 05/08/18 10:18 Kionex PO 05/08/18 19:00 ONCE NR
[2018-05-08] MEDS: SODIUM BICARBONATE PO SCH (20:48)
[2018-05-09] MEDS: DUONEB *Not for PRN Use IH SCH ×4 (02:38→22:38)
[2018-05-09] MEDS: SOLU-Medrol IV SCH ×3 (05:27→23:09)
[2018-05-09] MEDS: HEPARIN SUB-Q SCH ×3 (05:27→23:09)
[2018-05-09] MEDS: HumaLOG SUB-Q SCH ×4 (07:50→23:10)
--- NOTE | 2018-05-09 09:38 | Progress Note ---
Assessment and Plan - Patient Problems (1) Acute kidney injury superimposed on CKD Current Visit: Yes Status: Acute Plan to address problem: Patient may likely have an acute on chronic kidney disease in the setting of acute cardiorenal syndrome. Her acutely worsening renal injury may also be attributed to diuretic therapy. Diuretics have been held at this time. Will start patient on very gentle IV fluids with normal saline at 50 mL an hour 1 L and follow-up laboratory studies. Normal saline was ordered yesterday but unfortunately was not administered. Will administer the IV fluids today and will be monitoring laboratory studies. (2) Acute on chronic heart failure with preserved ejection fraction Current Visit: Yes Status: Acute Plan to address problem: Patient initially diuresed and seems to be more closer to euvolemic state at this time. She does not examine to be significantly hypervolemic on my examination this afternoon. We'll continue to hold off on her diuretic therapy and will gently hydrate her with IV fluids at no more than 50 mL an hour for 1 L. (3) Hyperkalemia Current Visit: Yes Status: Acute Plan to address problem: Maintain patient on low potassium diet. Likely the setting of worsening renal function. (4) Hypertensive chronic kidney disease with stage 1 through stage 4 chronic kidney disease, or unspecified chronic kidney disease Current Visit: Yes Status: Chronic Plan to address problem: Continue patient on current regimen at this time. We'll continue to monitor. (5) Type 2 diabetes mellitus with diabetic chronic kidney disease Current Visit: Yes Status: Acute Plan to address problem: Management per primary team (6) Anemia Current Visit: Yes Status: Chronic Plan to address problem: Folate and B12 levels noted. Patient will likely benefit from KARLO therapy given her anemia of chronic kidney disease. Transfuse to maintain hemoglobin above 7. (7) CKD (chronic kidney disease) stage 4, GFR 15-29 ml/min Current Visit: No Status: Acute Plan to address problem: Patient follows up with me in the office. Have had discussion with patient in regards to the possibility of needing to initiate hemodialysis if renal function continues to progress. She has mentioned in the past and my examination today that she does not want to pursue hemodialysis if her renal function continues to worsen. There are no acute indications for initiating hemodialysis at present time. We'll continue to monitor renal function closely. Subjective Date of service: 05/09/18 Principal diagnosis: Acute HFpEF, Acute on CKD, Severe Pulm HTN, Anemia, HTN, DM Interval history: Labs were being drawn as I was seeing the patient today. She unfortunately did not receive any IV fluids yesterday as per my order. I discussed with the RN at bedside and we will give her the IV fluids this morning. I have written for normal saline at 50 mL an hour for 1 L at this time. Objective - Vital Signs Vital signs: Vital Signs - 12hr 05/08/18 05/08/18 05/08/18 22:51 22:54 23:46 Temperature 98.2 F Pulse Rate 66 68 Pulse Rate [ Anterior Bilateral Throughout] Respiratory 20 18 Rate Respiratory Rate [Anterior Bilateral Throughout] Blood Pressure 148/61 Blood Pressure [Right] O2 Sat by Pulse 98 Oximetry 05/09/18 05/09/18 05/09/18 02:00 02:52 04:00 Temperature 98.4 F Pulse Rate 62 Pulse Rate [ 64 62 Anterior Bilateral Throughout] Respiratory 18 Rate Respiratory 18 16 Rate [Anterior Bilateral Throughout] Blood Pressure Blood Pressure 141/69 [Right] O2 Sat by Pulse 94 Oximetry 05/09/18 08:25 Temperature 98.2 F Pulse Rate 65 Pulse Rate [ Anterior Bilateral Throughout] Respiratory 20 Rate Respiratory Rate [Anterior Bilateral Throughout] Blood Pressure 156/71 Blood Pressure [Right] O2 Sat by Pulse 98 Oximetry - General Appearance General appearance: appears stated age, chronically ill, frail EENT: ATNC, PERRL Neck: no thyromegaly, supple Respiratory: Present: Wheezes Cardiology: regular, S1S2 Gastrointestinal: normal, normoactive bowel sounds Integumentary: warm and dry Neurologic: no focal deficit, alert and oriented x3 Musculoskeletal: other (mild edema) Psychiatric: mood/affect appropriate, cooperative - Lab 05/07/18 07:19 05/08/18 08:59 Most recent lab results Calcium 8.5 mg/dL (8.4-10.2) 05/08/18 08:59 Phosphorus 5.10 mg/dL (2.5-4.5) H 05/06/18 05:50 Magnesium 1.80 mg/dL (1.7-2.3) 05/06/18 05:50 - Allied health notes Allied health notes reviewed: nursing Medications & Allergies - Medications Allergies/Adverse Reactions: Allergies No Known Allergies Allergy (Verified 05/02/18 10:53) Home Medications: Home Medications Medication Instructions Recorded Confirmed Last Taken Type Anastrozole (Nf) [Arimidex (Nf)] 1 mg PO DAILY 05/01/15 05/02/18 10/06/16 History Esomeprazole Magnesium [NexIUM] 40 mg PO QDAY 05/01/15 05/02/18 10/06/16 History [place]-3 Fatty Acids [[place]-3] 100 mg PO BID 05/01/15 05/02/18 10/06/16 History Rosuvastatin (Nf) [Crestor] 20 mg PO QHS 05/01/15 05/02/18 10/06/16 History Aspirin EC [Aspirin Enteric Coated 81 mg PO QDAY #30 tablet. 10/11/16 05/02/18 Unknown Rx TAB] Furosemide [Lasix TAB] 40 mg PO QDAY #30 tablet 10/11/16 05/02/18 Unknown Rx amLODIPine [Norvasc] 5 mg PO QDAY #30 tablet 10/11/16 05/02/18 Unknown Rx Active Medications: Generic Name Dose Route Start Last Admin Trade Name Freq PRN Reason Stop Dose Admin Albuterol/Ipratropium 1 ampul 05/05/18 14:00 05/09/18 02:38 Duoneb *Not For Prn Use* IH 1 ampul Q6HRT VALERY Administration Amlodipine Besylate 10 mg 05/03/18 10:00 05/08/18 09:44 Norvasc PO 10 mg QDAY VALERY Administration Aspirin 81 mg 05/03/18 10:00 05/08/18 09:44 Baby Aspirin PO 81 mg QDAY VALERY Administration Atorvastatin Calcium 40 mg 05/02/18 22:00 05/08/18 22:04 Lipitor PO 40 mg QHS VALERY Administration Benzocaine/Menthol 1 each 05/07/18 11:49 Cepacol X Strength MM Q2H PRN Sore Throat Carvedilol 25 mg 05/03/18 10:00 05/08/18 22:04 Coreg PO 25 mg BID VALERY Administration Clonidine HCl 0.2 mg 05/05/18 10:00 05/08/18 22:04 Catapres PO 0.2 mg Q12HR VALERY Administration Dextrose 50 ml 05/02/18 13:29 D50w (25gm) Syringe IV PRN PRN Hypoglycemia Heparin Sodium (Porcine) 5,000 unit 05/02/18 14:00 05/09/18 05:27 Heparin SUB-Q 5,000 unit Q8HR VALERY Administration Hydralazine HCl 100 mg 05/04/18 14:00 05/08/18 21:00 Apresoline PO 100 mg TID VALERY Administration Hydrocodone Bit/Homatropine Methylb 2.5 ml 05/08/18 11:00 05/08/18 21:00 Hydromet PO Not Given BID VALERY Sodium Chloride 1,000 mls @ 50 mls/hr 05/08/18 17:00 Nacl 0.9% 1000 Ml IV DIRECT VALERY Insulin Human Lispro 0 unit 05/08/18 11:30 05/08/18 22:05 Humalog SUB-Q 3 unit ACHS VALERY Administration Protocol Methylprednisolone Sodium Succinate 40 mg 05/07/18 14:00 05/09/18 05:27 Solu-Medrol IV 40 mg Q8HR VALERY Administration Miscellaneous Medication 1 mg 05/02/18 13:00 Anastrozole (Nf) PO DAILY [facility] Pantoprazole Sodium 40 mg 05/06/18 20:00 05/08/18 09:44 Protonix PO 40 mg QDAY VALERY Administration Sodium Bicarbonate 650 mg 05/08/18 20:00 05/08/18 20:48 Sodium Bicarbonate PO 650 mg TID VALERY Administration
[2018-05-09] MEDS: PROTONIX PO SCH (09:42)
[2018-05-09] MEDS: HYDROMET PO SCH ×2 (09:42→23:10)
[2018-05-09] MEDS: CATAPRES PO SCH ×2 (09:42→23:11)
[2018-05-09] MEDS: SODIUM BICARBONATE PO SCH ×3 (09:42→20:38)
[2018-05-09] MEDS: COREG PO SCH ×2 (09:43→23:09)
[2018-05-09] MEDS: NORVASC PO SCH (09:43)
[2018-05-09] MEDS: APRESOLINE PO SCH ×3 (09:43→20:38)
[2018-05-09] MEDS: BABY ASPIRIN PO SCH (09:43)
[2018-05-09 10:09] LABS: Hematocrit 24.5 % (30.3-42.9); Hemoglobin 8.2 gm/dl (10.1-14.3); Mean Corpuscular HGB Conc 34 % (30-34); Mean Corpuscular Volume 91 fl (79-97); Platelet Count 262 K/mm3 (140-440); Red Blood Count 2.69 M/mm3 (3.65-5.03)
[2018-05-09 10:24] LABS: Albumin 3.3 g/dL (3.9-5); Calcium 8.4 mg/dL (8.4-10.2)
[2018-05-09 11:17] LABS: Band Neutrophils # (Manual) 0.1 K/mm3; Basophils % (Manual) 0 % (0.0-1.8); Eosinophils % (Manual) 0 % (0.0-4.3); Macrocytosis Few; Monocytes % (Manual) 0 % (0.0-7.3); Platelet Estimate Consistent w Auto; Total Cells Counted 100
--- NOTE | 2018-05-09 13:04 | Progress Note ---
Assessment and Plan Cont present cardiac management. f/u nephrology recs. The patient has been seen in conjunction with Dr. Aguilar who agrees with the assessment and plan of care. - Patient Problems (1) Type 2 diabetes mellitus Current Visit: Yes Status: Chronic (2) GERD (gastroesophageal reflux disease) Current Visit: Yes Status: Chronic (3) Acute heart failure with preserved ejection fraction Current Visit: Yes Status: Acute (4) Acute kidney injury superimposed on CKD Current Visit: Yes Status: Acute (5) Dyspnea and respiratory abnormalities Current Visit: Yes Status: Acute (6) Hyperkalemia Current Visit: Yes Status: Acute (7) Moderate to severe pulmonary hypertension Current Visit: Yes Status: Chronic (8) Pulmonary edema Current Visit: Yes Status: Resolved (9) Anemia Current Visit: Yes Status: Chronic Subjective Date of service: 05/09/18 Principal diagnosis: Acute HFpEF, Acute on CKD, Severe Pulm HTN, Anemia, HTN, DM Interval history: pt resting in bed, no current cardiac complaints. Objective Last Vital Signs Temp 98.2 F 05/09/18 08:25 Pulse 65 05/09/18 08:25 Resp 20 05/09/18 08:25 BP 156/71 05/09/18 08:25 Pulse Ox 99 05/09/18 10:00 - Physical Examination General: No Apparent Distress HEENT: Positive: EOMI, Normocephaly, Mucus Membranes Moist Neck: Positive: neck supple, trachea midline Cardiac: Positive: Reg Rate and Rhythm, S1/S2 Lungs: Positive: Decreased Breath Sounds Neuro: Positive: Grossly Intact Abdomen: Positive: Soft. Negative: Tender Skin: Positive: Clear. Negative: Rash Musculoskeletal: No Pain, Normal Range of Motion Extremities: Present: normal. Absent: edema - Labs and Meds Cardiac Enzymes 05/09/18 Range/Units 09:30 AST 17 (5-40) units/L CBC 05/09/18 Range/Units 09:30 WBC 10.9 (4.5-11.0) K/mm3 RBC 2.69 L (3.65-5.03) M/mm3 Hgb 8.2 L (10.1-14.3) gm/dl Hct 24.5 L (30.3-42.9) % Plt Count 262 (140-440) K/mm3 Comprehensive Metabolic Panel 05/09/18 Range/Units 09:30 Sodium 132 L (137-145) mmol/L Potassium 5.1 H (3.6-5.0) mmol/L Chloride 98.7 (98-107) mmol/L Carbon Dioxide 18 L (22-30) mmol/L BUN 78 H (7-17) mg/dL Creatinine 4.6 H (0.7-1.2) mg/dL Glucose 237 H (65-100) mg/dL Calcium 8.4 (8.4-10.2) mg/dL AST 17 (5-40) units/L ALT 10 (7-56) units/L Alkaline Phosphatase 78 (35-129) units/L Total Protein 6.4 (6.3-8.2) g/dL Albumin 3.3 L (3.9-5) g/dL - Imaging and Cardiology EKG: report reviewed, image reviewed Echo: report reviewed (04/2018: EF 60-65%, pseudonormalization, mild MS and MR, mild to mod TR, severe pulm HTN with RVSP 65mmHg, small pericardial effusion. 09/2016 showed mild LVH, EF 55-60%, abnormal diastolic function, mild MR, mild to mod TR, mild AR.) - EKG Sinus rhythms and dysrhythmias: sinus rhythm AV and intraventricular conduction: 1 AV block Myocardial infarction: septal OR (old age or ind - Allied health notes Allied health notes reviewed: nursing
--- NOTE | 2018-05-09 13:30 | Progress Note ---
Assessment and Plan Patient awake. On 2 litres O2. O2 saturation 99% on 2 litres O2. No acute respiratory distress.Patient says breathing better. - Patient Problems (1) Acute heart failure with preserved ejection fraction Current Visit: Yes Status: Acute Plan to address problem: Management as per primary care and cardiology. (2) Acute kidney injury superimposed on CKD Current Visit: Yes Status: Acute Plan to address problem: Management as per nephrology. (3) Dyspnea and respiratory abnormalities Current Visit: Yes Status: Acute Plan to address problem: Patient has history of smoking. Could be COPD O2 2 litres via nasal canula. Albuterol/atrovent aerosol treatments q 6 hours. Recommend solumedrol 40 mg I/V q 8 hours. Continue S/C Heparin Continue Protonix. PFTs as Out patient. (4) Type 2 diabetes mellitus with diabetic chronic kidney disease Current Visit: Yes Status: Acute Plan to address problem: Management as per primary care. (5) GERD (gastroesophageal reflux disease) Current Visit: Yes Status: Chronic Plan to address problem: Continue Protonix. (6) HTN (hypertension) Current Visit: Yes Status: Chronic Qualifiers: Hypertension type: essential hypertension Qualified Code(s): I10 - Essential (primary) hypertension Plan to address problem: Management as per primary care. (7) History of CVA (cerebrovascular accident) Current Visit: Yes Status: Chronic Plan to address problem: Management as per primary care. (8) History of breast cancer Current Visit: Yes Status: Chronic Plan to address problem: Management as oer primary care. (9) Pulmonary HTN Current Visit: Yes Status: Chronic Plan to address problem: Patients pulmonary hypertension likely from CHF and COPD Treat the underlying cause and O2 supplementation. Subjective Date of service: 05/09/18 Principal diagnosis: Acute HFpEF, Acute on CKD, Severe Pulm HTN, Anemia, HTN, DM Interval history: Patient awake. On 2 litres O2. O2 saturation 99% on 2 litres O2. No acute respiratory distress.Patient says breathing better. Objective Vital Signs - 12hr 05/09/18 05/09/18 05/09/18 02:00 02:52 04:00 Temperature 98.4 F Pulse Rate 62 Pulse Rate [ 64 62 Anterior Bilateral Throughout] Pulse Rate [ Posterior Bilateral Bases ] Respiratory 18 Rate Respiratory 18 16 Rate [Anterior Bilateral Throughout] Respiratory Rate [Posterior Bilateral Bases] Blood Pressure Blood Pressure 141/69 [Right] O2 Sat by Pulse 94 Oximetry 05/09/18 05/09/18 05/09/18 08:00 08:25 10:00 Temperature 98.2 F Pulse Rate 65 Pulse Rate [ 60 Anterior Bilateral Throughout] Pulse Rate [ 64 Posterior Bilateral Bases ] Respiratory 20 Rate Respiratory 16 Rate [Anterior Bilateral Throughout] Respiratory 18 Rate [Posterior Bilateral Bases] Blood Pressure 156/71 Blood Pressure [Right] O2 Sat by Pulse 98 99 Oximetry Constitutional: no acute distress, alert Eyes: non-icteric ENT: oropharynx dry Neck: supple, no lymphadenopathy Ascultation: Bilateral: wheezes Cardiovascular: regular rate and rhythm Gastrointestinal: normoactive bowel sounds, soft, non-tender Integumentary: normal, rash Extremities: no cyanosis, no edema Neurologic: normal mental status, non-focal exam, pupils equal and round, CN II- XII normal Psychiatric: anxious CBC and BMP: 05/09/18 09:30 05/09/18 09:30 ABG, PT/INR, D-dimer: ABG POC ABG pH 7.336 (7.35-7.45) L 05/08/18 12:23 POC ABG pCO2 34.8 (35-45) L 05/08/18 12:23 POC ABG pO2 84 (80-105) 05/08/18 12:23 POC ABG HCO3 18.6 (22-26 mml/L) 05/08/18 12:23 POC ABG Total CO2 20 (23-27mmol/L) 05/08/18 12:23 POC ABG O2 Sat 96 05/08/18 12:23 PT/INR, D-dimer PT 13.3 Sec. (12.2-14.9) 05/05/18 13:52 INR 0.95 (0.87-1.13) 05/05/18 13:52 Abnormal lab findings: Abnormal Labs 05/02/18 05/02/18 05/02/18 11:02 11:02 11:02 RBC 3.20 L Hgb 9.7 L Hct 29.4 L RDW 16.1 H Pinal % (Auto) Seg Neutrophils % Seg Neuts % (Manual) Lymphocytes % (Manual) Seg Neutrophils # Man POC ABG pH POC ABG pCO2 Sodium 146 H Potassium Chloride Carbon Dioxide 21 L BUN 32 H Creatinine 3.0 H Glucose 150 H POC Glucose Calcium 8.2 L Phosphorus Magnesium 1.20 L Iron ALT Troponin T 0.040 H NT-Pro-B Natriuret Pep 3718 H Total Protein Albumin 05/03/18 05/03/18 05/03/18 05:59 05:59 07:18 RBC 3.01 L Hgb 9.4 L Hct 27.7 L RDW 16.0 H Pinal % (Auto) 7.9 H Seg Neutrophils % 73.8 H Seg Neuts % (Manual) Lymphocytes % (Manual) Seg Neutrophils # Man POC ABG pH POC ABG pCO2 Sodium Potassium Chloride 109.8 H Carbon Dioxide 20 L BUN 30 H Creatinine 3.0 H Glucose 126 H POC Glucose Calcium 8.3 L Phosphorus 4.60 H Magnesium 1.50 L Iron 29 L ALT < 5 L Troponin T NT-Pro-B Natriuret Pep Total Protein Albumin 3.0 L 05/03/18 05/04/18 05/04/18 17:15 04:05 04:05 RBC 3.00 L Hgb 9.1 L Hct 27.8 L RDW 16.5 H P[place] % (Auto) 8.0 H Seg Neutrophils % 72.5 H Seg Neuts % (Manual) Lymphocytes % (Manual) Seg Neutrophils # Man POC ABG pH POC ABG pCO2 Sodium Potassium Chloride 108.1 H Carbon Dioxide 20 L BUN 34 H Creatinine 3.3 H Glucose 137 H POC Glucose 138 H Calcium 8.2 L Phosphorus Magnesium 1.50 L Iron ALT 5 L Troponin T NT-Pro-B Natriuret Pep Total Protein 6.0 L Albumin 3.0 L 05/04/18 05/05/18 05/05/18 20:21 04:44 04:44 RBC 2.83 L Hgb 8.7 L Hct 26.5 L RDW 16.4 H P[place] % (Auto) 8.5 H Seg Neutrophils % Seg Neuts % (Manual) Lymphocytes % (Manual) Seg Neutrophils # Man POC ABG pH POC ABG pCO2 Sodium Potassium Chloride Carbon Dioxide 21 L BUN 43 H Creatinine 4.1 H Glucose 127 H POC Glucose 210 H Calcium 8.1 L Phosphorus Magnesium Iron ALT < 5 L Troponin T NT-Pro-B Natriuret Pep Total Protein 5.8 L Albumin 2.9 L 05/05/18 05/05/18 05/06/18 16:36 22:50 05:50 RBC Hgb Hct RDW Pinal % (Auto) Seg Neutrophils % Seg Neuts % (Manual) Lymphocytes % (Manual) Seg Neutrophils # Man POC ABG pH POC ABG pCO2 Sodium 135 L Potassium 5.2 H Chloride Carbon Dioxide 21 L BUN 48 H Creatinine 4.1 H Glucose 149 H POC Glucose 291 H 167 H Calcium 8.1 L Phosphorus 5.10 H Magnesium Iron ALT Troponin T NT-Pro-B Natriuret Pep Total Protein 6.2 L Albumin 3.0 L 05/06/18 05/06/18 05/06/18 05:51 08:18 12:31 RBC 2.65 L Hgb 8.2 L Hct 24.7 L RDW 16.1 H P[place] % (Auto) 8.4 H Seg Neutrophils % Seg Neuts % (Manual) Lymphocytes % (Manual) Seg Neutrophils # Man POC ABG pH POC ABG pCO2 Sodium Potassium Chloride Carbon Dioxide BUN Creatinine Glucose POC Glucose 169 H 160 H Calcium Phosphorus Magnesium Iron ALT Troponin T NT-Pro-B Natriuret Pep Total Protein Albumin 05/06/18 05/06/18 05/07/18 17:37 21:29 07:19 RBC 2.61 L Hgb 8.2 L Hct 24.3 L RDW 15.9 H P[place] % (Auto) Seg Neutrophils % 70.9 H Seg Neuts % (Manual) Lymphocytes % (Manual) Seg Neutrophils # Man POC ABG pH POC ABG pCO2 Sodium Potassium Chloride Carbon Dioxide BUN Creatinine Glucose POC Glucose 154 H 151 H Calcium Phosphorus Magnesium Iron ALT Troponin T NT-Pro-B Natriuret Pep Total Protein Albumin 05/07/18 05/07/18 05/07/18 07:19 09:21 11:57 RBC Hgb Hct RDW Pinal % (Auto) Seg Neutrophils % Seg Neuts % (Manual) Lymphocytes % (Manual) Seg Neutrophils # Man POC ABG pH POC ABG pCO2 Sodium 134 L Potassium 5.3 H Chloride Carbon Dioxide 20 L BUN 55 H Creatinine 4.1 H Glucose 133 H POC Glucose 146 H 170 H Calcium Phosphorus Magnesium Iron ALT Troponin T NT-Pro-B Natriuret Pep Total Protein Albumin 05/07/18 05/08/18 05/08/18 21:23 08:44 08:59 RBC Hgb Hct RDW Pinal % (Auto) Seg Neutrophils % Seg Neuts % (Manual) Lymphocytes % (Manual) Seg Neutrophils # Man POC ABG pH POC ABG pCO2 Sodium Potassium 5.2 H Chloride Carbon Dioxide 18 L BUN 63 H Creatinine 4.5 H Glucose 215 H POC Glucose 223 H 230 H Calcium Phosphorus Magnesium Iron ALT Troponin T NT-Pro-B Natriuret Pep Total Protein 5.8 L Albumin 3.2 L 05/08/18 05/08/18 05/08/18 12:23 12:29 16:40 RBC Hgb Hct RDW Pinal % (Auto) Seg Neutrophils % Seg Neuts % (Manual) Lymphocytes % (Manual) Seg Neutrophils # Man POC ABG pH 7.336 L POC ABG pCO2 34.8 L Sodium Potassium Chloride Carbon Dioxide BUN Creatinine Glucose POC Glucose 317 H 381 H Calcium Phosphorus Magnesium Iron ALT Troponin T NT-Pro-B Natriuret Pep Total Protein Albumin 05/08/18 05/09/18 05/09/18 20:43 07:56 09:30 RBC 2.69 L Hgb 8.2 L Hct 24.5 L RDW 16.0 H P[place] % (Auto) Seg Neutrophils % Seg Neuts % (Manual) 87.0 H Lymphocytes % (Manual) 12.0 L Seg Neutrophils # Man 9.5 H POC ABG pH POC ABG pCO2 Sodium Potassium Chloride Carbon Dioxide BUN Creatinine Glucose POC Glucose 295 H 264 H Calcium Phosphorus Magnesium Iron ALT Troponin T NT-Pro-B Natriuret Pep Total Protein Albumin 05/09/18 05/09/18 09:30 11:42 RBC Hgb Hct RDW Pinal % (Auto) Seg Neutrophils % Seg Neuts % (Manual) Lymphocytes % (Manual) Seg Neutrophils # Man POC ABG pH POC ABG pCO2 Sodium 132 L Potassium 5.1 H Chloride Carbon Dioxide 18 L BUN 78 H Creatinine 4.6 H Glucose 237 H POC Glucose 329 H Calcium Phosphorus Magnesium Iron ALT Troponin T NT-Pro-B Natriuret Pep Total Protein Albumin 3.3 L Allied health notes reviewed: nursing
--- NOTE | 2018-05-09 15:13 | Progress Note ---
Assessment and Plan Patient is a 70-year-old lady who was a history of congestive heart failure, diabetes mellitus, hypertension, chronic renal disease, breast cancer status post left mastectomy in 2012, and anemia of chronic disease who started having progressive shortness of breath for the past 1 month. Got worse about 2 days ago where he is unable to ambulate to the bathroom without being short of breath. Has progressively worsening pedal edema. Had orthopnea and paroxysmal nocturnal dyspnea. Denies any chest pain. Had a cough that is dry. No fever. No hemoptysis. Has noticed she is progressively gaining weight. On presentating to emergency department, chest x-ray shows evidence of poor congestion, BNP was 3718, hypomagnesemia of 1.4 was observed. BUN was 32 and creatinine was 2.2. As of September 2017 BUN was 27 creatinine was 1.9. Ec hocardiogram of 10/07/2016 showed ejection fraction of 55-60% with diastolic dysfunction. IV Lasix was commenced in the emergency department and admission was requested. 05/04/18 VQ scan because of wheezing and dyspena showed low probability 05/05/18: CT chest showed minimal pleural effusion, Hiatal hernia, Liver cirrhosis, and cholelithiasis. Pt had a history of severe alcohol ingest many year a go when she was ingesting about 1 pint of liquor daily - Acute on Chronic Diastolic Heart Failure BNP is 3178, Lipid panel, TSH, - were nl. CXR showed slight pulm. congestion Daily weights, strict input and output, 2g sodium diet Continue with Diuresis, beta blockers, ACEI, statin, Echocardiogram of 05/02/18 showed LVEF of 60-65% with pseudo normalization Retail Coordinator following pt. input appreciated - Dyspena with wheezing- improved with iv solumedrol VQ scan showed low probability CXR showed improvement in vascular congestion Continue with Duo neb Concerned about any secondaries as pt has h/o or breast cancer. CT chest was negative for any secondaries - Acute on chronic renal failure. increasing BUN/CR likely from diureiss Monitor urine outputs Avoid nephrotoxic agents Nephrology consult - Hyperkalemia mild Commence Kayxalate Recheck K and Mg - Liver Cirrhosis Stable with normal LFT - Metabolic acidosis likely from acute on chronic renal failure Commence Bicarbonate. discussed with Nephrology - Anemia of iron def Obtain B12 and folic acid and TIBC, stool Hemoccult - Hyperglycemia A1c is 5.9. - prediabetic cont. with Consistent carbohydrate diet - Hypomagnesemia - corrected Will supplement further - Debility from Senility PT eval and tx -DVT prophylaxis with Lovenox adn GI with pepcid - Disposition: D/c in 1-2 days - Discussed with pt's Niece Ms Hanson, giving her ujpdate adn answering her question to her satisfaction. Time spent: 35 minutes in direct patient care review of laboratory and radiological findings as well as explaining management plan to the patient Subjective Date of service: 05/09/18 Principal diagnosis: Acute HFpEF, Acute on CKD, Severe Pulm HTN, Anemia, HTN, DM Interval history: Wheezing with dyspnea improved. No chest pain. Still coughing. No fever Objective - Exam Narrative Exam: Constitutional: Lying quiely in bed. In distress with dyspnea. Head: Normocephalic atraumatic Eyes: Pupils are equal round and reactive to light Nose: No enlarged turbinates, no septal deviation. Mouth: Moist mucous membranes. Neck: Supple no thyromegaly. No bruit. No JVD Heart: Regular rate and rhythm, S1-S2 with S3. No rubs murmurs or gallop Lungs: Decreased Breath sounds bilaterally. Wheezing. no rales or rhonchi Abdomen: Soft, nontender. Bowel sound are present. Extremities: 2+ pedal edema, no cyanosis, no clubbing. Neuro: Alert oriented Oriented x3. No focal sensory or motor deficit. Skin: No rashes or hyperpigmented spots Musculoskeletal system: No joint pain or swelling Hematological: No petechia or subcutanous hemorrhages. Immunological: No multiple septic spots on the skin Lymphatic: No generalized lymphadenopathy Psychiatry: Euthymic. Calm. - Constitutional Vitals: Vital Signs - 12hr 05/09/18 05/09/18 05/09/18 04:00 08:00 08:25 Temperature 98.4 F 98.2 F Pulse Rate 62 65 Pulse Rate [ 60 Anterior Bilateral Throughout] Pulse Rate [ 64 Posterior Bilateral Bases ] Respiratory 18 20 Rate Respiratory 16 Rate [Anterior Bilateral Throughout] Respiratory 18 Rate [Posterior Bilateral Bases] Blood Pressure 156/71 Blood Pressure 141/69 [Right] O2 Sat by Pulse 94 98 Oximetry 05/09/18 10:00 Temperature Pulse Rate Pulse Rate [ Anterior Bilateral Throughout] Pulse Rate [ Posterior Bilateral Bases ] Respiratory Rate Respiratory Rate [Anterior Bilateral Throughout] Respiratory Rate [Posterior Bilateral Bases] Blood Pressure Blood Pressure [Right] O2 Sat by Pulse 99 Oximetry - Labs CBC & Chem 7: 05/09/18 09:30 05/09/18 09:30 Labs: Abnormal lab results 05/08/18 05/08/18 05/09/18 Range/Units 16:40 20:43 07:56 RBC (3.65-5.03) M/mm3 Hgb (10.1-14.3) gm/dl Hct (30.3-42.9) % RDW (13.2-15.2) % Seg Neuts % (Manual) (40.0-70.0) % Lymphocytes % (Manual) (13.4-35.0) % Seg Neutrophils # Man (1.8-7.7) K/mm3 Sodium (137-145) mmol/L Potassium (3.6-5.0) mmol/L Carbon Dioxide (22-30) mmol/L BUN (7-17) mg/dL Creatinine (0.7-1.2) mg/dL Glucose (65-100) mg/dL POC Glucose 381 H 295 H 264 H (70-105) Albumin (3.9-5) g/dL 05/09/18 05/09/18 05/09/18 Range/Units 09:30 09:30 11:42 RBC 2.69 L (3.65-5.03) M/mm3 Hgb 8.2 L (10.1-14.3) gm/dl Hct 24.5 L (30.3-42.9) % RDW 16.0 H (13.2-15.2) % Seg Neuts % (Manual) 87.0 H (40.0-70.0) % Lymphocytes % (Manual) 12.0 L (13.4-35.0) % Seg Neutrophils # Man 9.5 H (1.8-7.7) K/mm3 Sodium 132 L (137-145) mmol/L Potassium 5.1 H (3.6-5.0) mmol/L Carbon Dioxide 18 L (22-30) mmol/L BUN 78 H (7-17) mg/dL Creatinine 4.6 H (0.7-1.2) mg/dL Glucose 237 H (65-100) mg/dL POC Glucose 329 H (70-105) Albumin 3.3 L (3.9-5) g/dL
[2018-05-09] MEDS: NACL 0.9% 1000 ML 1,000 ML IV SCH (19:00)
[2018-05-10] MEDS: HumaLOG SUB-Q SCH ×4 (03:05→17:35)
[2018-05-10] MEDS: DUONEB *Not for PRN Use IH SCH ×3 (03:17→13:27)
[2018-05-10] MEDS: SOLU-Medrol IV SCH ×2 (05:53→14:56)
[2018-05-10] MEDS: HEPARIN SUB-Q SCH ×2 (05:53→14:54)
[2018-05-10] MEDS: NORVASC PO SCH (09:40)
[2018-05-10] MEDS: APRESOLINE PO SCH ×2 (09:40→14:55)
[2018-05-10] MEDS: SODIUM BICARBONATE PO SCH ×2 (09:40→14:55)
[2018-05-10] MEDS: COREG PO SCH (09:41)
[2018-05-10] MEDS: CATAPRES PO SCH (09:41)
[2018-05-10] MEDS: PROTONIX PO SCH (09:41)
[2018-05-10] MEDS: HYDROMET PO SCH (09:41)
[2018-05-10] MEDS: BABY ASPIRIN PO SCH (09:41)
--- NOTE | 2018-05-10 10:39 | Progress Note ---
Assessment and Plan - Patient Problems (1) Acute kidney injury superimposed on CKD Current Visit: Yes Status: Acute Plan to address problem: Patient may likely have an acute on chronic kidney disease in the setting of acute cardiorenal syndrome. Her acutely worsening renal injury may also be attributed to diuretic therapy. Diuretics have been held at this time. Started patient on very gentle IV fluids with normal saline at 50 mL an hour 1 L and follow-up laboratory studies. Overall renal function is stable. Patient needs to follow up with us in the nephrology clinic 2 weeks post discharge. (2) Acute on chronic heart failure with preserved ejection fraction Current Visit: Yes Status: Acute Plan to address problem: Patient initially diuresed and seems to be more closer to euvolemic state at this time. She does not examine to be significantly hypervolemic on my examination this afternoon. We'll continue to hold off on her diuretic therapy and will gently hydrate her with IV fluids at no more than 50 mL an hour for 1 L. Can be discharged on lasix 20 mg daily upon discharge and will titrate further upon follow up visit. (3) Hyperkalemia Current Visit: Yes Status: Acute Plan to address problem: Maintain patient on low potassium diet. Likely the setting of worsening renal function. (4) Hypertensive chronic kidney disease with stage 1 through stage 4 chronic kidney disease, or unspecified chronic kidney disease Current Visit: Yes Status: Chronic Plan to address problem: Continue patient on current regimen at this time. We'll continue to monitor. (5) Type 2 diabetes mellitus with diabetic chronic kidney disease Current Visit: Yes Status: Acute Plan to address problem: Management per primary team (6) Anemia Current Visit: Yes Status: Chronic Plan to address problem: Folate and B12 levels noted. Patient will likely benefit from KARLO therapy given her anemia of chronic kidney disease. Transfuse to maintain hemoglobin above 7. (7) CKD (chronic kidney disease) stage 4, GFR 15-29 ml/min Current Visit: No Status: Acute Plan to address problem: Patient follows up with me in the office. Have had discussion with patient in regards to the possibility of needing to initiate hemodialysis if renal function continues to progress. She has mentioned in the past and my examination today that she does not want to pursue hemodialysis if her renal function continues to worsen. There are no acute indications for initiating hemodialysis at present time. We'll continue to monitor renal function closely. Subjective Date of service: 05/10/18 Principal diagnosis: Acute HFpEF, Acute on CKD, Severe Pulm HTN, Anemia, HTN, DM Interval history: No acute complaints this am. Started on gentle IVF hydration overnight. Labs are stable and renal function overall is stable. Pending possible DC today. Objective - Vital Signs Vital signs: Vital Signs - 12hr 05/09/18 05/09/18 05/09/18 22:38 22:43 23:09 Temperature Pulse Rate 64 Pulse Rate [ 72 Anterior Bilateral Throughout] Respiratory Rate Respiratory 18 Rate [Anterior Bilateral Throughout] Blood Pressure 142/57 O2 Sat by Pulse 100 Oximetry 05/09/18 05/10/18 05/10/18 23:11 03:17 03:27 Temperature Pulse Rate 64 Pulse Rate [ 67 71 Anterior Bilateral Throughout] Respiratory Rate Respiratory 18 18 Rate [Anterior Bilateral Throughout] Blood Pressure 142/57 O2 Sat by Pulse Oximetry 05/10/18 05/10/18 05/10/18 04:50 09:09 09:16 Temperature 98.1 F Pulse Rate 50 L Pulse Rate [ 60 Anterior Bilateral Throughout] Respiratory 22 20 Rate Respiratory 18 Rate [Anterior Bilateral Throughout] Blood Pressure 145/62 125/51 O2 Sat by Pulse 96 Oximetry 05/10/18 05/10/18 09:26 10:00 Temperature Pulse Rate Pulse Rate [ 64 Anterior Bilateral Throughout] Respiratory Rate Respiratory 18 Rate [Anterior Bilateral Throughout] Blood Pressure O2 Sat by Pulse 98 Oximetry - General Appearance General appearance: well-developed, well-nourished, appears stated age EENT: ATNC Neck: no JVD, no thyromegaly Respiratory: Present: Clear to Ascultation Cardiology: regular, S1S2 Gastrointestinal: normal, normoactive bowel sounds Integumentary: warm and dry Neurologic: no focal deficit, alert and oriented x3 Musculoskeletal: other (mild non pitting edema ) Psychiatric: mood/affect appropriate, cooperative - Lab 05/09/18 09:30 05/09/18 09:30 Most recent lab results Calcium 8.4 mg/dL (8.4-10.2) 05/09/18 09:30 Phosphorus 5.10 mg/dL (2.5-4.5) H 05/06/18 05:50 Magnesium 1.90 mg/dL (1.7-2.3) 05/09/18 09:30 - Allied health notes Allied health notes reviewed: nursing Medications & Allergies - Medications Allergies/Adverse Reactions: Allergies No Known Allergies Allergy (Verified 05/02/18 10:53) Home Medications: Home Medications Medication Instructions Recorded Confirmed Last Taken Type Anastrozole (Nf) [Arimidex (Nf)] 1 mg PO DAILY 05/01/15 05/02/18 10/06/16 History Esomeprazole Magnesium [NexIUM] 40 mg PO QDAY 05/01/15 05/02/18 10/06/16 History [place]-3 Fatty Acids [[place]-3] 100 mg PO BID 05/01/15 05/02/18 10/06/16 History Rosuvastatin (Nf) [Crestor] 20 mg PO QHS 05/01/15 05/02/18 10/06/16 History Aspirin EC [Aspirin Enteric Coated 81 mg PO QDAY #30 tablet. 10/11/16 05/02/18 Unknown Rx TAB] Furosemide [Lasix TAB] 40 mg PO QDAY #30 tablet 10/11/16 05/02/18 Unknown Rx amLODIPine [Norvasc] 5 mg PO QDAY #30 tablet 10/11/16 05/02/18 Unknown Rx Active Medications: Generic Name Dose Route Start Last Admin Trade Name Freq PRN Reason Stop Dose Admin Albuterol/Ipratropium 1 ampul 05/05/18 14:00 05/10/18 09:16 Duoneb *Not For Prn Use* IH 1 ampul Q6HRT VALERY Administration Amlodipine Besylate 10 mg 05/03/18 10:00 05/10/18 09:40 Norvasc PO 10 mg QDAY VALERY Administration Aspirin 81 mg 05/03/18 10:00 05/10/18 09:41 Baby Aspirin PO 81 mg QDAY VALERY Administration Atorvastatin Calcium 40 mg 05/02/18 22:00 05/09/18 23:08 Lipitor PO 40 mg QHS VALERY Administration Benzocaine/Menthol 1 each 05/07/18 11:49 Cepacol X Strength MM Q2H PRN Sore Throat Carvedilol 25 mg 05/03/18 10:00 05/10/18 09:41 Coreg PO 25 mg BID VALERY Administration Clonidine HCl 0.2 mg 05/05/18 10:00 05/10/18 09:41 Catapres PO 0.2 mg Q12HR VALERY Administration Dextrose 50 ml 05/02/18 13:29 D50w (25gm) Syringe IV PRN PRN Hypoglycemia Heparin Sodium (Porcine) 5,000 unit 05/02/18 14:00 05/10/18 05:53 Heparin SUB-Q 5,000 unit Q8HR VALERY Administration Hydralazine HCl 100 mg 05/04/18 14:00 05/10/18 09:40 Apresoline PO 100 mg TID VALERY Administration Hydrocodone Bit/Homatropine Methylb 2.5 ml 05/08/18 11:00 05/10/18 09:41 Hydromet PO 2.5 ml BID VALERY Administration Sodium Chloride 1,000 mls @ 50 mls/hr 05/08/18 17:00 05/09/18 19:00 Nacl 0.9% 1000 Ml IV 50 mls/hr DIRECT VALERY Administration Insulin Human Lispro 0 unit 05/10/18 03:00 05/10/18 07:30 Humalog SUB-Q Not Given ACHS [facility] Protocol Methylprednisolone Sodium Succinate 40 mg 05/07/18 14:00 05/10/18 05:53 Solu-Medrol IV 40 mg Q8HR VALERY Administration Miscellaneous Medication 1 mg 05/02/18 13:00 Anastrozole (Nf) PO DAILY VALERY Pantoprazole Sodium 40 mg 05/06/18 20:00 05/10/18 09:41 Protonix PO 40 mg QDAY VALERY Administration Sodium Bicarbonate 650 mg 05/08/18 20:00 05/10/18 09:40 Sodium Bicarbonate PO 650 mg TID VALERY Administration
--- NOTE | 2018-05-10 10:45 | Progress Note ---
Assessment and Plan Patient awake. On 3 litres O2. O2 saturation 96% on 3 litres O2. No acute respiratory distress.Patient says breathing better. - Patient Problems (1) Acute heart failure with preserved ejection fraction Current Visit: Yes Status: Acute Plan to address problem: Management as per primary care and cardiology. (2) Acute kidney injury superimposed on CKD Current Visit: Yes Status: Acute Plan to address problem: Management as per nephrology. (3) Dyspnea and respiratory abnormalities Current Visit: Yes Status: Acute Plan to address problem: Patient has history of smoking. Could be COPD O2 3 litres via nasal canula. Albuterol/atrovent aerosol treatments q 6 hours. Recommend to taper steroids. Continue S/C Heparin Continue Protonix. PFTs as Out patient. (4) Type 2 diabetes mellitus with diabetic chronic kidney disease Current Visit: Yes Status: Acute Plan to address problem: Management as per primary care. (5) GERD (gastroesophageal reflux disease) Current Visit: Yes Status: Chronic Plan to address problem: Continue Protonix. (6) HTN (hypertension) Current Visit: Yes Status: Chronic Qualifiers: Hypertension type: essential hypertension Qualified Code(s): I10 - Essential (primary) hypertension Plan to address problem: Management as per primary care. (7) History of CVA (cerebrovascular accident) Current Visit: Yes Status: Chronic Plan to address problem: Management as per primary care. (8) History of breast cancer Current Visit: Yes Status: Chronic Plan to address problem: Management as oer primary care. (9) Pulmonary HTN Current Visit: Yes Status: Chronic Plan to address problem: Patients pulmonary hypertension likely from CHF and COPD Treat the underlying cause and O2 supplementation. Subjective Date of service: 05/10/18 Principal diagnosis: Acute HFpEF, Acute on CKD, Severe Pulm HTN, Anemia, HTN, DM Interval history: Patient awake. On 3 litres O2. O2 saturation 96% on 3 litres O2. No acute respiratory distress.Patient says breathing better. Objective Vital Signs - 12hr 05/09/18 05/09/18 05/10/18 23:09 23:11 03:17 Temperature Pulse Rate 64 64 Pulse Rate [ 67 Anterior Bilateral Throughout] Respiratory Rate Respiratory 18 Rate [Anterior Bilateral Throughout] Blood Pressure 142/57 142/57 O2 Sat by Pulse Oximetry 05/10/18 05/10/18 05/10/18 03:27 04:50 09:09 Temperature 98.1 F Pulse Rate 50 L Pulse Rate [ 71 Anterior Bilateral Throughout] Respiratory 22 20 Rate Respiratory 18 Rate [Anterior Bilateral Throughout] Blood Pressure 145/62 125/51 O2 Sat by Pulse 96 Oximetry 05/10/18 05/10/18 05/10/18 09:16 09:26 10:00 Temperature Pulse Rate Pulse Rate [ 60 64 Anterior Bilateral Throughout] Respiratory Rate Respiratory 18 18 Rate [Anterior Bilateral Throughout] Blood Pressure O2 Sat by Pulse 98 Oximetry Constitutional: no acute distress, alert Eyes: non-icteric ENT: oropharynx dry Neck: supple, no lymphadenopathy Ascultation: Bilateral: wheezes Cardiovascular: regular rate and rhythm Gastrointestinal: normoactive bowel sounds, soft, non-tender Integumentary: normal, rash Extremities: no cyanosis, no edema Neurologic: normal mental status, non-focal exam, pupils equal and round, CN II- XII normal Psychiatric: anxious CBC and BMP: 05/10/18 15:03 05/10/18 15:03 ABG, PT/INR, D-dimer: ABG POC ABG pH 7.336 (7.35-7.45) L 05/08/18 12:23 POC ABG pCO2 34.8 (35-45) L 05/08/18 12:23 POC ABG pO2 84 (80-105) 05/08/18 12:23 POC ABG HCO3 18.6 (22-26 mml/L) 05/08/18 12:23 POC ABG Total CO2 20 (23-27mmol/L) 05/08/18 12:23 POC ABG O2 Sat 96 05/08/18 12:23 PT/INR, D-dimer PT 13.3 Sec. (12.2-14.9) 05/05/18 13:52 INR 0.95 (0.87-1.13) 05/05/18 13:52 Abnormal lab findings: Abnormal Labs 05/02/18 05/02/18 05/02/18 11:02 11:02 11:02 RBC 3.20 L Hgb 9.7 L Hct 29.4 L RDW 16.1 H [place] % (Auto) Seg Neutrophils % Seg Neuts % (Manual) Lymphocytes % (Manual) Seg Neutrophils # Man POC ABG pH POC ABG pCO2 Sodium 146 H Potassium Chloride Carbon Dioxide 21 L BUN 32 H Creatinine 3.0 H Glucose 150 H POC Glucose Calcium 8.2 L Phosphorus Magnesium 1.20 L Iron ALT Troponin T 0.040 H NT-Pro-B Natriuret Pep 3718 H Total Protein Albumin 05/03/18 05/03/18 05/03/18 05:59 05:59 07:18 RBC 3.01 L Hgb 9.4 L Hct 27.7 L RDW 16.0 H [place] % (Auto) 7.9 H Seg Neutrophils % 73.8 H Seg Neuts % (Manual) Lymphocytes % (Manual) Seg Neutrophils # Man POC ABG pH POC ABG pCO2 Sodium Potassium Chloride 109.8 H Carbon Dioxide 20 L BUN 30 H Creatinine 3.0 H Glucose 126 H POC Glucose Calcium 8.3 L Phosphorus 4.60 H Magnesium 1.50 L Iron 29 L ALT < 5 L Troponin T NT-Pro-B Natriuret Pep Total Protein Albumin 3.0 L 05/03/18 05/04/18 05/04/18 17:15 04:05 04:05 RBC 3.00 L Hgb 9.1 L Hct 27.8 L RDW 16.5 H [place] % (Auto) 8.0 H Seg Neutrophils % 72.5 H Seg Neuts % (Manual) Lymphocytes % (Manual) Seg Neutrophils # Man POC ABG pH POC ABG pCO2 Sodium Potassium Chloride 108.1 H Carbon Dioxide 20 L BUN 34 H Creatinine 3.3 H Glucose 137 H POC Glucose 138 H Calcium 8.2 L Phosphorus Magnesium 1.50 L Iron ALT 5 L Troponin T NT-Pro-B Natriuret Pep Total Protein 6.0 L Albumin 3.0 L 05/04/18 05/05/18 05/05/18 20:21 04:44 04:44 RBC 2.83 L Hgb 8.7 L Hct 26.5 L RDW 16.4 H [place] % (Auto) 8.5 H Seg Neutrophils % Seg Neuts % (Manual) Lymphocytes % (Manual) Seg Neutrophils # Man POC ABG pH POC ABG pCO2 Sodium Potassium Chloride Carbon Dioxide 21 L BUN 43 H Creatinine 4.1 H Glucose 127 H POC Glucose 210 H Calcium 8.1 L Phosphorus Magnesium Iron ALT < 5 L Troponin T NT-Pro-B Natriuret Pep Total Protein 5.8 L Albumin 2.9 L 03/15/19 03/15/19 03/16/19 16:36 22:50 05:50 RBC Hgb Hct RDW [place] % (Auto) Seg Neutrophils % Seg Neuts % (Manual) Lymphocytes % (Manual) Seg Neutrophils # Man POC ABG pH POC ABG pCO2 Sodium 135 L Potassium 5.2 H Chloride Carbon Dioxide 21 L BUN 48 H Creatinine 4.1 H Glucose 149 H POC Glucose 291 H 167 H Calcium 8.1 L Phosphorus 5.10 H Magnesium Iron ALT Troponin T NT-Pro-B Natriuret Pep Total Protein 6.2 L Albumin 3.0 L 05/06/18 05/06/18 05/06/18 05:51 08:18 12:31 RBC 2.65 L Hgb 8.2 L Hct 24.7 L RDW 16.1 H [place] % (Auto) 8.4 H Seg Neutrophils % Seg Neuts % (Manual) Lymphocytes % (Manual) Seg Neutrophils # Man POC ABG pH POC ABG pCO2 Sodium Potassium Chloride Carbon Dioxide BUN Creatinine Glucose POC Glucose 169 H 160 H Calcium Phosphorus Magnesium Iron ALT Troponin T NT-Pro-B Natriuret Pep Total Protein Albumin 05/06/18 05/06/18 05/07/18 17:37 21:29 07:19 RBC 2.61 L Hgb 8.2 L Hct 24.3 L RDW 15.9 H [place] % (Auto) Seg Neutrophils % 70.9 H Seg Neuts % (Manual) Lymphocytes % (Manual) Seg Neutrophils # Man POC ABG pH POC ABG pCO2 Sodium Potassium Chloride Carbon Dioxide BUN Creatinine Glucose POC Glucose 154 H 151 H Calcium Phosphorus Magnesium Iron ALT Troponin T NT-Pro-B Natriuret Pep Total Protein Albumin 05/07/18 05/07/18 05/07/18 07:19 09:21 11:57 RBC Hgb Hct RDW [place] % (Auto) Seg Neutrophils % Seg Neuts % (Manual) Lymphocytes % (Manual) Seg Neutrophils # Man POC ABG pH POC ABG pCO2 Sodium 134 L Potassium 5.3 H Chloride Carbon Dioxide 20 L BUN 55 H Creatinine 4.1 H Glucose 133 H POC Glucose 146 H 170 H Calcium Phosphorus Magnesium Iron ALT Troponin T NT-Pro-B Natriuret Pep Total Protein Albumin 05/07/18 05/08/18 05/08/18 21:23 08:44 08:59 RBC Hgb Hct RDW [place] % (Auto) Seg Neutrophils % Seg Neuts % (Manual) Lymphocytes % (Manual) Seg Neutrophils # Man POC ABG pH POC ABG pCO2 Sodium Potassium 5.2 H Chloride Carbon Dioxide 18 L BUN 63 H Creatinine 4.5 H Glucose 215 H POC Glucose 223 H 230 H Calcium Phosphorus Magnesium Iron ALT Troponin T NT-Pro-B Natriuret Pep Total Protein 5.8 L Albumin 3.2 L 05/08/18 05/08/18 05/08/18 12:23 12:29 16:40 RBC Hgb Hct RDW [place] % (Auto) Seg Neutrophils % Seg Neuts % (Manual) Lymphocytes % (Manual) Seg Neutrophils # Man POC ABG pH 7.336 L POC ABG pCO2 34.8 L Sodium Potassium Chloride Carbon Dioxide BUN Creatinine Glucose POC Glucose 317 H 381 H Calcium Phosphorus Magnesium Iron ALT Troponin T NT-Pro-B Natriuret Pep Total Protein Albumin 05/08/18 05/09/18 05/09/18 20:43 07:56 09:30 RBC 2.69 L Hgb 8.2 L Hct 24.5 L RDW 16.0 H [place] % (Auto) Seg Neutrophils % Seg Neuts % (Manual) 87.0 H Lymphocytes % (Manual) 12.0 L Seg Neutrophils # Man 9.5 H POC ABG pH POC ABG pCO2 Sodium Potassium Chloride Carbon Dioxide BUN Creatinine Glucose POC Glucose 295 H 264 H Calcium Phosphorus Magnesium Iron ALT Troponin T NT-Pro-B Natriuret Pep Total Protein Albumin 05/09/18 05/09/18 05/09/18 09:30 11:42 16:24 RBC Hgb Hct RDW [place] % (Auto) Seg Neutrophils % Seg Neuts % (Manual) Lymphocytes % (Manual) Seg Neutrophils # Man POC ABG pH POC ABG pCO2 Sodium 132 L Potassium 5.1 H Chloride Carbon Dioxide 18 L BUN 78 H Creatinine 4.6 H Glucose 237 H POC Glucose 329 H 353 H Calcium Phosphorus Magnesium Iron ALT Troponin T NT-Pro-B Natriuret Pep Total Protein Albumin 3.3 L 05/09/18 05/10/18 21:49 03:00 RBC Hgb Hct RDW [place] % (Auto) Seg Neutrophils % Seg Neuts % (Manual) Lymphocytes % (Manual) Seg Neutrophils # Man POC ABG pH POC ABG pCO2 Sodium Potassium Chloride Carbon Dioxide BUN Creatinine Glucose POC Glucose 365 H 393 H Calcium Phosphorus Magnesium Iron ALT Troponin T NT-Pro-B Natriuret Pep Total Protein Albumin Allied health notes reviewed: nursing
[2018-05-10] MEDS: NACL 0.9% 1000 ML 1,000 ML IV SCH (11:55)
--- NOTE | 2018-05-10 14:25 | Progress Note ---
Assessment and Plan Cont present cardiac management. f/u nephrology recs. The patient has been seen in conjunction with Dr. Aguilar who agrees with the assessment and plan of care. - Patient Problems (1) Type 2 diabetes mellitus Current Visit: Yes Status: Chronic (2) GERD (gastroesophageal reflux disease) Current Visit: Yes Status: Chronic (3) Acute heart failure with preserved ejection fraction Current Visit: Yes Status: Acute (4) Acute kidney injury superimposed on CKD Current Visit: Yes Status: Acute (5) Dyspnea and respiratory abnormalities Current Visit: Yes Status: Acute (6) Hyperkalemia Current Visit: Yes Status: Acute (7) Moderate to severe pulmonary hypertension Current Visit: Yes Status: Chronic (8) Pulmonary edema Current Visit: Yes Status: Resolved (9) Anemia Current Visit: Yes Status: Chronic Subjective Date of service: 05/10/18 Principal diagnosis: Acute HFpEF, Acute on CKD, Severe Pulm HTN, Anemia, HTN, DM Interval history: pt resting in bed, no current cardiac complaints. Objective Last Vital Signs Temp 97.8 F 05/10/18 12:53 Pulse 60 05/10/18 13:37 Resp 18 05/10/18 13:37 BP 148/73 05/10/18 12:53 Pulse Ox 96 05/10/18 12:53 - Physical Examination General: No Apparent Distress HEENT: Positive: EOMI, Normocephaly, Mucus Membranes Moist Neck: Positive: neck supple, trachea midline Cardiac: Positive: Reg Rate and Rhythm, S1/S2 Lungs: Positive: Decreased Breath Sounds Neuro: Positive: Grossly Intact Abdomen: Positive: Soft. Negative: Tender Skin: Positive: Clear. Negative: Rash Musculoskeletal: No Pain, Normal Range of Motion Extremities: Present: normal. Absent: edema - Imaging and Cardiology EKG: report reviewed, image reviewed Echo: report reviewed (04/2018: EF 60-65%, pseudonormalization, mild MS and MR, mild to mod TR, severe pulm HTN with RVSP 65mmHg, small pericardial effusion. 09/2016 showed mild LVH, EF 55-60%, abnormal diastolic function, mild MR, mild to mod TR, mild AR.) - EKG Sinus rhythms and dysrhythmias: sinus rhythm AV and intraventricular conduction: 1 AV block Myocardial infarction: septal [place] (old age or ind - Allied health notes Allied health notes reviewed: nursing
--- NOTE | 2018-05-10 14:25 | Discharge Summary ---
Providers - Providers Date of Admission: 05/02/18 12:24 Date of discharge: 05/10/18 Attending physician: CHRISTOPH COWAN 05/02/18 11:50 Consult to Physician [CONS] Urgent Comment: Consulting Provider: CHRISTOPH COWAN Physician Instructions: Reason For Exam: sob chf admission 05/02/18 11:59 Consult to Physician [CONS] Urgent Comment: Consulting Provider: FLOR WEEMS Physician Instructions: Reason For Exam: chf known to you 05/02/18 16:17 Consult to Physician [CONS] Routine Comment: Consulting Provider: CHANELLE MULTANI Physician Instructions: Reason For Exam: RAUL 05/05/18 09:36 Physical Therapy Evaluation and Treat [CONS] Urgent Comment: Reason For Exam: for mobility and sfety. 05/05/18 09:54 Consult to Physician [CONS] Routine Comment: Consulting Provider: GEORGIE HENAO Physician Instructions: Reason For Exam: Dyspena, shortnwssof breath [facility] Reason for admission: acute on chronic diastolic heart failure, acute on chronic renal failure, C Condition: Fair Pertinent studies: Chest x-ray shows evidence of congestion, CT of the chest shows no evidence of metastasis VQ scan low probability Echocardiogram with LV ejection fraction of 60-65% Procedures: none Hospital course: Patient is a 70-year-old lady who was a history of congestive heart failure, diabetes mellitus, hypertension, chronic renal disease, breast cancer status pos t left mastectomy in 2012, and anemia of chronic disease who started having progressive shortness of breath for the past 1 month. Got worse about 2 days ago where he is unable to ambulate to the bathroom without being short of breath. Has progressively worsening pedal edema. Had orthopnea and paroxysmal nocturnal dyspnea. Denies any chest pain. Had a cough that is dry. No fever. No hemoptysis. Has noticed she is progressively gaining weight. On presentating to emergency department, chest x-ray shows evidence of pulm congestion, BNP was 3718, hypomagnesemia of 1.4 was observed. BUN was 32 and creatinine was 2.2. As of September 2017 BUN was 27 creatinine was 1.9. Echocardiogram of 10/07/2016 showed ejection fraction of 55-60% with diastolic dysfunction. IV Lasix was commenced in the emergency department and admission was requested. Patient was to have an dyspnea and shortness of breath. Chest x-ray shows evidence of persistent congestion. Patient was commenced on bronchodilators with IV Solu-Medrol. Dyspnea improved. Shortness of breath improved. No infiltrate identified. Patient is therefore being discharged today to follow up with primary care physician and commission broker in 5 days and 7 days respectively. Condition on discharge was satisfactory. Discussed post discharge planning with the patient and the son called over the phone. Left a message with the patient's daughter. Disposition: [id number] HOME UNDER HOME [facility] Time spent for discharge: 40 mins - Discharge Diagnoses (1) Acute heart failure with preserved ejection fraction Status: Acute (2) Acute kidney injury superimposed on CKD Status: Acute (3) Acute on chronic heart failure with preserved ejection fraction Status: Acute (4) Acute on chronic kidney failure Status: Acute (5) Dyspnea and respiratory abnormalities Status: Acute (6) Hyperkalemia Status: Acute Core Measure Documentation - Palliative Care Palliative Care/ Comfort Measures: Not Applicable - Core Measures Any of the following diagnoses?: none Exam - Physical Exam Narrative exam: Constitutional: Lying quiely in bed.In distress with dyspnea. Head: Normocephalic atraumatic Eyes: Pupils are equal round and reactive to light Nose: No enlarged turbinates, no septal deviation. Mouth: Moist mucous membranes. Neck: Supple no thyromegaly. No bruit. No JVD Heart: Regular rate and rhythm, S1-S2 with S3. No rubs murmurs or gallop Lungs: Decreased Breath sounds improved bilaterally. Wheezing. no rales or rhonchi Abdomen: Soft, nontender. Bowel sound are present. Extremities: 2+ pedal edema, no cyanosis, no clubbing. Neuro: Alert oriented Oriented x3. No focal sensory or motor deficit. Skin: No rashes or hyperpigmented spots Musculoskeletal system: No joint pain or swelling Hematological: No petechia or subcutanous hemorrhages. Immunological: No multiple septic spots on the skin Lymphatic: No generalized lymphadenopathy Psychiatry: Euthymic. Calm. - Constitutional Vitals: Temp Pulse Resp BP Pulse Ox 97.8 F 60 18 148/73 96 05/10/18 12:53 05/10/18 13:37 05/10/18 13:37 05/10/18 12:53 05/10/18 12:53 Plan Activity: fall precautions Weight Bearing Status: Non-Weight Bearing Diet: diabetic Follow up with: CHRISTOPH COWAN MD [Staff Physician] - 05/15/18 Prescriptions: hydrALAZINE [Apresoline TAB] 100 mg PO TID #90 tab Aspirin [Aspirin BABY CHEW TAB] 81 mg PO QDAY #30 tab.chew cloNIDine [Catapres] 0.2 mg PO Q12HR #60 tablet Benzocaine/Mentho [Cepacol X Strength] 1 each MM Q2H PRN #60 packet PRN Reason: Sore Throat Ipratropium/Albuterol Sulfate [DUONEB *Not for PRN Use*] 1 ampul IH Q6HRT #100 ampul.neb Lispro Insulin [Humalog] 6 unit SQ QAC #300 vial HYDROcodone/HOMATROP 5-1.5 [HYDROcodone-Homatropin 5-1.5 mg per 5 ML] 2.5 ml PO BID #100 udc Prednisone [predniSONE 10 mg (6-Day Pack, 21 Tabs)] 10 mg PO QDAY #21 tab
[2018-05-10 15:38] LABS: Calcium 7.9 mg/dL (8.4-10.2); Hematocrit 24.9 % (30.3-42.9); Hemoglobin 8.4 gm/dl (10.1-14.3); Lymphocytes # (Auto) 0.7 K/mm3 (1.2-5.4); Lymphocytes % (Auto) 8.4 % (13.4-35.0); Mean Corpuscular HGB Conc 34 % (30-34); Mean Corpuscular Volume 92 fl (79-97); Monocytes # (Auto) 0.2 K/mm3 (0.0-0.8); Monocytes % (Auto) 2.4 % (0.0-7.3); Platelet Count 275 K/mm3 (140-440); Red Blood Count 2.71 M/mm3 (3.65-5.03); Red Cell Distribution Width 15.9 % (13.2-15.2)
[2018-05-10 18:18] VITALS: BP 148/63
== END 2018-05-10 20:15 | disposition home health service (06) | DRG 682 ==
LOC: ED 10:50 → 4A 12:24
PROVIDERS: ADMIT Family Medicine; ATTEND Family Medicine
PROC: 4A033R1 Measurement of Arterial Saturation, Peripheral, Percutaneous Approach (ICD-10-PCS; principal; 2018-05-08)
DX: N17.9 Acute kidney failure, unspecified (principal); I50.43 Acute on chronic combined systolic (congestive) and diastolic (congestive) heart failure; I13.0 Hypertensive heart and chronic kidney disease with heart failure and stage 1 through stage 4 chronic kidney disease, or unspecified chronic kidney disease; E87.2 Acidosis; I69.351 Hemiplegia and hemiparesis following cerebral infarction affecting right dominant side; E83.42 Hypomagnesemia; E11.649 Type 2 diabetes mellitus with hypoglycemia without coma; E11.22 Type 2 diabetes mellitus with diabetic chronic kidney disease; K74.60 Unspecified cirrhosis of liver; D50.9 Iron deficiency anemia, unspecified; K21.9 Gastro-esophageal reflux disease without esophagitis; N18.4 Chronic kidney disease, stage 4 (severe); D63.8 Anemia in other chronic diseases classified elsewhere; I08.3 Combined rheumatic disorders of mitral, aortic and tricuspid valves; Z85.3 Personal history of malignant neoplasm of breast; Z90.12 Acquired absence of left breast and nipple; Z79.82 Long term (current) use of aspirin; Z79.899 Other long term (current) drug therapy; Z82.49 Family history of ischemic heart disease and other diseases of the circulatory system; Z82.3 Family history of stroke; Z79.84 Long term (current) use of oral hypoglycemic drugs
CPT/HCPCS: 36415; 36600; 71045; 71250; 78582; 80048; 80053; 80061; 82607; 82747; 82803; 82962; 83036; 83550; 83735; 83880; 84100; 84443; 84484; 85007; 85025; 85027; 85610; 93005; 93010; 93306; 93970; 94640; 94760; G0378; A9270-GY; A9540; A9558; J0360; J1644; J1815; J1940; J2920; J3475; J7030

== ENCOUNTER 2018-09-07 13:45 | Outpatient (CLI) | payer MEDICARE | END 2018-09-07 13:46 | disposition home or self-care (01) | LOC: LAB 13:45 | PROVIDERS: ATTEND Hospitalist | DX: E87.5 Hyperkalemia (principal); I11.0 Hypertensive heart disease with heart failure; I50.9 Heart failure, unspecified; E78.00 Pure hypercholesterolemia, unspecified | CPT/HCPCS: 36415; 84132 ==

== ENCOUNTER 2019-01-10 09:45 | Inpatient (IN) | payer MEDICARE ==
[2019-01-10] MEDS ORDERED: ALBUTEROL 2.5 MG/3 ML NEBU IH ONE (10:13)
[2019-01-10] MEDS ORDERED: IPRATROPIUM 0.02% NEBU 2.5 ML IH ONE (10:14)
--- NOTE | 2019-01-10 10:20 | Emergency Department Report ---
ED Shortness of Breath HPI - General Chief Complaint: Dyspnea/Respdistress Stated Complaint: SOB Time Seen by Provider: 01/10/19 10:05 Source: patient, old records reviewed Mode of arrival: Ambulatory Limitations: No Limitations - History of Present Illness Initial Comments: 78-year-old female with a past medical history of breast cancer status post mas tectomy currently in remission, diabetes, CHF, and hypertension presents to the hospital with complaints of shortness of breath 3-4 days. Occasional cough reported. No chest pain reported. Patient presents hypoxic with room air saturation of 88% and does not take any home oxygen. Patient states she has a history of "bronchitis in the past". She reports intermittent wheezing at home. She denies fever, leg edema, calf tenderness, history of PE/DVT. History of smoking in the past. - Related Data Home Medications Medication Instructions Recorded Confirmed Last Taken Anastrozole (Nf) [Arimidex (Nf)] 1 mg PO DAILY 05/01/15 05/02/18 10/06/16 Esomeprazole Magnesium [NexIUM] 40 mg PO QDAY 05/01/15 05/02/18 10/06/16 Lavalette-3 Fatty Acids [Lavalette-3] 100 mg PO BID 05/01/15 05/02/18 10/06/16 Rosuvastatin (Nf) [Crestor] 20 mg PO QHS 05/01/15 05/02/18 10/06/16 Previous Rx's Medication Instructions Recorded Last Taken Type Furosemide [Lasix TAB] 40 mg PO QDAY #30 tablet 10/11/16 Unknown Rx amLODIPine 5 mg PO QDAY #30 tablet 10/11/16 Unknown Rx Aspirin [Aspirin BABY CHEW TAB] 81 mg PO QDAY #30 tab.chew 05/10/18 Unknown Rx Benzocaine/Mentho [Cepacol X 1 each MM Q2H PRN #60 packet 05/10/18 Unknown Rx Strength] HYDROcodone/HOMATROP 5-1.5 2.5 ml PO BID #100 udc 05/10/18 Unknown Rx [HYDROcodone-Homatropin 5-1.5 mg per 5 ML] Ipratropium/Albuterol Sulfate 1 ampul IH Q6HRT #100 ampul.neb 05/10/18 Unknown Rx [DUONEB *Not for PRN Use*] Lispro Insulin [Humalog] 6 unit SQ QAC #300 vial 05/10/18 Unknown Rx Prednisone [predniSONE 10 mg 10 mg PO QDAY #21 tab 05/10/18 Unknown Rx (6-Day Pack, 21 Tabs)] carvediloL [Coreg] 25 mg PO BID tablet 05/10/18 Unknown Rx cloNIDine [Catapres] 0.2 mg PO Q12HR #60 tablet 05/10/18 Unknown Rx hydrALAZINE [Apresoline TAB] 100 mg PO TID #90 tab 05/10/18 Unknown Rx Allergies Allergy/AdvReac Type Severity Reaction Status Date / Time No Known Allergies Allergy Verified 05/02/18 10:53 ED Review of Systems ROS: Stated complaint: SOB Other details as noted in HPI Comment: All other systems reviewed and negative ED Past Medical Hx - Past Medical History Hx Hypertension: Yes Hx Heart Attack/AMI: Yes (? [place] PER PT 2012) Hx Congestive Heart Failure: Yes Hx Diabetes: Yes (IDDM) Hx Arthritis: Yes (KNEES) Hx HIV: No Additional medical history: Breast CA - Surgical History Past Surgical History?: Yes Additional Surgical History: left mastectomy - Social History Smoking Status: Never Smoker - Medications Home Medications: Home Medications Medication Instructions Recorded Confirmed Last Taken Type Anastrozole (Nf) [Arimidex (Nf)] 1 mg PO DAILY 05/01/15 05/02/18 10/06/16 History Esomeprazole Magnesium [NexIUM] 40 mg PO QDAY 05/01/15 05/02/18 10/06/16 History Lavalette-3 Fatty Acids [Lavalette-3] 100 mg PO BID 05/01/15 05/02/18 10/06/16 History Rosuvastatin (Nf) [Crestor] 20 mg PO QHS 05/01/15 05/02/18 10/06/16 History Furosemide [Lasix TAB] 40 mg PO QDAY #30 tablet 10/11/16 05/02/18 Unknown Rx amLODIPine 5 mg PO QDAY #30 tablet 10/11/16 05/02/18 Unknown Rx Aspirin [Aspirin BABY CHEW TAB] 81 mg PO QDAY #30 tab.chew 05/10/18 Unknown Rx Benzocaine/Mentho [Cepacol X 1 each MM Q2H PRN #60 packet 05/10/18 Unknown Rx Strength] HYDROcodone/HOMATROP 5-1.5 2.5 ml PO BID #100 udc 05/10/18 Unknown Rx [HYDROcodone-Homatropin 5-1.5 mg per 5 ML] Ipratropium/Albuterol Sulfate 1 ampul IH Q6HRT #100 ampul.neb 05/10/18 Unknown Rx [DUONEB *Not for PRN Use*] Lispro Insulin [Humalog] 6 unit SQ QAC #300 vial 05/10/18 Unknown Rx Prednisone [predniSONE 10 mg 10 mg PO QDAY #21 tab 05/10/18 Unknown Rx (6-Day Pack, 21 Tabs)] carvediloL [Coreg] 25 mg PO BID tablet 05/10/18 Unknown Rx cloNIDine [Catapres] 0.2 mg PO Q12HR #60 tablet 05/10/18 Unknown Rx hydrALAZINE [Apresoline TAB] 100 mg PO TID #90 tab 05/10/18 Unknown Rx ED Physical Exam - General Limitations: No Limitations - Other Other exam information: General: No acute distress Head: Atraumatic Eyes: normal appearance ENT: Moist mucous membranes Neck: Normal appearance, no midline tenderness Chest: Clear to auscultation bilaterally, chest wall nontender, clear to auscultation, no tachypnea or accessory muscle use CV: Regular rate and rhythm Abdomen: Soft, normal bowel sounds, nontender, nondistended, no rebound or guarding Back: Normal inspection Extremity: Normal inspection infection, full range of motion, no calf tenderness or lower edema Neuro: Alert O x 3, no facial asymmetry, speech clear, no gross motor sensory deficit Psych: Appropriate behavior Skin: No rash ED Course Vital Signs 01/10/19 01/10/19 01/10/19 09:48 09:52 09:55 Pulse Rate 65 Pulse Rate [ Anterior Bilateral Throughout] Respiratory 20 Rate Respiratory Rate [Anterior Bilateral Throughout] Blood Pressure Blood Pressure 197/64 [Left] O2 Sat by Pulse 88 96 Oximetry 01/10/19 01/10/19 01/10/19 10:16 10:30 10:46 Pulse Rate 61 63 Pulse Rate [ Anterior Bilateral Throughout] Respiratory 14 17 Rate Respiratory Rate [Anterior Bilateral Throughout] Blood Pressure 169/118 160/136 Blood Pressure [Left] O2 Sat by Pulse 97 88 93 Oximetry 01/10/19 01/10/19 01/10/19 10:52 11:00 11:20 Pulse Rate 58 L Pulse Rate [ 62 Anterior Bilateral Throughout] Respiratory 13 18 Rate Respiratory 20 Rate [Anterior Bilateral Throughout] Blood Pressure 213/98 Blood Pressure [Left] O2 Sat by Pulse 99 Oximetry 01/10/19 11:23 Pulse Rate 59 L Pulse Rate [ Anterior Bilateral Throughout] Respiratory 14 Rate Respiratory Rate [Anterior Bilateral Throughout] Blood Pressure Blood Pressure 181/127 [Left] O2 Sat by Pulse 100 Oximetry - ABG Interpretation Ph: 7.42 PCO2: 37 PO2: 46 Bicarbonate: 24 Interpretation: other (hypoxia) Additional Comments: sat 83% room air abg ED Medical Decision Making - Lab Data Result diagrams: 01/10/19 10:20 01/10/19 10:20 Lab Results 01/10/19 01/10/19 01/10/19 Range/Units 10:20 10:20 10:20 WBC 6.8 (4.5-11.0) K/mm3 RBC 3.29 L (3.65-5.03) M/mm3 Hgb 9.9 L (10.1-14.3) gm/dl Hct 30.4 (30.3-42.9) % MCV 93 (79-97) fl MCH 30 (28-32) pg MCHC 33 (30-34) % RDW 16.9 H (13.2-15.2) % Plt Count 260 (140-440) K/mm3 Lymph % (Auto) 13.8 (13.4-35.0) % Garland % (Auto) 6.6 (0.0-7.3) % Eos % (Auto) 1.5 (0.0-4.3) % Baso % (Auto) 0.3 (0.0-1.8) % Lymph # 0.9 L (1.2-5.4) K/mm3 Garland # 0.4 (0.0-0.8) K/mm3 Eos # 0.1 (0.0-0.4) K/mm3 Baso # 0.0 (0.0-0.1) K/mm3 Seg Neutrophils % 77.8 H (40.0-70.0) % Seg Neutrophils # 5.3 (1.8-7.7) K/mm3 PT 13.5 (12.2-14.9) Sec. INR 1.04 (0.87-1.13) APTT 39.3 H (24.2-36.6) Sec. POC ABG pH (7.35-7.45) POC ABG pCO2 (35-45) POC ABG HCO3 (22-26 mml/L) POC ABG Total CO2 (23-27mmol/L) POC ABG O2 Sat POC ABG Base Excess ((-2) - (+3)mmol/L) FiO2 % Sodium 142 (137-145) mmol/L Potassium 3.7 (3.6-5.0) mmol/L Chloride 103.4 (98-107) mmol/L Carbon Dioxide 23 (22-30) mmol/L Anion Gap 19 mmol/L BUN 36 H (7-17) mg/dL Creatinine 4.0 H (0.7-1.2) mg/dL Estimated GFR 13 ml/min BUN/Creatinine Ratio 9 % Glucose 111 H (65-100) mg/dL Calcium 8.4 (8.4-10.2) mg/dL Total Bilirubin 0.40 (0.1-1.2) mg/dL AST 14 (5-40) units/L ALT 5 L (7-56) units/L Alkaline Phosphatase 89 (35-129) units/L Troponin T 0.063 H (0.00-0.029) ng/mL NT-Pro-B Natriuret Pep 03442 H (0-900) pg/mL Total Protein 6.3 (6.3-8.2) g/dL Albumin 3.2 L (3.9-5) g/dL Albumin/Globulin Ratio 1.0 % Triglycerides 149 (2-149) mg/dL Cholesterol 132 (50-199) mg/dL LDL Cholesterol Direct 79 (50-130) mg/dL HDL Cholesterol 35 L (40-59) mg/dL Cholesterol/HDL Ratio 3.77 % 01/10/ Range/Units 11:02 WBC (4.5-11.0) K/mm3 RBC (3.65-5.03) M/mm3 Hgb (10.1-14.3) gm/dl Hct (30.3-42.9) % MCV (79-97) fl MCH (28-32) pg MCHC (30-34) % RDW (13.2-15.2) % Plt Count (140-440) K/mm3 Lymph % (Auto) (13.4-35.0) % Garland % (Auto) (0.0-7.3) % Eos % (Auto) (0.0-4.3) % Baso % (Auto) (0.0-1.8) % Lymph # (1.2-5.4) K/mm3 Garland # (0.0-0.8) K/mm3 Eos # (0.0-0.4) K/mm3 Baso # (0.0-0.1) K/mm3 Seg Neutrophils % (40.0-70.0) % Seg Neutrophils # (1.8-7.7) K/mm3 PT (12.2-14.9) Sec. INR (0.87-1.13) APTT (24.2-36.6) Sec. POC ABG pH 7.429 (7.35-7.45) POC ABG pCO2 37.3 (35-45) POC ABG HCO3 24.7 (22-26 mml/L) POC ABG Total CO2 26 (23-27mmol/L) POC ABG O2 Sat 83 POC ABG Base Excess 0 ((-2) - (+3)mmol/L) FiO2 21 % Sodium (137-145) mmol/L Potassium (3.6-5.0) mmol/L Chloride (98-107) mmol/L Carbon Dioxide (22-30) mmol/L Anion Gap mmol/L BUN (7-17) mg/dL Creatinine (0.7-1.2) mg/dL Estimated GFR ml/min BUN/Creatinine Ratio % Glucose (65-100) mg/dL Calcium (8.4-10.2) mg/dL Total Bilirubin (0.1-1.2) mg/dL AST (5-40) units/L ALT (7-56) units/L Alkaline Phosphatase (35-129) units/L Troponin T (0.00-0.029) ng/mL NT-Pro-B Natriuret Pep (0-900) pg/mL Total Protein (6.3-8.2) g/dL Albumin (3.9-5) g/dL Albumin/Globulin Ratio % Triglycerides (2-149) mg/dL Cholesterol (50-199) mg/dL LDL Cholesterol Direct (50-130) mg/dL HDL Cholesterol (40-59) mg/dL Cholesterol/HDL Ratio % - EKG Data -: EKG Interpreted by Me EKG shows normal: sinus rhythm, QRS complexes (qrs -25), ST-T waves (no stemi) Rate: normal (64) - EKG Data When compared to previous EKG there are: no significant change - Radiology Data Radiology results: report reviewed CHEST 2 VIEWS INDICATION: sob. History of congestive heart failure and history of breast cancer. COMPARISON: 05/07/2018 FINDINGS: Support devices: None. Heart: Cardiomegaly which is increased compared to the last exam. Pulmonary vasculat ure: Central vascular congestion and redistribution of pulmonary blood flow to the upper lobes. Lungs/pleura: Mild bilateral perihilar reticular interstitial opacities. No pulmonary consolidation. Suspect small pleural effusions. No pneumothorax. Additional findings: None. IMPRESSION: 1. CHF with mild interstitial pulmonary edema and small pleural effusions. - Medical Decision Making + chf neg pe study Pt requires supplemental oxygen. IV Lasix provided for CHF. Patient will be admitted for further treatment of hypoxia acute CHF exacerbation. Hospitalist informed. Positive chronic renal insufficiency. - Differential Diagnosis CHF, COPD, bronchitis, pneumonia, PE Critical Care Time: No Critical care attestation.: If time is entered above; I have spent that time in minutes in the direct care of this critically ill patient, excluding procedure time. ED Disposition Clinical Impression: CHF exacerbation, CRI (chronic renal insufficiency), Hypoxia Disposition: 09 OP ADMIT IP TO THIS HOSP Is pt being admited?: Yes Condition: Stable Time of Disposition: 14:42 (Dr luis/hosp)
[2019-01-10 10:59] LABS: Basophils % (Auto) 0.3 % (0.0-1.8); Eosinophils # (Auto) 0.1 K/mm3 (0.0-0.4); Eosinophils % (Auto) 1.5 % (0.0-4.3); Hematocrit 30.4 % (30.3-42.9); Hemoglobin 9.9 gm/dl (10.1-14.3); Lymphocytes # (Auto) 0.9 K/mm3 (1.2-5.4); Lymphocytes % (Auto) 13.8 % (13.4-35.0); Mean Corpuscular HGB Conc 33 % (30-34); Mean Corpuscular Volume 93 fl (79-97); Monocytes # (Auto) 0.4 K/mm3 (0.0-0.8); Monocytes % (Auto) 6.6 % (0.0-7.3); Platelet Count 260 K/mm3 (140-440); Red Blood Count 3.29 M/mm3 (3.65-5.03); Red Cell Distribution Width 16.9 % (13.2-15.2)
[2019-01-10 11:09] LABS: Albumin 3.2 g/dL (3.9-5); Calcium 8.4 mg/dL (8.4-10.2); INR 1.04 (0.87-1.13)
[2019-01-10 11:10] LABS: Partial Thromboplastin Time 39.3 Sec. (24.2-36.6)
[2019-01-10 11:20] LABS: Chol/HDL Ratio 3.77 %
--- NOTE | 2019-01-10 12:42 | Nuclear Medicine Report ---
V/Q Scan HISTORY: sob, hypoxia, past hx of breast ca. TECHNIQUE: Patient was given 4.9 mCi of technetium MAA and 18.7 mCi of xenon-133. COMPARISON: Chest x-ray from 05/07/2018 FINDINGS: No appreciable mismatch between ventilation and perfusion imaging. IMPRESSION: Low probability for PTE. Signer Name: Jw Engel MD Signed: 01/10/2019 12:38 PM Workstation Name: [id number]
--- NOTE | 2019-01-10 13:01 | XRay Report ---
CHEST 2 VIEWS INDICATION: sob. History of congestive heart failure and history of breast cancer. COMPARISON: 05/07/2018 FINDINGS: Support devices: None. Heart: Cardiomegaly which is increased compared to the last exam. Pulmonary vasculature: Central vascular congestion and redistribution of pulmonary blood flow to the upper lobes. Lungs/pleura: Mild bilateral perihilar reticular interstitial opacities. No pulmonary consolidation. Suspect small pleural effusions. No pneumothorax. Additional findings: None. IMPRESSION: 1. CHF with mild interstitial pulmonary edema and small pleural effusions. Signer Name: Sander Higgins MD Signed: 01/10/2019 12:57 PM Workstation Name: [id number]
[2019-01-10] MEDS ORDERED: FUROSEMIDE 40 MG/4 ML INJ IV ONE (13:37)
--- NOTE | 2019-01-10 14:42 | History and Physical Report ---
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 She denies any chest pain. Patient presents hypoxic with room air saturation of 88% and does not take any home oxygen. Patient states she has a history of "bronchitis in the past". She reports intermittent wheezing at home. She denies fever, leg edema, calf tenderness, history of PE/DVT. In the ER she was placed on supplemental O2, given iv lasix and called for admission for further Mx Echo done 04/2018 showed, EF 60-65%, abnormal diastolic function. Stress MPI done 09/16/15 showed mod. fixed inferior wall defect, small, mild partially reversible septal and lateral wall defects; medical management was recommended. Past History Past Medical History: cancer (breast), diabetes, GERD, heart failure (preserved ejection fraction), hypertension, hyperlipidemia, stroke (residual right-sided weakness), other (chronic kidney disease stage IV) Past Surgical History: mastectomy Social history: lives with family (lives with Son). denies: smoking, alcohol abuse, prescription drug abuse Family history: CAD (one sister of a heart attack), hypertension, stroke (mother following strokes), other (father after amputation of his leg she's not sure if it was diabetic. Her 5 brothers and 5 sisters are all ) Review of System: Constitutional: no fever, no chills, no weight loss Ears, eyes, nose, mouth and throat: no nasal congestion, no nasal discharge, no sinus pressure, no vision change, no red eye. Neck: No neck pain or rigidity. Cardiovascular: No chest pain, no orthopnea, no palpitations, no leg swelling Respiratory: + shortness of breath, + cough, + congestion, + wheezing Gastrointestinal: no abdominal pain, no nausea, no vomiting Genitourinary : no dysuria, no hematuria Musculoskeletal: no joint swelling or muscle ache Integumentary: no rash, no pruritis Neurological: no parathesias, no numbness, no tingling Endocrine: no cold or heat intolerance, no polyuria or polydipsia Hematologic/Lymphatic: no easy bruising, no easy bleeding, no gland swelling Allergic/Immunologic: no urticaria, no angioedema. Medications and Allergies Allergies Allergy/AdvReac Type Severity Reaction Status Date / Time No Known Allergies Allergy Verified 05/02/18 10:53 Home Medications Medication Instructions Recorded Confirmed Last Taken Type Esomeprazole Magnesium [NexIUM] 40 mg PO QDAY 05/01/15 01/10/19 10/06/16 History Rosuvastatin (Nf) [Crestor] 20 mg PO QHS 05/01/15 01/10/19 10/06/16 History Anastrozole 1 mg PO QDAY 01/10/19 01/10/19 Unknown History Calcitriol [Rocaltrol] 0.25 mcg PO 3XW 01/10/19 01/10/19 Unknown History Ergocalciferol [Vitamin D2] 1 cap PO QWEEK 01/10/19 01/10/19 Unknown History Glimepiride [Amaryl] 4 mg PO QAM 01/10/19 01/10/19 Unknown History Lisinopril [Zestril TAB] 40 mg PO QDAY 01/10/19 01/10/19 Unknown History Sodium Bicarbonate 650 mg PO TID 01/10/19 01/10/19 Unknown History Sodium Polystyrene Sulfonate 15 gm PO QDAY 01/10/19 01/10/19 Unknown History Sodium Zirconium Cyclosilicate 10 gm PO QDAY 01/10/19 01/10/19 Unknown History [Lokelma] amLODIPine [Norvasc] 10 mg PO DAILY 01/10/19 01/10/19 Unknown History carvediloL [Coreg] 6.25 mg PO BID 01/10/19 01/10/19 Unknown History carvediloL [Coreg] 12.5 mg PO BID 01/10/19 01/10/19 Unknown History Exam - Physical Exam Narrative exam: General: No acute distress Head: Atraumatic Eyes: normal appearance ENT: Moist mucous membranes Neck: Normal appearance, no midline tenderness Chest: Clear to auscultation bilaterally, chest wall nontender, clear to auscultation, no tachypnea or accessory muscle use CV: Regular rate and rhythm Abdomen: Soft, normal bowel sounds, nontender, nondistended, no rebound or guarding Back: Normal inspection Extremity: Normal inspection infection, full range of motion, no calf tenderness or lower edema Neuro: Alert O x 3, no facial asymmetry, speech clear, no gross motor sensory deficit Psych: Appropriate behavior Skin: No rash - Constitutional Vitals: Temp Pulse Resp BP Pulse Ox 59 L 14 181/127 100 01/10/19 11:23 01/10/19 11:23 01/10/19 11:23 01/10/19 11:23 Results - Labs CBC & Chem 7: 01/11/19 04:17 01/11/19 04:17 Labs: Abnormal lab results 01/10/19 01/10/19 01/10/19 Range/Units 10:20 10:20 10:20 RBC 3.29 L (3.65-5.03) M/mm3 Hgb 9.9 L (10.1-14.3) gm/dl RDW 16.9 H (13.2-15.2) % Lymph # 0.9 L (1.2-5.4) K/mm3 Seg Neutrophils % 77.8 H (40.0-70.0) % APTT 39.3 H (24.2-36.6) Sec. BUN 36 H (7-17) mg/dL Creatinine 4.0 H (0.7-1.2) mg/dL Glucose 111 H (65-100) mg/dL ALT 5 L (7-56) units/L Troponin T 0.063 H (0.00-0.029) ng/mL NT-Pro-B Natriuret Pep 02389 H (0-900) pg/mL Albumin 3.2 L (3.9-5) g/dL HDL Cholesterol 35 L (40-59) mg/dL Assessment and Plan Acute hypoxic respiratory failure due to pulmonary edema CHFpEF with acute exacerbation CKD stage 4 Elevated troponin, chronically elevated Obesity Diabetes mellitus type 2 HTN HLD - admit to telemetry bed - monitor with serial CE and EKG - will place on Aspirin, statin, and Lasix IV - consult cardiology -Consistent carb diet now, daily weights, monitor in's and O's - Check blood glucose every before meals at bedtime with SSI - provide DVT Px with lovenox Radiological Data: CXR - mild pulmonary edema VQ scan - low probability of PE
[2019-01-10] MEDS ORDERED: MORPHINE 2 MG/1 ML INJ IV PRN (16:44)
[2019-01-10] MEDS ORDERED: NITROGLYCERIN 0.4 MG TAB SUBL SL PRN (16:44)
[2019-01-10] MEDS ORDERED: FUROSEMIDE 40 MG/4 ML INJ ONE (17:34)
[2019-01-10] MEDS ORDERED: amLODIPine 5 MG TAB ONE (17:34)
[2019-01-10] MEDS: FUROSEMIDE 40 MG/4 ML INJ IV SCH (17:37)
[2019-01-10] MEDS: amLODIPine 5 MG TAB PO SCH (17:37)
--- NOTE | 2019-01-10 19:30 | Consultation ---
History of Present Illness - Reason for Consult Consult date: 01/10/19 chronic renal failure Requesting physician: ROSALINA LAMA - History of Present Illness 78yo lady with a history of type 2 diabetes mellitus , hypertension and chronic diastolic heart failure presents on account of 4-5 days history of shortness of breath. Patient's says she was on diuretics following most recent hospitalization but she ran out after a few months and had no refills. She was doing well till about 5 days ago when she developed progressively worsening shortness of breath. She also has had nonproductive cough and has been wheezing. She denies any chest pain, palpitations, dizziness or diaphoresis. No nausea vomiting. She admits to lower extremity swelling. On account of progressively worsening dyspnea, she presented to the hospital for further management. BUN/creatinine found to be elevated at 36/4 mg/dL. Chest Xray shows mild interstitial pulmonary edema with pleural effusion. Patient sees my colleague Dr. Avitia in the office and on her most recent visit 11/16/2018, BUN/creatinine where 54/4.08 mg/dL. Sodium bicarbonate because of metabolic acidosis. They discussed advanced chronic kidney disease but patient did not want to pursue dialysis at that time. Past History Past Medical History: arthritis, cancer (Job breast cancer), diabetes, GERD, heart failure (Heart failure preserved ejection fraction), hypertension Past Surgical History: mastectomy (left mastectomy for breast cancer in 2012) Social history: lives with family (Lives with her son). denies: smoking (quit smoking in 1988), alcohol abuse (quit drinking alcohol in 1988), prescription drug abuse, IV drug use Family history: cancer (one sister of colon cancer), diabetes (there is also family history of diabetes mellitus.), stroke (mother had a stroke. She also had heart disease.), other (father of complications of glass with gangrene with sepsis, one brother had Alzheimer's disease with dementia and seizures. Her 10 siblings are ) Medications and Allergies Allergies Allergy/AdvReac Type Severity Reaction Status Date / Time No Known Allergies Allergy Verified 05/02/18 10:53 Home Medications Medication Instructions Recorded Confirmed Last Taken Type Esomeprazole Magnesium [NexIUM] 40 mg PO QDAY 05/01/15 01/10/19 10/06/16 History Rosuvastatin (Nf) [Crestor] 20 mg PO QHS 05/01/15 01/10/19 10/06/16 History Anastrozole 1 mg PO QDAY 01/10/19 01/10/19 Unknown History Calcitriol [Rocaltrol] 0.25 mcg PO 3XW 01/10/19 01/10/19 Unknown History Ergocalciferol [Vitamin D2] 1 cap PO QWEEK 01/10/19 01/10/19 Unknown History Glimepiride [Amaryl] 4 mg PO QAM 01/10/19 01/10/19 Unknown History Lisinopril [Zestril TAB] 40 mg PO QDAY 01/10/19 01/10/19 Unknown History Sodium Bicarbonate 650 mg PO TID 01/10/19 01/10/19 Unknown History Sodium Polystyrene Sulfonate 15 gm PO QDAY 01/10/19 01/10/19 Unknown History Sodium Zirconium Cyclosilicate 10 gm PO QDAY 01/10/19 01/10/19 Unknown History [Lokelma] amLODIPine [Norvasc] 10 mg PO DAILY 01/10/19 01/10/19 Unknown History carvediloL [Coreg] 6.25 mg PO BID 01/10/19 01/10/19 Unknown History carvediloL [Coreg] 12.5 mg PO BID 01/10/19 01/10/19 Unknown History Active Meds: Active Medications Albuterol/Ipratropium (Duoneb *Not For Prn Use*) 1 ampul IH Q6HRT [facility] Amlodipine Besylate (Amlodipine) 5 mg PO QDAY [facility] Last Admin: 01/10/19 17:37 Dose: 5 mg Documented by: Aspirin (Baby Aspirin) 81 mg PO QDAY [facility] Atorvastatin Calcium (Lipitor) 40 mg PO QHS [facility] Carvedilol (Coreg) 25 mg PO BID [facility] Fish Oil (Fish Oil) 1,000 mg PO BID [facility] Furosemide (Lasix) 40 mg IV BID@0600,1800 [facility] Last Admin: 01/10/19 17:37 Dose: 40 mg Documented by: Heparin Sodium (Porcine) (Heparin) 5,000 unit SUB-Q Q8HR [facility] Hydralazine HCl (Apresoline) 100 mg PO TID [facility] Hydrocodone Bit/Homatropine Methylb (Hydromet) 2.5 ml PO BID [facility] Insulin Human Lispro (Humalog) 6 unit SUB-Q QAC [facility] Insulin Human Regular (Humulin R) 0 units SUB-Q ACHS [facility]; Protocol Miscellaneous Medication (Anastrozole (Nf)) 1 mg PO DAILY [facility] Morphine Sulfate (Morphine) 2 mg IV Q5MIN PRN PRN Reason: Chest Pain unrelieved by NTG Nitroglycerin (Nitrostat) 0.4 mg SL .Q5MIN PRN PRN Reason: Chest Pain Pantoprazole Sodium (Protonix) 40 mg PO DAILY [facility] Review of Systems All systems: negative (Constitutional: no fever but admits to chills. No anorexia or weight loss. HEENT: No sore throat or sinus drainage no hearing or vision impairment . Cardiovascular: See history of present illness.. Respiratory: No cough, sputum, shortness of breath, hemoptysis or wheezing. Gastrointestinal: No nausea, vomiting, diarrhea, abdominal pain, hematemesis or melena. Genitourinary: No frequency urgency dysuria or hematuria. hematologic: No abnormal bleeding or bruising. Integumentary: no pruritus or rash. Neurological: Admits to headache no focal weakness or numbness, no syncope or seizures. Musculoskeletal: Admits to joint pain and stiffness all over. Psychiatry: no anxiety or depression) Exam - Vital Signs Vital signs: Vital Signs BP 197/64 01/10/19 09:48 - Physical Exam Narrative exam: Elderly -[place] female lying in bed in no acute distress HEENT: NCAT, pink oral mucous membrane Neck: Supple, no venous distention CVS: S1S2 RRR with no murmur, rub or gallop Chest: Breath sounds diminished in lower zones Abdomen: Distended, soft, nontender, no organomegaly, bowel sounds are present Extremities: 2+ pitting edema Neuro: Awake, alert no focal deficits Results - Lab Results 01/11/19 04:17 01/11/19 04:17 Most recent lab results Calcium 8.4 mg/dL (8.4-10.2) 01/10/19 10:20 Assessment and Plan - Patient Problems (1) CKD (chronic kidney disease) stage 4, GFR 15-29 ml/min Current Visit: No Status: Acute Plan to address problem: Chronic kidney disease presumably secondary to diabetic nephropathy/hypertensive nephrosclerosis. Kidney function is stable about her baseline. Follow-up electrolytes and renal function (2) Acute on chronic heart failure with preserved ejection fraction Current Visit: No Status: Acute Plan to address problem: Continue intravenous diuretics. Follow-up 2-D echo. Reinforce sodium and fluid restriction. Discussed importance of adhering to her medications and following up with her doctors to get refills if needed. Continue diuretics. Strict int savannah and output monitoring. Follow-up volume status (3) Anemia in chronic kidney disease Current Visit: Yes Status: Acute Plan to address problem: Follow up hemoglobin. Get iron stores if it drops (4) Metabolic acidosis Current Visit: Yes Status: Acute Plan to address problem: Continue by mouth sodium bicarbonate. Follow bicarbonate level (5) Type 2 diabetes mellitus with diabetic chronic kidney disease Current Visit: No Status: Acute Plan to address problem: Blood sugar management by primary attending. (6) Hypertensive chronic kidney disease with stage 1 through stage 4 chronic kidney disease, or unspecified chronic kidney disease Current Visit: No Status: Chronic Plan to address problem: Follow-up blood pressure on current medications
[2019-01-10] MEDS ORDERED: hydrALAZINE 100 MG TAB ONE (19:51)
[2019-01-10] MEDS: hydrALAZINE 100 MG TAB PO SCH (19:52)
[2019-01-10] MEDS: IPRATROPIUM/ALBUTEROL SULFATE 3 ML AMPUL.NEB IH SCH (21:09)
[2019-01-10 21:55] LABS: Bilirubin,Urine NEG (Negative); Blood,Urine NEG (Negative); Color,Urine Straw (Yellow); Mucus,Urine FEW /HPF; Urobilinogen,Urine < 2.0 mg/dL (<2.0)
[2019-01-10] MEDS: HYDROcodone/HOMATROPINE 5-1.5MG /5 ML ORAL LIQD UNIT DOSE PO SCH (21:58)
[2019-01-10] MEDS: carvediloL 25 MG TAB PO SCH (21:59)
[2019-01-10] MEDS: OMEGA-3 FATTY ACIDS/FISH OIL 1 GRAM CAP PO SCH (21:59)
[2019-01-10] MEDS: HEPARIN 5,000 UNIT/1 ML VIAL SUB-Q SCH (22:00)
[2019-01-10] MEDS ORDERED: NON-FORMULARY EACH (Rosuvastatin (Nf) 20 MG) PO SCH (22:00)
[2019-01-10] MEDS ORDERED: OMEGA PO SCH (22:00)
[2019-01-10] MEDS ORDERED: FATTY ACIDS PO SCH (22:00)
[2019-01-10 22:02] LABS: Protein,Urine >500 mg/dL (Negative)
[2019-01-10 22:04] LABS: Creatinine,Urine 31.9 mg/dL (0.1-20.0)
[2019-01-10] MEDS: INSULIN REGULAR, HUMAN 100 UNITS/1 ML SUB-Q SCH (23:21)
[2019-01-11] MEDS: IPRATROPIUM/ALBUTEROL SULFATE 3 ML AMPUL.NEB IH SCH ×4 (01:44→19:52)
[2019-01-11] MEDS: FUROSEMIDE 40 MG/4 ML INJ IV SCH ×2 (05:49→18:00)
[2019-01-11] MEDS: HEPARIN 5,000 UNIT/1 ML VIAL SUB-Q SCH ×3 (05:49→21:23)
[2019-01-11 06:17] LABS: Hemoglobin 9.7 gm/dl (10.1-14.3); Mean Corpuscular HGB Conc 30 % (30-34); Mean Corpuscular Volume 100 fl (79-97); Platelet Count 227 K/mm3 (140-440); Red Blood Count 3.21 M/mm3 (3.65-5.03); Red Cell Distribution Width 17.9 % (13.2-15.2)
[2019-01-11 06:44] LABS: Calcium 8.3 mg/dL (8.4-10.2)
[2019-01-11] MEDS: INSULIN REGULAR, HUMAN 100 UNITS/1 ML SUB-Q SCH ×4 (07:30→21:31)
[2019-01-11] MEDS: INSULIN LISPRO 100 UNIT/ML SUB-Q SCH ×2 (07:30→12:10)
[2019-01-11] MEDS: hydrALAZINE 100 MG TAB PO SCH ×3 (08:00→21:23)
[2019-01-11] MEDS ORDERED: ANASTROZOLE 1 MG PO SCH (10:00)
[2019-01-11] MEDS ORDERED: NON-FORMULARY EACH (Esomeprazole Magnesium [Nexium] 40 MG) PO SCH (10:00)
[2019-01-11] MEDS: PANTOPRAZOLE 40 MG TAB PO SCH (10:07)
[2019-01-11] MEDS: HYDROcodone/HOMATROPINE 5-1.5MG /5 ML ORAL LIQD UNIT DOSE PO SCH (10:08)
[2019-01-11] MEDS: carvediloL 25 MG TAB PO SCH (10:08)
[2019-01-11] MEDS: ASPIRIN 81 MG TAB CHEW PO SCH (10:08)
[2019-01-11] MEDS: amLODIPine 5 MG TAB PO SCH (10:08)
[2019-01-11] MEDS: OMEGA-3 FATTY ACIDS/FISH OIL 1 GRAM CAP PO SCH ×2 (10:09→21:22)
--- NOTE | 2019-01-11 11:23 | Consultation ---
History of Present Illness Consult date: 01/11/19 Requesting physician: ROSALINA LAMA Consult reason: congestive heart failure History of present illness: The patient has a history chronic HFpEF and CKD. She presented this time with a 5 day history of progressive dyspnea. She has no chest pain. Notably, echocardiogram of April 2018 revealed an ejection fraction of 60-65% with RVSP of 65 mmHg. Past History Past Medical History: anemia, cancer (Breast), diabetes, heart failure (Heart failure preserved ejection fraction), hypertension, hyperlipidemia, stroke (with residual R hemiparesis), other Past Surgical History: mastectomy (left mastectomy for breast cancer in 2012) Social history: denies: smoking (quit smoking in 1988), alcohol abuse (quit drinking alcohol in 1988) Family history: denies: CAD Medications and Allergies Allergies Allergy/AdvReac Type Severity Reaction Status Date / Time No Known Allergies Allergy Verified 05/02/18 10:53 Home Medications Medication Instructions Recorded Confirmed Last Taken Type Esomeprazole Magnesium [NexIUM] 40 mg PO QDAY 05/01/15 01/10/19 10/06/16 History Rosuvastatin (Nf) [Crestor] 20 mg PO QHS 05/01/15 01/10/19 10/06/16 History Anastrozole 1 mg PO QDAY 01/10/19 01/10/19 Unknown History Calcitriol [Rocaltrol] 0.25 mcg PO 3XW 01/10/19 01/10/19 Unknown History Ergocalciferol [Vitamin D2] 1 cap PO QWEEK 01/10/19 01/10/19 Unknown History Glimepiride [Amaryl] 4 mg PO QAM 01/10/19 01/10/19 Unknown History Lisinopril [Zestril TAB] 40 mg PO QDAY 01/10/19 01/10/19 Unknown History Sodium Bicarbonate 650 mg PO TID 01/10/19 01/10/19 Unknown History Sodium Polystyrene Sulfonate 15 gm PO QDAY 01/10/19 01/10/19 Unknown History Sodium Zirconium Cyclosilicate 10 gm PO QDAY 01/10/19 01/10/19 Unknown History [Lokelma] amLODIPine [Norvasc] 10 mg PO DAILY 01/10/19 01/10/19 Unknown History carvediloL [Coreg] 6.25 mg PO BID 01/10/19 01/10/19 Unknown History carvediloL [Coreg] 12.5 mg PO BID 01/10/19 01/10/19 Unknown History Active Meds: Active Medications Albuterol/Ipratropium (Duoneb *Not For Prn Use*) 1 ampul IH Q6HRT [facility] Last Admin: 01/11/19 08:08 Dose: 1 ampul Documented by: Amlodipine Besylate (Amlodipine) 5 mg PO QDAY [facility] Last Admin: 01/11/19 10:08 Dose: 5 mg Documented by: Aspirin (Baby Aspirin) 81 mg PO QDAY [facility] Last Admin: 01/11/19 10:08 Dose: 81 mg Documented by: Atorvastatin Calcium (Lipitor) 40 mg PO QHS [facility] Last Admin: 01/10/19 21:59 Dose: 40 mg Documented by: Carvedilol (Coreg) 25 mg PO BID [facility] Last Admin: 01/11/19 10:08 Dose: 25 mg Documented by: Fish Oil (Fish Oil) 1,000 mg PO BID [facility] Last Admin: 01/11/19 10:09 Dose: 1,000 mg Documented by: Furosemide (Lasix) 40 mg IV BID@0600,1800 [facility] Last Admin: 01/11/19 05:49 Dose: 40 mg Documented by: Heparin Sodium (Porcine) (Heparin) 5,000 unit SUB-Q Q8HR [facility] Last Admin: 01/11/19 05:49 Dose: 5,000 unit Documented by: Hydralazine HCl (Apresoline) 100 mg PO TID [facility] Last Admin: 01/11/19 08:00 Dose: 100 mg Documented by: Hydrocodone Bit/Homatropine Methylb (Hydromet) 2.5 ml PO BID [facility] Last Admin: 01/11/19 10:08 Dose: 2.5 ml Documented by: Insulin Human Lispro (Humalog) 6 unit SUB-Q QAC [facility] Last Admin: 01/11/19 07:30 Dose: 6 unit Documented by: Insulin Human Regular (Humulin R) 0 units SUB-Q ACHS [facility]; Protocol Last Admin: 01/11/19 07:30 Dose: 2 units Documented by: Miscellaneous Medication (Anastrozole (Nf)) 1 mg PO DAILY [facility] Morphine Sulfate (Morphine) 2 mg IV Q5MIN PRN PRN Reason: Chest Pain unrelieved by NTG Nitroglycerin (Nitrostat) 0.4 mg SL .Q5MIN PRN PRN Reason: Chest Pain Pantoprazole Sodium (Protonix) 40 mg PO DAILY [facility] Last Admin: 01/11/19 10:07 Dose: 40 mg Documented by: Review of Systems Constitutional: no fever, no chills Ears, nose, mouth and throat: no ear pain, no ear discharge, no sore throat Cardiovascular: orthopnea, shortness of breath, no chest pain, no palpitations, no lightheadedness Respiratory: shortness of breath, no cough, no hemoptysis Gastrointestinal: no abdominal pain, no nausea, no vomiting, no diarrhea, no constipation Genitourinary Female: no dysuria, no urinary frequency Rectal: no pain, no bleeding Musculoskeletal: no neck stiffness, no neck pain, no myalgias Integumentary: no rash, no pruritis Neurological: no weakness, no parathesias, no headaches Endocrine: no cold intolerance, no heat intolerance Hematologic/Lymphatic: no easy bruising, no easy bleeding Allergic/Immunologic: no urticaria, no wheezing Physical Examination Vital Signs Last Vital Signs Temp 98.7 F 01/11/19 03:52 Pulse 68 01/11/19 10:08 Resp 16 01/11/19 08:08 BP 182/79 01/11/19 10:08 Pulse Ox 99 01/11/19 08:05 General appearance: no acute distress HEENT: Positive: EOMI, Normocephaly, Mucus Membranes Moist Neck: Positive: neck supple, trachea midline, JVD/HJR (elevated) Cardiac: Positive: Reg Rate and Rhythm, S1/S2 Lungs: Positive: clear to auscultation Neuro: Positive: Other (right hemiparesis) Abdomen: Positive: Soft, Active Bowel Sounds Skin: Positive: Clear. Negative: Rash Musculoskeletal: Normal Range of Motion Extremities: Present: normal. Absent: edema Results 01/11/19 04:17 01/11/19 04:17 Lipids 01/10/19 Range/Units 10:20 Triglycerides 149 (2-149) mg/dL Cholesterol 132 (50-199) mg/dL HDL Cholesterol 35 L (40-59) mg/dL Cholesterol/HDL Ratio 3.77 % CBC 01/11/19 Range/Units 04:17 WBC 6.5 (4.5-11.0) K/mm3 RBC 3.21 L (3.65-5.03) M/mm3 Hgb 9.7 L (10.1-14.3) gm/dl Hct 32.0 (30.3-42.9) % Plt Count 227 (140-440) K/mm3 Comprehensive Metabolic Panel 01/11/19 Range/Units 04:17 Sodium 144 (137-145) mmol/L Potassium 3.3 L (3.6-5.0) mmol/L Chloride 104.8 (98-107) mmol/L Carbon Dioxide 23 (22-30) mmol/L BUN 37 H (7-17) mg/dL Creatinine 4.5 H (0.7-1.2) mg/dL Glucose 114 H (65-100) mg/dL Calcium 8.3 L (8.4-10.2) mg/dL - Imaging and Cardiology EKG: image reviewed EKG interpretations - Telemetry EKG Rhythm: Sinus Rhythm - EKG Sinus rhythms and dysrhythmias: sinus rhythm AV and intraventricular conduction: 1 AV block Myocardial infarction: septal OK (old age or ind Assessment and Plan Intravenous diuretics. Optimize antihypertensive regimen. - Patient Problems (1) Acute on chronic heart failure with preserved ejection fraction Current Visit: Yes Status: Acute (2) CKD (chronic kidney disease) Current Visit: Yes Status: Chronic Qualifiers: Chronic kidney disease stage: stage 4 (severe) Qualified Code(s): N18.4 - Chronic kidney disease, stage 4 (severe) (3) HTN (hypertension) Current Visit: Yes Status: Chronic Qualifiers: Hypertension type: essential hypertension Qualified Code(s): I10 - Essential (primary) hypertension (4) Moderate to severe pulmonary hypertension Current Visit: Yes Status: Chronic (5) First degree AV block Current Visit: Yes Status: Chronic (6) History of CVA (cerebrovascular accident) Current Visit: No Status: Resolved
[2019-01-11] MEDS ORDERED: DEXTROSE 50% IN WATER (25GM) 50 ML SYRINGE IV ONE ×2 (12:25→12:32)
[2019-01-11] MEDS ORDERED: hydrALAZINE 20 MG/1 ML INJ IV PRN (12:58)
[2019-01-11] MEDS ORDERED: POTASSIUM CHLORIDE ER 20 MEQ TAB PO ONE (12:59)
[2019-01-11] MEDS ORDERED: amLODIPine 5 MG TAB PO SCH (12:59)
--- NOTE | 2019-01-11 13:05 | Progress Note ---
Assessment and Plan Assessment and plan: Acute respiratory failure with hypoxia -due to pulmonary edema -cont IV Lasix -02 supplementation as needed and duonebs Acute on chronic diastolic HF with EF of 60-65% -cont IV Lasix -not on BB due to bradycardia -echo done in 05/09 showed EF of 60-65% -cardiology consulted CKD stage 4 -renal function at baseline -Nephrology consulted Elevated troponin, chronically elevated -no acute chest pain -cardiology consulted Diabetes mellitus type 2 with hypoglycemia -will adjust insulin regimen and monitor BG -on hypoglycemic protocol HTN urgency -cont hydralazine, amlodipine dose increased -will monitor BP Hypokalemia -repleted, will monitor level HLD -cont statin AOCD -H/H stable, will monitor Obesity with BMI of 30.5 -lifestyle modification recommended Disp: d/c per clinical course History Interval history: Patient reports feeling a little better today. Her shortness of breath has improved. She denies chest pain. Hospitalist Physical - Constitutional Vitals: Temp Pulse Resp BP Pulse Ox 98.7 F 68 16 182/79 99 01/11/19 03:52 01/11/19 10:08 01/11/19 08:08 01/11/19 10:08 01/11/19 08:05 General appearance: Present: no acute distress - EENT Eyes: Present: PERRL, EOM intact ENT: hearing intact, clear oral mucosa - Neck Neck: Present: supple - Respiratory Respiratory effort: normal Respiratory: bilateral: diminished - Cardiovascular Rhythm: regular (with bradycardia) Heart Sounds: Present: S1 & S2 - Extremities Extremities: No edema - Abdominal General gastrointestinal: soft, non-tender, normal bowel sounds - Integumentary Integumentary: Present: warm, dry - Psychiatric Psychiatric: cooperative - Neurologic Neurologic: moves all extremities Results - Labs CBC & Chem 7: 01/11/19 04:17 01/11/19 04:17 Labs: Laboratory Last Values WBC 6.5 K/mm3 (4.5-11.0) 01/11/19 04:17 RBC 3.21 M/mm3 (3.65-5.03) L 01/11/19 04:17 Hgb 9.7 gm/dl (10.1-14.3) L 01/11/19 04:17 Hct 32.0 % (30.3-42.9) 01/11/19 04:17 MCV 100 fl (79-97) H 01/11/19 04:17 MCH 30 pg (28-32) 01/11/19 04:17 MCHC 30 % (30-34) 01/11/19 04:17 RDW 17.9 % (13.2-15.2) H 01/11/19 04:17 Plt Count 227 K/mm3 (140-440) 01/11/19 04:17 Lymph % (Auto) 13.8 % (13.4-35.0) 01/10/19 10:20 [place] % (Auto) 6.6 % (0.0-7.3) 01/10/19 10:20 Eos % (Auto) 1.5 % (0.0-4.3) 01/10/19 10:20 Baso % (Auto) 0.3 % (0.0-1.8) 01/10/19 10:20 Lymph # 0.9 K/mm3 (1.2-5.4) L 01/10/19 10:20 [place] # 0.4 K/mm3 (0.0-0.8) 01/10/19 10:20 Eos # 0.1 K/mm3 (0.0-0.4) 01/10/19 10:20 Baso # 0.0 K/mm3 (0.0-0.1) 01/10/19 10:20 Seg Neutrophils % 77.8 % (40.0-70.0) H 01/10/19 10:20 Seg Neutrophils # 5.3 K/mm3 (1.8-7.7) 01/10/19 10:20 PT 13.5 Sec. (12.2-14.9) 01/10/19 10:20 INR 1.04 (0.87-1.13) 01/10/19 10:20 APTT 39.3 Sec. (24.2-36.6) H 01/10/19 10:20 POC ABG pH 7.429 (7.35-7.45) 01/10/19 11:02 POC ABG pCO2 37.3 (35-45) 01/10/19 11:02 POC ABG HCO3 24.7 (22-26 mml/L) 01/10/19 11:02 POC ABG Total CO2 26 (23-27mmol/L) 01/10/19 11:02 POC ABG O2 Sat 83 01/10/19 11:02 POC ABG Base Excess 0 ((-2) - (+3)mmol/L) 01/10/19 11:02 FiO2 21 % 01/10/19 11:02 Sodium 144 mmol/L (137-145) 01/11/19 04:17 Potassium 3.3 mmol/L (3.6-5.0) L 01/11/19 04:17 Chloride 104.8 mmol/L (98-107) 01/11/19 04:17 Carbon Dioxide 23 mmol/L (22-30) 01/11/19 04:17 Anion Gap 20 mmol/L 01/11/19 04:17 BUN 37 mg/dL (7-17) H 01/11/19 04:17 Creatinine 4.5 mg/dL (0.7-1.2) H 01/11/19 04:17 Estimated GFR 11 ml/min 01/11/19 04:17 BUN/Creatinine Ratio 8 % 01/11/19 04:17 Glucose 114 mg/dL (65-100) H 01/11/19 04:17 POC Glucose 55 (70-105) L 01/11/19 12:29 Calcium 8.3 mg/dL (8.4-10.2) L 01/11/19 04:17 Phosphorus 5.10 mg/dL (2.5-4.5) H 01/11/19 04:17 Magnesium 1.80 mg/dL (1.7-2.3) 01/11/19 04:17 Total Bilirubin 0.40 mg/dL (0.1-1.2) 01/10/19 10:20 AST 14 units/L (5-40) 01/10/19 10:20 ALT 5 units/L (7-56) L 01/10/19 10:20 Alkaline Phosphatase 89 units/L (35-129) 01/10/19 10:20 Troponin T 0.063 ng/mL (0.00-0.029) H 01/10/19 10:20 NT-Pro-B Natriuret Pep 80112 pg/mL (0-900) H 01/10/19 10:20 Total Protein 6.3 g/dL (6.3-8.2) 01/10/19 10:20 Albumin 3.2 g/dL (3.9-5) L 01/10/19 10:20 Albumin/Globulin Ratio 1.0 % 01/10/19 10:20 Triglycerides 149 mg/dL (2-149) 01/10/19 10:20 Cholesterol 132 mg/dL (50-199) 01/10/19 10:20 LDL Cholesterol Direct 79 mg/dL (50-130) 01/10/19 10:20 HDL Cholesterol 35 mg/dL (40-59) L 01/10/19 10:20 Cholesterol/HDL Ratio 3.77 % 01/10/19 10:20 Urine Color Straw (Yellow) 01/10/19 21:42 Urine Turbidity Clear (Clear) 01/10/19 21:42 Urine pH 7.0 (5.0-7.0) 01/10/19 21:42 Ur Specific [place] 1.008 (1.003-1.030) 01/10/19 21:42 Urine Protein >500 mg/dL (Negative) 01/10/19 21:42 Urine Glucose (UA) 50 mg/dL (Negative) 01/10/19 21:42 Urine Ketones Neg mg/dL (Negative) 01/10/19 21:42 Urine Blood Neg (Negative) 01/10/19 21:42 Urine Nitrite Neg (Negative) 01/10/19 21:42 Urine Bilirubin Neg (Negative) 01/10/19 21:42 Urine Urobilinogen < 2.0 mg/dL (<2.0) 01/10/19 21:42 Ur Leukocyte Esterase Tr (Negative) 01/10/19 21:42 Urine WBC (Auto) 1.0 /HPF (0.0-6.0) 01/10/19 21:42 Urine RBC (Auto) 1.0 /HPF (0.0-6.0) 01/10/19 21:42 U Epithel Cells (Auto) 2.0 /HPF (0-13.0) 01/10/19 21:42 Urine Mucus Few /HPF 01/10/19 21:42 Urine Creatinine 31.9 mg/dL (0.1-20.0) H 01/10/19 21:42 Urine Total Protein 360 mg/dL (5-11.8) H 01/10/19 21:42 Active Medications - Current Medications Current Medications: Generic Name Dose Route Start Last Admin Trade Name Freq PRN Reason Stop Dose Admin Albuterol/Ipratropium 1 ampul 01/10/19 20:00 01/11/19 08:08 Duoneb *Not For Prn Use* IH 1 ampul Q6HRT [facility] Administration Amlodipine Besylate 10 mg 01/11/19 12:59 Amlodipine PO QDAY [facility] Aspirin 81 mg 01/11/19 10:00 01/11/19 10:08 Baby Aspirin PO 81 mg QDAY [facility] Administration Atorvastatin Calcium 40 mg 01/10/19 22:00 01/10/19 21:59 Lipitor PO 40 mg QHS [facility] Administration Fish Oil 1,000 mg 01/10/19 22:00 01/11/19 10:09 Fish Oil PO 1,000 mg BID [facility] Administration Furosemide 40 mg 01/10/19 18:00 01/11/19 05:49 Lasix IV 40 mg BID@0600,1800 [facility] Administration Heparin Sodium (Porcine) 5,000 unit 01/10/19 22:00 01/11/19 05:49 Heparin SUB-Q 5,000 unit Q8HR [facility] Administration Hydralazine HCl 100 mg 01/10/19 20:00 01/11/19 08:00 Apresoline PO 100 mg TID [facility] Administration Hydralazine HCl 10 mg 01/11/19 12:58 Apresoline IV Q4HR PRN Blood Pressure Hydrocodone Bit/Homatropine Methylb 2.5 ml 01/10/19 22:00 01/11/19 10:08 Hydromet PO 2.5 ml BID [facility] Administration Insulin Human Lispro 6 unit 01/11/19 07:30 01/11/19 12:10 Humalog SUB-Q Not Given QAC [facility] Insulin Human Regular 0 units 01/10/19 22:00 01/11/19 12:10 Humulin R SUB-Q Not Given ACHS [facility] Protocol Isosorbide Mononitrate 30 mg 01/11/19 12:19 Imdur PO QDAY [facility] Miscellaneous Medication 1 mg 01/11/19 10:00 Anastrozole (Nf) PO DAILY [facility] Morphine Sulfate 2 mg 01/10/19 16:44 Morphine IV Q5MIN PRN Chest Pain unrelieved by NTG Nitroglycerin 0.4 mg 01/10/19 16:44 Nitrostat SL .Q5MIN PRN Chest Pain Pantoprazole Sodium 40 mg 01/11/19 10:00 01/11/19 10:07 Protonix PO 40 mg DAILY [facility] Administration Potassium Chloride 40 meq 01/11/19 12:59 K-Dur PO 01/11/19 13:00 ONCE ONE
[2019-01-11] MEDS ORDERED: traMADol 50 MG TAB PO PRN (13:11)
--- NOTE | 2019-01-11 20:57 | Progress Note ---
Assessment and Plan - Patient Problems (1) Other acute kidney failure Current Visit: Yes Status: Acute Plan to address problem: Acute kidney injury vasomotor nephropathy. Kidney function worsen with diuretics. Decrease diuretics and follow-up electrolytes and renal function. (2) CKD (chronic kidney disease) stage 4, GFR 15-29 ml/min Current Visit: No Status: Acute Plan to address problem: Chronic kidney disease presumably secondary to diabetic nephropathy/hypertensive nephrosclerosis. Kidney function is worsening secondary to diuresis. Follow-up electrolytes and renal function (3) Acute on chronic heart failure with preserved ejection fraction Current Visit: No Status: Acute Plan to address problem: Continue intravenous diuretics but decrease Lasix. Follow-up 2-D echo. Reinforce sodium and fluid restriction. Discussed importance of adhering to her medications and following up with her doctors to get refills if needed. Strict intake and output monitoring. Follow-up volume status (4) Anemia in chronic kidney disease Current Visit: Yes Status: Acute Plan to address problem: Follow up hemoglobin. Get iron stores if it drops (5) Metabolic acidosis Current Visit: Yes Status: Acute Plan to address problem: Continue by mouth sodium bicarbonate. Follow bicarbonate level (6) Type 2 diabetes mellitus with diabetic chronic kidney disease Current Visit: No Status: Acute Plan to address problem: Blood sugar management by primary attending. (7) Hypertensive chronic kidney disease with stage 1 through stage 4 chronic kidney disease, or unspecified chronic kidney disease Current Visit: No Status: Chronic Plan to address problem: Follow-up blood pressure on current medications Subjective Date of service: 01/11/19 Principal diagnosis: acute kidney injury superimposed on chronic kidney disease Interval history: Patient seen lying in bed. Shortness of breath improving. Still coughing Objective - Exam Narrative Exam: Elderly -[place] female lying in bed in no acute distress HEENT: NCAT, pink oral mucous membrane Neck: Supple, no venous distention CVS: S1S2 RRR with no murmur, rub or gallop Chest: Breath sounds diminished in lower zones but improved air entry Abdomen: Distended, soft, nontender, no organomegaly, bowel sounds are present Extremities: 1+ pitting edema Genitourinary deferred Neuro: Awake, alert no focal deficits - Vital Signs Vital signs: Vital Signs - 12hr 01/11/19 01/11/19 01/11/19 10:08 12:00 15:11 Temperature Pulse Rate 68 57 L Pulse Rate [ 55 L Apical] Pulse Rate [ 55 L Left Radial] Pulse Rate [ Posterior Bilateral Throughout] Pulse Rate [ 55 L Right Radial] Respiratory 24 Rate Respiratory Rate [Posterior Bilateral Throughout] Blood Pressure 182/79 O2 Sat by Pulse 98 Oximetry 01/11/19 01/11/19 19:21 19:54 Temperature 98.0 F Pulse Rate 60 Pulse Rate [ Apical] Pulse Rate [ Left Radial] Pulse Rate [ 78 Posterior Bilateral Throughout] Pulse Rate [ Right Radial] Respiratory 18 Rate Respiratory 25 H Rate [Posterior Bilateral Throughout] Blood Pressure 190/81 O2 Sat by Pulse 99 100 Oximetry - Lab 01/11/19 04:17 01/11/19 04:17 Most recent lab results Calcium 8.3 mg/dL (8.4-10.2) L 01/11/19 04:17 Phosphorus 5.10 mg/dL (2.5-4.5) H 01/11/19 04:17 Magnesium 1.80 mg/dL (1.7-2.3) 01/11/19 04:17 Urine Creatinine 31.9 mg/dL (0.1-20.0) H 01/10/19 21:42 Urine Total Protein 360 mg/dL (5-11.8) H 01/10/19 21:42 Medications & Allergies - Medications Allergies/Adverse Reactions: Allergies No Known Allergies Allergy (Verified 05/02/18 10:53) Home Medications: Home Medications Medication Instructions Recorded Confirmed Last Taken Type Esomeprazole Magnesium [NexIUM] 40 mg PO QDAY 05/01/15 01/10/19 10/06/16 History Rosuvastatin (Nf) [Crestor] 20 mg PO QHS 05/01/15 01/10/19 10/06/16 History Anastrozole 1 mg PO QDAY 01/10/19 01/10/19 Unknown History Calcitriol [Rocaltrol] 0.25 mcg PO 3XW 01/10/19 01/10/19 Unknown History Ergocalciferol [Vitamin D2] 1 cap PO QWEEK 01/10/19 01/10/19 Unknown History Glimepiride [Amaryl] 4 mg PO QAM 01/10/19 01/10/19 Unknown History Lisinopril [Zestril TAB] 40 mg PO QDAY 01/10/19 01/10/19 Unknown History Sodium Bicarbonate 650 mg PO TID 01/10/19 01/10/19 Unknown History Sodium Polystyrene Sulfonate 15 gm PO QDAY 01/10/19 01/10/19 Unknown History Sodium Zirconium Cyclosilicate 10 gm PO QDAY 01/10/19 01/10/19 Unknown History [Lokelma] amLODIPine [Norvasc] 10 mg PO DAILY 01/10/19 01/10/19 Unknown History carvediloL [Coreg] 6.25 mg PO BID 01/10/19 01/10/19 Unknown History carvediloL [Coreg] 12.5 mg PO BID 01/10/19 01/10/19 Unknown History Active Medications: Generic Name Dose Route Start Last Admin Trade Name Freq PRN Reason Stop Dose Admin Albuterol/Ipratropium 1 ampul 01/10/19 20:00 01/11/19 19:52 Duoneb *Not For Prn Use* IH 1 ampul Q6HRT [facility] Administration Amlodipine Besylate 10 mg 01/11/19 12:59 Amlodipine PO QDAY [facility] Aspirin 81 mg 01/11/19 10:00 01/11/19 10:08 Baby Aspirin PO 81 mg QDAY [facility] Administration Atorvastatin Calcium 40 mg 01/10/19 22:00 01/10/19 21:59 Lipitor PO 40 mg QHS [facility] Administration Fish Oil 1,000 mg 01/10/19 22:00 01/11/19 10:09 Fish Oil PO 1,000 mg BID [facility] Administration Furosemide 40 mg 01/10/19 18:00 01/11/19 18:00 Lasix IV 40 mg BID@0600,1800 [facility] Administration Heparin Sodium (Porcine) 5,000 unit 01/10/19 22:00 01/11/19 14:06 Heparin SUB-Q 5,000 unit Q8HR [facility] Administration Hydralazine HCl 100 mg 01/10/19 20:00 01/11/19 14:05 Apresoline PO 100 mg TID [facility] Administration Hydralazine HCl 10 mg 01/11/19 12:58 Apresoline IV Q4HR PRN Blood Pressure Insulin Human Regular 0 units 01/10/19 22:00 01/11/19 17:27 Humulin R SUB-Q Not Given ACHS [facility] Protocol Isosorbide Mononitrate 30 mg 01/11/19 12:19 Imdur PO QDAY [facility] Miscellaneous Medication 1 mg 01/11/19 10:00 Anastrozole (Nf) PO DAILY [facility] Nitroglycerin 0.4 mg 01/10/19 16:44 Nitrostat SL .Q5MIN PRN Chest Pain Pantoprazole Sodium 40 mg 01/11/19 10:00 01/11/19 10:07 Protonix PO 40 mg DAILY [facility] Administration Tramadol HCl 50 mg 01/11/19 13:11 Ultram PO Q8H PRN Pain, Moderate (4-6)
[2019-01-11] MEDS ORDERED: carvediloL 25 MG TAB PO SCH (22:00)
[2019-01-12] MEDS: IPRATROPIUM/ALBUTEROL SULFATE 3 ML AMPUL.NEB IH SCH ×4 (01:09→20:24)
[2019-01-12] MEDS: FUROSEMIDE 40 MG/4 ML INJ IV SCH (05:09)
[2019-01-12] MEDS: HEPARIN 5,000 UNIT/1 ML VIAL SUB-Q SCH ×3 (05:12→22:23)
[2019-01-12 06:52] LABS: Calcium 8.3 mg/dL (8.4-10.2)
[2019-01-12] MEDS: INSULIN REGULAR, HUMAN 100 UNITS/1 ML SUB-Q SCH ×4 (07:30→22:11)
[2019-01-12] MEDS: hydrALAZINE 100 MG TAB PO SCH ×3 (08:00→22:23)
--- NOTE | 2019-01-12 09:46 | Progress Note ---
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 She denies any chest pain. Patient presents hypoxic with room air saturation of 88% and does not take any home oxygen. Patient states she has a history of "bronchitis in the past". She reports intermittent wheezing at home. She denies fever, leg edema, calf tenderness, history of PE/DVT. In the ER she was placed on supplemental O2, given iv lasix and called for admission for further Mx Echo done 04/2018 showed, EF 60-65%, abnormal diastolic function. Stress MPI done 09/16/15 showed mod. fixed inferior wall defect, small, mild partially reversible septal and lateral wall defects; medical management was recommended. Acute respiratory failure with hypoxia -due to pulmonary edema -cont IV Lasix -02 supplementation as needed and duonebs Acute on chronic diastolic HF with EF of 60-65% -cont IV Lasix -not on BB due to bradycardia -echo done in 05/09 showed EF of 60-65% -cardiology consulted CKD stage 4 -renal function at baseline -Nephrology consulted Elevated troponin, chronically elevated -no acute chest pain -cardiology consulted Diabetes mellitus type 2 with hypoglycemia -will adjust insulin regimen and monitor BG -on hypoglycemic protocol HTN urgency -cont hydralazine, amlodipine dose increased -will monitor BP Hypokalemia -repleted, will monitor level HLD -cont statin AOCD -H/H stable, will monitor Obesity with BMI of 30.5 -lifestyle modification recommended Disp: Improve renal function and ?Shortness of breath and D/c home thereafter Subjective Date of service: 01/12/19 Principal diagnosis: acute kidney injury superimposed on chronic kidney disease Objective - Exam Narrative Exam: Constitutional: Well-nourished well-developed. In no distress Head: Normocephalic atraumatic Eyes: Pupils are equal round and reactive to light Nose: No enlarged turbinates, no septal deviation. Mouth: Moist mucous membranes. Neck: Supple no thyromegaly. No bruit. No JVD Heart: Regular rate and rhythm, S1-S2 normal. No rubs murmurs or gallop Lungs: Decreased breath sounds bilaterally. no rales or rhonchi Abdomen: Soft, nontender. Bowel sound are present. Extremities: No edema, no cyanosis, no clubbing. Neuro: Alert oriented Oriented x3. No focal sensory or motor deficit. Skin: No rashes or hyperpigmented spots Musculoskeletal system: No joint pain or swelling Hematological: No petechia or subcutanous hemorrhages. Immunological: No multiple septic spots on the skin Lymphatic: No generalized lymphadenopathy Psychiatry: Euthymic. Calm. - Constitutional Vitals: Vital Signs - 12hr 01/11/19 01/12/19 01/12/19 23:43 01:10 01:31 Temperature 98.0 F Pulse Rate 69 Pulse Rate [ Anterior Bilateral Throughout] Pulse Rate [ 82 86 Posterior Bilateral Throughout] Respiratory 20 Rate Respiratory Rate [Anterior Bilateral Throughout] Respiratory 19 16 Rate [Posterior Bilateral Throughout] Blood Pressure 154/63 O2 Sat by Pulse 99 Oximetry 01/12/19 01/12/19 01/12/19 04:00 04:41 05:11 Temperature 98.0 F Pulse Rate 73 73 73 Pulse Rate [ Anterior Bilateral Throughout] Pulse Rate [ Posterior Bilateral Throughout] Respiratory 18 Rate Respiratory Rate [Anterior Bilateral Throughout] Respiratory Rate [Posterior Bilateral Throughout] Blood Pressure 214/74 214/74 O2 Sat by Pulse 100 Oximetry 01/12/19 01/12/19 01/12/19 07:38 07:40 07:41 Temperature 98.0 F Pulse Rate 67 Pulse Rate [ 85 Anterior Bilateral Throughout] Pulse Rate [ 84 Posterior Bilateral Throughout] Respiratory 18 Rate Respiratory 18 Rate [Anterior Bilateral Throughout] Respiratory 18 Rate [Posterior Bilateral Throughout] Blood Pressure 131/108 O2 Sat by Pulse 87 96 Oximetry - Labs CBC & Chem 7: 01/11/19 04:17 01/12/19 05:26 Labs: Abnormal lab results 01/11/19 01/11/19 01/11/19 Range/Units 10:17 11:53 12:29 BUN (7-17) mg/dL Creatinine (0.7-1.2) mg/dL Glucose (65-100) mg/dL POC Glucose 207 H 48 L 55 L (70-105) Calcium (8.4-10.2) mg/dL 01/11/19 01/11/19 01/12/19 Range/Units 15:13 21: 05:26 BUN 46 H (7-17) mg/dL Creatinine 5.2 H (0.7-1.2) mg/dL Glucose 110 H (65-100) mg/dL POC Glucose 66 L 107 H (70-105) Calcium 8.3 L (8.4-10.2) mg/dL 01/12/19 Range/Units 07:43 BUN (7-17) mg/dL Creatinine (0.7-1.2) mg/dL Glucose (65-100) mg/dL POC Glucose 132 H (70-105) Calcium (8.4-10.2) mg/dL
[2019-01-12] MEDS: OMEGA-3 FATTY ACIDS/FISH OIL 1 GRAM CAP PO SCH ×2 (09:58→22:23)
[2019-01-12] MEDS: DOXAZOSIN 4 MG TAB PO SCH (09:58)
[2019-01-12] MEDS: PANTOPRAZOLE 40 MG TAB PO SCH (09:59)
[2019-01-12] MEDS: amLODIPine 5 MG TAB PO SCH (09:59)
[2019-01-12] MEDS: ASPIRIN 81 MG TAB CHEW PO SCH (10:01)
--- NOTE | 2019-01-12 11:12 | Progress Note ---
Assessment and Plan Tele reviewed - in SR with 1st degree AV block with freq PACs. Serum Cr trending upwards. Pt appears to be nearing euvolemia. Will convert IV lasix to PO daily lasix daily. f/u BMP in AM. nephrology is following. Optimize antihypertensive regimen - initiate Cardura, coreg held in setting of intermittent sinus bradycardia. The patient has been seen in conjunction with Dr. Goodrich who agrees with the assessment and plan of care. - Patient Problems (1) Acute on chronic heart failure with preserved ejection fraction Current Visit: Yes Status: Acute (2) CKD (chronic kidney disease) Current Visit: Yes Status: Chronic Qualifiers: Chronic kidney disease stage: stage 4 (severe) Qualified Code(s): N18.4 - Chronic kidney disease, stage 4 (severe) (3) HTN (hypertension) Current Visit: Yes Status: Chronic Qualifiers: Hypertension type: essential hypertension Qualified Code(s): I10 - Essential (primary) hypertension (4) Moderate to severe pulmonary hypertension Current Visit: Yes Status: Chronic (5) First degree AV block Current Visit: Yes Status: Chronic (6) History of CVA (cerebrovascular accident) Current Visit: No Status: Resolved Subjective Date of service: 01/12/19 Principal diagnosis: acute kidney injury superimposed on chronic kidney disease Interval history: pt resting in bed, feeling better. tele reviewed - in SR with 1st degree AV block with freq PACs. Objective Last Vital Signs Temp 98.0 F 01/12/19 07:38 Pulse 68 01/12/19 10:02 Resp 18 01/12/19 07:40 BP 138/88 01/12/19 10:02 Pulse Ox 96 01/12/19 07:41 - Physical Examination General: No Apparent Distress HEENT: Positive: EOMI, Normocephaly, Mucus Membranes Moist Neck: Positive: neck supple, trachea midline, JVD/HJR (elevated) Cardiac: Positive: Regular Rhythm, S1/S2 Lungs: Positive: Decreased Breath Sounds Neuro: Positive: Other (right hemiparesis) Abdomen: Positive: Soft, Active Bowel Sounds Skin: Positive: Clear. Negative: Rash Musculoskeletal: Normal Range of Motion Extremities: Present: normal. Absent: edema - Labs and Meds Comprehensive Metabolic Panel 01/12/19 Range/Units 05:26 Sodium 142 (137-145) mmol/L Potassium 4.2 D (3.6-5.0) mmol/L Chloride 103.5 (98-107) mmol/L Carbon Dioxide 23 (22-30) mmol/L BUN 46 H (7-17) mg/dL Creatinine 5.2 H (0.7-1.2) mg/dL Glucose 110 H (65-100) mg/dL Calcium 8.3 L (8.4-10.2) mg/dL - Imaging and Cardiology EKG: image reviewed - Telemetry EKG Rhythm: Sinus Rhythm - EKG Sinus rhythms and dysrhythmias: sinus rhythm AV and intraventricular conduction: 1 AV block Myocardial infarction: septal UT (old age or ind
[2019-01-12] MEDS ORDERED: PHENOL 1.4% 177 ML BOTTLE MM PRN (13:41)
--- NOTE | 2019-01-12 18:24 | Progress Note ---
Assessment and Plan - Patient Problems (1) Other acute kidney failure Current Visit: Yes Status: Acute Plan to address problem: Acute kidney injury vasomotor nephropathy. Kidney function worsen with diuretics. Decrease diuretics and follow-up electrolytes and renal function. (2) CKD (chronic kidney disease) stage 4, GFR 15-29 ml/min Current Visit: No Status: Acute Plan to address problem: Chronic kidney disease presumably secondary to diabetic nephropathy/hypertensive nephrosclerosis. Kidney function is worsening secondary to diuresis. Follow-up electrolytes and renal function (3) Acute on chronic heart failure with preserved ejection fraction Current Visit: No Status: Acute Plan to address problem: Agree with changing to oral diuretics. Reinforce sodium and fluid restriction. Strict intake and output monitoring. Follow-up volume status (4) Anemia in chronic kidney disease Current Visit: Yes Status: Acute Plan to address problem: Follow up hemoglobin. Get iron stores if it drops (5) Metabolic acidosis Current Visit: Yes Status: Acute Plan to address problem: Continue by mouth sodium bicarbonate. Follow bicarbonate level (6) Type 2 diabetes mellitus with diabetic chronic kidney disease Current Visit: No Status: Acute Plan to address problem: Blood sugar management by primary attending. (7) Hypertensive chronic kidney disease with stage 1 through stage 4 chronic kidney disease, or unspecified chronic kidney disease Current Visit: No Status: Chronic Plan to address problem: Follow-up blood pressure on current medications Subjective Date of service: 01/12/19 Principal diagnosis: acute kidney injury superimposed on chronic kidney disease Interval history: Patient seen lying in bed. Shortness of breath improved. Objective - Exam Narrative Exam: Elderly -[place] female lying in bed in no acute distress HEENT: NCAT, pink oral mucous membrane Neck: Supple, no venous distention CVS: S1S2 RRR with no murmur, rub or gallop Chest: Breath sounds diminished in lower zones but improved air entry Abdomen: Distended, soft, nontender, no organomegaly, bowel sounds are present Extremities: no edema Genitourinary deferred Neuro: Awake, alert no focal deficits - Vital Signs Vital signs: Vital Signs - 12hr 01/12/19 01/12/19 01/12/19 07:38 07:40 07:41 Temperature 98.0 F Pulse Rate 67 Pulse Rate [ 85 Anterior Bilateral Throughout] Pulse Rate [ Apical] Pulse Rate [ Left Radial] Pulse Rate [ 84 Posterior Bilateral Throughout] Pulse Rate [ Right Radial] Respiratory 18 Rate Respiratory 18 Rate [Anterior Bilateral Throughout] Respiratory 18 Rate [Posterior Bilateral Throughout] Blood Pressure 131/108 O2 Sat by Pulse 87 96 Oximetry 01/12/19 01/12/19 01/12/19 08:00 09:58 09:59 Temperature Pulse Rate 68 68 68 Pulse Rate [ Anterior Bilateral Throughout] Pulse Rate [ Apical] Pulse Rate [ Left Radial] Pulse Rate [ Posterior Bilateral Throughout] Pulse Rate [ Right Radial] Respiratory Rate Respiratory Rate [Anterior Bilateral Throughout] Respiratory Rate [Posterior Bilateral Throughout] Blood Pressure 139/88 139/88 O2 Sat by Pulse Oximetry 01/12/19 01/12/19 01/12/19 10:00 10:02 10:50 Temperature 97.9 F Pulse Rate 68 74 Pulse Rate [ Anterior Bilateral Throughout] Pulse Rate [ 76 Apical] Pulse Rate [ 76 Left Radial] Pulse Rate [ Posterior Bilateral Throughout] Pulse Rate [ 76 Right Radial] Respiratory 22 18 Rate Respiratory Rate [Anterior Bilateral Throughout] Respiratory Rate [Posterior Bilateral Throughout] Blood Pressure 138/88 170/64 O2 Sat by Pulse 98 100 Oximetry 01/12/19 01/12/19 01/12/19 12:00 14:01 15:31 Temperature 97.9 F Pulse Rate 76 70 Pulse Rate [ 77 Anterior Bilateral Throughout] Pulse Rate [ Apical] Pulse Rate [ Left Radial] Pulse Rate [ 75 Posterior Bilateral Throughout] Pulse Rate [ Right Radial] Respiratory 18 Rate Respiratory 18 Rate [Anterior Bilateral Throughout] Respiratory 18 Rate [Posterior Bilateral Throughout] Blood Pressure 142/72 O2 Sat by Pulse 100 Oximetry 01/12/19 17:00 Temperature Pulse Rate 86 Pulse Rate [ Anterior Bilateral Throughout] Pulse Rate [ Apical] Pulse Rate [ Left Radial] Pulse Rate [ Posterior Bilateral Throughout] Pulse Rate [ Right Radial] Respiratory Rate Respiratory Rate [Anterior Bilateral Throughout] Respiratory Rate [Posterior Bilateral Throughout] Blood Pressure O2 Sat by Pulse Oximetry - Lab 01/11/19 04:17 01/12/19 05:26 Most recent lab results Calcium 8.3 mg/dL (8.4-10.2) L 01/12/19 05:26 Phosphorus 5.10 mg/dL (2.5-4.5) H 01/11/19 04:17 Magnesium 1.80 mg/dL (1.7-2.3) 01/11/19 04:17 Urine Creatinine 31.9 mg/dL (0.1-20.0) H 01/10/19 21:42 Urine Total Protein 360 mg/dL (5-11.8) H 01/10/19 21:42 Medications & Allergies - Medications Allergies/Adverse Reactions: Allergies No Known Allergies Allergy (Verified 05/02/18 10:53) Home Medications: Home Medications Medication Instructions Recorded Confirmed Last Taken Type Esomeprazole Magnesium [NexIUM] 40 mg PO QDAY 05/01/15 01/10/19 10/06/16 History Rosuvastatin (Nf) [Crestor] 20 mg PO QHS 05/01/15 01/10/19 10/06/16 History Anastrozole 1 mg PO QDAY 01/10/19 01/10/19 Unknown History Calcitriol [Rocaltrol] 0.25 mcg PO 3XW 01/10/19 01/10/19 Unknown History Ergocalciferol [Vitamin D2] 1 cap PO QWEEK 01/10/19 01/10/19 Unknown History Glimepiride [Amaryl] 4 mg PO QAM 01/10/19 01/10/19 Unknown History Lisinopril [Zestril TAB] 40 mg PO QDAY 01/10/19 01/10/19 Unknown History Sodium Bicarbonate 650 mg PO TID 01/10/19 01/10/19 Unknown History Sodium Polystyrene Sulfonate 15 gm PO QDAY 01/10/19 01/10/19 Unknown History Sodium Zirconium Cyclosilicate 10 gm PO QDAY 01/10/19 01/10/19 Unknown History [Lokelma] amLODIPine [Norvasc] 10 mg PO DAILY 01/10/19 01/10/19 Unknown History carvediloL [Coreg] 6.25 mg PO BID 01/10/19 01/10/19 Unknown History carvediloL [Coreg] 12.5 mg PO BID 01/10/19 01/10/19 Unknown History Active Medications: Generic Name Dose Route Start Last Admin Trade Name Freq PRN Reason Stop Dose Admin Albuterol/Ipratropium 1 ampul 01/10/19 20:00 01/12/19 14:00 Duoneb *Not For Prn Use* IH 1 ampul Q6HRT [facility] Administration Amlodipine Besylate 5 mg 01/12/19 10:00 01/12/19 09:59 Amlodipine PO 5 mg QDAY [facility] Administration Aspirin 81 mg 01/11/19 10:00 01/12/19 10:01 Baby Aspirin PO 81 mg QDAY [facility] Administration Atorvastatin Calcium 40 mg 01/10/19 22:00 01/11/19 21:23 Lipitor PO 40 mg QHS [facility] Administration Doxazosin Mesylate 4 mg 01/12/19 10:00 01/12/19 09:58 Cardura PO 4 mg QDAY [facility] Administration Fish Oil 1,000 mg 01/10/19 22:00 01/12/19 09:58 Fish Oil PO 1,000 mg BID [facility] Administration Furosemide 40 mg 01/13/19 10:00 Lasix PO QDAY [facility] Heparin Sodium (Porcine) 5,000 unit 01/10/19 22:00 01/12/19 14:00 Heparin SUB-Q 5,000 unit Q8HR [facility] Administration Hydralazine HCl 100 mg 01/10/19 20:00 01/12/19 14:00 Apresoline PO 100 mg TID [facility] Administration Hydralazine HCl 10 mg 01/11/19 12:58 01/12/19 05:11 Apresoline IV 10 mg Q4HR PRN Administration Blood Pressure Insulin Human Regular 0 units 01/10/19 22:00 01/12/19 16:30 Humulin R SUB-Q 1 units ACHS [facility] Administration Protocol Isosorbide Mononitrate 120 mg 01/12/19 10:00 01/12/19 10:02 Imdur PO 120 mg QDAY [facility] Administration Miscellaneous Medication 1 mg 01/11/19 10:00 Anastrozole (Nf) PO DAILY [facility] Nitroglycerin 0.4 mg 01/10/19 16:44 Nitrostat SL .Q5MIN PRN Chest Pain Pantoprazole Sodium 40 mg 01/11/19 10:00 01/12/19 09:59 Protonix PO 40 mg DAILY [facility] Administration Phenol 1 spray 01/12/19 13:41 Chloraseptic MM PRN PRN Sore Throat Tramadol HCl 50 mg 01/11/19 13:11 Ultram PO Q8H PRN Pain, Moderate (4-6)
[2019-01-13] MEDS: IPRATROPIUM/ALBUTEROL SULFATE 3 ML AMPUL.NEB IH SCH ×4 (02:35→19:23)
[2019-01-13] MEDS: HEPARIN 5,000 UNIT/1 ML VIAL SUB-Q SCH ×3 (05:28→22:06)
[2019-01-13 05:33] LABS: Calcium 8.3 mg/dL (8.4-10.2)
[2019-01-13] MEDS: INSULIN REGULAR, HUMAN 100 UNITS/1 ML SUB-Q SCH ×4 (08:00→22:06)
[2019-01-13] MEDS: hydrALAZINE 100 MG TAB PO SCH ×3 (08:30→22:06)
[2019-01-13] MEDS ORDERED: FUROSEMIDE 40 MG/4 ML INJ IV SCH (10:00)
[2019-01-13] MEDS ORDERED: FUROSEMIDE 40 MG TAB PO SCH (10:00)
[2019-01-13] MEDS: DOXAZOSIN 4 MG TAB PO SCH (10:21)
[2019-01-13] MEDS: OMEGA-3 FATTY ACIDS/FISH OIL 1 GRAM CAP PO SCH ×2 (10:21→22:05)
[2019-01-13] MEDS: ASPIRIN 81 MG TAB CHEW PO SCH (10:21)
[2019-01-13] MEDS: PANTOPRAZOLE 40 MG TAB PO SCH (10:22)
[2019-01-13] MEDS: amLODIPine 5 MG TAB PO SCH (10:22)
--- NOTE | 2019-01-13 10:30 | Progress Note ---
Assessment and Plan - Patient Problems (1) Other acute kidney failure Current Visit: Yes Status: Acute Plan to address problem: Acute kidney injury vasomotor nephropathy. Kidney function worsening with diuretics. Will hold diuretics. Discussed with the patient about possibly for dialysis. She still refuses dialysis even if it is absolutely indicated. Follow-up electrolytes and renal function. (2) CKD (chronic kidney disease) stage 4, GFR 15-29 ml/min Current Visit: No Status: Acute Plan to address problem: Chronic kidney disease presumably secondary to diabetic nephropathy/hypertensive nephrosclerosis. Kidney function is worsening secondary to diuresis. Follow-up electrolytes and renal function (3) Acute on chronic heart failure with preserved ejection fraction Current Visit: No Status: Acute Plan to address problem: Agree with changing to oral diuretics. Reinforce sodium and fluid restriction. Strict intake and output monitoring. Follow-up volume status (4) Anemia in chronic kidney disease Current Visit: Yes Status: Acute Plan to address problem: Follow up hemoglobin. Get iron stores if it drops (5) Metabolic acidosis Current Visit: Yes Status: Acute Plan to address problem: Continue by mouth sodium bicarbonate. Follow bicarbonate level (6) Type 2 diabetes mellitus with diabetic chronic kidney disease Current Visit: No Status: Acute Plan to address problem: Blood sugar management by primary attending. (7) Hypertensive chronic kidney disease with stage 1 through stage 4 chronic kidney disease, or unspecified chronic kidney disease Current Visit: No Status: Chronic Plan to address problem: Follow-up blood pressure on current medications Subjective Date of service: 01/13/19 Principal diagnosis: acute kidney injury superimposed on chronic kidney disease Interval history: Patient seen lying in bed. Shortness of breath improved. Feels much better Objective - Exam Narrative Exam: Elderly -[place] female lying in bed in no acute distress HEENT: NCAT, pink oral mucous membrane Neck: Supple, no venous distention CVS: S1S2 RRR with no murmur, rub or gallop Chest: Breath sounds diminished in lower zones but improved air entry Abdomen: Distended, soft, nontender, no organomegaly, bowel sounds are present Extremities: no edema Genitourinary deferred Neuro: Awake, alert no focal deficits - Vital Signs Vital signs: Vital Signs - 12hr 01/12/19 01/13/19 01/13/19 23:43 01:00 05:01 Temperature 99.3 F Pulse Rate 76 74 73 Pulse Rate [ Apical] Respiratory 22 Rate Blood Pressure 144/54 Blood Pressure [Right] O2 Sat by Pulse 97 100 Oximetry 01/13/19 01/13/19 01/13/19 05:36 08:33 10:21 Temperature 99.8 F H Pulse Rate 75 65 Pulse Rate [ 81 Apical] Respiratory 22 17 Rate Blood Pressure 174/57 Blood Pressure 136/38 [Right] O2 Sat by Pulse 97 98 Oximetry 01/13/19 10:22 Temperature Pulse Rate 65 Pulse Rate [ Apical] Respiratory Rate Blood Pressure 174/57 Blood Pressure [Right] O2 Sat by Pulse Oximetry - Lab 01/11/19 04:17 01/13/19 03:48 Most recent lab results Calcium 8.3 mg/dL (8.4-10.2) L 01/13/19 03:48 Phosphorus 5.10 mg/dL (2.5-4.5) H 01/11/19 04:17 Magnesium 1.80 mg/dL (1.7-2.3) 01/11/19 04:17 Urine Creatinine 31.9 mg/dL (0.1-20.0) H 01/10/19 21:42 Urine Total Protein 360 mg/dL (5-11.8) H 01/10/19 21:42 Medications & Allergies - Medications Allergies/Adverse Reactions: Allergies No Known Allergies Allergy (Verified 05/02/18 10:53) Home Medications: Home Medications Medication Instructions Recorded Confirmed Last Taken Type Esomeprazole Magnesium [NexIUM] 40 mg PO QDAY 05/01/15 01/10/19 10/06/16 History Rosuvastatin (Nf) [Crestor] 20 mg PO QHS 05/01/15 01/10/19 10/06/16 History Anastrozole 1 mg PO QDAY 01/10/19 01/10/19 Unknown History Calcitriol [Rocaltrol] 0.25 mcg PO 3XW 01/10/19 01/10/19 Unknown History Ergocalciferol [Vitamin D2] 1 cap PO QWEEK 01/10/19 01/10/19 Unknown History Glimepiride [Amaryl] 4 mg PO QAM 01/10/19 01/10/19 Unknown History Lisinopril [Zestril TAB] 40 mg PO QDAY 01/10/19 01/10/19 Unknown History Sodium Bicarbonate 650 mg PO TID 01/10/19 01/10/19 Unknown History Sodium Polystyrene Sulfonate 15 gm PO QDAY 01/10/19 01/10/19 Unknown History Sodium Zirconium Cyclosilicate 10 gm PO QDAY 01/10/19 01/10/19 Unknown History [Lokelma] amLODIPine [Norvasc] 10 mg PO DAILY 01/10/19 01/10/19 Unknown History carvediloL [Coreg] 6.25 mg PO BID 01/10/19 01/10/19 Unknown History carvediloL [Coreg] 12.5 mg PO BID 01/10/19 01/10/19 Unknown History Active Medications: Generic Name Dose Route Start Last Admin Trade Name Freq PRN Reason Stop Dose Admin Albuterol/Ipratropium 1 ampul 01/10/19 20:00 01/13/19 09:32 Duoneb *Not For Prn Use* IH 1 ampul Q6HRT [facility] Administration Amlodipine Besylate 5 mg 01/12/19 10:00 01/13/19 10:22 Amlodipine PO 5 mg QDAY [facility] Administration Aspirin 81 mg 01/11/19 10:00 01/13/19 10:21 Baby Aspirin PO 81 mg QDAY [facility] Administration Atorvastatin Calcium 40 mg 01/10/19 22:00 01/12/19 22:23 Lipitor PO 40 mg QHS [facility] Administration Doxazosin Mesylate 4 mg 01/12/19 10:00 01/13/19 10:21 Cardura PO 4 mg QDAY [facility] Administration Fish Oil 1,000 mg 01/10/19 22:00 01/13/19 10:21 Fish Oil PO 1,000 mg BID [facility] Administration Heparin Sodium (Porcine) 5,000 unit 01/10/19 22:00 01/13/19 05:28 Heparin SUB-Q 5,000 unit Q8HR [facility] Administration Hydralazine HCl 100 mg 01/10/19 20:00 01/13/19 08:30 Apresoline PO 100 mg TID [facility] Administration Insulin Human Regular 0 units 01/10/19 22:00 01/12/19 22:11 Humulin R SUB-Q Not Given ACHS [facility] Protocol Isosorbide Mononitrate 120 mg 01/12/19 10:00 01/13/19 10:21 Imdur PO 120 mg QDAY [facility] Administration Miscellaneous Medication 1 mg 01/11/19 10:00 Anastrozole (Nf) PO DAILY [facility] Nitroglycerin 0.4 mg 01/10/19 16:44 Nitrostat SL .Q5MIN PRN Chest Pain Pantoprazole Sodium 40 mg 01/11/19 10:00 01/13/19 10:22 Protonix PO 40 mg DAILY [facility] Administration Phenol 1 spray 01/12/19 13:41 Chloraseptic MM PRN PRN Sore Throat Tramadol HCl 50 mg 01/11/19 13:11 Ultram PO Q8H PRN Pain, Moderate (4-6)
--- NOTE | 2019-01-13 12:11 | Progress Note ---
Assessment and Plan Cardiac status is stable at this time. Hold diuretics. - Patient Problems (1) Acute on chronic heart failure with preserved ejection fraction Current Visit: Yes Status: Acute (2) Acute kidney injury superimposed on CKD Current Visit: Yes Status: Acute (3) Moderate to severe pulmonary hypertension Current Visit: Yes Status: Chronic (4) HTN (hypertension) Current Visit: Yes Status: Chronic Qualifiers: Hypertension type: essential hypertension Qualified Code(s): I10 - Essential (primary) hypertension (5) First degree AV block Current Visit: Yes Status: Chronic (6) History of CVA (cerebrovascular accident) Current Visit: No Status: Resolved Subjective Date of service: 01/13/19 Principal diagnosis: acute on chronic HFpEF, Acute on CKD, Pulm HTN Interval history: No complaint. However, her renal indices are worsening. Objective Vital Signs Last Vital Signs Temp 99.8 F H 01/13/19 05:36 Pulse 65 01/13/19 10:22 Resp 17 01/13/19 08:33 BP 174/57 01/13/19 10:22 Pulse Ox 98 01/13/19 08:33 - Physical Examination General: No Apparent Distress HEENT: Positive: EOMI, Normocephaly, Mucus Membranes Moist Neck: Positive: neck supple, trachea midline, JVD/HJR (elevated) Cardiac: Positive: Reg Rate and Rhythm, S1/S2 Lungs: Positive: clear to auscultation Neuro: Positive: Other (right hemiparesis) Abdomen: Positive: Soft, Active Bowel Sounds. Negative: Tender Skin: Positive: Clear. Negative: Rash Musculoskeletal: Normal Range of Motion Extremities: Present: normal. Absent: edema - Labs and Meds Comprehensive Metabolic Panel 01/13/19 Range/Units 03:48 Sodium 141 (137-145) mmol/L Potassium 3.8 (3.6-5.0) mmol/L Chloride 100.2 (98-107) mmol/L Carbon Dioxide 23 (22-30) mmol/L BUN 48 H (7-17) mg/dL Creatinine 5.8 H (0.7-1.2) mg/dL Glucose 119 H (65-100) mg/dL Calcium 8.3 L (8.4-10.2) mg/dL - Imaging and Cardiology EKG: image reviewed - Telemetry EKG Rhythm: Sinus Rhythm - EKG Sinus rhythms and dysrhythmias: sinus rhythm AV and intraventricular conduction: 1 AV block Myocardial infarction: septal [place] (old age or ind
--- NOTE | 2019-01-13 21:13 | Progress Note ---
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 She denies any chest pain. Patient presents hypoxic with room air saturation of 88% and does not take any home oxygen. Patient states she has a history of "bronchitis in the past". She reports intermittent wheezing at home. She denies fever, leg edema, calf tenderness, history of PE/DVT. In the ER she was placed on supplemental O2, given iv lasix and called for admission for further Mx Echo done 04/2018 showed, EF 60-65%, abnormal diastolic function. Stress MPI done 09/16/15 showed mod. fixed inferior wall defect, small, mild partially reversible septal and lateral wall defects; medical management was recommended. Acute respiratory failure with hypoxia -due to pulmonary edema -cont IV Lasix -02 supplementation as needed and duonebs Acute on chronic diastolic HF with EF of 60-65% -cont off diuretic -not on BB due to bradycardia -echo done in 05/09 showed EF of 60-65% -cardiology consulted and following CKD stage 4 -renal function at baseline -Nephrology consulted Elevated troponin, chronically elevated -no acute chest pain -cardiology consulted Diabetes mellitus type 2 with hypoglycemia -will adjust insulin regimen and monitor BG -on hypoglycemic protocol HTN urgency -cont hydralazine, Amlodipine dose increased -will monitor BP Hypokalemia - corrected - will monitor level HLD -cont statin Anemia of Chronic disease -H/H stable, will monitor Obesity with BMI of 30.5 -lifestyle modification recommended Disp: Improved renal function and Shortness of breath and D/c home thereafter Subjective Date of service: 01/13/19 Principal diagnosis: acute on chronic HFpEF, Acute on CKD, Pulm HTN Interval history: shortness of breath improving Objective - Exam Narrative Exam: Constitutional: Well-nourished well-developed. In no distress Head: Normocephalic atraumatic Eyes: Pupils are equal round and reactive to light Nose: No enlarged turbinates, no septal deviation. Mouth: Moist mucous membranes. Neck: Supple no thyromegaly. No bruit. No JVD Heart: Regular rate and rhythm, S1-S2 normal. No rubs murmurs or gallop Lungs: Decreased breath sounds bilaterally. no rales or rhonchi Abdomen: Soft, nontender. Bowel sound are present. Extremities: No edema, no cyanosis, no clubbing. Neuro: Alert oriented Oriented x3. No focal sensory or motor deficit. Skin: No rashes or hyperpigmented spots Musculoskeletal system: No joint pain or swelling Hematological: No petechia or subcutanous hemorrhages. Immunological: No multiple septic spots on the skin Lymphatic: No generalized lymphadenopathy Psychiatry: Euthymic. Calm. - Constitutional Vitals: Vital Signs - 12hr 01/13/19 01/13/19 01/13/19 09:25 09:35 10:20 Pulse Rate 59 L Pulse Rate [ 70 Posterior Bilateral Throughout] Respiratory 20 Rate [Posterior Bilateral Throughout] Blood Pressure 174/57 O2 Sat by Pulse 0 L 93 Oximetry 01/13/19 01/13/19 01/13/19 10:21 10:22 13:36 Pulse Rate 65 65 88 Pulse Rate [ Posterior Bilateral Throughout] Respiratory Rate [Posterior Bilateral Throughout] Blood Pressure 174/57 174/57 121/66 O2 Sat by Pulse 87 Oximetry 01/13/19 01/13/19 01/13/19 15:30 17:00 19:25 Pulse Rate 67 Pulse Rate [ 78 Posterior Bilateral Throughout] Respiratory 20 Rate [Posterior Bilateral Throughout] Blood Pressure O2 Sat by Pulse 96 Oximetry 01/13/19 19:40 Pulse Rate Pulse Rate [ 85 Posterior Bilateral Throughout] Respiratory 18 Rate [Posterior Bilateral Throughout] Blood Pressure O2 Sat by Pulse Oximetry - Labs CBC & Chem 7: 01/11/19 04:17 01/14/19 07:20 Labs: Abnormal lab results 01/12/19 01/13/19 01/13/19 Range/Units 21:17 03:48 08:15 BUN 48 H (7-17) mg/dL Creatinine 5.8 H (0.7-1.2) mg/dL Glucose 119 H (65-100) mg/dL POC Glucose 156 H 148 H (70-105) Calcium 8.3 L (8.4-10.2) mg/dL 01/13/19 01/13/19 Range/Units 12:00 16:48 BUN (7-17) mg/dL Creatinine (0.7-1.2) mg/dL Glucose (65-100) mg/dL POC Glucose 153 H 213 H (70-105) Calcium (8.4-10.2) mg/dL
[2019-01-13] MEDS ORDERED: ANASTROZOLE 1 MG PO SCH (21:30)
[2019-01-13] MEDS: LISINOPRIL 40 MG TAB PO SCH (22:05)
[2019-01-14] MEDS: ARFORMOTEROL 15 MCG/2 ML NEBU IH SCH ×3 (01:14→21:51)
[2019-01-14] MEDS: BUDESONIDE 0.25 MG/2 ML NEBU IH SCH ×3 (01:14→21:52)
[2019-01-14] MEDS: HEPARIN 5,000 UNIT/1 ML VIAL SUB-Q SCH ×3 (05:45→21:38)
[2019-01-14] MEDS: IPRATROPIUM/ALBUTEROL SULFATE 3 ML AMPUL.NEB IH SCH ×3 (07:35→20:10)
[2019-01-14] MEDS ORDERED: IPRATROPIUM 0.02% NEBU 2.5 ML IH SCH (08:00)
[2019-01-14] MEDS ORDERED: ALBUTEROL 2.5 MG/3 ML NEBU IH SCH (08:00)
[2019-01-14] MEDS: INSULIN REGULAR, HUMAN 100 UNITS/1 ML SUB-Q SCH ×4 (08:00→21:39)
[2019-01-14 08:14] LABS: Calcium 8.1 mg/dL (8.4-10.2)
[2019-01-14] MEDS: SODIUM BICARBONATE 650 MG TAB PO SCH ×3 (08:15→21:38)
[2019-01-14] MEDS: hydrALAZINE 100 MG TAB PO SCH ×2 (08:15→14:52)
[2019-01-14] MEDS: ASPIRIN 81 MG TAB CHEW PO SCH (10:23)
[2019-01-14] MEDS: OMEGA-3 FATTY ACIDS/FISH OIL 1 GRAM CAP PO SCH ×2 (10:23→21:38)
[2019-01-14] MEDS: PANTOPRAZOLE 40 MG TAB PO SCH (10:23)
[2019-01-14] MEDS: LISINOPRIL 40 MG TAB PO SCH (10:24)
[2019-01-14] MEDS: amLODIPine 5 MG TAB PO SCH (10:24)
[2019-01-14] MEDS: DOXAZOSIN 4 MG TAB PO SCH (10:25)
--- NOTE | 2019-01-14 10:36 | Progress Note ---
Assessment and Plan Stable cardiac status. Continue to hold diuretics. - Patient Problems (1) Acute on chronic heart failure with preserved ejection fraction Current Visit: Yes Status: Acute (2) Acute kidney injury superimposed on CKD Current Visit: Yes Status: Acute (3) Moderate to severe pulmonary hypertension Current Visit: Yes Status: Chronic (4) HTN (hypertension) Current Visit: Yes Status: Chronic Qualifiers: Hypertension type: essential hypertension Qualified Code(s): I10 - Essential (primary) hypertension (5) First degree AV block Current Visit: Yes Status: Chronic (6) History of CVA (cerebrovascular accident) Current Visit: No Status: Resolved Subjective Date of service: 01/14/19 Principal diagnosis: Acute on chronic HFpEF, Acute on CKD, Pulm HTN Interval history: No complaint. Objective Vital Signs Temp Pulse Pulse Resp Resp BP Pulse Ox 01/14/19 10:25 74 138/58 01/14/19 10:24 74 138/58 01/14/19 10:00 96 01/14/19 08:00 65 17 18 97 01/14/19 04:44 98.1 F 65 18 121/52 96 01/14/19 01:00 82 01/13/19 23:52 89 123/56 99 01/13/19 23:46 81 78 L 01/13/19 20:00 18 01/13/19 19:40 85 18 01/13/19 19:25 96 01/13/19 17:23 98.0 F 110 H 18 151/48 98 01/13/19 17:00 67 01/13/19 15:30 78 20 01/13/19 13:36 88 121/66 87 - Physical Examination General: No Apparent Distress HEENT: Positive: EOMI, Normocephaly, Mucus Membranes Moist Neck: Positive: neck supple, trachea midline Cardiac: Positive: Reg Rate and Rhythm, irregularly irregular Lungs: Positive: clear to auscultation Neuro: Positive: Other (right hemiparesis) Abdomen: Positive: Soft, Active Bowel Sounds. Negative: Tender Skin: Positive: Clear. Negative: Rash Musculoskeletal: Normal Range of Motion Extremities: Present: normal. Absent: edema - Labs and Meds Comprehensive Metabolic Panel 01/14/19 Range/Units 07:20 Sodium 135 L (137-145) mmol/L Potassium 4.3 (3.6-5.0) mmol/L Chloride 99.2 (98-107) mmol/L Carbon Dioxide 18 L (22-30) mmol/L BUN 57 H (7-17) mg/dL Creatinine 5.6 H (0.7-1.2) mg/dL Glucose 132 H (65-100) mg/dL Calcium 8.1 L (8.4-10.2) mg/dL - Imaging and Cardiology EKG: image reviewed - EKG Sinus rhythms and dysrhythmias: sinus rhythm AV and intraventricular conduction: 1 AV block Myocardial infarction: septal [place] (old age or ind
--- NOTE | 2019-01-14 17:34 | Progress Note ---
Assessment and Plan - Patient Problems (1) Other acute kidney failure Current Visit: Yes Status: Acute Plan to address problem: Acute kidney injury vasomotor nephropathy. Kidney function worsened with diuretics. Now improving off of diuretics. Discussed with the patient about possibly for dialysis. She still refuses dialysis even if it is absolutely indicated. Follow-up electrolytes and renal function. If kidney function continues to improve, would be okay to discharge patient from renal standpoint and schedule follow-up in the clinic (2) CKD (chronic kidney disease) stage 4, GFR 15-29 ml/min Current Visit: No Status: Acute Plan to address problem: Chronic kidney disease presumably secondary to diabetic nephropathy/hypertensive nephrosclerosis. Kidney function is worsening secondary to diuresis. Follow-up electrolytes and renal function (3) Acute on chronic heart failure with preserved ejection fraction Current Visit: No Status: Acute Plan to address problem: Agree with changing to oral diuretics. Reinforce sodium and fluid restriction. Strict intake and output monitoring. Follow-up volume status (4) Anemia in chronic kidney disease Current Visit: Yes Status: Acute Plan to address problem: Follow up hemoglobin. Get iron stores if it drops (5) Metabolic acidosis Current Visit: Yes Status: Acute Plan to address problem: Continue by mouth sodium bicarbonate. Follow bicarbonate level (6) Type 2 diabetes mellitus with diabetic chronic kidney disease Current Visit: No Status: Acute Plan to address problem: Blood sugar management by primary attending. (7) Hypertensive chronic kidney disease with stage 1 through stage 4 chronic kidney disease, or unspecified chronic kidney disease Current Visit: No Status: Chronic Plan to address problem: Follow-up blood pressure on current medications Subjective Date of service: 01/14/19 Principal diagnosis: Acute on chronic HFpEF, Acute on CKD, Pulm HTN Interval history: Patient seen lying in bed. Shortness of breath improved. Feels much better Objective - Exam Narrative Exam: Elderly -[place] female lying in bed in no acute distress HEENT: NCAT, pink oral mucous membrane Neck: Supple, no venous distention CVS: S1S2 RRR with no murmur, rub or gallop Chest: Breath sounds diminished in lower zones but improved air entry Abdomen: Distended, soft, nontender, no organomegaly, bowel sounds are present Extremities: no edema Genitourinary deferred Neuro: Awake, alert no focal deficits - Vital Signs Vital signs: Vital Signs - 12hr 01/14/19 01/14/19 01/14/19 08:00 10:00 10:24 Pulse Rate 74 Pulse Rate [ Anterior Bilateral Throughout] Pulse Rate [ 65 Posterior Bilateral Throughout] Respiratory 17 Rate Respiratory Rate [Anterior Bilateral Throughout] Respiratory 18 Rate [Posterior Bilateral Throughout] Blood Pressure 138/58 O2 Sat by Pulse 97 96 Oximetry 01/14/19 01/14/19 10:25 14:20 Pulse Rate 74 Pulse Rate [ 66 Anterior Bilateral Throughout] Pulse Rate [ 66 Posterior Bilateral Throughout] Respiratory Rate Respiratory 18 Rate [Anterior Bilateral Throughout] Respiratory 18 Rate [Posterior Bilateral Throughout] Blood Pressure 138/58 O2 Sat by Pulse Oximetry - Lab 01/11/19 04:17 01/14/19 07:20 Most recent lab results Calcium 8.1 mg/dL (8.4-10.2) L 01/14/19 07:20 Phosphorus 5.10 mg/dL (2.5-4.5) H 01/11/19 04:17 Magnesium 1.80 mg/dL (1.7-2.3) 01/11/19 04:17 Urine Creatinine 31.9 mg/dL (0.1-20.0) H 01/10/19 21:42 Urine Total Protein 360 mg/dL (5-11.8) H 01/10/19 21:42 Medications & Allergies - Medications Allergies/Adverse Reactions: Allergies No Known Allergies Allergy (Verified 05/02/18 10:53) Home Medications: Home Medications Medication Instructions Recorded Confirmed Last Taken Type Esomeprazole Magnesium [NexIUM] 40 mg PO QDAY 05/01/15 01/10/19 10/06/16 History Rosuvastatin (Nf) [Crestor] 20 mg PO QHS 05/01/15 01/10/19 10/06/16 History Anastrozole 1 mg PO QDAY 01/10/19 01/10/19 Unknown History Calcitriol [Rocaltrol] 0.25 mcg PO 3XW 01/10/19 01/10/19 Unknown History Ergocalciferol [Vitamin D2] 1 cap PO QWEEK 01/10/19 01/10/19 Unknown History Glimepiride [Amaryl] 4 mg PO QAM 01/10/19 01/10/19 Unknown History Lisinopril [Zestril TAB] 40 mg PO QDAY 01/10/19 01/10/19 Unknown History Sodium Bicarbonate 650 mg PO TID 01/10/19 01/10/19 Unknown History Sodium Polystyrene Sulfonate 15 gm PO QDAY 01/10/19 01/10/19 Unknown History Sodium Zirconium Cyclosilicate 10 gm PO QDAY 01/10/19 01/10/19 Unknown History [Lokelma] amLODIPine [Norvasc] 10 mg PO DAILY 01/10/19 01/10/19 Unknown History carvediloL [Coreg] 6.25 mg PO BID 01/10/19 01/10/19 Unknown History carvediloL [Coreg] 12.5 mg PO BID 01/10/19 01/10/19 Unknown History Active Medications: Generic Name Dose Route Start Last Admin Trade Name Freq PRN Reason Stop Dose Admin Albuterol/Ipratropium 1 ampul 01/14/19 08:00 01/14/19 14:18 Duoneb *Not For Prn Use* IH 1 ampul TIDRT [facility] Administration Amlodipine Besylate 5 mg 01/12/19 10:00 01/14/19 10:24 Amlodipine PO 5 mg QDAY [facility] Administration Arformoterol Tartrate 15 mcg 01/13/19 21:15 01/14/19 07:35 Brovana Nebu IH 15 mcg Q12HRT [facility] Administration Aspirin 81 mg 01/11/19 10:00 01/14/19 10:23 Baby Aspirin PO 81 mg QDAY [facility] Administration Atorvastatin Calcium 40 mg 01/10/19 22:00 01/13/19 22:06 Lipitor PO 40 mg QHS [facility] Administration Budesonide 0.5 mg 01/14/19 10:19 Pulmicort IH Q12HRT [facility] Doxazosin Mesylate 4 mg 01/12/19 10:00 01/14/19 10:25 Cardura PO 4 mg QDAY [facility] Administration Ergocalciferol 50,000 unit 01/16/19 10:00 Vitamin D2 PO Tu [facility] Fish Oil 1,000 mg 01/10/19 22:00 01/14/19 10:23 Fish Oil PO 1,000 mg BID [facility] Administration Heparin Sodium (Porcine) 5,000 unit 01/10/19 22:00 01/14/19 14:52 Heparin SUB-Q 5,000 unit Q8HR [facility] Administration Hydralazine HCl 100 mg 01/10/19 20:00 01/14/19 14:52 Apresoline PO 100 mg TID [facility] Administration Insulin Human Regular 0 units 01/10/19 22:00 01/14/19 12:00 Humulin R SUB-Q Not Given ACHS [facility] Protocol Isosorbide Mononitrate 120 mg 01/12/19 10:00 01/14/19 10:24 Imdur PO 120 mg QDAY [facility] Administration Lisinopril 40 mg 01/13/19 22:00 01/14/19 10:24 Zestril PO 40 mg QDAY [facility] Administration Miscellaneous Medication 1 mg 01/11/19 10:00 Anastrozole (Nf) PO DAILY [facility] Nitroglycerin 0.4 mg 01/10/19 16:44 Nitrostat SL .Q5MIN PRN Chest Pain Pantoprazole Sodium 40 mg 01/11/19 10:00 01/14/19 10:23 Protonix PO 40 mg DAILY [facility] Administration Phenol 1 spray 01/12/19 13:41 Chloraseptic MM PRN PRN Sore Throat Sodium Bicarbonate 650 mg 01/14/19 08:00 01/14/19 14:52 Sodium Bicarbonate PO 650 mg TID [facility] Administration Tramadol HCl 50 mg 01/11/19 13:11 Ultram PO Q8H PRN Pain, Moderate (4-6)
--- NOTE | 2019-01-14 21:52 | Progress Note ---
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 She denies any chest pain. Patient presents hypoxic with room air saturation of 88% and does not take any home oxygen. Patient states she has a history of "bronchitis in the past". She reports intermittent wheezing at home. She denies fever, leg edema, calf tenderness, history of PE/DVT. In the ER she was placed on supplemental O2, given iv lasix and called for admission for further Mx Echo done 04/2018 showed, EF 60-65%, abnormal diastolic function. Stress MPI done 09/16/15 showed mod. fixed inferior wall defect, small, mild partially reversible septal and lateral wall defects; medical management was recommended. Acute respiratory failure with hypoxia -due to pulmonary edema -cont IV Lasix -02 supplementation as needed and duonebs Acute on chronic diastolic HF with EF of 60-65% -cont off diuretic -not on BB due to bradycardia -echo done in 05/09 showed EF of 60-65% -cardiology consulted and following CKD stage 4 -renal function at baseline -Nephrology consulted Elevated troponin, chronically elevated -no acute chest pain -cardiology consulted Diabetes mellitus type 2 with hypoglycemia -will adjust insulin regimen and monitor BG -on hypoglycemic protocol HTN urgency controlled -cont hydralazine, Amlodipine dose increased -will monitor BP HLD -cont statin Anemia of Chronic disease -H/H stable, will monitor Obesity with BMI of 30.5 -lifestyle modification recommended CODE STATUS - Patient is full code Disp: Improved renal function and Shortness of breath and D/c home thereafter Subjective Date of service: 01/14/19 Principal diagnosis: acute on chronic HFpEF, Acute on CKD, Pulm HTN Interval history: shortness of breath improving. No chest pain. Objective - Exam Narrative Exam: Constitutional: Well-nourished well-developed. In no distress Head: Normocephalic atraumatic Eyes: Pupils are equal round and reactive to light Nose: No enlarged turbinates, no septal deviation. Mouth: Moist mucous membranes. Neck: Supple no thyromegaly. No bruit. No JVD Heart: Regular rate and rhythm, S1-S2 normal. No rubs murmurs or gallop Lungs: Decreased breath sounds bilaterally. no rales or rhonchi Abdomen: Soft, nontender. Bowel sound are present. Extremities: No edema, no cyanosis, no clubbing. Neuro: Alert oriented Oriented x3. No focal sensory or motor deficit. Skin: No rashes or hyperpigmented spots Musculoskeletal system: No joint pain or swelling Hematological: No petechia or subcutanous hemorrhages. Immunological: No multiple septic spots on the skin Lymphatic: No generalized lymphadenopathy Psychiatry: Euthymic. Calm. - Constitutional Vitals: Vital Signs - 12hr 01/14/19 01/14/19 01/14/19 10:00 10:23 10:24 Temperature Pulse Rate 67 74 Pulse Rate [ Anterior Bilateral Throughout] Pulse Rate [ Posterior Bilateral Throughout] Respiratory Rate Respiratory Rate [Anterior Bilateral Throughout] Respiratory Rate [Posterior Bilateral Throughout] Blood Pressure 138/58 138/58 O2 Sat by Pulse 96 96 Oximetry 01/14/19 01/14/19 01/14/19 10:25 14:20 14:46 Temperature Pulse Rate 74 70 Pulse Rate [ 66 Anterior Bilateral Throughout] Pulse Rate [ 66 Posterior Bilateral Throughout] Respiratory Rate Respiratory 18 Rate [Anterior Bilateral Throughout] Respiratory 18 Rate [Posterior Bilateral Throughout] Blood Pressure 138/58 118/43 O2 Sat by Pulse 99 Oximetry 01/14/19 01/14/19 01/14/19 16:36 17:00 20:12 Temperature Pulse Rate 78 72 Pulse Rate [ 86 Anterior Bilateral Throughout] Pulse Rate [ Posterior Bilateral Throughout] Respiratory Rate Respiratory 20 Rate [Anterior Bilateral Throughout] Respiratory Rate [Posterior Bilateral Throughout] Blood Pressure 122/68 O2 Sat by Pulse 95 Oximetry 01/14/19 01/14/19 20:13 20:16 Temperature 100.2 F H Pulse Rate 81 Pulse Rate [ Anterior Bilateral Throughout] Pulse Rate [ Posterior Bilateral Throughout] Respiratory 20 Rate Respiratory Rate [Anterior Bilateral Throughout] Respiratory Rate [Posterior Bilateral Throughout] Blood Pressure 131/45 O2 Sat by Pulse 95 92 Oximetry - Labs CBC & Chem 7: 01/11/19 04:17 01/14/19 07:20 Labs: Abnormal lab results 01/14/19 01/14/19 01/14/19 Range/Units 07:20 08:11 12:07 Sodium 135 L (137-145) mmol/L Carbon Dioxide 18 L (22-30) mmol/L BUN 57 H (7-17) mg/dL Creatinine 5.6 H (0.7-1.2) mg/dL Glucose 132 H (65-100) mg/dL POC Glucose 138 H 147 H (70-105) Calcium 8.1 L (8.4-10.2) mg/dL 01/14/19 01/14/19 Range/Units 16:57 20:51 Sodium (137-145) mmol/L Carbon Dioxide (22-30) mmol/L BUN (7-17) mg/dL Creatinine (0.7-1.2) mg/dL Glucose (65-100) mg/dL POC Glucose 126 H 178 H (70-105) Calcium (8.4-10.2) mg/dL
[2019-01-15] MEDS: hydrALAZINE 100 MG TAB PO SCH ×2 (00:51→09:47)
[2019-01-15] MEDS: HEPARIN 5,000 UNIT/1 ML VIAL SUB-Q SCH (05:35)
[2019-01-15 08:09] LABS: Calcium 8.2 mg/dL (8.4-10.2)
[2019-01-15] MEDS: INSULIN REGULAR, HUMAN 100 UNITS/1 ML SUB-Q SCH ×2 (08:11→12:41)
[2019-01-15] MEDS: IPRATROPIUM/ALBUTEROL SULFATE 3 ML AMPUL.NEB IH SCH ×2 (08:26→13:03)
[2019-01-15] MEDS: ARFORMOTEROL 15 MCG/2 ML NEBU IH SCH (08:26)
--- NOTE | 2019-01-15 08:38 | Discharge Summary ---
Providers - Providers Date of Admission: 01/10/19 14:43 Date of discharge: 01/15/19 Attending physician: CHRISTOPH COWAN 01/10/19 16:44 Consult to Physician [CONS] Routine Comment: Consulting Provider: VERONICA GUADARRAMA Physician Instructions: Reason For Exam: chf exacerbation 01/10/19 16:48 Consult to Physician [CONS] Routine Comment: Consulting Provider: PAUL GAR Physician Instructions: Reason For Exam: CKD 01/12/19 11:11 Consult to Physician [CONS] Routine Comment: Consulting Provider: CHRISTOPH COWAN Physician Instructions: Reason For Exam: pcp Primary care physician: CHRISTOPH COWAN Hospitalization Reason for admission: COPD, Acute on chronic recpiratory failure, Diastolic heart failure Condition: Stable Pertinent studies: CXR that showed interstitial edema EKG VQ scantha showed low probability for PE Procedures: none Hospital course: 78-year-old female with a past medical history of breast cancer status post mastectomy 2012 currently in remission, diabetes, CHF, and hypertension, CVA in 2012 with residual right sided weakness, CKD and GERD presents to the hospital with complaints of shortness of breath 3-4 days with Occasional cough. She denies any chest pain. Patient presents hypoxic with room air saturation of 88% and does not take any home oxygen. Patient states she has a history of "bronchitis in the past". She reports intermittent wheezing at home. She denies fever, leg edema, calf tenderness, history of PE/DVT. In the ER she was placed on supplemental O2, given iv lasix and called for admission for further Mx Echo done 04/2018 showed, EF 60-65%, abnormal diastolic function. Stress MPI done 09/16/15 showed mod. fixed inferior wall defect, small, mild partially reversible septal and lateral wall defects; medical management was recommended. On admission patient was commenced on diuresis as chest xray showed interstitial edema, also on cardura. Coreg was held as patient had 1st degree AV block. She was also on ASA, statins, bronchodilators and Amlodipine. Creatinine level continued to increase. Nephrology consult was obtained. Hemodialysis was offered. Pt declined Lasix was held. Shortness of breath improved and pt was being discharged to follow up PCP in 3 days. Interface Developer in 4 days and public area supervisor in 7 days. Disposition: - TO HOME OR SELFCARE Time spent for discharge: 35 m in - Discharge Diagnoses (1) Diastolic heart failure Status: Acute (2) Acute kidney injury superimposed on CKD Status: Acute (3) Acute on chronic heart failure with preserved ejection fraction Status: Acute (4) Anemia in chronic kidney disease Status: Acute (5) Metabolic acidosis Status: Acute Core Measure Documentation - Palliative Care Palliative Care/ Comfort Measures: Not Applicable - Core Measures Any of the following diagnoses?: heart failure - Heart Failure Discharge Requirements MINERVA/ARB for LVSD if EF <40%: No Reason for no MINERVA/ARB: Renal impairment Beta manny at discharge: No Reason for no beta manny on DC: Heart block Exam - Physical Exam Narrative exam: Constitutional: Well-nourished well-developed. In no distress Head: Normocephalic atraumatic Eyes: Pupils are equal round and reactive to light Nose: No enlarged turbinates, no septal deviation. Mouth: Moist mucous membranes. Neck: Supple no thyromegaly. No bruit. No JVD Heart: Regular rate and rhythm, S1-S2 normal. No rubs murmurs or gallop Lungs: Decreased breath sounds bilaterally. no rales or rhonchi Abdomen: Soft, nontender. Bowel sound are present. Extremities: No edema, no cyanosis, no clubbing. Neuro: Alert oriented Oriented x3. No focal sensory or motor deficit. Skin: No rashes or hyperpigmented spots Musculoskeletal system: No joint pain or swelling Hematological: No petechia or subcutanous hemorrhages. Immunological: No multiple septic spots on the skin Lymphatic: No generalized lymphadenopathy Psychiatry: Euthymic. Calm. - Constitutional Vitals: Temp Pulse Resp BP Pulse Ox 99.0 F 82 20 157/62 96 01/15/19 07:46 01/15/19 08:00 01/15/19 08:00 01/15/19 07:46 01/15/19 08:31 Plan Activity: fall precautions Weight Bearing Status: Non-Weight Bearing Diet: low cholesterol, low salt, renal Follow up with: CHRISTOPH COWAN MD [Primary Care Provider] - 7 Days Prescriptions: Glimepiride [Amaryl] 4 mg PO QAM #30 amLODIPine 10 mg PO DAILY #30 amLODIPine 5 mg PO QDAY #30 tablet Aspirin [Aspirin BABY CHEW TAB] 81 mg PO QDAY #30 tab.chew Arformoterol Nebu [Brovana Nebu] 15 mcg IH Q12HRT #60 ml Doxazosin [Cardura] 4 mg PO QDAY #30 tablet [place]-3 Fatty Acids/Fish Oil [Fish Oil] 1,000 mg PO BID #60 capsule ISOSORBIDE MONOnitrate [Imdur ER] 120 mg PO QDAY #30 tablet AtorvaSTATin [Lipitor] 40 mg PO QHS #30 tablet Pantoprazole [Protonix TAB] 40 mg PO DAILY #30 tablet Budesonide [Pulmicort Respules] 0.5 mg IH Q12HRT #60 nebu Sodium Bicarbonate 650 mg PO TID #90 tablet traMADoL [Ultram 50 MG tab] 50 mg PO Q12H PRN #8 tablet PRN Reason: Pain, Moderate (4-6) Ergocalciferol [Vitamin D2] 1 cap PO QWEEK #13 cap Lisinopril [Zestril TAB] 40 mg PO QDAY #30
[2019-01-15] MEDS: ASPIRIN 81 MG TAB CHEW PO SCH (09:46)
[2019-01-15] MEDS: PANTOPRAZOLE 40 MG TAB PO SCH (09:46)
[2019-01-15] MEDS: LISINOPRIL 40 MG TAB PO SCH (09:47)
[2019-01-15] MEDS: amLODIPine 5 MG TAB PO SCH (09:47)
[2019-01-15] MEDS: DOXAZOSIN 4 MG TAB PO SCH (09:47)
[2019-01-15] MEDS: OMEGA-3 FATTY ACIDS/FISH OIL 1 GRAM CAP PO SCH (09:47)
[2019-01-15] MEDS: SODIUM BICARBONATE 650 MG TAB PO SCH (09:49)
--- NOTE | 2019-01-15 10:45 | Progress Note ---
Assessment and Plan - Patient Problems (1) Acute kidney injury superimposed on CKD Current Visit: Yes Status: Acute Plan to address problem: Acute kidney injury vasomotor nephropathy. Kidney function worsened with diuretics. Now improving off of diuretics. Discussed with the patient about possibly for dialysis. She still refuses dialysis even if it is absolutely indicated. Follow-up electrolytes and renal function. If kidney function continues to improve, would be okay to discharge patient from renal standpoint and schedule follow-up in the clinic (2) CKD (chronic kidney disease) stage 4, GFR 15-29 ml/min Current Visit: No Status: Acute Plan to address problem: Chronic kidney disease presumably secondary to diabetic nephropathy/hypertensive nephrosclerosis. Kidney function is worsening secondary to diuresis. Follow-up electrolytes and renal function (3) Acute on chronic heart failure with preserved ejection fraction Current Visit: Yes Status: Acute Plan to address problem: change to oral diuretics. Reinforce sodium and fluid restriction. Strict intake and output monitoring. Follow-up volume status (4) Anemia in chronic kidney disease Current Visit: Yes Status: Acute Plan to address problem: Follow up hemoglobin. Get iron stores if it drops (5) Metabolic acidosis Current Visit: Yes Status: Acute Plan to address problem: Continue by mouth sodium bicarbonate. Follow bicarbonate level (6) Type 2 diabetes mellitus Current Visit: No Status: Chronic Qualifiers: Chronic kidney disease stage: stage 4 (severe) Plan to address problem: Blood sugar management by primary attending. (7) Hypertensive chronic kidney disease with stage 1 through stage 4 chronic kidney disease, or unspecified chronic kidney disease Current Visit: No Status: Chronic Plan to address problem: Follow-up blood pressure on current medications Subjective Date of service: 01/15/19 Principal diagnosis: acute on chronic HFpEF, Acute on CKD, Pulm HTN Interval history: pt awake, alert, denies fever, chills, n/v/d, in no acute respiratory distress Objective - Vital Signs Vital signs: Vital Signs - 12hr 01/15/19 01/15/19 01/15/19 01:00 01:06 04:33 Temperature 99.2 F 99.9 F H Pulse Rate 76 91 H 69 Pulse Rate [ Anterior Bilateral Throughout] Pulse Rate [ Posterior Bilateral Throughout] Respiratory 20 24 Rate Respiratory Rate [Anterior Bilateral Throughout] Respiratory Rate [Posterior Bilateral Throughout] Blood Pressure 142/59 Blood Pressure 112/60 [Right] O2 Sat by Pulse 93 96 Oximetry 01/15/19 01/15/19 01/15/19 07:46 08:00 08:31 Temperature 99.0 F Pulse Rate 69 Pulse Rate [ 82 Anterior Bilateral Throughout] Pulse Rate [ 62 Posterior Bilateral Throughout] Respiratory 18 Rate Respiratory 20 Rate [Anterior Bilateral Throughout] Respiratory 18 Rate [Posterior Bilateral Throughout] Blood Pressure 157/62 Blood Pressure [Right] O2 Sat by Pulse 99 96 Oximetry - General Appearance General appearance: well-developed, well-nourished, appears stated age, obese EENT: ATNC, PERRL, mucous membranes moist Respiratory: Present: Decreased Breath Sounds Cardiology: regular, S1S2 Gastrointestinal: normoactive bowel sounds, obese Integumentary: no rash Neurologic: no focal deficit, alert and oriented x3, strength 5/5, CN 3-12 intact - Lab 01/11/19 04:17 01/15/19 06:34 Most recent lab results Calcium 8.2 mg/dL (8.4-10.2) L 01/15/19 06:34 Phosphorus 5.10 mg/dL (2.5-4.5) H 01/11/19 04:17 Magnesium 1.80 mg/dL (1.7-2.3) 01/11/19 04:17 Urine Creatinine 31.9 mg/dL (0.1-20.0) H 01/10/19 21:42 Urine Total Protein 360 mg/dL (5-11.8) H 01/10/19 21:42 Medications & Allergies - Medications Allergies/Adverse Reactions: Allergies No Known Allergies Allergy (Verified 05/02/18 10:53) Home Medications: Home Medications Medication Instructions Recorded Confirmed Last Taken Type Anastrozole 1 mg PO QDAY 01/10/19 01/10/19 Unknown History Calcitriol [Rocaltrol] 0.25 mcg PO 3XW 01/10/19 01/10/19 Unknown History Anastrozole (Nf) 1 mg PO DAILY 01/15/19 Unknown Rx Arformoterol Nebu [Brovana Nebu] 15 mcg IH Q12HRT #60 ml 01/15/19 Unknown Rx Aspirin [Aspirin BABY CHEW TAB] 81 mg PO QDAY #30 tab.chew 01/15/19 Unknown Rx AtorvaSTATin [Lipitor] 40 mg PO QHS #30 tablet 01/15/19 Unknown Rx Budesonide [Pulmicort Respules] 0.5 mg IH Q12HRT #60 nebu 01/15/19 Unknown Rx Doxazosin [Cardura] 4 mg PO QDAY #30 tablet 01/15/19 Unknown Rx Ergocalciferol [Vitamin D2] 1 cap PO QWEEK #13 cap 01/15/19 Unknown Rx Glimepiride [Amaryl] 4 mg PO QAM #30 01/15/19 Unknown Rx ISOSORBIDE MONOnitrate [Imdur ER] 120 mg PO QDAY #30 tablet 01/15/19 Unknown Rx Ipratropium/Albuterol Sulfate 1 ampul IH TIDRT ampul.neb 01/15/19 Unknown Rx [DUONEB *Not for PRN Use*] Lisinopril [Zestril TAB] 40 mg PO QDAY #30 01/15/19 Unknown Rx Zephyr-3 Fatty Acids/Fish Oil [Fish 1,000 mg PO BID #60 capsule 01/15/19 Unknown Rx Oil] Pantoprazole [Protonix TAB] 40 mg PO DAILY #30 tablet 01/15/19 Unknown Rx Sodium Bicarbonate 650 mg PO TID #90 tablet 01/15/19 Unknown Rx amLODIPine 5 mg PO QDAY #30 tablet 01/15/19 Unknown Rx amLODIPine 10 mg PO DAILY #30 01/15/19 Unknown Rx traMADoL [Ultram 50 MG tab] 50 mg PO Q12H PRN #8 tablet 01/15/19 Unknown Rx Active Medications: Generic Name Dose Route Start Last Admin Trade Name Freq PRN Reason Stop Dose Admin Albuterol/Ipratropium 1 ampul 01/14/19 08:00 01/15/19 08:26 Duoneb *Not For Prn Use* IH 1 ampul TIDRT VALERY Administration Amlodipine Besylate 5 mg 01/12/19 10:00 01/15/19 09:47 Amlodipine PO 5 mg QDAY VALERY Administration Arformoterol Tartrate 15 mcg 01/13/19 21:15 01/15/19 08:26 Adeola Newman IH 15 mcg Q12HRT VALERY Administration Aspirin 81 mg 01/11/19 10:00 01/15/19 09:46 Baby Aspirin PO 81 mg QDAY VALERY Administration Atorvastatin Calcium 40 mg 01/10/19 22:00 01/14/19 21:38 Lipitor PO 40 mg QHS VALERY Administration Budesonide 0.5 mg 01/14/19 10:19 01/14/19 21:52 Pulmicort IH Not Given Q12HRT [facility] Doxazosin Mesylate 4 mg 01/12/19 10:00 01/15/19 09:47 Cardura PO 4 mg QDAY [facility] Administration Ergocalciferol 50,000 unit 01/16/19 10:00 Vitamin D2 PO Tu [facility] Fish Oil 1,000 mg 01/10/19 22:00 01/15/19 09:47 Fish Oil PO 1,000 mg BID [facility] Administration Heparin Sodium (Porcine) 5,000 unit 01/10/19 22:00 01/15/19 05:35 Heparin SUB-Q 5,000 unit Q8HR [facility] Administration Hydralazine HCl 100 mg 01/10/19 20:00 01/15/19 09:47 Apresoline PO 100 mg TID [facility] Administration Insulin Human Regular 0 units 01/10/19 22:00 01/15/19 08:11 Humulin R SUB-Q Not Given ACHS [facility] Protocol Isosorbide Mononitrate 120 mg 01/12/19 10:00 01/15/19 09:47 Imdur PO 120 mg QDAY [facility] Administration Lisinopril 40 mg 01/13/19 22:00 01/15/19 09:47 Zestril PO 40 mg QDAY [facility] Administration Miscellaneous Medication 1 mg 01/11/19 10:00 Anastrozole (Nf) PO DAILY [facility] Nitroglycerin 0.4 mg 01/10/19 16:44 Nitrostat SL .Q5MIN PRN Chest Pain Pantoprazole Sodium 40 mg 01/11/19 10:00 01/15/19 09:46 Protonix PO 40 mg DAILY [facility] Administration Phenol 1 spray 01/12/19 13:41 Chloraseptic MM PRN PRN Sore Throat Sodium Bicarbonate 650 mg 01/14/19 08:00 01/15/19 09:49 Sodium Bicarbonate PO Not Given TID [facility] Tramadol HCl 50 mg 01/11/19 13:11 Ultram PO Q8H PRN Pain, Moderate (4-6)
--- NOTE | 2019-01-15 12:52 | Progress Note ---
Assessment and Plan Currently stable cardiac status. Pt appears to be nearing/at euvolemia. Diuretics held in setting of worsening renal insufficiency. Pt is currently declining dialysis if it were necessary. Nephrology is following. Nothing further to add from cardiac perspective at this time. Will sign off. Recommend follow up in our office with Dr. Goodrich within 3-5 days of discharge ([phone]). The patient has been seen in conjunction with Dr. Aguilar who agrees with the assessment and plan of care. - Patient Problems (1) Acute on chronic heart failure with preserved ejection fraction Current Visit: Yes Status: Acute (2) CKD (chronic kidney disease) Current Visit: Yes Status: Chronic Qualifiers: Chronic kidney disease stage: stage 4 (severe) Qualified Code(s): N18.4 - Chronic kidney disease, stage 4 (severe) (3) HTN (hypertension) Current Visit: Yes Status: Chronic Qualifiers: Hypertension type: essential hypertension Qualified Code(s): I10 - Essential (primary) hypertension (4) Moderate to severe pulmonary hypertension Current Visit: Yes Status: Chronic (5) First degree AV block Current Visit: Yes Status: Chronic (6) History of CVA (cerebrovascular accident) Current Visit: No Status: Resolved Subjective Date of service: 01/15/19 Principal diagnosis: acute on chronic HFpEF, Acute on CKD, Pulm HTN Interval history: pt resting in bed, no current cardiac complaints. tele reviewed - in SR with 1st degree AV block with freq PACs, HR 60s - 70s. Objective Last Vital Signs Temp 99.0 F 01/15/19 07:46 Pulse 82 01/15/19 08:00 Resp 20 01/15/19 08:00 BP 157/62 01/15/19 07:46 Pulse Ox 96 01/15/19 08:31 - Physical Examination General: No Apparent Distress HEENT: Positive: EOMI, Normocephaly, Mucus Membranes Moist Neck: Positive: neck supple, trachea midline Cardiac: Positive: Reg Rate and Rhythm, S1/S2 Lungs: Positive: Decreased Breath Sounds Neuro: Positive: Other (right hemiparesis) Abdomen: Positive: Soft, Active Bowel Sounds. Negative: Tender Skin: Positive: Clear. Negative: Rash Musculoskeletal: Normal Range of Motion Extremities: Present: normal. Absent: edema - Labs and Meds Comprehensive Metabolic Panel 11/25/19 Range/Units 06:34 Sodium 137 (137-145) mmol/L Potassium 4.6 (3.6-5.0) mmol/L Chloride 98.9 (98-107) mmol/L Carbon Dioxide 19 L (22-30) mmol/L BUN 66 H (7-17) mg/dL Creatinine 5.9 H (0.7-1.2) mg/dL Glucose 113 H (65-100) mg/dL Calcium 8.2 L (8.4-10.2) mg/dL - Imaging and Cardiology EKG: image reviewed - Telemetry EKG Rhythm: Sinus Rhythm - EKG Sinus rhythms and dysrhythmias: sinus rhythm AV and intraventricular conduction: 1 AV block Myocardial infarction: septal OK (old age or ind
[2019-01-15 13:49] VITALS: BP 119/50
[2019-01-15] MEDS: BUDESONIDE 0.25 MG/2 ML NEBU IH SCH (18:52)
[2019-01-15] MEDS ORDERED: BUDESONIDE 0.5 MG/2 ML NEBU IH SCH (20:00)
[2019-01-16] MEDS ORDERED: ERGOCALCIFEROL (VIT D2) 50,000 UNIT CAP PO SCH (10:00)
== END 2019-01-15 15:04 | disposition home or self-care (01) | DRG 291 ==
LOC: ED 09:45 → 4A 14:43
PROVIDERS: ADMIT Internal Medicine; ATTEND Family Medicine
PROC: 4A033R1 Measurement of Arterial Saturation, Peripheral, Percutaneous Approach (ICD-10-PCS; principal; 2019-01-10)
DX: I13.0 Hypertensive heart and chronic kidney disease with heart failure and stage 1 through stage 4 chronic kidney disease, or unspecified chronic kidney disease (principal); J96.01 Acute respiratory failure with hypoxia; I50.33 Acute on chronic diastolic (congestive) heart failure; N18.4 Chronic kidney disease, stage 4 (severe); E87.2 Acidosis; I69.351 Hemiplegia and hemiparesis following cerebral infarction affecting right dominant side; N17.8 Other acute kidney failure; E11.649 Type 2 diabetes mellitus with hypoglycemia without coma; D63.1 Anemia in chronic kidney disease; I27.20 Pulmonary hypertension, unspecified; I44.0 Atrioventricular block, first degree; I16.0 Hypertensive urgency; K21.9 Gastro-esophageal reflux disease without esophagitis; E78.5 Hyperlipidemia, unspecified; E87.6 Hypokalemia; D64.9 Anemia, unspecified; E66.9 Obesity, unspecified; Z68.30 Body mass index [BMI] 30.0-30.9, adult; Z71.3 Dietary counseling and surveillance; Z85.3 Personal history of malignant neoplasm of breast; Z82.49 Family history of ischemic heart disease and other diseases of the circulatory system; Z82.3 Family history of stroke; Z90.12 Acquired absence of left breast and nipple; Z86.711 Personal history of pulmonary embolism; Z86.718 Personal history of other venous thrombosis and embolism; Z87.891 Personal history of nicotine dependence; Z79.82 Long term (current) use of aspirin; Z79.899 Other long term (current) drug therapy; I25.2 Old myocardial infarction; Z79.84 Long term (current) use of oral hypoglycemic drugs
CPT/HCPCS: 36415; 71046; 78582; 80048; 80053; 80061; 81001; 82570; 82803; 82962; 83735; 83880; 84100; 84156; 84484; 85025; 85027; 85610; 85730; 87116; 93005; 93010; 94640; 94644; 94760; 96360; G0378; A9270-GY; A9540; A9558; J0360; J1644; J1940

== ENCOUNTER 2020-06-30 09:16 | Inpatient (IN) | payer MEDICARE ==
--- NOTE | 2020-06-30 11:02 | XRay Report ---
XR chest 1V ap INDICATION / CLINICAL INFORMATION: SOB. COMPARISON: 01/10/2019 FINDINGS: SUPPORT DEVICES: Unchanged. HEART / MEDIASTINUM: Prominent but unchanged. LUNGS / PLEURA: Peribronchial and interlobular septal thickening. No pneumothorax. Costophrenic sulci are sharp. ADDITIONAL FINDINGS: No significant additional findings. IMPRESSION: 1. Cardiomegaly with interstitial edema. Signer Name: Chris Pennington MD Signed: 06/30/2020 10:57 AM Workstation Name: [id number]
--- NOTE | 2020-06-30 11:05 | Emergency Department Report ---
HPI - General Chief Complaint: Dyspnea/Respdistress Time Seen by Provider: 06/30/20 10:21 - HPI HPI: This is an 80-year-old -[place] female presents to the emergency department via EMS from home with a complaint of a 1 month history of shortness of breath that worsens with exertion. It is associated with some lower extremity swelling and an occasional cough. The patient says that she came in to be seen today because she had "had enough." She has a past medical history of CHF, diabetes, GERD, coronary artery disease, hypertension and remote breast cancer. Her primary care physician is Dr. Brooke. No recent travel or sick contacts at home. She denies any fever, chest pain, nausea, vomiting, diaphoresis, back pain. She has been using her home medications, including nebulizer treatments, without any relief. ED Past Medical Hx - Past Medical History Previous Medical History?: Yes Hx Hypertension: Yes Hx Heart Attack/AMI: Yes (? GA PER PT 2012) Hx Congestive Heart Failure: Yes Hx Diabetes: Yes Hx GERD: Yes Hx Arthritis: Yes (KNEES) Hx HIV: No Additional medical history: Breast CA - Surgical History Past Surgical History?: Yes Additional Surgical History: left mastectomy - Social History Smoking Status: Unknown if ever smoked Substance Use Type: None - Medications Home Medications: Home Medications Medication Instructions Recorded Confirmed Last Taken Type Anastrozole 1 mg PO QDAY 01/10/19 01/10/19 Unknown History calcitrioL [Rocaltrol] 0.25 mcg PO 3XW 01/10/19 01/10/19 Unknown History Anastrozole (Nf) 1 mg PO DAILY 01/15/19 Unknown Rx Arformoterol Nebu [Brovana Nebu] 15 mcg IH Q12HRT #60 ml 01/15/19 Unknown Rx Aspirin [Aspirin BABY CHEW TAB] 81 mg PO QDAY #30 tab.chew 01/15/19 Unknown Rx AtorvaSTATin [Lipitor] 40 mg PO QHS #30 tablet 01/15/19 Unknown Rx Budesonide [Pulmicort Respules] 0.5 mg IH Q12HRT #60 nebu 01/15/19 Unknown Rx Doxazosin [Cardura] 4 mg PO QDAY #30 tablet 01/15/19 Unknown Rx Ergocalciferol [Vitamin D2] 1 cap PO QWEEK #13 cap 01/15/19 Unknown Rx Glimepiride [Amaryl] 4 mg PO QAM #30 01/15/19 Unknown Rx ISOSORBIDE MONOnitrate [Imdur ER] 120 mg PO QDAY #30 tablet 01/15/19 Unknown Rx Ipratropium/Albuterol Sulfate 1 ampul IH TIDRT ampul.neb 01/15/19 Unknown Rx [DUONEB *Not for PRN Use*] [place]-3 Fatty Acids/Fish Oil [Fish 1,000 mg PO BID #60 capsule 01/15/19 Unknown Rx Oil] Pantoprazole [Protonix TAB] 40 mg PO DAILY #30 tablet 01/15/19 Unknown Rx Sodium Bicarbonate 650 mg PO TID #90 tablet 01/15/19 Unknown Rx amLODIPine 5 mg PO QDAY #30 tablet 01/15/19 Unknown Rx amLODIPine 10 mg PO DAILY #30 01/15/19 Unknown Rx lisinopriL [Zestril TAB] 40 mg PO QDAY #30 01/15/19 Unknown Rx traMADoL [Ultram 50 MG tab] 50 mg PO Q12H PRN #8 tablet 01/15/19 Unknown Rx ED Review of Systems ROS: Stated complaint: SOB Other details as noted in HPI Comment: All other systems reviewed and negative Constitutional: denies: chills, fever Eyes: denies: eye pain, vision change ENT: denies: ear pain Respiratory: cough, shortness of breath, SOB with exertion Cardiovascular: edema. denies: chest pain, palpitations Gastrointestinal: denies: abdominal pain, vomiting Genitourinary: denies: dysuria, discharge Musculoskeletal: denies: back pain, arthralgia Skin: denies: rash, lesions Neurological: denies: headache, weakness Physical Exam - Physical Exam Vital Signs: Vital Signs 06/30/20 06/30/20 06/30/20 09:37 10:08 10:15 Temperature 98.4 F Pulse Rate 63 68 64 Respiratory 20 15 20 Rate Blood Pressure 172/75 Blood Pressure 176/93 [Right] O2 Sat by Pulse 92 83 L 100 Oximetry 06/30/20 10:23 Temperature Pulse Rate Respiratory 22 Rate Blood Pressure Blood Pressure [Right] O2 Sat by Pulse 100 Oximetry Physical Exam: GENERAL: The patient is well-developed well-nourished. HENT: Normocephalic. Atraumatic. Patient has moist mucous membranes. EYES: Extraocular motions are intact. NECK: Supple. Trachea is midline. CHEST/LUNGS: Coarse breath sound throughout the chest. There is some tachypnea but no accessory muscle use. HEART/CARDIOVASCULAR: Regular. There is no tachycardia. There is no murmur. ABDOMEN: Abdomen is soft, nontender. Patient has normal bowel sounds. There is no abdominal distention. SKIN: Skin is warm and dry. 1-2+ pitting edema to the bilateral lower extremities. NEURO: The patient is awake, alert, and oriented. The patient is cooperative. The patient has no focal neurologic deficits. Normal speech. MUSCULOSKELETAL: There is no tenderness or deformity. There is no limitation range of motion. ED Course Vital Signs 06/30/20 06/30/20 06/30/20 09:37 10:08 10:15 Temperature 98.4 F Pulse Rate 63 68 64 Respiratory 20 15 20 Rate Blood Pressure 172/75 Blood Pressure 176/93 [Right] O2 Sat by Pulse 92 83 L 100 Oximetry 06/30/20 10:23 Temperature Pulse Rate Respiratory 22 Rate Blood Pressure Blood Pressure [Right] O2 Sat by Pulse 100 Oximetry - ABG Interpretation Ph: 7.335 PCO2: 35 Interpretation: other (ABG oxygen saturation of 86% showing hypoxemia) ED Medical Decision Making - Lab Data Result diagrams: 06/30/20 10:34 06/30/20 10:34 Lab Results 06/30/20 06/30/20 06/30/20 Range/Units 10:34 10:34 10:34 WBC 5.3 (4.5-11.0) K/mm3 RBC 2.82 L (3.65-5.03) M/mm3 Hgb 8.7 L (10.1-14.3) gm/dl Hct 27.2 L (30.3-42.9) % MCV 97 (79-97) fl MCH 31 (28-32) pg MCHC 32 (30-34) % RDW 16.7 H (13.2-15.2) % Plt Count 220 (140-440) K/mm3 Lymph % (Auto) 13.4 (13.4-35.0) % [place] % (Auto) 8.8 H (0.0-7.3) % Eos % (Auto) 1.1 (0.0-4.3) % Baso % (Auto) 0.4 (0.0-1.8) % Lymph # (Auto) 0.7 L (1.2-5.4) K/mm3 [place] # (Auto) 0.5 (0.0-0.8) K/mm3 Eos # (Auto) 0.1 (0.0-0.4) K/mm3 Baso # (Auto) 0.0 (0.0-0.1) K/mm3 Seg Neutrophils % 76.3 H (40.0-70.0) % Seg Neutrophils # 4.1 (1.8-7.7) K/mm3 D-Dimer 2707.17 H (0-234) ng/mlDDU ABG pH (7.320-7.450) POC ABG pCO2 (32.0-48.0) mmHg ABG O2 Saturation (0-100) ABG Hemoglobin (12.0-17.5) ABG Oxyhemoglobin (94-98) ABG Methemoglobin (0.0-1.5) ABG Sodium (136.0-145.0) mmol/L ABG Potassium (3.40-4.50) mmol/L ABG Chloride (98-107) mmol/L ABG Glucose (65-95) mg/dL ABG Lactate (0.18-30.0) Carboxyhemoglobin (0.5-1.5) FiO2 % Sodium 141 (137-145) mmol/L Potassium 4.4 (3.6-5.0) mmol/L Chloride 105.7 (98-107) mmol/L Carbon Dioxide 18 L (22-30) mmol/L Anion Gap 22 mmol/L BUN 61 H (7-17) mg/dL Creatinine 6.7 H (0.6-1.2) mg/dL Estimated GFR 7 ml/min BUN/Creatinine Ratio 9 % Glucose 90 (65-100) mg/dL Calcium 7.5 L (8.4-10.2) mg/dL Total Bilirubin 0.20 (0.1-1.2) mg/dL AST 16 (5-40) units/L ALT 9 (7-56) units/L Alkaline Phosphatase 69 (35-129) units/L Troponin T (0.00-0.029) ng/mL NT-Pro-B Natriuret Pep (0-900) pg/mL Total Protein 6.3 (6.3-8.2) g/dL Albumin 3.8 L (3.9-5) g/dL Albumin/Globulin Ratio 1.5 % Triglycerides (2-149) mg/dL Cholesterol (50-199) mg/dL LDL Cholesterol Direct (50-130) mg/dL HDL Cholesterol (40-59) mg/dL Cholesterol/HDL Ratio % Arterial Blood Glucose (65-95) mg/dL 06/30/20 06/30/20 Range/Units 10:34 10:56 WBC (4.5-11.0) K/mm3 RBC (3.65-5.03) M/mm3 Hgb (10.1-14.3) gm/dl Hct (30.3-42.9) % MCV (79-97) fl MCH (28-32) pg MCHC (30-34) % RDW (13.2-15.2) % Plt Count (140-440) K/mm3 Lymph % (Auto) (13.4-35.0) % [place] % (Auto) (0.0-7.3) % Eos % (Auto) (0.0-4.3) % Baso % (Auto) (0.0-1.8) % Lymph # (Auto) (1.2-5.4) K/mm3 [place] # (Auto) (0.0-0.8) K/mm3 Eos # (Auto) (0.0-0.4) K/mm3 Baso # (Auto) (0.0-0.1) K/mm3 Seg Neutrophils % (40.0-70.0) % Seg Neutrophils # (1.8-7.7) K/mm3 D-Dimer (0-234) ng/mlDDU ABG pH 7.335 (7.320-7.450) POC ABG pCO2 35.0 (32.0-48.0) mmHg ABG O2 Saturation 85.1 (0-100) ABG Hemoglobin 9.6 L (12.0-17.5) ABG Oxyhemoglobin 84.2 L (94-98) ABG Methemoglobin 0.3 (0.0-1.5) ABG Sodium 138.0 (136.0-145.0) mmol/L ABG Potassium 4.4 (3.40-4.50) mmol/L ABG Chloride 108.0 H (98-107) mmol/L ABG Glucose 98 H (65-95) mg/dL ABG Lactate 1.22 (0.18-30.0) Carboxyhemoglobin 0.7 (0.5-1.5) FiO2 % 21.0 Sodium (137-145) mmol/L Potassium (3.6-5.0) mmol/L Chloride (98-107) mmol/L Carbon Dioxide (22-30) mmol/L Anion Gap mmol/L BUN (7-17) mg/dL Creatinine (0.6-1.2) mg/dL Estimated GFR ml/min BUN/Creatinine Ratio % Glucose (65-100) mg/dL Calcium (8.4-10.2) mg/dL Total Bilirubin (0.1-1.2) mg/dL AST (5-40) units/L ALT (7-56) units/L Alkaline Phosphatase (35-129) units/L Troponin T 0.159 H* (0.00-0.029) ng/mL NT-Pro-B Natriuret Pep 92675 H (0-900) pg/mL Total Protein (6.3-8.2) g/dL Albumin (3.9-5) g/dL Albumin/Globulin Ratio % Triglycerides 104 (2-149) mg/dL Cholesterol 73 (50-199) mg/dL LDL Cholesterol Direct 31 L (50-130) mg/dL HDL Cholesterol 26 L (40-59) mg/dL Cholesterol/HDL Ratio 2.80 % Arterial Blood Glucose 98 H (65-95) mg/dL - EKG Data -: EKG Interpreted by Me EKG shows normal: sinus rhythm, axis (Left axis deviation), intervals (Prolonged MA interval), QRS complexes (Q waves to the septal leads, LVH), ST-T waves Rate: normal - EKG Data When compared to previous EKG there are: no significant change Interpretation: unchanged when compared t (01/10/19) - Radiology Data Radiology results: report reviewed, image reviewed interpreted by me: Chest x-ray shows some pulmonary vascular congestion and cardiomegaly. No obvious pneumonia. No pneumothorax. NUCLEAR MEDICINE PERFUSION LUNG SCAN INDICATION: SOB, elevated dimer. TECHNIQUE: 5.4 mCi of Tc-99m MAA were given by IV. COMPARISON: Chest radiograph dated 06/30/2020. FINDINGS: PERFUSION: No significant perfusion defects. ADDITIONAL FI NDINGS: None. IMPRESSION: 1. Low probability for pulmonary embolism. - Medical Decision Making This patient presents to the emergency department with a complaint of a 1 month history of progressively worsening shortness of breath. She also appears to have bilateral lower extremity pitting edema. Chest x-ray shows pulmonary vascular congestion and cardiomegaly. The patient's labs have multiple abnormalities. She has anemia of chronic kidney disease. Patient has significant renal insufficiency with a GFR of 7. This does appear consistent with previous visits but the patient is not dialysis dependent. She has coarse breath sounds and with the chest x-ray appearance, as well as a BNP of 17,000, the patient appears to have a CHF exacerbation. Patient has an elevated troponin level of 0.15. She has no complaints of any chest pain. EKG does not have any morphology consistent with ST elevation myocardial infarction. The elevation may be secondary to her renal failure, but this level will be trended. The patient has a D-dimer level that is greater than 2000. For this reason she had a VQ scan that was negative for pulmonary embolism. The patient will be admitted to the hospital for further evaluation and treatment and was accepted for admission by the hospitalist, Dr. Ferreira. Critical Care Time: No Critical care attestation.: If time is entered above; I have spent that time in minutes in the direct care of this critically ill patient, excluding procedure time. ED Disposition Clinical Impression: ESRD (end stage renal disease), Hypoxemia Hypertension Qualifiers: Hypertension type: essential hypertension Qualified Code(s): I10 - Essential (primary) hypertension CHF exacerbation Qualifiers: Heart failure type: unspecified Qualified Code(s): I50.9 - Heart failure, unspecified Anemia Qualifiers: Anemia type: unspecified type Qualified Code(s): D64.9 - Anemia, unspecified Disposition: OP ADMIT IP TO THIS HOSP Is pt being admited?: Yes Condition: Serious Time of Disposition: 12:56
[2020-06-30 11:26] LABS: Basophils % (Auto) 0.4 % (0.0-1.8); Eosinophils # (Auto) 0.1 K/mm3 (0.0-0.4); Eosinophils % (Auto) 1.1 % (0.0-4.3); Hematocrit 27.2 % (30.3-42.9); Hemoglobin 8.7 gm/dl (10.1-14.3); Lymphocytes # (Auto) 0.7 K/mm3 (1.2-5.4); Lymphocytes % (Auto) 13.4 % (13.4-35.0); Mean Corpuscular HGB Conc 32 % (30-34); Mean Corpuscular Volume 97 fl (79-97); Monocytes # (Auto) 0.5 K/mm3 (0.0-0.8); Monocytes % (Auto) 8.8 % (0.0-7.3); Platelet Count 220 K/mm3 (140-440); Red Blood Count 2.82 M/mm3 (3.65-5.03); Red Cell Distribution Width 16.7 % (13.2-15.2)
[2020-06-30 11:58] LABS: Albumin 3.8 g/dL (3.9-5); Calcium 7.5 mg/dL (8.4-10.2)
[2020-06-30 12:41] LABS: Chol/HDL Ratio 2.8 %
--- NOTE | 2020-06-30 13:45 | Nuclear Medicine Report ---
NUCLEAR MEDICINE PERFUSION LUNG SCAN INDICATION: SOB, elevated dimer. TECHNIQUE: 5.4 mCi of Tc-99m MAA were given by IV. COMPARISON: Chest radiograph dated 06/30/2020. FINDINGS: PERFUSION: No significant perfusion defects. ADDITIONAL FINDINGS: None. IMPRESSION: 1. Low probability for pulmonary embolism. Signer Name: Enio Hobbs MD Signed: 06/30/2020 1:40 PM Workstation Name: [id number]
[2020-06-30] MEDS ORDERED: traMADol 50 MG TAB PO PRN (22:40)
[2020-06-30] MEDS ORDERED: METOCLOPRAMIDE 10 MG/2 ML INJ IV PRN ×2 (22:46→23:18)
[2020-06-30] MEDS ORDERED: ACETAMINOPHEN 325 MG TAB PO PRN (22:46)
[2020-06-30] MEDS ORDERED: MORPHINE 2 MG/1 ML INJ IV PRN (22:46)
[2020-06-30] MEDS ORDERED: oxyCODONE /ACETAMINOPHEN 5-325MG TAB PO PRN (22:46)
[2020-06-30] MEDS ORDERED: ONDANSETRON 4 MG/2 ML INJ IV PRN (22:46)
[2020-06-30] MEDS ORDERED: IPRATROPIUM/ALBUTEROL SULFATE 3 ML AMPUL.NEB IH PRN (23:03)
[2020-06-30] MEDS ORDERED: ALBUTEROL 2.5 MG/3 ML NEBU IH PRN (23:21)
[2020-06-30] MEDS: HEPARIN 5,000 UNIT/1 ML VIAL SUB-Q SCH (23:56)
[2020-07-01] MEDS: ARFORMOTEROL 15 MCG/2 ML NEBU IH SCH ×3 (02:11→21:14)
[2020-07-01] MEDS: hydrALAZINE 20 MG/1 ML INJ IV PRN (05:22)
[2020-07-01] MEDS: FUROSEMIDE 40 MG/4 ML INJ IV SCH ×2 (05:23→17:55)
[2020-07-01 06:06] LABS: Basophils % (Auto) 0.3 % (0.0-1.8); Eosinophils # (Auto) 0.1 K/mm3 (0.0-0.4); Eosinophils % (Auto) 1.9 % (0.0-4.3); Hematocrit 27.2 % (30.3-42.9); Hemoglobin 9.1 gm/dl (10.1-14.3); Lymphocytes # (Auto) 0.7 K/mm3 (1.2-5.4); Lymphocytes % (Auto) 11.9 % (13.4-35.0); Mean Corpuscular HGB Conc 33 % (30-34); Mean Corpuscular Volume 98 fl (79-97); Monocytes # (Auto) 0.6 K/mm3 (0.0-0.8); Monocytes % (Auto) 9.5 % (0.0-7.3); Platelet Count 190 K/mm3 (140-440); Red Blood Count 2.78 M/mm3 (3.65-5.03); Red Cell Distribution Width 16.6 % (13.2-15.2)
[2020-07-01 06:28] LABS: Albumin 3.3 g/dL (3.9-5); Calcium 7.7 mg/dL (8.4-10.2)
[2020-07-01] MEDS ORDERED: BUDESONIDE 0.5 MG/2 ML NEBU IH SCH (08:00)
[2020-07-01] MEDS ORDERED: IPRATROPIUM/ALBUTEROL SULFATE 3 ML AMPUL.NEB IH SCH ×2 (08:00)
[2020-07-01] MEDS ORDERED: ALBUTEROL 2.5 MG/3 ML NEBU IH PRN (08:27)
[2020-07-01] MEDS: SODIUM BICARBONATE 650 MG TAB PO SCH ×3 (08:57→21:14)
[2020-07-01] MEDS: ASPIRIN 81 MG TAB CHEW PO SCH (09:54)
[2020-07-01] MEDS: DOXAZOSIN 4 MG TAB PO SCH (09:54)
[2020-07-01] MEDS: HEPARIN 5,000 UNIT/1 ML VIAL SUB-Q SCH ×2 (09:55→21:14)
[2020-07-01] MEDS: amLODIPine 10 MG TAB PO SCH (09:55)
[2020-07-01] MEDS: PANTOPRAZOLE 40 MG TAB PO SCH (09:55)
[2020-07-01] MEDS: POTASSIUM CHLORIDE ER 20 MEQ TAB PO SCH (09:55)
[2020-07-01] MEDS: INSULIN LISPRO 100 UNIT/ML SUB-Q SCH ×4 (09:55→21:14)
[2020-07-01] MEDS: LISINOPRIL 40 MG TAB PO SCH (09:55)
[2020-07-01] MEDS ORDERED: FAMOTIDINE 20 MG TAB PO SCH (10:00)
[2020-07-01] MEDS ORDERED: ANASTROZOLE 1 MG PO SCH (10:00)
--- NOTE | 2020-07-01 10:09 | History and Physical Report ---
History of Present Illness Date of examination: 06/30/20 Date of admission: 06/30/20 12:57 History of present illness: - HPI HPI: This is an 80-year-old -[place] female presents to the emergency department via EMS from home with a complaint of a 1 month history of shortness of breath that worsens with exertion. It is associated with some lower extremity swelling and an occasional cough. The patient says that she came in to be seen today because she had "had enough." She has a past medical history of CHF, diabetes, GERD, coronary artery disease, hypertension and remote breast cancer. Her primary care physician is Dr. Brooke. No recent travel or sick contacts at home. She denies any fever, chest pain, nausea, vomiting, diaphoresis, back pain. She has been using her home medications, including nebulizer treatments, without any relief. - Past Medical History Previous Medical History?: Yes Hx Hypertension: Yes Hx Heart Attack/AMI: Yes (? [place] PER PT 2012) Hx Congestive Heart Failure: Yes Hx Diabetes: Yes Hx GERD: Yes Hx Arthritis: Yes (KNEES) Additional medical history: Breast CA - Surgical History Past Surgical History?: Yes Additional Surgical History: left mastectomy - Social History Smoking Status: Unknown if ever smoked Substance Use Type: None - Medications Home Medications: Home Medications Medication Instructions Recorded Confirmed Last Taken Type Anastrozole 1 mg PO QDAY 01/10/19 01/10/19 Unknown History calcitrioL [Rocaltrol] 0.25 mcg PO 3XW 01/10/19 01/10/19 Unknown History Anastrozole (Nf) 1 mg PO DAILY 01/15/19 Unknown Rx Arformoterol Nebu [Brovana Nebu] 15 mcg IH Q12HRT #60 ml 01/15/19 Unknown Rx Aspirin [Aspirin BABY CHEW TAB] 81 mg PO QDAY #30 tab.chew 01/15/19 Unknown Rx AtorvaSTATin [Lipitor] 40 mg PO QHS #30 tablet 01/15/19 Unknown Rx Budesonide [Pulmicort Respules] 0.5 mg IH Q12HRT #60 nebu 01/15/19 Unknown Rx Doxazosin [Cardura] 4 mg PO QDAY #30 tablet 01/15/19 Unknown Rx Ergocalciferol [Vitamin D2] 1 cap PO QWEEK #13 cap 01/15/19 Unknown Rx Glimepiride [Amaryl] 4 mg PO QAM #30 01/15/19 Unknown Rx ISOSORBIDE MONOnitrate [Imdur ER] 120 mg PO QDAY #30 tablet 01/15/19 Unknown Rx Ipratropium/Albuterol Sulfate 1 ampul IH TIDRT ampul.neb 01/15/19 Unknown Rx [DUONEB *Not for PRN Use*] Dubberly-3 Fatty Acids/Fish Oil [Fish 1,000 mg PO BID #60 capsule 01/15/19 Unknown Rx Oil] Pantoprazole [Protonix TAB] 40 mg PO DAILY #30 tablet 01/15/19 Unknown Rx Sodium Bicarbonate 650 mg PO TID #90 tablet 01/15/19 Unknown Rx amLODIPine 5 mg PO QDAY #30 tablet 01/15/19 Unknown Rx amLODIPine 10 mg PO DAILY #30 01/15/19 Unknown Rx lisinopriL [Zestril TAB] 40 mg PO QDAY #30 01/15/19 Unknown Rx traMADoL [Ultram 50 MG tab] 50 mg PO Q12H PRN #8 tablet 01/15/19 Unknown Rx Review of Systems ROS: Stated complaint: SOB Other details as noted in HPI Comment: All other systems reviewed and negative Constitutional: denies: chills, fever Eyes: denies: eye pain, vision change ENT: denies: ear pain Respiratory: cough, shortness of breath, SOB with exertion Cardiovascular: edema. denies: chest pain, palpitations Gastrointestinal: denies: abdominal pain, vomiting Genitourinary: denies: dysuria, discharge Musculoskeletal: denies: back pain, arthralgia Skin: denies: rash, lesions Neurological: denies: headache, weakness Medications and Allergies Allergies Allergy/AdvReac Type Severity Reaction Status Date / Time No Known Allergies Allergy Verified 05/02/18 10:53 Home Medications Medication Instructions Recorded Confirmed Last Taken Type Anastrozole 1 mg PO QDAY 01/10/19 06/30/20 Unknown History calcitrioL [Rocaltrol] 0.25 mcg PO 3XW 01/10/19 06/30/20 Unknown History Anastrozole (Nf) 1 mg PO DAILY 01/15/19 06/30/20 Unknown Rx Arformoterol Nebu [Brovana Nebu] 15 mcg IH Q12HRT #60 ml 01/15/19 06/30/20 Unknown Rx Aspirin [Aspirin BABY CHEW TAB] 81 mg PO QDAY #30 tab.chew 01/15/19 06/30/20 Unknown Rx AtorvaSTATin [Lipitor] 40 mg PO QHS #30 tablet 01/15/19 06/30/20 Unknown Rx Budesonide [Pulmicort Respules] 0.5 mg IH Q12HRT #60 nebu 01/15/19 06/30/20 Unknown Rx Doxazosin [Cardura] 4 mg PO QDAY #30 tablet 01/15/19 06/30/20 Unknown Rx Ergocalciferol [Vitamin D2] 1 cap PO QWEEK #13 cap 01/15/19 06/30/20 Unknown Rx Glimepiride [Amaryl] 4 mg PO QAM #30 01/15/19 06/30/20 Unknown Rx ISOSORBIDE MONOnitrate [Imdur ER] 120 mg PO QDAY #30 tablet 01/15/19 06/30/20 Unknown Rx Ipratropium/Albuterol Sulfate 1 ampul IH TIDRT ampul.neb 01/15/19 06/30/20 Unknown Rx [DUONEB *Not for PRN Use*] Dubberly-3 Fatty Acids/Fish Oil [Fish 1,000 mg PO BID #60 capsule 01/15/19 06/30/20 Unknown Rx Oil] Pantoprazole [Protonix TAB] 40 mg PO DAILY #30 tablet 01/15/19 06/30/20 Unknown Rx Sodium Bicarbonate 650 mg PO TID #90 tablet 01/15/19 06/30/20 Unknown Rx amLODIPine 5 mg PO QDAY #30 tablet 01/15/19 06/30/20 Unknown Rx amLODIPine 10 mg PO DAILY #30 01/15/19 06/30/20 Unknown Rx lisinopriL [Zestril TAB] 40 mg PO QDAY #30 01/15/19 06/30/20 Unknown Rx traMADoL [Ultram 50 MG tab] 50 mg PO Q12H PRN #8 tablet 01/15/19 06/30/20 Unknown Rx Active Meds: Active Medications Acetaminophen (Acetaminophen 325 Mg Tab) 650 mg PO Q4H PRN PRN Reason: Pain MILD(1-3)/Fever >100.5/BONILLA Albuterol (Albuterol 2.5 Mg/3 Ml Nebu) 2.5 mg IH Q4HRT PRN PRN Reason: Wheezing Albuterol/Ipratropium (Ipratropium/Albuterol Sulfate 3 Ml Ampul.Neb) 1 ampul IH TIDRT [facility] Amlodipine Besylate (Amlodipine 10 Mg Tab) 10 mg PO DAILY [facility] Arformoterol Tartrate (Arformoterol 15 Mcg/2 Ml Nebu) 15 mcg IH Q12HRT [facility] Aspirin (Aspirin 81 Mg Tab Chew) 81 mg PO QDAY [facility] Atorvastatin Calcium (Atorvastatin 40 Mg Tab) 40 mg PO QHS [facility] Budesonide (Budesonide 0.5 Mg/2 Ml Nebu) 0.5 mg IH Q12HRT [facility] Doxazosin Mesylate (Doxazosin 4 Mg Tab) 4 mg PO QDAY [facility] Furosemide (Furosemide 40 Mg/4 Ml Inj) 40 mg IV 0600,1800 [facility] Last Admin: 07/01/20 05:23 Dose: 40 mg Documented by: Heparin Sodium (Porcine) (Heparin 5,000 Unit/1 Ml Vial) 5,000 unit SUB-Q Q12HR [facility] Last Admin: 06/30/20 23:56 Dose: 5,000 unit Documented by: Hydralazine HCl (Hydralazine 20 Mg/1 Ml Inj) 5 mg IV Q4HR PRN PRN Reason: Hypertension Last Admin: 07/01/20 05:22 Dose: 5 mg Documented by: Insulin Human Lispro (Insulin Lispro 100 Unit/Ml) 0 unit SUB-Q [facility]; Protocol Isosorbide Mononitrate (Isosorbide Mononitrate Er 60 Mg Tab) 120 mg PO QDAY [facility] Lisinopril (Lisinopril 40 Mg Tab) 40 mg PO QDAY [facility] Metoclopramide HCl (Metoclopramide 10 Mg/2 Ml Inj) 2.5 mg IV Q6H PRN PRN Reason: Nausea And Vomiting Miscellaneous Medication (Anastrozole [Anastrozole]) 1 mg PO QDAY [facility] Morphine Sulfate (Morphine 2 Mg/1 Ml Inj) 2 mg IV Q4H PRN PRN Reason: Pain, Moderate (4-6) Ondansetron HCl (Ondansetron 4 Mg/2 Ml Inj) 4 mg IV Q8H PRN PRN Reason: Nausea And Vomiting Oxycodone/Acetaminophen (Oxycodone /Acetaminophen 5-325mg Tab) 1 tab PO Q6H PRN PRN Reason: Pain, Moderate (4-6) Pantoprazole Sodium (Pantoprazole 40 Mg Tab) 40 mg PO DAILY [facility] Potassium Chloride (Potassium Chloride Er 20 Meq Tab) 20 meq PO QDAY [facility] Sodium Bicarbonate (Sodium Bicarbonate 650 Mg Tab) 650 mg PO TID [facility] Last Admin: 07/01/20 08:57 Dose: 650 mg Documented by: Sodium Chloride (Sodium Chloride 0.9% 10 Ml Flush Syringe) 10 ml IV BID [facility] Sodium Chloride (Sodium Chloride 0.9% 10 Ml Flush Syringe) 10 ml IV PRN PRN PRN Reason: LINE FLUSH Tramadol HCl (Tramadol 50 Mg Tab) 50 mg PO Q12H PRN PRN Reason: Pain, Moderate (4-6) Exam - Constitutional Vitals: Temp Pulse Resp BP Pulse Ox 97.9 F 68 16 190/69 98 07/01/20 04:15 07/01/20 08:19 07/01/20 08:19 07/01/20 05:22 07/01/20 08:24 HEART Score - HEART Score Troponin: Troponin T 0.159 ng/mL (0.00-0.029) H* 06/30/20 10:34 Results - Labs CBC & Chem 7: 07/01/20 04:12 07/01/20 04:12 Labs: Laboratory Last Values WBC 6.0 K/mm3 (4.5-11.0) 07/01/20 04:12 RBC 2.78 M/mm3 (3.65-5.03) L 07/01/20 04:12 Hgb 9.1 gm/dl (10.1-14.3) L 07/01/20 04:12 Hct 27.2 % (30.3-42.9) L 07/01/20 04:12 MCV 98 fl (79-97) H 07/01/20 04:12 MCH 33 pg (28-32) H 07/01/20 04:12 MCHC 33 % (30-34) 07/01/20 04:12 RDW 16.6 % (13.2-15.2) H 07/01/20 04:12 Plt Count 190 K/mm3 (140-440) 07/01/20 04:12 Lymph % (Auto) 11.9 % (13.4-35.0) L 07/01/20 04:12 [place] % (Auto) 9.5 % (0.0-7.3) H 07/01/20 04:12 Eos % (Auto) 1.9 % (0.0-4.3) 07/01/20 04:12 Baso % (Auto) 0.3 % (0.0-1.8) 07/01/20 04:12 Lymph # (Auto) 0.7 K/mm3 (1.2-5.4) L 07/01/20 04:12 [place] # (Auto) 0.6 K/mm3 (0.0-0.8) 07/01/20 04:12 Eos # (Auto) 0.1 K/mm3 (0.0-0.4) 07/01/20 04:12 Baso # (Auto) 0.0 K/mm3 (0.0-0.1) 07/01/20 04:12 Seg Neutrophils % 76.4 % (40.0-70.0) H 07/01/20 04:12 Seg Neutrophils # 4.6 K/mm3 (1.8-7.7) 07/01/20 04:12 D-Dimer 2707.17 ng/mlDDU (0-234) H 06/30/20 10:34 ABG pH 7.335 (7.320-7.450) 06/30/20 10:56 POC ABG pCO2 35.0 mmHg (32.0-48.0) 06/30/20 10:56 ABG O2 Saturation 85.1 (0-100) 06/30/20 10:56 ABG Hemoglobin 9.6 (12.0-17.5) L 06/30/20 10:56 ABG Oxyhemoglobin 84.2 (94-98) L 06/30/20 10:56 ABG Methemoglobin 0.3 (0.0-1.5) 06/30/20 10:56 ABG Sodium 138.0 mmol/L (136.0-145.0) 06/30/20 10:56 ABG Potassium 4.4 mmol/L (3.40-4.50) 06/30/20 10:56 ABG Chloride 108.0 mmol/L (98-107) H 06/30/20 10:56 ABG Glucose 98 mg/dL (65-95) H 06/30/20 10:56 ABG Lactate 1.22 (0.18-30.0) 06/30/20 10:56 Carboxyhemoglobin 0.7 (0.5-1.5) 06/30/20 10:56 FiO2 % 21.0 06/30/20 10:56 Sodium 140 mmol/L (137-145) 07/01/20 04:12 Potassium 4.3 mmol/L (3.6-5.0) 07/01/20 04:12 Chloride 107.8 mmol/L (98-107) H 07/01/20 04:12 Carbon Dioxide 18 mmol/L (22-30) L 07/01/20 04:12 Anion Gap 19 mmol/L 07/01/20 04:12 BUN 60 mg/dL (7-17) H 07/01/20 04:12 Creatinine 6.6 mg/dL (0.6-1.2) H 07/01/20 04:12 Estimated GFR 7 ml/min 07/01/20 04:12 BUN/Creatinine Ratio 9 % 07/01/20 04:12 Glucose 93 mg/dL (65-100) 07/01/20 04:12 POC Glucose 91 mg/dL (70-105) 07/01/20 07:56 Hemoglobin A1c 5.3 % (4-6) 07/01/20 04:12 Calcium 7.7 mg/dL (8.4-10.2) L 07/01/20 04:12 Total Bilirubin 0.20 mg/dL (0.1-1.2) 07/01/20 04:12 AST 14 units/L (5-40) 07/01/20 04:12 ALT 8 units/L (7-56) 07/01/20 04:12 Alkaline Phosphatase 73 units/L (35-129) 07/01/20 04:12 Troponin T 0.159 ng/mL (0.00-0.029) H* 06/30/20 10:34 NT-Pro-B Natriuret Pep 50408 pg/mL (0-900) H 06/30/20 10:34 Total Protein 5.7 g/dL (6.3-8.2) L 07/01/20 04:12 Albumin 3.3 g/dL (3.9-5) L 07/01/20 04:12 Albumin/Globulin Ratio 1.4 % 07/01/20 04:12 Triglycerides 104 mg/dL (2-149) 06/30/20 10:34 Cholesterol 73 mg/dL (50-199) 06/30/20 10:34 LDL Cholesterol Direct 31 mg/dL (50-130) L 06/30/20 10:34 HDL Cholesterol 26 mg/dL (40-59) L 06/30/20 10:34 Cholesterol/HDL Ratio 2.80 % 06/30/20 10:34 Arterial Blood Glucose 98 mg/dL (65-95) H 06/30/20 10:56 Lim/IV: Voiding Method Bedside Commode Assessment and Plan Advance Directives: Yes (Full code) VTE prophylaxis?: Chemical Plan of care discussed with patient/family: Yes - Patient Problems (1) Acute respiratory failure with hypoxia Current Visit: Yes Status: Acute Plan to address problem: Titrate oxygen to keep oxygen saturations above 92 (2) CHF exacerbation Current Visit: Yes Status: Acute Qualifiers: Heart failure type: combined systolic and diastolic Qualified Code(s): I50.43 - Acute on chronic combined systolic (congestive) and diastolic (congestive) heart failure Plan to address problem: Echocardiogram for ejection fraction Daily weights Daily intake and output Cardiology consult IV Lasix which may not work because of the end-stage renal disease (3) ESRD (end stage renal disease) Current Visit: Yes Status: Acute Plan to address problem: Needs emergent hemodialysis Patient refused hemodialysis in the past (4) Anemia Current Visit: Yes Status: Chronic Qualifiers: Anemia type: due to chronic kidney disease Plan to address problem: Secondary to chronic kidney disease (5) HTN (hypertension) Current Visit: Yes Status: Chronic Qualifiers: Hypertension type: essential hypertension Qualified Code(s): I10 - Essential (primary) hypertension Plan to address problem: Continue antihypertensives (6) T2DM (type 2 diabetes mellitus) Current Visit: Yes Status: Chronic Qualifiers: Diabetes mellitus watermelon harvesting supervisor insulin use: without watermelon harvesting supervisor use Plan to address problem: We will stop the glimepiride because of the propensity to cause hypoglycemia (7) COPD (chronic obstructive pulmonary disease) Current Visit: Yes Status: Chronic Qualifiers: Emphysema type: unspecified Plan to address problem: Continue duo nebs (8) DVT prophylaxis Current Visit: Yes Status: Acute Plan to address problem: On heparin and GI prophylaxis
[2020-07-01 10:16] LABS: Alanine Aminotransferase 8 units/L (7-56); Albumin 3.4 g/dL (3.9-5)
[2020-07-01 10:24] LABS: Bilirubin,Direct < 0.2 mg/dL (0-0.2)
[2020-07-01 12:18] LABS: Hepatitis B Surface Antigen Non-Reactive (Negative); Hepatitis C Virus Antibody Non-Reactive (NonReactive)
[2020-07-01] MEDS: IPRATROPIUM/ALBUTEROL SULFATE 3 ML AMPUL.NEB IH SCH ×2 (14:01→21:15)
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
[2020-07-01] MEDS ORDERED: SODIUM CHLORIDE 0.9% 250ML 0 ML ONE (14:32)
[2020-07-01] MEDS ORDERED: HEPARIN 10,000 UNITS/10 ML VIAL ONE (14:32)
[2020-07-01] MEDS ORDERED: HEPARIN/NS 5000 UNIT/500ML 0 ML IR ONE (14:32)
[2020-07-01] MEDS ORDERED: ceFAZolin/Water 2 GM/20 ML 0 GM/0 ML SYRINGE IV ONE (14:32)
[2020-07-01] MEDS ORDERED: MIDAZOLAM 2 MG/2 ML INJ ONE (14:33)
[2020-07-01] MEDS ORDERED: fentaNYL 100 MCG/2 ML INJ ONE (14:33)
[2020-07-01] MEDS ORDERED: LIDOCAINE 1%/EPINEPHRINE 1:100,000 VIAL (20 ML) INFILTRATI ONE (14:46)
--- NOTE | 2020-07-01 15:02 | Event Note ---
Date: 07/01/20 Vascular consulted for dialysis access. I initially discussed the situation with Dr. Adamson who believe that the patient did require dialysis, and therefore the patient was set up for PermCath placement today. However, the patient's outpatient washer off, Dr. Parry, wanted to wait on initiating dialysis to see how the patient clinically responds as the patient's labs are close to the patient's outpatient baseline. PermCath canceled. Please contact us again if we can assist with dialysis access during this admission. Provided patient our card as Dr. Parry said the patient will benefit from a fistula. Vein mapping ordered.
--- NOTE | 2020-07-01 17:09 | Consultation ---
History of Present Illness - Reason for Consult chronic renal failure - History of Present Illness very pleasant 80-year-old -[place] female well known to our outpatient office with a past medical history significant for chronic kidney disease stage V in the setting of diabetes, hypertension, congestive heart failure, coronary artery disease, presented to emergency department with symptoms of shortness of breath. Chest x-ray showed cardiomegaly but no significant pleural effusion. Patient is on 2 L of O2 via nasal cannula with adequate O2 saturations. Nephrology consults it for further management of chronic kidney disease. Past History Past Medical History: diabetes, hypertension, hyperlipidemia, renal failure, other (See HPI) Past Surgical History: No surgical history Social history: lives with family Medications and Allergies Allergies Allergy/AdvReac Type Severity Reaction Status Date / Time No Known Allergies Allergy Verified 05/02/18 10:53 Home Medications Medication Instructions Recorded Confirmed Last Taken Type Anastrozole 1 mg PO QDAY 01/10/19 06/30/20 Unknown History calcitrioL [Rocaltrol] 0.25 mcg PO 3XW 01/10/19 06/30/20 Unknown History Anastrozole (Nf) 1 mg PO DAILY 01/15/19 06/30/20 Unknown Rx Arformoterol Nebu [Brovana Nebu] 15 mcg IH Q12HRT #60 ml 01/15/19 06/30/20 Unknown Rx Aspirin [Aspirin BABY CHEW TAB] 81 mg PO QDAY #30 tab.chew 01/15/19 06/30/20 Unknown Rx AtorvaSTATin [Lipitor] 40 mg PO QHS #30 tablet 01/15/19 06/30/20 Unknown Rx Budesonide [Pulmicort Respules] 0.5 mg IH Q12HRT #60 nebu 01/15/19 06/30/20 Unknown Rx Doxazosin [Cardura] 4 mg PO QDAY #30 tablet 01/15/19 06/30/20 Unknown Rx Ergocalciferol [Vitamin D2] 1 cap PO QWEEK #13 cap 01/15/19 06/30/20 Unknown Rx Glimepiride [Amaryl] 4 mg PO QAM #30 01/15/19 06/30/20 Unknown Rx ISOSORBIDE MONOnitrate [Imdur ER] 120 mg PO QDAY #30 tablet 01/15/19 06/30/20 Unknown Rx Ipratropium/Albuterol Sulfate 1 ampul IH TIDRT ampul.neb 01/15/19 06/30/20 Unknown Rx [DUONEB *Not for PRN Use*] [place]-3 Fatty Acids/Fish Oil [Fish 1,000 mg PO BID #60 capsule 01/15/19 06/30/20 Unknown Rx Oil] Pantoprazole [Protonix TAB] 40 mg PO DAILY #30 tablet 01/15/19 06/30/20 Unknown Rx Sodium Bicarbonate 650 mg PO TID #90 tablet 01/15/19 06/30/20 Unknown Rx amLODIPine 5 mg PO QDAY #30 tablet 01/15/19 06/30/20 Unknown Rx amLODIPine 10 mg PO DAILY #30 01/15/19 06/30/20 Unknown Rx lisinopriL [Zestril TAB] 40 mg PO QDAY #30 01/15/19 06/30/20 Unknown Rx traMADoL [Ultram 50 MG tab] 50 mg PO Q12H PRN #8 tablet 01/15/19 06/30/20 Unknown Rx Active Meds: Active Medications Acetaminophen (Acetaminophen 325 Mg Tab) 650 mg PO Q4H PRN PRN Reason: Pain MILD(1-3)/Fever >100.5/[place] Last Admin: 07/01/20 10:14 Dose: 650 mg Documented by: Albuterol (Albuterol 2.5 Mg/3 Ml Nebu) 2.5 mg IH Q4HRT PRN PRN Reason: Wheezing Albuterol/Ipratropium (Ipratropium/Albuterol Sulfate 3 Ml Ampul.Neb) 1 ampul IH TIDRT [facility] Last Admin: 07/01/20 14:01 Dose: Not Given Documented by: Amlodipine Besylate (Amlodipine 10 Mg Tab) 10 mg PO DAILY [facility] Last Admin: 07/01/20 09:55 Dose: 10 mg Documented by: Arformoterol Tartrate (Arformoterol 15 Mcg/2 Ml Nebu) 15 mcg IH Q12HRT [facility] Aspirin (Aspirin 81 Mg Tab Chew) 81 mg PO QDAY [facility] Last Admin: 07/01/20 09:54 Dose: 81 mg Documented by: Atorvastatin Calcium (Atorvastatin 40 Mg Tab) 40 mg PO QHS [facility] Budesonide (Budesonide 0.5 Mg/2 Ml Nebu) 0.5 mg IH Q12HRT [facility] Doxazosin Mesylate (Doxazosin 4 Mg Tab) 4 mg PO QDAY [facility] Last Admin: 07/01/20 09:54 Dose: 4 mg Documented by: Furosemide (Furosemide 40 Mg/4 Ml Inj) 40 mg IV 0600,1800 [facility] Last Admin: 07/01/20 05:23 Dose: 40 mg Documented by: Heparin Sodium (Porcine) (Heparin 5,000 Unit/1 Ml Vial) 5,000 unit SUB-Q Q12HR [facility] Last Admin: 07/01/20 09:55 Dose: 5,000 unit Documented by: Hydralazine HCl (Hydralazine 20 Mg/1 Ml Inj) 5 mg IV Q4HR PRN PRN Reason: Hypertension Last Admin: 07/01/20 05:22 Dose: 5 mg Documented by: Insulin Human Lispro (Insulin Lispro 100 Unit/Ml) 0 unit SUB-Q [facility]; Protocol Last Admin: 07/01/20 13:19 Dose: Not Given Documented by: Isosorbide Mononitrate (Isosorbide Mononitrate Er 60 Mg Tab) 120 mg PO QDAY [facility] Last Admin: 07/01/20 09:55 Dose: 120 mg Documented by: Lisinopril (Lisinopril 40 Mg Tab) 40 mg PO QDAY [facility] Last Admin: 07/01/20 09:55 Dose: 40 mg Documented by: Metoclopramide HCl (Metoclopramide 10 Mg/2 Ml Inj) 2.5 mg IV Q6H PRN PRN Reason: Nausea And Vomiting Miscellaneous Medication (Anastrozole [Anastrozole]) 1 mg PO QDAY [facility] Morphine Sulfate (Morphine 2 Mg/1 Ml Inj) 2 mg IV Q4H PRN PRN Reason: Pain, Moderate (4-6) Ondansetron HCl (Ondansetron 4 Mg/2 Ml Inj) 4 mg IV Q8H PRN PRN Reason: Nausea And Vomiting Oxycodone/Acetaminophen (Oxycodone /Acetaminophen 5-325mg Tab) 1 tab PO Q6H PRN PRN Reason: Pain, Moderate (4-6) Pantoprazole Sodium (Pantoprazole 40 Mg Tab) 40 mg PO DAILY [facility] Last Admin: 07/01/20 09:55 Dose: 40 mg Documented by: Potassium Chloride (Potassium Chloride Er 20 Meq Tab) 20 meq PO QDAY [facility] Last Admin: 07/01/20 09:55 Dose: 20 meq Documented by: Sodium Bicarbonate (Sodium Bicarbonate 650 Mg Tab) 650 mg PO TID [facility] Last Admin: 07/01/20 08:57 Dose: 650 mg Documented by: Sodium Chloride (Sodium Chloride 0.9% 10 Ml Flush Syringe) 10 ml IV BID [facility] Last Admin: 07/01/20 09:55 Dose: 10 ml Documented by: Sodium Chloride (Sodium Chloride 0.9% 10 Ml Flush Syringe) 10 ml IV PRN PRN PRN Reason: LINE FLUSH Tramadol HCl (Tramadol 50 Mg Tab) 50 mg PO Q12H PRN PRN Reason: Pain, Moderate (4-6) Review of Systems Constitutional: fatigue, weakness Cardiovascular: orthopnea Exam - Vital Signs Vital signs: Vital Signs Temp Pulse Resp BP Pulse Ox 98.4 F 63 20 176/93 92 06/30/20 09:37 06/30/20 09:37 06/30/20 09:37 06/30/20 09:37 06/30/20 09:37 - General Appearance General appearance: well-developed, appears stated age, obese EENT: ATNC Neck: Present: neck supple Respiratory: Decreased Breath Sounds Heart: regular Gastrointestinal: Present: normal Integumentary: no rash Neurologic: no focal deficit, alert and oriented x3 Musculoskeletal: Present: deferred Psychiatric: cooperative Results - Lab Results 07/01/20 04:12 07/01/20 04:12 Most recent lab results ABG pH 7.335 (7.320-7.450) 06/30/20 10:56 ABG O2 Saturation 85.1 (0-100) 06/30/20 10:56 Calcium 7.7 mg/dL (8.4-10.2) L 07/01/20 04:12 Assessment and Plan - Patient Problems (1) Acute kidney injury superimposed on CKD Current Visit: Yes Status: Acute Plan to address problem: patient has baseline chronic kidney disease stage V and really has not shown any significant change overall in regards to her laboratory studies. She is only on 2 L of oxygen via nasal cannula and has had adequate O2 saturations. no significant signs of uremia. Her labs otherwise did not indicate any necessary reason for acute start of hemodialysis at present time. I ideally would recommend if we can avoid permacath placement and instead set patient up as an outpatient for permanent vascular access in order to pursue dialysis. For now I will continue to monitor patient closely in the hospital and will continue with current Lasix regimen in order to help with her mild respiratory distress. Have discussed case in detail with vascular surgery and patient. (2) Type 2 diabetes mellitus with diabetic chronic kidney disease Current Visit: Yes Status: Acute Plan to address problem: diabetes management per primary attending. (3) Acute respiratory failure with hypoxia Current Visit: Yes Status: Acute Plan to address problem: wrist x-ray indicating cardiomegaly and possible CHF exacerbation. Patient is pending echocardiogram and further cardiology evaluation. I agree with continuing on IV Lasix which I will increase to 40 twice a day. (4) HTN (hypertension) Current Visit: Yes Status: Chronic Qualifiers: Hypertension type: essential hypertension Qualified Code(s): I10 - Essential (primary) hypertension Plan to address problem: we will monitor blood pressures closely under current regimen. (5) HLD (hyperlipidemia) Current Visit: Yes Status: Chronic Qualifiers: Hyperlipidemia type: mixed hyperlipidemia Qualified Code(s): E78.2 - Mixed hyperlipidemia Plan to address problem: continue outpatient statin therapy.
[2020-07-01] MEDS: BUDESONIDE 0.5 MG/2 ML NEBU IH SCH (21:15)
--- NOTE | 2020-07-02 01:21 | Progress Note ---
Assessment and Plan - Patient Problems (1) Acute respiratory failure with hypoxia Status: Acute Plan to address problem: Titrate oxygen to keep oxygen saturations above 92 (2) CHF exacerbation Status: Acute Qualifiers: Heart failure type: combined systolic and diastolic Qualified Code(s): I50.43 - Acute on chronic combined systolic (congestive) and diastolic (congestive) heart failure Plan to address problem: Echocardiogram for ejection fraction Daily weights Daily intake and output Cardiology consult IV Lasix which may not work because of the end-stage renal disease (3) ESRD (end stage renal disease) Status: Acute Plan to address problem: Needs emergent hemodialysis Patient refused hemodialysis in the past (4) Anemia Status: Chronic Qualifiers: Anemia type: due to chronic kidney disease Plan to address problem: Secondary to chronic kidney disease (5) HTN (hypertension) Status: Chronic Qualifiers: Hypertension type: essential hypertension Qualified Code(s): I10 - Essent ial (primary) hypertension Plan to address problem: Continue antihypertensives (6) T2DM (type 2 diabetes mellitus) Status: Chronic Qualifiers: Diabetes mellitus assisted insulin use: without intermediate accountant use Plan to address problem: We will stop the glimepiride because of the propensity to cause hypoglycemia (7) COPD (chronic obstructive pulmonary disease) Status: Chronic Qualifiers: Emphysema type: unspecified Plan to address problem: Continue duo nebs (8) DVT prophylaxis Status: Acute Plan to address problem: On heparin and GI prophylaxis Subjective Date of service: 07/01/20 Principal diagnosis: Acute resp failure with hypoxia Interval history: This is an 80-year-old -Citizen Of [place] female presents to the emergency department via EMS from home with a complaint of a 1 month history of shortness of breath that worsens with exertion. It is associated with some lower extremity swelling and an occasional cough. The patient says that she came in to be seen today because she had "had enough." She has a past medical history of CHF, diabetes, GERD, coronary artery disease, hypertension and remote breast cancer. Her primary care physician is Dr. Brooke. No recent travel or sick contacts at home. She denies any fever, chest pain, nausea, vomiting, diaphoresis, back pain. She has been using her home medications, including nebulizer treatments, without any relief. 07/01/20 Still very Sob Objective - Constitutional Vitals: Vital Signs - 12hr 05/01/1107/01/20 07/01/20 16:11 19:24 20:55 Temperature 98.3 F 98.0 F Pulse Rate 68 70 Pulse Rate [ Posterior Bilateral Throughout] Respiratory 18 18 Rate Respiratory Rate [Posterior Bilateral Throughout] Blood Pressure 171/78 134/73 O2 Sat by Pulse 99 97 95 Oximetry 07/01/20 07/01/20 21:18 23:51 Temperature 98.3 F Pulse Rate 67 Pulse Rate [ 73 Posterior Bilateral Throughout] Respiratory 18 Rate Respiratory 20 Rate [Posterior Bilateral Throughout] Blood Pressure 183/75 O2 Sat by Pulse 99 Oximetry General appearance: Present: mild distress, well-nourished - EENT Eyes: PERRL, EOM intact ENT: hearing intact, clear oral mucosa Ears: bilateral: normal - Neck Neck: supple, normal ROM - Respiratory Respiratory effort: normal Respiratory: bilateral: CTA, rhonchi, wheezing - Breasts Breasts: normal - Cardiovascular Heart rate: 78 Rhythm: regular Heart Sounds: Present: S1 & S2. Absent: gallop, rub Extremities: pulses intact, No edema, normal color, Full ROM - Gastrointestinal General gastrointestinal: Present: soft, non-tender, non-distended, normal bowel sounds - Genitourinary Female genitourinary: normal - Integumentary Integumentary: clear, warm, dry - Musculoskeletal Musculoskeletal: 1, strength equal bilaterally - Neurologic Neurologic: moves all extremities - Psychiatric Psychiatric: memory intact, appropriate mood/affect, intact judgment & insight - Labs CBC & Chem 7: 07/03/20 05:15 07/03/20 05:15 Labs: Abnormal lab results 07/01/20 07/01/20 07/01/20 Range/Units 04:12 04:12 08:36 RBC 2.78 L (3.65-5.03) M/mm3 Hgb 9.1 L (10.1-14.3) gm/dl Hct 27.2 L (30.3-42.9) % MCV 98 H (79-97) fl MCH 33 H (28-32) pg RDW 16.6 H (13.2-15.2) % Lymph % (Auto) 11.9 L (13.4-35.0) % Lewis % (Auto) 9.5 H (0.0-7.3) % Lymph # (Auto) 0.7 L (1.2-5.4) K/mm3 Seg Neutrophils % 76.4 H (40.0-70.0) % Chloride 107.8 H (98-107) mmol/L Carbon Dioxide 18 L (22-30) mmol/L BUN 60 H (7-17) mg/dL Creatinine 6.6 H (0.6-1.2) mg/dL Calcium 7.7 L (8.4-10.2) mg/dL Troponin T (0.00-0.029) ng/mL Total Protein 5.7 L (6.3-8.2) g/dL Albumin 3.3 L 3.4 L (3.9-5) g/dL Hepatitis A IgM Ab (NonReactive) 07/01/20 07/01/20 Range/Units 08:36 14:29 RBC (3.65-5.03) M/mm3 Hgb (10.1-14.3) gm/dl Hct (30.3-42.9) % MCV (79-97) fl MCH (28-32) pg RDW (13.2-15.2) % Lymph % (Auto) (13.4-35.0) % Lewis % (Auto) (0.0-7.3) % Lymph # (Auto) (1.2-5.4) K/mm3 Seg Neutrophils % (40.0-70.0) % Chloride (98-107) mmol/L Carbon Dioxide (22-30) mmol/L BUN (7-17) mg/dL Creatinine (0.6-1.2) mg/dL Calcium (8.4-10.2) mg/dL Troponin T 0.137 H* (0.00-0.029) ng/mL Total Protein (6.3-8.2) g/dL Albumin (3.9-5) g/dL Hepatitis A IgM Ab Reactive A (NonReactive) HEART Score - HEART Score Troponin: Troponin T 0.137 ng/mL (0.00-0.029) H* 07/01/20 14:29
[2020-07-02] MEDS: hydrALAZINE 20 MG/1 ML INJ IV PRN (04:27)
[2020-07-02] MEDS: FUROSEMIDE 40 MG/4 ML INJ IV SCH ×2 (05:35→17:07)
[2020-07-02] MEDS: PANTOPRAZOLE 40 MG TAB PO SCH (08:59)
[2020-07-02] MEDS: POTASSIUM CHLORIDE ER 20 MEQ TAB PO SCH (08:59)
[2020-07-02] MEDS: DOXAZOSIN 4 MG TAB PO SCH (08:59)
[2020-07-02] MEDS: SODIUM BICARBONATE 650 MG TAB PO SCH ×3 (08:59→21:18)
[2020-07-02] MEDS: ASPIRIN 81 MG TAB CHEW PO SCH (08:59)
[2020-07-02] MEDS: HEPARIN 5,000 UNIT/1 ML VIAL SUB-Q SCH ×2 (09:00→21:18)
[2020-07-02] MEDS: LISINOPRIL 40 MG TAB PO SCH (09:00)
[2020-07-02] MEDS: INSULIN LISPRO 100 UNIT/ML SUB-Q SCH ×4 (09:03→21:19)
[2020-07-02] MEDS: amLODIPine 10 MG TAB PO SCH (09:04)
--- NOTE | 2020-07-02 09:10 | Progress Note ---
Assessment and Plan Telemetry reviewed: Sinus rhythm 70 with first-degree block. Intermittent episodes of Mobitz type I AV block #Acute respiratory failure with hypoxia * CXR reviewed: Cardiomegaly with interstitial edema. Patient is currently chest pain-free with no shortness of breath. Not requiring supplemental oxygen. Management per primary team #Heart failure * Echocardiogram is pending. * No MPI stress testing today due to recent VQ scan. We will plan for ischemic work-up once patient is medically stabilized. * Agree with IV diuresis Lasix 40 mg twice daily. Patient is pending start of HD treatment. Further volume optimization per nephrology. * Maintain strict I/O's. #Elevated troponins * 12-lead reviewed: Sinus rhythm with first-degree block, no ST segment elevation. Troponin is elevated x1. Continue to trend CE's. #Elevated D-dimer * VQ scan: Low probability for PTE #Acute on chronic kidney disease * Patient being assessed for HD pending Vas-Cath placement. Nephrology is following. #DVT prophylaxis * Heparin SQ We will follow This patient was seen in conjunction with Dr Popeye Leon who agrees with this assessment and plan of care - Patient Problems (1) Acute respiratory failure with hypoxia Current Visit: Yes Status: Acute (2) Heart failure Current Visit: Yes Status: Acute (3) Elevated troponin Current Visit: Yes Status: Acute (4) Systolic murmur Current Visit: Yes Status: Acute (5) Type 2 diabetes mellitus Current Visit: Yes Status: Chronic Qualifiers: Diabetes mellitus complication detail: with chronic kidney disease Chronic kidney disease stage: stage 5, not on chronic dialysis (6) CKD (chronic kidney disease) Current Visit: Yes Status: Chronic Qualifiers: Chronic kidney disease stage: stage 4 (severe) Qualified Code(s): N18.4 - Chronic kidney disease, stage 4 (severe) (7) First degree AV block Current Visit: Yes Status: Acute (8) GERD (gastroesophageal reflux disease) Current Visit: Yes Status: Chronic (9) HLD (hyperlipidemia) Current Visit: Yes Status: Chronic Qualifiers: Hyperlipidemia type: mixed hyperlipidemia Qualified Code(s): E78.2 - Mixed hyperlipidemia (10) History of breast cancer Current Visit: Yes Status: Chronic (11) Elevated d-dimer Current Visit: Yes Status: Acute Subjective Date of service: 07/02/20 Principal diagnosis: HF, A/CKD Interval history: Patient resting comfortably in bed. No shortness of breath or chest pain overnight Telemetry reviewed: Sinus rhythm 70 with first-degree block. Intermittent episodes of second-degree type I AV block Objective Last Vital Signs Temp 98.0 F 07/02/20 08:48 Pulse 74 07/02/20 09:04 Resp 18 07/02/20 08:48 BP 163/70 07/02/20 09:04 Pulse Ox 93 07/02/20 08:48 - Physical Examination General: No Apparent Distress HEENT: Positive: PERRL, Normocephaly, Mucus Membranes Moist Neck: Positive: neck supple Cardiac: Positive: Reg Rate and Rhythm, S1/S2 Lungs: Positive: clear to auscultation, Normal Breath Sounds Neuro: Positive: Grossly Intact Abdomen: Positive: Unremarkable, Soft Skin: Negative: Rash, Wound Extremities: Present: upper extr. pulses, lower extr. pulses, +1 Edema - Labs and Meds Cardiac Enzymes 07/01/20 Range/Units 08:36 AST 16 (5-40) units/L Comprehensive Metabolic Panel 07/01/20 Range/Units 08:36 Direct Bilirubin < 0.2 (0-0.2) mg/dL Indirect Bilirubin 0.0 mg/dL AST 16 (5-40) units/L ALT 8 (7-56) units/L Alkaline Phosphatase 75 (35-129) units/L Total Protein 6.3 (6.3-8.2) g/dL Albumin 3.4 L (3.9-5) g/dL - Imaging and Cardiology EKG: report reviewed, image reviewed Echo: pending - Telemetry EKG Rhythm: 1st Degree HB - EKG Sinus rhythms and dysrhythmias: sinus rhythm
[2020-07-02] MEDS: IPRATROPIUM/ALBUTEROL SULFATE 3 ML AMPUL.NEB IH SCH ×3 (09:27→21:01)
--- NOTE | 2020-07-02 10:39 | Progress Note ---
Assessment and Plan - Patient Problems (1) Acute kidney injury superimposed on CKD Current Visit: Yes Status: Acute Plan to address problem: patient has baseline chronic kidney disease stage V and really has not shown any significant change overall in regards to her laboratory studies. She is offon supplemental oxygen this am and has had adequate O2 saturations. No significant signs of uremia. Her labs otherwise did not indicate any necessary reason for acute start of hemodialysis at present time. I ideally would recommend if we can avoid permacath placement and instead set patient up as an outpatient for permanent vascular access in order to pursue dialysis. For now I will continue to monitor patient closely in the hospital and will continue with current Lasix regimen in order to help with her mild respiratory distress. Have discussed case in detail with vascular surgery and patient. From nephrology standpoint she is stable for discharge. Will need to have her set up with vascular surgery as an outpatient for vein mapping and permanent access placement. (2) Type 2 diabetes mellitus with diabetic chronic kidney disease Current Visit: Yes Status: Acute Plan to address problem: diabetes management per primary attending. (3) Acute respiratory failure with hypoxia Current Visit: Yes Status: Acute Plan to address problem: Chest x-ray indicating cardiomegaly and possible CHF exacerbation. Patient is pending echocardiogram and further cardiology evaluation. I agree with continuing on IV Lasix at present time. Will have her continue outpatient lasix regimen. (4) HTN (hypertension) Current Visit: Yes Status: Chronic Qualifiers: Hypertension type: essential hypertension Qualified Code(s): I10 - Essential (primary) hypertension Plan to address problem: we will monitor blood pressures closely under current regimen. (5) HLD (hyperlipidemia) Current Visit: Yes Status: Chronic Qualifiers: Hyperlipidemia type: mixed hyperlipidemia Qualified Code(s): E78.2 - Mixed hyperlipidemia Plan to address problem: continue outpatient statin therapy. Subjective Date of service: 07/02/20 Interval history: No acute issues. She is responding well to the lasix regimen, and has already put out 800 cc just this am after am lasix dose. No new labs. She is off oxygen this am, and is overall stable. No acute indications for renal replacement therapy at present time. Objective - Vital Signs Vital signs: Vital Signs - 12hr 07/01/20 07/02/20 07/02/20 23:51 00:00 04:06 Temperature 98.3 F 98.7 F Pulse Rate 67 69 65 Respiratory 18 18 Rate Blood Pressure 183/75 147/112 O2 Sat by Pulse 99 89 Oximetry 07/02/20 07/02/20 07/02/20 08:48 08:59 09:00 Temperature 98.0 F Pulse Rate 71 74 74 Respiratory 18 Rate Blood Pressure 171/78 163/70 163/70 O2 Sat by Pulse 93 Oximetry 07/02/20 07/02/20 09:04 09:59 Temperature Pulse Rate 74 Respiratory Rate Blood Pressure 163/70 O2 Sat by Pulse 100 Oximetry - General Appearance General appearance: well-developed, appears stated age, obese EENT: ATNC Neck: no JVD Respiratory: Present: Clear to Ascultation Cardiology: regular Gastrointestinal: normal Integumentary: warm and dry Neurologic: no focal deficit Musculoskeletal: deferred Psychiatric: mood/affect appropriate, cooperative - Lab 07/01/20 04:12 07/01/20 04:12 Most recent lab results ABG pH 7.335 (7.320-7.450) 06/30/20 10:56 ABG O2 Saturation 85.1 (0-100) 06/30/20 10:56 Calcium 7.7 mg/dL (8.4-10.2) L 07/01/20 04:12 - Allied health notes Allied health notes reviewed: nursing Medications & Allergies - Medications Allergies/Adverse Reactions: Allergies No Known Allergies Allergy (Verified 05/02/18 10:53) Home Medications: Home Medications Medication Instructions Recorded Confirmed Last Taken Type Anastrozole 1 mg PO QDAY 01/10/19 06/30/20 Unknown History calcitrioL [Rocaltrol] 0.25 mcg PO 3XW 01/10/19 06/30/20 Unknown History Anastrozole (Nf) 1 mg PO DAILY 01/15/19 06/30/20 Unknown Rx Arformoterol Nebu [Brovana Nebu] 15 mcg IH Q12HRT #60 ml 01/15/19 06/30/20 Unknown Rx Aspirin [Aspirin BABY CHEW TAB] 81 mg PO QDAY #30 tab.chew 01/15/19 06/30/20 Unknown Rx AtorvaSTATin [Lipitor] 40 mg PO QHS #30 tablet 01/15/19 06/30/20 Unknown Rx Budesonide [Pulmicort Respules] 0.5 mg IH Q12HRT #60 nebu 01/15/19 06/30/20 Unknown Rx Doxazosin [Cardura] 4 mg PO QDAY #30 tablet 01/15/19 06/30/20 Unknown Rx Ergocalciferol [Vitamin D2] 1 cap PO QWEEK #13 cap 01/15/19 06/30/20 Unknown Rx Glimepiride [Amaryl] 4 mg PO QAM #30 01/15/19 06/30/20 Unknown Rx ISOSORBIDE MONOnitrate [Imdur ER] 120 mg PO QDAY #30 tablet 01/15/19 06/30/20 Unknown Rx Ipratropium/Albuterol Sulfate 1 ampul IH TIDRT ampul.neb 01/15/19 06/30/20 Unknown Rx [DUONEB *Not for PRN Use*] [place]-3 Fatty Acids/Fish Oil [Fish 1,000 mg PO BID #60 capsule 01/15/19 06/30/20 Unknown Rx Oil] Pantoprazole [Protonix TAB] 40 mg PO DAILY #30 tablet 01/15/19 06/30/20 Unknown Rx Sodium Bicarbonate 650 mg PO TID #90 tablet 01/15/19 06/30/20 Unknown Rx amLODIPine 5 mg PO QDAY #30 tablet 01/15/19 06/30/20 Unknown Rx amLODIPine 10 mg PO DAILY #30 01/15/19 06/30/20 Unknown Rx lisinopriL [Zestril TAB] 40 mg PO QDAY #30 01/15/19 06/30/20 Unknown Rx traMADoL [Ultram 50 MG tab] 50 mg PO Q12H PRN #8 tablet 01/15/19 06/30/20 Unkn own Rx Active Medications: Generic Name Dose Route Start Last Admin Trade Name Freq PRN Reason Stop Dose Admin Acetaminophen 650 mg 06/30/20 22:46 07/01/20 10:14 Acetaminophen 325 Mg Tab PO 650 mg Q4H PRN Administration Pain MILD(1-3)/Fever >100.5/BONILLA Albuterol 2.5 mg 07/01/20 08:27 Albuterol 2.5 Mg/3 Ml Nebu IH Q4HRT PRN Wheezing Albuterol/Ipratropium 1 ampul 07/01/20 14:00 07/01/20 21:15 Ipratropium/Albuterol Sulfate 3 Ml Ampul.Neb IH Not Given TIDRT VALERY Amlodipine Besylate 10 mg 07/01/20 10:00 07/02/20 09:04 Amlodipine 10 Mg Tab PO 10 mg DAILY VALERY Administration Arformoterol Tartrate 15 mcg 07/01/20 20:00 07/01/20 21:14 Arformoterol 15 Mcg/2 Ml Nebu IH 15 mcg Q12HRT VALERY Administration Aspirin 81 mg 07/01/20 10:00 07/02/20 08:59 Aspirin 81 Mg Tab Chew PO 81 mg QDAY VALERY Administration Atorvastatin Calcium 40 mg 07/01/20 22:00 07/01/20 21:14 Atorvastatin 40 Mg Tab PO 40 mg QHS VALERY Administration Budesonide 0.5 mg 07/01/20 20:00 07/01/20 21:15 Budesonide 0.5 Mg/2 Ml Nebu IH 0.5 mg Q12HRT VALERY Administration Doxazosin Mesylate 4 mg 07/01/20 10:00 07/02/20 08:59 Doxazosin 4 Mg Tab PO 4 mg QDAY [facility] Administration Furosemide 40 mg 07/01/20 06:00 07/02/20 05:35 Furosemide 40 Mg/4 Ml Inj IV 40 mg 0600,1800 [facility] Administration Heparin Sodium (Porcine) 5,000 unit 06/30/20 23:15 07/02/20 09:00 Heparin 5,000 Unit/1 Ml Vial SUB-Q 5,000 unit Q12HR VALERY Administration Hydralazine HCl 5 mg 07/01/20 04:54 07/02/20 04:27 Hydralazine 20 Mg/1 Ml Inj IV 5 mg Q4HR PRN Administration Hypertension Insulin Human Lispro 0 unit 07/01/20 07:30 07/02/20 09:03 Insulin Lispro 100 Unit/Ml SUB-Q Not Given ACHS [facility] Protocol Isosorbide Mononitrate 120 mg 07/01/20 10:00 07/02/20 08:59 Isosorbide Mononitrate Er 60 Mg Tab PO 120 mg QDAY VALERY Administration Lisinopril 40 mg 07/01/20 10:00 07/02/20 09:00 Lisinopril 40 Mg Tab PO 40 mg QDAY [facility] Administration Metoclopramide HCl 2.5 mg 06/30/20 23:18 Metoclopramide 10 Mg/2 Ml Inj IV Q6H PRN Nausea And Vomiting Miscellaneous Medication 1 mg 07/01/20 10:00 Anastrozole [Anastrozole] PO QDAY VALERY Morphine Sulfate 2 mg 06/30/20 22:46 Morphine 2 Mg/1 Ml Inj IV Q4H PRN Pain, Moderate (4-6) Ondansetron HCl 4 mg 06/30/20 22:46 Ondansetron 4 Mg/2 Ml Inj IV Q8H PRN Nausea And Vomiting Oxycodone/Acetaminophen 1 tab 06/30/20 22:46 Oxycodone /Acetaminophen 5-325mg Tab PO Q6H PRN Pain, Moderate (4-6) Pantoprazole Sodium 40 mg 07/01/20 10:00 07/02/20 08:59 Pantoprazole 40 Mg Tab PO 40 mg DAILY VALERY Administration Potassium Chloride 20 meq 07/01/20 10:00 07/02/20 08:59 Potassium Chloride Er 20 Meq Tab PO 20 meq QDAY VALERY Administration Sodium Bicarbonate 650 mg 07/01/20 08:00 07/02/20 08:59 Sodium Bicarbonate 650 Mg Tab PO 650 mg TID VALERY Administration Sodium Chloride 10 ml 07/01/20 10:00 07/02/20 09:03 Sodium Chloride 0.9% 10 Ml Flush Syringe IV 10 ml BID VALERY Administration Sodium Chloride 10 ml 06/30/20 22:46 Sodium Chloride 0.9% 10 Ml Flush Syringe IV PRN PRN LINE FLUSH Tramadol HCl 50 mg 06/30/20 22:40 Tramadol 50 Mg Tab PO Q12H PRN Pain, Moderate (4-6)
[2020-07-02 10:50] LABS: Hematocrit 27.7 % (30.3-42.9); Hemoglobin 9.1 gm/dl (10.1-14.3); Mean Corpuscular HGB Conc 33 % (30-34); Mean Corpuscular Volume 95 fl (79-97); Platelet Count 194 K/mm3 (140-440); Red Blood Count 2.91 M/mm3 (3.65-5.03); Red Cell Distribution Width 16.5 % (13.2-15.2)
[2020-07-02] MEDS: BUDESONIDE 0.5 MG/2 ML NEBU IH SCH (21:01)
[2020-07-02] MEDS: ARFORMOTEROL 15 MCG/2 ML NEBU IH SCH (21:02)
--- NOTE | 2020-07-03 01:03 | Progress Note ---
Assessment and Plan - Patient Problems (1) Acute respiratory failure with hypoxia Status: Acute Plan to address problem: Titrate oxygen to keep oxygen saturations above 92 (2) CHF exacerbation Status: Acute Qualifiers: Heart failure type: combined systolic and diastolic Qualified Code(s): I50.43 - Acute on chronic combined systolic (congestive) and diastolic (congestive) heart failure Plan to address problem: Echocardiogram for ejection fraction Daily weights Daily intake and output Cardiology consult IV Lasix which may not work because of the end-stage renal disease (3) ESRD (end stage renal disease) Status: Acute Plan to address problem: Needs emergent hemodialysis Patient refused hemodialysis in the past (4) Anemia Status: Chronic Qualifiers: Anemia type: due to chronic kidney disease Plan to address problem: Secondary to chronic kidney disease (5) HTN (hypertension) Status: Chronic Qualifiers: Hypertension type: essential hypertension Qualified Code(s): I10 - Essent ial (primary) hypertension Plan to address problem: Continue antihypertensives (6) T2DM (type 2 diabetes mellitus) Status: Chronic Qualifiers: Diabetes mellitus detention insulin use: without termination clerk use Plan to address problem: We will stop the glimepiride because of the propensity to cause hypoglycemia (7) COPD (chronic obstructive pulmonary disease) Status: Chronic Qualifiers: Emphysema type: unspecified Plan to address problem: Continue duo nebs (8) DVT prophylaxis Status: Acute Plan to address problem: On heparin and GI prophylaxis Subjective Date of service: 07/02/20 Principal diagnosis: HF, A/CKD Interval history: This is an 80-year-old -[place] female presents to the emergency depart ment via EMS from home with a complaint of a 1 month history of shortness of breath that worsens with exertion. It is associated with some lower extremity swelling and an occasional cough. The patient says that she came in to be seen today because she had "had enough." She has a past medical history of CHF, diabetes, GERD, coronary artery disease, hypertension and remote breast cancer. Her primary care physician is Dr. Brooke. No recent travel or sick contacts at home. She denies any fever, chest pain, nausea, vomiting, diaphoresis, back pain. She has been using her home medications, including nebulizer treatments, without any relief. 07/01/20 Still very Sob 07/02 SOB better Objective - Constitutional Vitals: Vital Signs - 12hr 07/02/20 07/02/20 07/02/20 14:16 15:38 19:50 Temperature 98.1 F 98.1 F Pulse Rate 69 70 Pulse Rate [ From Monitor] Pulse Rate [ 74 Posterior Bilateral Throughout] Respiratory 18 18 Rate Respiratory 20 Rate [Posterior Bilateral Throughout] Blood Pressure 145/51 139/62 O2 Sat by Pulse 96 91 Oximetry 07/02/20 07/02/20 07/02/20 21:02 21:03 23:08 Temperature 98.1 F Pulse Rate 66 Pulse Rate [ From Monitor] Pulse Rate [ 66 Posterior Bilateral Throughout] Respiratory 18 Rate Respiratory 20 Rate [Posterior Bilateral Throughout] Blood Pressure 154/65 O2 Sat by Pulse 100 98 Oximetry 07/02/20 23:13 Temperature Pulse Rate Pulse Rate [ 68 From Monitor] Pulse Rate [ Posterior Bilateral Throughout] Respiratory Rate Respiratory Rate [Posterior Bilateral Throughout] Blood Pressure O2 Sat by Pulse Oximetry General appearance: Present: no acute distress, mild distress, well-nourished - EENT Eyes: PERRL, EOM intact ENT: hearing intact, clear oral mucosa Ears: bilateral: normal - Neck Neck: supple, normal ROM - Respiratory Respiratory effort: normal Respiratory: bilateral: CTA, rales, rhonchi, wheezing - Breasts Breasts: normal - Cardiovascular Heart rate: 88 Rhythm: regular Heart Sounds: Present: S1 & S2. Absent: gallop, rub Extremities: pulses intact, No edema, normal color, Full ROM - Gastrointestinal General gastrointestinal: Present: soft, non-tender, non-distended, normal bowel sounds - Genitourinary Female genitourinary: normal - Integumentary Integumentary: clear, warm, dry - Musculoskeletal Musculoskeletal: 1, strength equal bilaterally - Neurologic Neurologic: moves all extremities - Psychiatric Psychiatric: memory intact, appropriate mood/affect, intact judgment & insight - Allied health notes Allied health notes reviewed: nursing, case management - Labs CBC & Chem 7: 07/03/20 05:15 07/03/20 05:15 Labs: Abnormal lab results 07/02/20 07/02/20 07/02/20 Range/Units 10:11 10:11 11:18 RBC 2.91 L (3.65-5.03) M/mm3 Hgb 9.1 L (10.1-14.3) gm/dl Hct 27.7 L (30.3-42.9) % RDW 16.5 H (13.2-15.2) % POC Glucose 115 H (70-105) mg/dL Troponin T 0.143 H* (0.00-0.029) ng/mL 07/02/20 Range/Units 15:43 RBC (3.65-5.03) M/mm3 Hgb (10.1-14.3) gm/dl Hct (30.3-42.9) % RDW (13.2-15.2) % POC Glucose 107 H (70-105) mg/dL Troponin T (0.00-0.029) ng/mL HEART Score - HEART Score Troponin: Troponin T 0.143 ng/mL (0.00-0.029) H* 07/02/20 10:11
[2020-07-03] MEDS: FUROSEMIDE 40 MG/4 ML INJ IV SCH ×2 (05:48→17:03)
[2020-07-03 06:29] LABS: Hematocrit 25.8 % (30.3-42.9); Hemoglobin 8.6 gm/dl (10.1-14.3); Mean Corpuscular HGB Conc 34 % (30-34); Mean Corpuscular Volume 96 fl (79-97); Platelet Count 182 K/mm3 (140-440); Red Blood Count 2.68 M/mm3 (3.65-5.03); Red Cell Distribution Width 16.3 % (13.2-15.2)
[2020-07-03] MEDS: INSULIN LISPRO 100 UNIT/ML SUB-Q SCH ×3 (08:46→17:03)
[2020-07-03] MEDS: SODIUM BICARBONATE 650 MG TAB PO SCH ×2 (09:02→13:20)
[2020-07-03] MEDS: HEPARIN 5,000 UNIT/1 ML VIAL SUB-Q SCH (09:02)
[2020-07-03] MEDS: POTASSIUM CHLORIDE ER 20 MEQ TAB PO SCH (09:02)
[2020-07-03] MEDS: ASPIRIN 81 MG TAB CHEW PO SCH (09:02)
[2020-07-03] MEDS: PANTOPRAZOLE 40 MG TAB PO SCH (09:02)
[2020-07-03] MEDS: DOXAZOSIN 4 MG TAB PO SCH (09:03)
[2020-07-03] MEDS: amLODIPine 10 MG TAB PO SCH (09:03)
[2020-07-03] MEDS: LISINOPRIL 40 MG TAB PO SCH (09:03)
[2020-07-03] MEDS: ARFORMOTEROL 15 MCG/2 ML NEBU IH SCH (09:45)
[2020-07-03] MEDS: BUDESONIDE 0.5 MG/2 ML NEBU IH SCH (09:45)
--- NOTE | 2020-07-03 11:34 | Electrocardiograph Report ---
[facility] Test Date: 2020-06-30 Test Time: 11:31:23 Pat Name: JACINTA RAZA Department: Room: A456 Gender: F Chip Frier: WAYNE : 1940 Requested By: NICA LONGO Order Number: [id number] Reading MD: Chapin Caal Measurements Intervals [place] Rate: 64 P: 0 ME: 324 QRS: -23 QRSD: 100 T: 61 QT: 447 QTc: 463 Interpretive Statements Sinus rhythm Prolonged ME interval Low voltage, extremity leads Old inferior myocardial infarction Old anteroseptal myocardial infarction No previous ECG available for comparison Electronically Signed On 07-03-2020 11:34:23 EDT by Chapin Caal
[2020-07-03] MEDS ORDERED: MAGNESIUM SULFATE 2 GM/50 ML BAG IV ONE (12:00)
--- NOTE | 2020-07-03 12:01 | Electrocardiograph Report ---
[facility] Test Date: 2020-07-02 Test Time: 07:30:26 Pat Name: JACINTA RAZA Department: Room: A456 1 Gender: F [employer]: NICOLE : 1940 Requested By: NERISSA GIRARD Order Number: [id number] Reading MD: Chapin Caal Measurements Intervals [place] Rate: 63 P: 51 VT: 282 QRS: -11 QRSD: 94 T: 59 QT: 427 QTc: 439 Interpretive Statements Sinus arrhythmia with first-degree AV block Old inferior myocardial infarction Low voltage, extremity leads Compared to ECG 06/30/2020 11:31:23 Electronically Signed On 07-03-2020 12:01:25 EDT by Chapin Caal
[2020-07-03] MEDS: IPRATROPIUM/ALBUTEROL SULFATE 3 ML AMPUL.NEB IH SCH ×2 (12:04→14:16)
[2020-07-03 12:11] VITALS: BP 111/86
--- NOTE | 2020-07-03 14:44 | Progress Note ---
Assessment and Plan - Patient Problems (1) Acute kidney injury superimposed on CKD Current Visit: Yes Status: Acute Plan to address problem: patient has baseline chronic kidney disease stage V and really has not shown any significant change overall in regards to her laboratory studies. She is offon supplemental oxygen this am and has had adequate O2 saturations. No significant signs of uremia. Her labs otherwise did not indicate any necessary reason for acute start of hemodialysis at present time. I ideally would recommend if we can avoid permacath placement and instead set patient up as an outpatient for permanent vascular access in order to pursue dialysis. For now I will continue to monitor patient closely in the hospital and will continue with current Lasix regimen in order to help with her mild respiratory distress. Have discussed case in detail with vascular surgery and patient. From nephrology standpoint she is stable for discharge. Will need to have her set up with vascular surgery as an outpatient for vein mapping and permanent access placement. (2) Type 2 diabetes mellitus with diabetic chronic kidney disease Current Visit: Yes Status: Acute Plan to address problem: diabetes management per primary attending. (3) Acute respiratory failure with hypoxia Current Visit: Yes Status: Acute Plan to address problem: Chest x-ray indicating cardiomegaly and possible CHF exacerbation. Patient is pending echocardiogram and further cardiology evaluation. I agree with continuing on IV Lasix at present time. Will have her continue outpatient lasix regimen. (4) HTN (hypertension) Current Visit: Yes Status: Chronic Qualifiers: Hypertension type: essential hypertension Qualified Code(s): I10 - Essential (primary) hypertension Plan to address problem: we will monitor blood pressures closely under current regimen. (5) HLD (hyperlipidemia) Current Visit: Yes Status: Chronic Qualifiers: Hyperlipidemia type: mixed hyperlipidemia Qualified Code(s): E78.2 - Mixed hyperlipidemia Plan to address problem: continue outpatient statin therapy. Subjective Date of service: 07/03/20 Principal diagnosis: HF, A/CKD Interval history: No acute changes in overall renal function. Pending DC today. Objective - Vital Signs Vital signs: Vital Signs - 12hr 07/03/20 07/03/20 07/03/20 03:00 04:07 08:11 Temperature 98.2 F 98.1 F Pulse Rate 66 67 64 Pulse Rate [ Posterior Bilateral Throughout] Respiratory 18 18 Rate Respiratory Rate [Posterior Bilateral Throughout] Blood Pressure 164/65 179/86 Blood Pressure [Right] O2 Sat by Pulse 96 99 Oximetry 07/03/20 07/03/20 07/03/20 09:02 09:03 09:45 Temperature Pulse Rate 64 64 Pulse Rate [ 68 Posterior Bilateral Throughout] Respiratory Rate Respiratory 18 Rate [Posterior Bilateral Throughout] Blood Pressure 169/86 169/86 Blood Pressure [Right] O2 Sat by Pulse 100 Oximetry 07/03/20 12:08 Temperature 97.7 F Pulse Rate 67 Pulse Rate [ Posterior Bilateral Throughout] Respiratory 18 Rate Respiratory Rate [Posterior Bilateral Throughout] Blood Pressure Blood Pressure 111/86 [Right] O2 Sat by Pulse 98 Oximetry - General Appearance General appearance: well-developed, appears stated age EENT: ATNC Neck: no JVD Respiratory: Present: Clear to Ascultation Cardiology: regular Gastrointestinal: normal Integumentary: no rash Neurologic: no focal deficit Musculoskeletal: deferred Psychiatric: cooperative - Lab 07/03/20 05:15 07/03/20 05:15 Most recent lab results ABG pH 7.335 (7.320-7.450) 06/30/20 10:56 ABG O2 Saturation 85.1 (0-100) 06/30/20 10:56 Calcium 8.0 mg/dL (8.4-10.2) L 07/03/20 05:15 Magnesium 1.00 mg/dL (1.7-2.3) L 07/03/20 05:15 - Allied health notes Allied health notes reviewed: nursing Medications & Allergies - Medications Allergies/Adverse Reactions: Allergies No Known Allergies Allergy (Verified 05/02/18 10:53) Home Medications: Home Medications Medication Instructions Recorded Confirmed Last Taken Type Anastrozole 1 mg PO QDAY 01/10/19 06/30/20 Unknown History calcitrioL [Rocaltrol] 0.25 mcg PO 3XW 01/10/19 06/30/20 Unknown History Anastrozole (Nf) 1 mg PO DAILY 01/15/19 06/30/20 Unknown Rx Arformoterol Nebu [Brovana Nebu] 15 mcg IH Q12HRT #60 ml 01/15/19 06/30/20 Unknown Rx Aspirin [Aspirin BABY CHEW TAB] 81 mg PO QDAY #30 tab.chew 01/15/19 06/30/20 Unknown Rx AtorvaSTATin [Lipitor] 40 mg PO QHS #30 tablet 01/15/19 06/30/20 Unknown Rx Budesonide [Pulmicort Respules] 0.5 mg IH Q12HRT #60 nebu 01/15/19 06/30/20 Unknown Rx Doxazosin [Cardura] 4 mg PO QDAY #30 tablet 01/15/19 06/30/20 Unknown Rx Ergocalciferol [Vitamin D2] 1 cap PO QWEEK #13 cap 01/15/19 06/30/20 Unknown Rx Glimepiride [Amaryl] 4 mg PO QAM #30 01/15/19 06/30/20 Unknown Rx ISOSORBIDE MONOnitrate [Imdur ER] 120 mg PO QDAY #30 tablet 01/15/19 06/30/20 Unknown Rx Ipratropium/Albuterol Sulfate 1 ampul IH TIDRT ampul.neb 01/15/19 06/30/20 Unknown Rx [DUONEB *Not for PRN Use*] [place]-3 Fatty Acids/Fish Oil [Fish 1,000 mg PO BID #60 capsule 01/15/19 06/30/20 Unknown Rx Oil] Pantoprazole [Protonix TAB] 40 mg PO DAILY #30 tablet 01/15/19 06/30/20 Unknown Rx Sodium Bicarbonate 650 mg PO TID #90 tablet 01/15/19 06/30/20 Unknown Rx amLODIPine 5 mg PO QDAY #30 tablet 01/15/19 06/30/20 Unknown Rx amLODIPine 10 mg PO DAILY #30 01/15/19 06/30/20 Unknown Rx lisinopriL [Zestril TAB] 40 mg PO QDAY #30 01/15/19 06/30/20 Unknown Rx traMADoL [Ultram 50 MG tab] 50 mg PO Q12H PRN #8 tablet 01/15/19 06/30/20 Unknown Rx Active Medications: Generic Name Dose Route Start Last Admin Trade Name Freq PRN Reason Stop Dose Admin Acetaminophen 650 mg 06/30/20 22:46 07/01/20 10:14 Acetaminophen 325 Mg Tab PO 650 mg Q4H PRN Administration Pain MILD(1-3)/Fever >100.5/BONILLA Albuterol 2.5 mg 07/01/20 08:27 Albuterol 2.5 Mg/3 Ml Nebu IH Q4HRT PRN Wheezing Albuterol/Ipratropium 1 ampul 07/01/20 14:00 07/03/20 14:16 Ipratropium/Albuterol Sulfate 3 Ml Ampul.Neb IH Not Given TIDRT [facility] Amlodipine Besylate 10 mg 07/01/20 10:00 07/03/20 09:03 Amlodipine 10 Mg Tab PO 10 mg DAILY VALERY Administration Arformoterol Tartrate 15 mcg 07/01/20 20:00 07/03/20 09:45 Arformoterol 15 Mcg/2 Ml Nebu IH 15 mcg Q12HRT VALERY Administration Aspirin 81 mg 07/01/20 10:00 07/03/20 09:02 Aspirin 81 Mg Tab Chew PO 81 mg QDAY [facility] Administration Atorvastatin Calcium 40 mg 07/01/20 22:00 07/02/20 21:18 Atorvastatin 40 Mg Tab PO 40 mg QHS VALERY Administration Budesonide 0.5 mg 07/01/20 20:00 07/03/20 09:45 Budesonide 0.5 Mg/2 Ml Nebu IH 0.5 mg Q12HRT VALERY Administration Doxazosin Mesylate 4 mg 07/01/20 10:00 07/03/20 09:03 Doxazosin 4 Mg Tab PO 4 mg QDAY VALERY Administration Furosemide 40 mg 07/01/20 06:00 07/03/20 05:48 Furosemide 40 Mg/4 Ml Inj IV 40 mg 0600,1800 [facility] Administration Heparin Sodium (Porcine) 5,000 unit 06/30/20 23:15 07/03/20 09:02 Heparin 5,000 Unit/1 Ml Vial SUB-Q 5,000 unit Q12HR VALERY Administration Hydralazine HCl 5 mg 07/01/20 04:54 07/02/20 04:27 Hydralazine 20 Mg/1 Ml Inj IV 5 mg Q4HR PRN Administration Hypertension Insulin Human Lispro 0 unit 07/01/20 07:30 07/03/20 12:04 Insulin Lispro 100 Unit/Ml SUB-Q Not Given ACHS [facility] Protocol Isosorbide Mononitrate 120 mg 07/01/20 10:00 07/03/20 09:02 Isosorbide Mononitrate Er 60 Mg Tab PO 120 mg QDAY VALERY Administration Lisinopril 40 mg 07/01/20 10:00 07/03/20 09:03 Lisinopril 40 Mg Tab PO 40 mg QDAY VALERY Administration Metoclopramide HCl 2.5 mg 06/30/20 23:18 Metoclopramide 10 Mg/2 Ml Inj IV Q6H PRN Nausea And Vomiting Miscellaneous Medication 1 mg 07/01/20 10:00 Anastrozole [Anastrozole] PO QDAY VALERY Morphine Sulfate 2 mg 06/30/20 22:46 Morphine 2 Mg/1 Ml Inj IV Q4H PRN Pain, Moderate (4-6) Ondansetron HCl 4 mg 06/30/20 22:46 Ondansetron 4 Mg/2 Ml Inj IV Q8H PRN Nausea And Vomiting Oxycodone/Acetaminophen 1 tab 06/30/20 22:46 Oxycodone /Acetaminophen 5-325mg Tab PO Q6H PRN Pain, Moderate (4-6) Pantoprazole Sodium 40 mg 07/01/20 10:00 07/03/20 09:02 Pantoprazole 40 Mg Tab PO 40 mg DAILY VALERY Administration Sodium Bicarbonate 650 mg 07/01/20 08:00 07/03/20 13:20 Sodium Bicarbonate 650 Mg Tab PO 650 mg TID VALERY Administration Sodium Chloride 10 ml 07/01/20 10:00 07/03/20 09:04 Sodium Chloride 0.9% 10 Ml Flush Syringe IV 10 ml BID VALERY Administration Sodium Chloride 10 ml 06/30/20 22:46 Sodium Chloride 0.9% 10 Ml Flush Syringe IV PRN PRN LINE FLUSH Tramadol HCl 50 mg 06/30/20 22:40 Tramadol 50 Mg Tab PO Q12H PRN Pain, Moderate (4-6)
--- NOTE | 2020-07-03 18:10 | Discharge Summary ---
Providers - Providers Date of Admission: 06/30/20 12:57 Date of discharge: 07/03/20 Attending physician: AMY MISHRA 06/30/20 23:00 Consult to Physician [CONS] Routine Comment: Consulting Provider: ÁNGEL JAIN Physician Instructions: Reason For Exam: CHF exacerbation 06/30/20 23:02 Consult to Physician [CONS] Routine Comment: Consulting Provider: WAYNE LEIGH Physician Instructions: Reason For Exam: End-stage renal disease-needs Vas-Cath 07/01/20 08:31 Consult to Physician [CONS] Routine Comment: Consulting Provider: PAUL GAR Physician Instructions: CONSULT FOR OUTPATIENT HD Reason For Exam: ESRD Primary care physician: CHRISTOPH COWAN Hospitalization Condition: Serious Hospital course: Subjective Date of service: 07/03/20 Principal diagnosis: HF, A/CKD Interval history: This is an 80-year-old -[place] female presents to the emergency department via EMS from home with a complaint of a 1 month history of shortness of breath that worsens with exertion. It is associated with some lower extremit y swelling and an occasional cough. The patient says that she came in to be seen today because she had "had enough." She has a past medical history of CHF, diabetes, GERD, coronary artery disease, hypertension and remote breast cancer. Her primary care physician is Dr. Cowan. No recent travel or sick contacts at home. She denies any fever, chest pain, nausea, vomiting, diaphoresis, back pain. She has been using her home medications, including nebulizer treatments, without any relief. 07/01/20 Still very Sob 07/02 SOB better 07/03/20 SOB better Assessment and Plan - Patient Problems (1) Acute respiratory failure with hypoxia Status: Acute Plan to address problem: Improved HD (2) CHF exacerbation Status: Acute Qualifiers: Heart failure type: combined systolic and diastolic Qualified Code(s): I50.43 - Acute on chronic combined systolic (congestive) and diastolic (congestive) heart failure Plan to address problem: Echocardiogram for ejection fraction 55 to 60 percent (3) ESRD (end stage renal disease) Status: Acute Plan to address problem: HD per schedule (4) Anemia Status: Chronic Qualifiers: Anemia type: due to chronic kidney disease Plan to address problem: Secondary to chronic kidney disease (5) HTN (hypertension) Status: Chronic Qualifiers: Hypertension type: essential hypertension Qualified Code(s): I10 - Essential (primary) hypertension Plan to address problem: Continue antihypertensives (6) T2DM (type 2 diabetes mellitus) Status: Chronic Qualifiers: Diabetes mellitus [employer] insulin use: without [employer] use Plan to address problem: We will stop the glimepiride because of the propensity to cause hypoglycemia (7) COPD (chronic obstructive pulmonary disease) Status: Chronic Qualifiers: Emphysema type: unspecified Plan to address problem: Continue duo nebs (8) DVT prophylaxis Status: Acute Plan to address problem: On heparin and GI prophylaxis Disposition: TO HOME OR SELFCARE Final Discharge Diagnosis (Prints w/discharge instructions): Acute resp failure with hypoxia. CHF exacerbation. Htn. ESRd Time spent for discharge: 35 minutes - Discharge Diagnoses (1) Acute respiratory failure with hypoxia Status: Acute (2) CHF exacerbation Status: Acute Qualifiers: Heart failure type: combined systolic and diastolic Qualified Code(s): I50.43 - Acute on chronic combined systolic (congestive) and diastolic (congestive) heart failure (3) ESRD (end stage renal disease) Status: Acute (4) Anemia Status: Chronic Qualifiers: Anemia type: due to chronic kidney disease (5) HTN (hypertension) Status: Chronic Qualifiers: Hypertension type: essential hypertension Qualified Code(s): I10 - Essential (primary) hypertension (6) T2DM (type 2 diabetes mellitus) Status: Chronic Qualifiers: Diabetes mellitus [employer] insulin use: without [employer] use (7) COPD (chronic obstructive pulmonary disease) Status: Chronic Qualifiers: Emphysema type: unspecified (8) DVT prophylaxis Status: Acute Core Measure Documentation - Palliative Care Palliative Care/ Comfort Measures: Not Applicable - Core Measures Any of the following diagnoses?: none Exam - Constitutional Vitals: Temp Pulse Resp BP Pulse Ox 97.7 F 67 18 111/86 98 07/03/20 12:08 07/03/20 12:08 07/03/20 12:08 07/03/20 12:08 07/03/20 12:08 General appearance: Present: no acute distress, well-nourished - EENT Eyes: Present: PERRL ENT: hearing intact, clear oral mucosa - Neck Neck: Present: supple, normal ROM - Respiratory Respiratory effort: normal Respiratory: bilateral: CTA - Cardiovascular Heart rate: 78 Rhythm: regular Heart Sounds: Present: S1 & S2. Absent: rub, click - Extremities Extremities: pulses symmetrical, No edema Peripheral Pulses: within normal limits - Abdominal General gastrointestinal: Present: soft, non-tender, non-distended, normal bowel sounds Female genitourinary: Present: normal - Integumentary Integumentary: Present: clear, warm, dry - Musculoskeletal Musculoskeletal: gait normal, strength equal bilaterally - Psychiatric Psychiatric: appropriate mood/affect, intact judgment & insight - Neurologic Neurologic: CNII-XII intact, moves all extremities - Allied Health Allied health notes reviewed: nursing, case management Plan Activity: no restrictions Diet: renal Follow up with: CHRISTOPH COWAN MD [Primary Care Provider] - 7 Days Prescriptions: amLODIPine 10 mg PO DAILY #30 tablet Aspirin [Aspirin BABY CHEW TAB] 81 mg PO QDAY #30 tab.chew Arformoterol Nebu [Brovana Nebu] 15 mcg IH Q12HRT 30 Days #60 ml Doxazosin [Cardura] 4 mg PO QDAY #30 tablet Ipratropium/Albuterol Sulfate [DUONEB *Not for PRN Use*] 1 ampul IH TIDRT #50 ampul.neb ISOSORBIDE MONOnitrate [Imdur ER] 120 mg PO QDAY #30 tablet Potassium Chloride [K-Dur] 20 meq PO QDAY #30 tablet Furosemide [Lasix TAB] 40 mg PO BID #60 tablet AtorvaSTATin [Lipitor] 40 mg PO QHS #30 tablet Budesonide [Pulmicort Respules] 0.5 mg IH Q12HRT #20 nebu Sodium Bicarbonate 650 mg PO TID #90 tablet lisinopriL [Zestril TAB] 40 mg PO QDAY #30 tablet
--- NOTE | 2020-07-03 21:03 | Progress Note ---
Assessment and Plan Ultimately plan for HD as an outpatient. Continue IV diuresis for now. Anticipate transition to PO diuretics in the next 1-2 days. Mg repletion underway. F/u BMP & Mg in AM. Will optimize antihypertensive regimen. Plan for ischemic eval when clinically stable. Pt seen in conjunction with Dr. Popeye Leon, who agrees with the assessment and plan of care. - Patient Problems (1) Acute on chronic heart failure with preserved ejection fraction Status: Acute (2) Acute kidney injury superimposed on CKD Status: Acute (3) Anemia in chronic kidney disease (CKD) Status: Chronic Qualifiers: Chronic kidney disease stage: stage 3 (moderate) (4) Elevated d-dimer Status: Acute (5) COPD (chronic obstructive pulmonary disease) Status: Chronic Qualifiers: Emphysema type: unspecified (6) Severe pulmonary hypertension Status: Chronic (7) NSTEMI (non-ST elevated myocardial infarction) Status: Acute Plan to address problem: Type 2 (8) HTN (hypertension) Status: Chronic Qualifiers: Hypertension type: essential hypertension Qualified Code(s): I10 - Essent ial (primary) hypertension (9) Type 2 diabetes mellitus Status: Chronic Qualifiers: Diabetes mellitus complication detail: with chronic kidney disease Chronic kidney disease stage: stage 5, not on chronic dialysis (10) History of CVA (cerebrovascular accident) Status: Chronic Subjective Date of service: 07/03/20 Principal diagnosis: A/C HFpEF, RAUL/CKD Interval history: Lying flat in bed comfortably upon exam. Still SOB with exertion. On 1.5L NC. - 1900 mL UOP/24 hs. Tele reviewed - SR/1st degree AVB 70s w/PACs. Objective Last Vital Signs Temp 97.7 F 07/03/20 12:08 Pulse 67 07/03/20 12:08 Resp 18 07/03/20 12:08 BP 111/86 07/03/20 12:08 Pulse Ox 98 07/03/20 12:08 - Physical Examination General: No Apparent Distress HEENT: Positive: EOMI, Normocephaly, Mucus Membranes Moist Neck: Positive: neck supple, trachea midline. Negative: JVD/HJR Cardiac: Positive: Reg Rate and Rhythm, S1/S2 Lungs: Positive: Decreased Breath Sounds (bases) Neuro: Positive: Grossly Intact Abdomen: Positive: Firm. Negative: Tender Skin: Negative: Rash, Wound Musculoskeletal: Normal Range of Motion Extremities: Present: upper extr. pulses, lower extr. pulses, +1 Edema, Other (BLE wrinkling noted, edema improving) - Labs and Meds CBC 07/03/20 Range/Units 05:15 WBC 5.9 (4.5-11.0) K/mm3 RBC 2.68 L (3.65-5.03) M/mm3 Hgb 8.6 L (10.1-14.3) gm/dl Hct 25.8 L (30.3-42.9) % Plt Count 182 (140-440) K/mm3 Comprehensive Metabolic Panel 07/03/20 Range/Units 05:15 Sodium 142 (137-145) mmol/L Potassium 5.0 (3.6-5.0) mmol/L Chloride 108.4 H (98-107) mmol/L Carbon Dioxide 21 L (22-30) mmol/L BUN 62 H (7-17) mg/dL Creatinine 6.3 H (0.6-1.2) mg/dL Glucose 100 (65-100) mg/dL Calcium 8.0 L (8.4-10.2) mg/dL - Imaging and Cardiology EKG: report reviewed, image reviewed Echo: report reviewed (06/30/2020 - EF 55-60%, mild , severe pulm HTN) - Telemetry EKG Rhythm: Sinus Rhythm - EKG Sinus rhythms and dysrhythmias: sinus rhythm AV and intraventricular conduction: 1 AV block Myocardial infarction: septal CO (old age or ind - Allied health notes Allied health notes reviewed: nursing
== END 2020-07-03 19:44 | disposition home or self-care (01) | DRG 280 ==
LOC: ED 09:16 → 4A 12:57
PROVIDERS: ADMIT Internal Medicine; ATTEND Internal Medicine
PROC: 4A033R1 Measurement of Arterial Saturation, Peripheral, Percutaneous Approach (ICD-10-PCS; principal; 2020-06-30)
DX: I13.2 Hypertensive heart and chronic kidney disease with heart failure and with stage 5 chronic kidney disease, or end stage renal disease (principal); I50.41 Acute combined systolic (congestive) and diastolic (congestive) heart failure; I21.A1 Myocardial infarction type 2; N18.6 End stage renal disease; J96.01 Acute respiratory failure with hypoxia; N17.9 Acute kidney failure, unspecified; E11.22 Type 2 diabetes mellitus with diabetic chronic kidney disease; I25.10 Atherosclerotic heart disease of native coronary artery without angina pectoris; E78.2 Mixed hyperlipidemia; K21.9 Gastro-esophageal reflux disease without esophagitis; R77.8 Other specified abnormalities of plasma proteins; I44.0 Atrioventricular block, first degree; Z20.822 Contact with and (suspected) exposure to COVID-19; D63.1 Anemia in chronic kidney disease; J44.9 Chronic obstructive pulmonary disease, unspecified; I27.20 Pulmonary hypertension, unspecified; M19.90 Unspecified osteoarthritis, unspecified site; Z79.899 Other long term (current) drug therapy; Z86.73 Personal history of transient ischemic attack (TIA), and cerebral infarction without residual deficits; Z85.3 Personal history of malignant neoplasm of breast; Z90.12 Acquired absence of left breast and nipple
CPT/HCPCS: 36415; 71045; 78580; 80048; 80053; 80061; 80074; 80076; 82805; 82962; 83036; 83735; 83880; 84484; 85025; 85027; 85379; 93005; 93306; 94640; 96365; 96375; G0378; A9270-GY; A9540; J0360; J0690; J1644; J1940; J2250; J3010; J3475; J7050; U0003

== ENCOUNTER 2020-08-04 09:25 | Emergency (ER) | payer MEDICARE ==
--- NOTE | 2020-08-04 09:49 | Emergency Department Report ---
HPI - General Time Seen by Provider: 08/04/20 09:45 - HPI HPI: Room 2 The patient is an 80-year-old female present with a chief complaint of cardiac arrest. Per EMS the patient began to vomit and then complained of chest pain before collapsing. EMS arrived on scene to find the patient in PEA. ACLS protocols were initiated the patient was intubated using a Konrad airway and chest compressions started by EMS. EMS states the patient went to [facility] at one point and responded to defibrillation. EMS administered 3 epi and 1 sodium bicarb prior to arrival. Upon arrival to the ED the Konrad airway was removed and the patient was intubated by myself using a 7.0 ET tube. ACLS protocols were continued but there was no return of spontaneous circulation ED Past Medical Hx - Past Medical History Hx Hypertension: Yes Hx Heart Attack/AMI: Yes (? [place] PER PT 2012) Hx Congestive Heart Failure: Yes Hx Diabetes: Yes Hx GERD: Yes Hx Renal Disease: Yes Hx Arthritis: Yes (KNEES) Hx HIV: No Additional medical history: Breast CA - Surgical History Additional Surgical History: left mastectomy - Family History Family history: no significant - Social History Smoking Status: Unknown if ever smoked Substance Use Type: None - Medications Home Medications: Home Medications Medication Instructions Recorded Confirmed Last Taken Type calcitrioL [Rocaltrol] 0.25 mcg PO 3XW 01/10/19 06/30/20 Unknown History Anastrozole (Nf) 1 mg PO DAILY 01/15/19 06/30/20 Unknown Rx Ergocalciferol [Vitamin D2] 1 cap PO QWEEK #13 cap 01/15/19 06/30/20 Unknown Rx Ipratropium/Albuterol Sulfate 1 ampul IH TIDRT ampul.neb 01/15/19 06/30/20 U nknown Rx [DUONEB *Not for PRN Use*] [place]-3 Fatty Acids/Fish Oil [Fish 1,000 mg PO BID #60 capsule 01/15/19 06/30/20 Unknown Rx Oil] Pantoprazole [Protonix TAB] 40 mg PO DAILY #30 tablet 01/15/19 06/30/20 Unknown Rx amLODIPine 5 mg PO QDAY #30 tablet 01/15/19 06/30/20 Unknown Rx traMADoL [Ultram 50 MG tab] 50 mg PO Q12H PRN #8 tablet 01/15/19 06/30/20 Unknown Rx Anastrozole [Anastrozole] 1 mg PO QDAY 07/03/20 Unknown Rx Arformoterol Nebu [Brovana Nebu] 15 mcg IH Q12HRT 30 Days #60 ml 07/03/20 Unknown Rx Aspirin [Aspirin BABY CHEW TAB] 81 mg PO QDAY #30 tab.chew 07/03/20 Unknown Rx AtorvaSTATin [Lipitor] 40 mg PO QHS #30 tablet 07/03/20 Unknown Rx Budesonide [Pulmicort Respules] 0.5 mg IH Q12HRT #20 nebu 07/03/20 Unknown Rx Doxazosin [Cardura] 4 mg PO QDAY #30 tablet 07/03/20 Unknown Rx Furosemide [Lasix TAB] 40 mg PO BID #60 tablet 07/03/20 Unknown Rx ISOSORBIDE MONOnitrate [Imdur ER] 120 mg PO QDAY #30 tablet 07/03/20 Unknown Rx Ipratropium/Albuterol Sulfate 1 ampul IH TIDRT #50 ampul.neb 07/03/20 Unknown Rx [DUONEB *Not for PRN Use*] Potassium Chloride [K-Dur] 20 meq PO QDAY #30 tablet 07/03/20 Unknown Rx Sodium Bicarbonate 650 mg PO TID #90 tablet 07/03/20 Unknown Rx amLODIPine 10 mg PO DAILY #30 tablet 07/03/20 Unknown Rx lisinopriL [Zestril TAB] 40 mg PO QDAY #30 tablet 07/03/20 Unknown Rx ED Review of Systems ROS: Stated complaint: CARDIAC ARREST Other details as noted in HPI Comment: Unobtainable due to pts medical conditions Physical Exam - Physical Exam Physical Exam: GENERAL: The patient is well-developed well-nourished female on stretcher being bagged via Konrad airway and receiving chest compressions. [] HEENT: Normocephalic. Atraumatic. NECK: Supple. Trachea midline CHEST/LUNGS: Breath sounds equal bilaterally with bagging after intubation by myself. HEART/CARDIOVASCULAR: There are no heart sounds ABDOMEN: There is no abdominal distention. SKIN: There is no rash. There is no edema. There is no diaphoresis. NEURO: GCS 3 T MUSCULOSKELETAL: There is no evidence of acute injury. - Intubation Time Out Performed: No Sedative: none Laryngoscope: Marek Size: 3 ET Tube Size: 7 Tube Secured Depth (cm): 21 Tube Secured Location: lips Tube Placement Confirmation: visualized tube passing t, equal breath sounds bilat, no breath sounds over epi, confirmation by capnometr Patient Tolerated Procedure: no complications Intubation Complications: none ED Medical Decision Making - Differential Diagnosis Cardiac arrest Critical care attestation.: If time is entered above; I have spent that time in minutes in the direct care of this critically ill patient, excluding procedure time. ED Disposition Clinical Impression: Cardiac arrest Disposition: DC-20 Is pt being admited?: No Does the pt Need Aspirin: No Condition: Poor Time of Disposition: 09:45 (Patient )
== END 2020-08-04 12:30 ==
LOC: ED 09:25
DX: I46.9 Cardiac arrest, cause unspecified (principal); I11.0 Hypertensive heart disease with heart failure; I50.9 Heart failure, unspecified; E11.9 Type 2 diabetes mellitus without complications; K21.9 Gastro-esophageal reflux disease without esophagitis; M19.91 Primary osteoarthritis, unspecified site; Z98.890 Other specified postprocedural states; Z79.899 Other long term (current) drug therapy
CPT/HCPCS: 31500; 92950